=== PATIENT | male | born 1960 | race Caucasian/White ===

== ENCOUNTER → 2016-09-19 | Emergency (ER) | payer OTHER ==
[2016-09-19 20:17] VITALS: BMI 29.1
--- NOTE | 2016-09-19 20:55 | PDOC ---
History of Present Illness <Malcolm Li - Last Filed: 09/20/16 00:11> - General History Source: [facility] Records, Old Records, Other (Facility staff member ) Exam Limitations: Clinical Condition - History of Present Illness Initial Comments: 09/19/16 23:10 The patient is a 56 year old male, with a significant past medical history of cerebral palsy, Brad-Gastaut Syndrome s/p corpus callosotomy, pneumonia w/ aspirations and severe mental retardation, who presents to the emergency department via EMS from [facility] for evaluation for altered mental status. Staff at his facility noted today that the patient seemed to be altered from his baseline so they initiated EMS to bring him to the ED for further evaluation. The patient is nonverbal and therefore, no history can be provided from him. HPI is entirely provided by a jail staff member )who is at the bedside) and old records. Allergies: Divalproex Sodium, Paroxetine HCl, Valproic Acid. Past Surgical History: G Tube; Pacemaker; Corpus Callosotomy. PCP: Dr. Edgar Turner <Babs Quinones - Last Filed: 09/20/16 00:17> - General Chief Complaint: Lethargy Stated Complaint: Altered Mental Status Time Seen by Provider: 09/19/16 20:36 Past History - Past Medical History Anemia: No Asthma: No Cancer: No Cardiac Disorders: No CVA: No COPD: No CHF: No Dementia: No Diabetes: No GI Disorders: No Disorders: No HTN: No Hypercholesterolemia: No Liver Disease: No Seizures: Yes Thyroid Disease: No - Surgical History Abdominal Surgery: No Appendectomy: No Cardiac Surgery: Yes (pacemaker) Cholecystectomy: No Lung Surgery: No Orthopedic Surgery: No - Immunization History Td Vaccination: Yes TDAP Vaccination: Yes Immunization Up to Date: Yes - Psycho/Social/Smoking Cessation Hx Anxiety: No Suicidal Ideation: No Smoking Status: No Smoking History: Unknown if ever smoked Years of Tobacco Use: 0 Have you smoked in the past 12 months: No Number of Cigarettes Smoked Daily: 0 Cigars Per Day: 0 Information on smoking cessation initiated: No Hx Alcohol Use: No Drug/Substance Use Hx: No Substance Use Type: None Hx Substance Use Treatment: No <Malcolm Li - Last Filed: 09/20/16 00:11> <Babs Quinones - Last Filed: 09/20/16 00:17> - Past Medical History Allergies/Adverse Reactions: Allergies Allergy/AdvReac Type Severity Reaction Status Date / Time divalproex sodium Allergy Unknown Verified 09/19/16 20:12 [From Depakote] paroxetine HCl [From Paxil] Allergy Unknown Verified 09/19/16 20:12 valproic acid Allergy Verified 09/19/16 20:12 Home Medications: Ambulatory Orders Albuterol 2.5/Ipratropium 0.5 [Duoneb -] 1 amp NEB TID 09/15/15 Bimatoprost [Lumigan] 1 drop OU HS 09/15/15 Calcium Carbonate/Vitamin D3 [Calcium 600 + Vit D 400 Softgl] 1 each PEG TID 01/22 Clobazam [Onfi -] 10 mg PEG QID 09/15/15 Lacosamide [Vimpat] 200 mg PEG BID 09/15/15 Lactobac #2-S. Therm-Bifido #1 [Vsl#3 Packet] 1 each PEG BID 09/15/15 Levetiracetam [Keppra] 1,500 mg PEG Q12H 09/15/15 Lorazepam [Ativan] 2 mg IM PRN PRN 09/15/15 Phenobarbital 80 mg PEG AM 09/15/15 Phenobarbital 100 mg PEG HS 09/15/15 Potassium Chloride Oral Soln [KCl Oral Solution -] 20 meq PEG DAILY 09/15/15 Ranitidine HCl [Zantac] 150 mg PEG BID 09/15/15 Sertraline HCl [Zoloft] 150 mg PEG DAILY 09/15/15 Simethicone [Mytab Gas] 160 mg PEG TID 09/15/15 Zonisamide [Zonegran] 300 mg PEG BID 09/15/15 Carboxymethylcellulos/Glycerin [Refresh Optive Eye Drops] 2 drop OU QID Diazepam Rectal Gel [Diastat Rectal Gel -] 15 mg [place] PRN PRN 12/29/15 Olopatadine HCl [Pataday] 1 drop OU DAILY 12/29/15 Sennosides [Senna -] 2 tab PEG AM 12/29/15 Travoprost [Travatan Z] 2.5 ml OP DAILY 12/29/15 Review of Systems - Review of Systems Able to Perform ROS?: No Comments:: 09/19/16 21:14 Unable to perform ROS due to the patients baseline clinical condition. <Babs Quinones - Last Filed: 09/20/16 00:17> *Physical Exam - Vital Signs Last Vital Signs Temp Pulse Resp BP Pulse Ox 97.4 F L 73 18 118/77 100 09/19/16 20:12 09/19/16 20:12 09/19/16 20:12 09/19/16 20:12 09/19/16 20:12 - Physical Exam Comments: 09/20/16 00:09 EXAMINATION CONSTITUTIONAL: Lethargic, opens his eyes to verbal stimuli, nonverbal, doesn't follow commands;; in no apparent distress HEAD: Normocephalic; atraumatic EYES: PERRL; ENMT: External appears normal; mm-dry NECK: Supple; non-tender; CARD: Normal S1, S2; no murmurs, rubs, or gallops RESP: Normal chest excursion with respiration; breath sounds clear and equal bilaterally; no wheezes, rhonchi, or rales ABD: Soft, non-distended; non-tender; no palpable organomegaly, no palpable hernias; + feeding tube in the left upper quadrant; EXT: Upper and lower extremities held in Extension contractures; non-tender to palpation; distal pulses intact SKIN: Warm, dry, no petechia NEURO: Lethargic, opens his eyes to verbal stimuli, does not verbalize, does not follow commands, no spontaneous movements and noted. <Malcolm Li - Last Filed: 09/20/16 00:11> - Vital Signs Last Vital Signs Temp Pulse Resp BP Pulse Ox 97.4 F L 73 18 118/77 100 09/19/16 20:12 09/19/16 20:12 09/19/16 20:12 09/19/16 20:12 09/19/16 20:12 <Babs Quinones - Last Filed: 09/20/16 00:17> Heart Score/ECG Review #1 ECG reviewed & interpreted by me at: 20:25 (Vent Rate: 71 bpm. Normal sinus rhythm. 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 In the ER, patient appears at baseline according to the staff member accompanying the patient. Patient is afebrile and hemodynamically stable. CBC/ CMP within normal limit. There've been no tonic-clonic seizures in the ED. Will discharge. <Malcolm Li - Last Filed: 09/20/16 00:11> *DC/Admit/Observation/Transfer - Attestations Physician Attestion: 09/20/16 00:09 The documentation was prepared by the scribe under my direct supervision. I have reviewed the documentation which correctly represents the findings, medical decision-making and critical action taken by me. <Malcolm Li - Last Filed: 09/20/16 00:11> - Attestations Scribe Attestion: 09/19/16 20:56 Documentation prepared by Babs Quinones, acting as medical manager for Malcolm Li MD. <Babs Quinones - Last Filed: 09/20/16 00:17> Diagnosis at time of Disposition: Altered mental status Qualifiers: Altered mental status type: unspecified Qualified Code(s): R41.82 - Altered mental status, unspecified - Discharge Dispostion Disposition: HOME Condition at time of disposition: Stable - Referrals Referrals: Edgar Turner [Primary Care Provider] - - Patient Instructions Printed Discharge Instructions: DI for Altered Mental Status
[2016-09-19] MEDS: SODIUM CHLORIDE 500 ML IV STA (22:04)
[2016-09-19 22:10] LABS: BASOPHIL 0.1 % (0-2.0); EOSINOPHIL 1.5 % (0-4.5); MCH 34.6 pg (25.7-33.7); MCHC 34.2 g/dl (32.0-35.9); MEAN CELL VOLUME 100.9 fl (80-96); MEAN PLT VOLUME 7.7 fl (7.5-11.1); NEUTROPHILS 74.3 % (42.8-82.8); PLATELET COUNT 177 K/MM3 (134-434); RDW 13.1 % (11.9-15.9); WHITE BLOOD COUNT 7.4 K/mm3 (4.0-10.0)
[2016-09-19 22:54] LABS: ALBUMIN 3.7 g/dl (3.4-5.0); ANION GAP 7 (8-16); BILIRUBIN,TOTAL 0.2 mg/dL (0.2-1.0); CALCIUM 8.8 mg/dL (8.5-10.1); CO2 35 mmol/L (21-32); COCKROFT - GAULT 154.34; CREATININE 0.6 mg/dL (0.7-1.3); GLUCOSE,RANDOM 94 mg/dL (74-106); MAGNESIUM 2.3 mg/dL (1.8-2.4); SGPT/ALT 30 U/L (12-78); TOT PROT 8.6 g/dl (6.4-8.2)
[2016-09-19 22:58] LABS: ALK PHOS 121 U/L (45-117); SGOT/AST 25 U/L (15-37)
[2016-09-20 00:54] VITALS: BP 132/83; PULSE 68; TEMP 98
--- NOTE | 2016-09-20 09:24 | EKG ---
Test Reason : Blood Pressure : / mmHG Vent. Rate : 071 BPM Atrial Rate : 071 BPM P-R Int : 178 ms QRS Dur : 106 ms QT Int : 432 ms P-R-T Axes : 044 084 057 degrees QTc Int : 469 ms NORMAL SINUS RHYTHM INCOMPLETE RBBB Confirmed by FLORA RUSSELL MD ([id number]) on 09/20/2016 9:24:05 AM Referred By: Confirmed By:FLORA RUSSELL MD
== END | disposition home or self-care (01) ==
LOC: JER 19:59
PROC: 3E0337Z Introduction of Electrolytic and Water Balance Substance into Peripheral Vein, Percutaneous Approach (ICD-10-PCS; principal; 2016-09-19)
DX: R41.82 Altered mental status, unspecified (principal); G40.812 Lennox-Gastaut syndrome, not intractable, without status epilepticus; G80.9 Cerebral palsy, unspecified; F72 Severe intellectual disabilities; Z95.0 Presence of cardiac pacemaker
CPT/HCPCS: 36415; 80053; 83735; 85025; 93005; 93010; 99282-25

== ENCOUNTER 2018-11-28 14:40 | Inpatient (IN) | payer OTHER ==
--- NOTE | 2018-11-28 14:52 | PDOC ---
History of Present Illness - General Stated Complaint: HIP INJURY Time Seen by Provider: 11/28/18 14:46 - History of Present Illness Initial Comments: 11/28/18 14:49 58 yo M with h/o cerebral palsy, seizure disorder, Brad-Gastaut Syndrome s/p corpus callosotomy, bedbound, non verbal, non communicative at baseline, [facility]EMS from [facility] ([facility] with fever. Patient unable to communicate. Patient director community health nursing at bedside, reports verbal report from [facility] that patient had tenderness at right hip and oral temp 99.0. Patient otherwise in normal state of health. Home O2 2 L NC. Patient Aide at bedside denies cough, wheezing, orthopena, PND, leg swelling/ pain, N/V, F,C, SOB, hematuria, BPR, diarrhea, constipation. PMHx: as noted above ROS: as noted SHx: Denies Etoh, IVDA, tobacco use Allergies: Depakote, Paxil, Valproate Past History - Past Medical History Allergies/Adverse Reactions: Allergies Allergy/AdvReac Type Severity Reaction Status Date / Time divalproex sodium Allergy Unknown Verified 09/19/16 20:12 [From Depakote] paroxetine HCl [From Paxil] Allergy Unknown Verified 09/19/16 20:12 valproic acid Allergy Verified 09/19/16 20:12 Home Medications: Ambulatory Orders Albuterol 2.5/Ipratropium 0.5 [Duoneb -] 1 amp NEB TID 09/15/15 Bimatoprost [Lumigan] 1 drop OU HS 09/15/15 Calcium Carbonate/Vitamin D3 [Calcium 600 + Vit D 400 Softgl] 1 each PEG BID 01/22 Levetiracetam [Keppra] 1,500 mg PEG Q12H 09/15/15 Lorazepam [Ativan] 2 mg IM PRN PRN 09/15/15 Phenobarbital 100 mg PEG HS 09/15/15 Potassium Chloride Oral Soln [KCl Oral Solution -] 20 meq PEG DAILY 09/15/15 Ranitidine HCl [Zantac] 150 mg PEG BID 09/15/15 Sertraline HCl [Zoloft] 50 mg PEG DAILY 09/15/15 Simethicone [Mytab Gas] 160 mg PEG TID 09/15/15 Zonisamide [Zonegran] 300 mg PEG BID 09/15/15 Carboxymethylcellulos/Glycerin [Refresh Optive Eye Drops] 2 drop OU QID Diazepam Rectal Gel [Diastat Rectal Gel -] 20 mg [place] PRN PRN 12/29/15 Olopatadine HCl [Pataday] 1 drop OU DAILY 12/29/15 Sennosides [Senna -] 2 tab PEG HS 12/29/15 Travoprost [Travatan Z] 2.5 ml OU HS 12/29/15 Cannabidiol (Cbd) Extract [Epidiolex] 0 5ml GT DAILY 11/28/18 Cannabidiol (Cbd) Extract [Epidiolex] 4.5 ml GT BID 11/28/18 Citalopram Hydrobromide [Celexa -] 20 mg PO DAILY 11/28/18 Clobazam 10 mg PO QID 11/28/18 Clobazam [Onfi -] 10 mg GT TID 11/28/18 Levetiracetam [Spritam] 200 mg PO HS 11/28/18 Phenobarbital 20 mg GT AM 11/28/18 Anemia: No Asthma: No Cancer: No Cardiac Disorders: No CVA: No COPD: No CHF: No Dementia: No Diabetes: No GI Disorders: No Disorders: No HTN: No Hypercholesterolemia: No Liver Disease: No Seizures: Yes Thyroid Disease: No - Surgical History Abdominal Surgery: No Appendectomy: No Cardiac Surgery: Yes (pacemaker) Cholecystectomy: No Lung Surgery: No Orthopedic Surgery: No - Immunization History Td Vaccination: Yes TDAP Vaccination: Yes Immunization Up to Date: Yes - Suicide/Smoking/Psychosocial Hx Smoking Status: No Smoking History: Unknown if ever smoked Years of Tobacco Use: 0 Have you smoked in the past 12 months: No Number of Cigarettes Smoked Daily: 0 Cigars Per Day: 0 Hx Alcohol Use: No Drug/Substance Use Hx: No Substance Use Type: None Hx Substance Use Treatment: No Review of Systems - Review of Systems Comments:: 11/28/18 14:50 GENERAL/CONSTITUTIONAL: No fever or chills. No weakness. HEAD, EYES, EARS, NOSE AND THROAT: No change in vision. No ear pain or discharge. No sore throat. CARDIOVASCULAR: No chest pain or shortness of breath RESPIRATORY: No cough, wheezing, or hemoptysis. GASTROINTESTINAL: No nausea, vomiting, diarrhea or constipation. GENITOURINARY: No dysuria, frequency, or change in urination. MUSCULOSKELETAL: No joint or muscle swelling or pain. No neck or back pain. SKIN: No rash NEUROLOGIC: No headache, vertigo, loss of consciousness, or change in strength/ sensation. ENDOCRINE: No increased thirst. No abnormal weight change HEMATOLOGIC/LYMPHATIC: No anemia, easy bleeding, or history of blood clots. ALLERGIC/IMMUNOLOGIC: No hives or skin allergy. *Physical Exam - Physical Exam Comments: 11/28/18 14:50 GENERAL: Awake, alert, non verbal, non communicative, unable to follow commands , in no acute distress HEAD: No signs of trauma, normocephalic, atraumatic EYES: PERRLA, EOMI, sclera anicteric, conjunctiva clear ENT: Auricles normal inspection, hearing grossly normal, nares patent, oropharynx clear without exudates. Moist mucosa NECK: Normal ROM, supple, no lymphadenopathy, JVD, or masses LUNGS: Coarse lungs sounds diffusely. No distress, speaks full sentences. HEART: Regular rate and rhythm, normal S1 and S2, no murmurs, rubs or gallops, peripheral pulses normal and equal bilaterally. ABDOMEN: PEG tube Left midabdomen c/d/i. Soft, nontender, normoactive bowel sounds. No guarding, no rebound. No masses EXTREMITIES : Normal inspection, Normal range of motion, no edema. No clubbing or cyanosis. NEUROLOGICAL: Cranial nerves II through XII grossly intact. SKIN: Warm, Dry, normal turgor, no rashes or lesions noted ED Treatment Course - LABORATORY CBC & Chemistry Diagram: 11/28/18 17:04 11/28/18 16:13 Medical Decision Making - Medical Decision Making 11/28/18 15:14 58 yo M with h/o cerebral palsy, seizure disorder, [place]-Gastaut Syndrome s/p corpus callosotomy, bedbound, non verbal, non communicative at baseline, BIBEMS from [facility] ([facility]) with fever. Rectal temp 100.3, vitals otherwise wnl. Physical exam notable for coarse lung sounds BL. Possible PNA. Will assess for hypoglycemia, electrolyte abnml, metabolic and toxic derangements, acid-base disturbances, infection. 11/28/18 15:17 ED Course: 11/28/18 17:37 Laboratory Tests 11/28/18 11/28/18 11/28/18 16:13 16:13 16:45 WBC Hgb Hct Plt Count Sodium 131 L BUN 10.0 Creatinine 0.4 L Lactic Acid 0.3 L Troponin I < 0.02 11/28/18 17:04 WBC 8.7 Hgb 11.7 Hct 34.3 L D Plt Count 184 Sodium BUN Creatinine Lactic Acid Troponin I CXR with Left upper lobe infiltrate, not previously seen on prior CXR Vanc/Zosyn 11/28/18 18:45 Pt. endorsed to medicine admitted med/surg *DC/Admit/Observation/Transfer Diagnosis at time of Disposition: PNA (pneumonia) Qualifiers: Pneumonia type: aspiration pneumonia Aspiration pneumonia type: unspecified Laterality: left Lung location: upper lobe of lung Qualified Code(s): J69.0 - Pneumonitis due to inhalation of food and vomit - Discharge Dispostion Decision to Admit order: Yes - Referrals - Patient Instructions Additional Instructions: Please return to the emergency department with any new or worsening symptoms or concerns. Please follow up with your primary care physician within 72 hours. - Post Discharge Activity
[2018-11-28] MEDS ORDERED: ACETAMINOPHEN 1000 MG/100 ML VIAL (NON FORMULARY) IVPB ONE (16:35)
[2018-11-28] MEDS ORDERED: SODIUM CHLORIDE 0.9% 500 ML INFUS.BAG IV ONE (16:39)
--- NOTE | 2018-11-28 16:39 | PDOC ---
Documentation entered by Dorothea Antunez SCRIBE, acting as scribe for Shruthi Snyder MD. Shruthi Snyder MD: This documentation has been prepared by the Tulio chance Mackenzie, SCRIBE, under my direction and personally reviewed by me in its entirety. I confirm that the documentation accurately reflects all work , treatment, procedures, and medical decision making performed by me. Attending Attestation - Resident Resident Name: UcheJagdish - ED Attending Attestation I have performed the following: I have examined & evaluated the patient, The case was reviewed & discussed with the resident, I agree w/resident's findings & plan - HPI HPI: Patient is a 58 year old male with a significant past medical history of cerebral palsy, Brad-Gastaut Syndrome S/P corpus callosotomy, seizure disorder , pneumonia, and severe mental retardation BIBA from [facility] presenting to the ED with right hip pain/swelling and fever. Patient is nonverbal/noncommunicative at baseline and history was received from aid. Patients aid states patient has recently had swelling around his right hip which is sensitive to touch. 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 limitation in history due to cognitive and physical impairment, provided by [place] staff member Allergies: As per resident note. Past Medical History: As per resident note. Social history: None reported. Surgical history: As per resident note. Meds: as documented in EMR PMD: [facility] 11/28/18 15:26 11/28/18 18:44 - Physicial Exam PE: 11/28/18 16:35 Agree with the resident's HPI and PE as documented in the electronic medical record. NAD, nonverbal, sleeping, snoring, PERRL, dry membranes, poor dentition, nl conjunctiva, anicteric; neck supple. lungs with bilateral rhonchi, RRR, abdomen soft nontender. Back nontender. SOTOMAYOR x4. No peripheral edema. normal color for ethnicity, WWP. normal and equal/symmetric limb length, no deformity, ROM intact at pelvis, stable, no tenderness at hips, no discoloration. normal external genitalia. - Medical Decision Making 11/28/18 16:37 See HPI for details. Prior notes reviewed, including admissions, discharges and consultations. Vital signs reviewed, +fever noted 100.3, normotensive, no respiratory distress DDX pna, uti, pleural effusion, infection, anemia, electrolyte/metabolic derangements infectious workup pending, cultures. laboratory results and imaging reviewed, basic labs and lytes wnl, notable for normal VBG, acid/base status. LFTs wnl UA_neg for infection CXR_left sided opacity, infiltrate, scarring along fissure of right midd/upper lobe. low lung volumes, poor inspiratory effort Cardiac panel_trop neg, reassuring. EKG normal sinus rhythm, no interval abnormalities, narrow QRS, ST and T wave segments and morphology normal. Nonspecific T wave abnormalities ED course -interventions: tylenol, IVF hydration. 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 admit for asp pna, fever workup, medical management. endorsed to hospitalist service, Dr Ni 11/28/18 17:06 11/28/18 17:37 11/28/18 17:38 11/28/18 18:44 Heart Score/ECG Review #1 ECG reviewed & interpreted by me at: 16:45 General ECG Interpretation: Sinus Rhythm, Normal Rate, Normal Intervals Compared to previous ECG there are: No significant change
[2018-11-28] MEDS ORDERED: VANCOMYCIN 1 GM in D5W (PRE-DOCKED) 1,000 MG/250 ML IVPB ONE (16:45)
[2018-11-28] MEDS ORDERED: PIPERACILLIN/TAZOB 4.5 GM 4.5 GM in DEXTROSE 5%-WATER 100 ML IVPB ONE (16:45)
[2018-11-28] MEDS ORDERED: ACETAMINOPHEN INJECTION 100 ML IVPB ONE (16:46)
[2018-11-28 16:51] LABS: BASO % 0.2 % (0-2.0); EOS % 1.3 % (0-4.5); HEMATOCRIT 34.3 % (35.4-49); HEMOGLOBIN 11.7 GM/dL (11.7-16.9); LYMPH % 16.5 % (8-40); MCH 35.1 pg (25.7-33.7); MCHC 34.1 g/dl (32.0-35.9); MEAN CELL VOLUME 102.9 fl (80-96); MEAN PLT VOLUME 7.6 fl (7.5-11.1); MONO % 13.4 % (3.8-10.2); NEUT % 68.6 % (42.8-82.8); PLATELET COUNT 184 K/MM3 (134-434); RBC 3.33 M/mm3 (4.00-5.60); RDW 13.2 % (11.9-15.9); WHITE BLOOD COUNT 8.7 K/mm3 (4.0-10.0)
[2018-11-28 16:52] LABS: VENOUS PC02 42.7 mmHg (41-51); VENOUS PH 7.44 (7.31-7.41)
[2018-11-28 17:07] LABS: URINE APPEARANCE TURBID; URINE BILIRUBIN NEGATIVE (NEGATIVE); URINE COLOR YELLOW; URINE GLUCOSE (UA) NEGATIVE (NEGATIVE); URINE KETONE NEGATIVE (NEGATIVE); URINE LEUK ESTERASE NEGATIVE (NEGATIVE); URINE NITRITE NEGATIVE (NEGATIVE); URINE PROTEIN NEGATIVE (NEGATIVE); URINE UROBILINOGEN 0.2 mg/dL (0.2-1.0)
[2018-11-28 17:11] LABS: INR 1.11 (0.83-1.09); PROTHROMBIN TIME (PATIENT) 13.1 SEC (9.7-13.0)
[2018-11-28 17:13] LABS: ACTIVATED PTT 34.7 SECONDS (25.2-36.5)
[2018-11-28 17:26] LABS: ALBUMIN 2.8 g/dl (3.4-5.0); BILIRUBIN,TOTAL 0.4 mg/dL (0.2-1); CALCIUM 8.5 mg/dL (8.5-10.1); CREATININE 0.4 mg/dL (0.55-1.3); POTASSIUM 3.5 mmol/L (3.5-5.1); TOT PROT 6.9 g/dl (6.4-8.2)
[2018-11-28] MEDS ORDERED: ACETAMINOPHEN 325 MG TABLET (FP) PO PRN (18:40)
[2018-11-28] MEDS ORDERED: LORazepam 2 MG/ML SDV VIAL IVPUSH PRN (19:07)
--- NOTE | 2018-11-28 19:17 | PN ---
Teaching Attending Note Name of Resident: Kayce Macdonald ATTENDING PHYSICIAN STATEMENT I saw and evaluated the patient. I reviewed the resident's note and discussed the case with the resident. I agree with the resident's findings and plan as documented. SUBJECTIVE: This is a 58 year old man resident of [facility] with a history of cerebral palsy, developmental delay, seizures, Brad-Gastaut syndrome, corpus callosotomy, chronic hypoxic respiratory failure, glaucoma, G- tube who comes to the ED because of fever, change in mental status, and hip pain. The patient is unable to provide a history. OBJECTIVE: Vital Signs Period Temp Pulse Resp BP Sys/Guzmán Pulse Ox Last 24 Hr 98.5 F-100.3 F 75-75 20-20 101-107/59-64 98-100 HEART: S1S2, RRR LUNGS: Clear, BS diminished, poor effort ABDOMEN: Soft, non-distended, normal BS, PEG in place EXTREMITIES: No edema Laboratory Tests 11/28/18 11/28/18 11/28/18 16:13 16:13 16:13 WBC RBC Hgb Hct MCV MCH MCHC RDW Plt Count MPV Absolute Neuts (auto) Neutrophils % Lymphocytes % Monocytes % Eosinophils % Basophils % Nucleated RBC % PT with INR 13.10 H INR 1.11 H PTT (Actin FS) 34.7 VBG pH 7.44 H POC VBG pCO2 42.7 POC VBG pO2 182 H VBG HCO3 28.8 VBG O2 Sat (Rio) 99.8 H VBG Base Excess 4.6 H Sodium 131 L Potassium 3.5 Chloride 93 L Carbon Dioxide 30 Anion Gap 8 BUN 10.0 Creatinine 0.4 L Est GFR (CKD-EPI)AfAm 151.74 Est GFR (CKD-EPI)NonAf 130.93 Random Glucose 97 Lactic Acid Calcium 8.5 Total Bilirubin 0.4 AST 42 H ALT 47 Alkaline Phosphatase 133 H Troponin I Total Protein 6.9 Albumin 2.8 L Urine Color Urine Appearance Urine pH Ur Specific Mineral Urine Protein Urine Glucose (UA) Urine Ketones Urine Blood Urine Nitrite Urine Bilirubin Urine Urobilinogen Ur Leukocyte Esterase 11/28/18 11/28/18 11/28/18 16:13 16:45 17:00 WBC RBC Hgb Hct MCV MCH MCHC RDW Plt Count MPV Absolute Neuts (auto) Neutrophils % Lymphocytes % Monocytes % Eosinophils % Basophils % Nucleated RBC % PT with INR INR PTT (Actin FS) VBG pH POC VBG pCO2 POC VBG pO2 VBG HCO3 VBG O2 Sat (Rio) VBG Base Excess Sodium Potassium Chloride Carbon Dioxide Anion Gap BUN Creatinine Est GFR (CKD-EPI)AfAm Est GFR (CKD-EPI)NonAf Random Glucose Lactic Acid 0.3 L Calcium Total Bilirubin AST ALT Alkaline Phosphatase Troponin I < 0.02 Total Protein Albumin Urine Color Yellow Urine Appearance Turbid Urine pH 8.0 D Ur Specific Mineral 1.014 Urine Protein Negative Urine Glucose (UA) Negative Urine Ketones Negative Urine Blood Negative Urine Nitrite Negative Urine Bilirubin Negative Urine Urobilinogen 0.2 Ur Leukocyte Esterase Negative 11/28/18 17:04 WBC 8.7 RBC 3.33 L Hgb 11.7 Hct 34.3 L D MCV 102.9 H MCH 35.1 H MCHC 34.1 RDW 13.2 Plt Count 184 MPV 7.6 Absolute Neuts (auto) 6.0 Neutrophils % 68.6 Lymphocytes % 16.5 Monocytes % 13.4 H D Eosinophils % 1.3 Basophils % 0.2 Nucleated RBC % 0 PT with INR INR PTT (Actin FS) VBG pH POC VBG pCO2 POC VBG pO2 VBG HCO3 VBG O2 Sat (Rio) VBG Base Excess Sodium Potassium Chloride Carbon Dioxide Anion Gap BUN Creatinine Est GFR (CKD-EPI)AfAm Est GFR (CKD-EPI)NonAf Random Glucose Lactic Acid Calcium Total Bilirubin AST ALT Alkaline Phosphatase Troponin I Total Protein Albumin Urine Color Urine Appearance Urine pH Ur Specific Mineral Urine Protein Urine Glucose (UA) Urine Ketones Urine Blood Urine Nitrite Urine Bilirubin Urine Urobilinogen Ur Leukocyte Esterase Home Medications Medication Instructions Recorded Albuterol 2.5/Ipratropium 0.5 1 amp NEB TID 09/15/15 [Duoneb -] Bimatoprost [Lumigan] 1 drop OU HS 09/15/15 Calcium Carbonate/Vitamin D3 1 each PEG BID 09/15/15 [Calcium 600 + Vit D 400 Softgl] Levetiracetam [Keppra] 1,500 mg PEG Q12H 09/15/15 Lorazepam [Ativan] 2 mg IM PRN PRN 09/15/15 Phenobarbital 100 mg PEG HS 09/15/15 Potassium Chloride Oral Soln [KCl 20 meq PEG DAILY 09/15/15 Oral Solution -] Ranitidine HCl [Zantac] 150 mg PEG BID 09/15/15 Sertraline HCl [Zoloft] 150 mg PEG DAILY 09/15/15 Simethicone [Mytab Gas] 160 mg PEG TID 09/15/15 Zonisamide [Zonegran] 300 mg PEG BID 09/15/15 Carboxymethylcellulos/Glycerin 2 drop OU QID 12/29/15 [Refresh Optive Eye Drops] Diazepam Rectal Gel [Diastat 20 mg [place] PRN PRN 12/29/15 Rectal Gel -] Olopatadine HCl [Pataday] 1 drop OU DAILY 12/29/15 Sennosides [Senna -] 2 tab PEG HS 12/29/15 Travoprost [Travatan Z] 2.5 ml OU HS 12/29/15 Cannabidiol (Cbd) Extract 4.5 ml GT BID 11/28/18 [Epidiolex] Clobazam 10 mg PO QID 11/28/18 Clobazam [Onfi -] 10 mg GT QID 11/28/18 Phenobarbital 20 mg GT AM 11/28/18 ASSESSMENT AND PLAN: This is a 58 year old man with a history of cerebral palsy, developmental delay , seizures, Brad-Gastaut syndrome, corpus callosotomy, chronic hypoxic respiratory failure, glaucoma, G-tube who presented to the ED from [facility] because of fever, change in mental status, and hip pain 1. Aspiration pneumonia - Zosyn, Vancomycin given in ED - Continue Zosyn - Continue DuoNeb - Hold G-tube feedings 2. Hyponatremia - Possibly secondary to Keppra, Zoloft, SIADH from pneumonia - Monitor electrolytes 3. Chronic hypoxic respiratory failure - Oxygen to maintain saturation >90% 4. Seizures secondary to [place]-Gastaut syndrome - History of corpus callosotomy - Continue Onfi, Phenobarbital, Keppra, Zonegran 5. Cerebral palsy 6. Developmental delay 7. Glaucoma - Continue Sudarshan Romero
--- NOTE | 2018-11-28 19:43 | HP ---
CHIEF COMPLAINT: fever PCP: Dr. 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 Patient is nonverbal at baseline. History per aid at bedside. patient was found to have a "high fever" at [facility] and has a question of altered mental status. While in the ED patient had a temperature of 100.3 and no leukocytosis. Patient was given Vanc and Zosyn. Aid also reported patient had some hip pain. Patient groans when moved or touched everywhere. 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, cerebral pasly, g tube, and home O2 at 2L PAST SURGICAL HISTORY: Social History: Smoking: Alcohol: Drugs: Family History: Allergies divalproex sodium [From Depakote] Allergy (Unknown, Verified 09/19/16 20:12) paroxetine HCl [From Paxil] Allergy (Unknown, Verified 09/19/16 20:12) valproic acid Allergy (Verified 09/19/16 20:12) HOME MEDICATIONS: Home Medications Medication Instructions Recorded Albuterol 2.5/Ipratropium 0.5 1 amp NEB TID 09/15/15 [Duoneb -] Bimatoprost [Lumigan] 1 drop OU HS 09/15/15 Calcium Carbonate/Vitamin D3 1 each PEG BID 09/15/15 [Calcium 600 + Vit D 400 Softgl] Levetiracetam [Keppra] 1,500 mg PEG Q12H 09/15/15 Lorazepam [Ativan] 2 mg IM PRN PRN 09/15/15 Phenobarbital 100 mg PEG HS 09/15/15 Potassium Chloride Oral Soln [KCl 20 meq PEG DAILY 09/15/15 Oral Solution -] Ranitidine HCl [Zantac] 150 mg PEG BID 09/15/15 Sertraline HCl [Zoloft] 150 mg PEG DAILY 09/15/15 Simethicone [Mytab Gas] 160 mg PEG TID 09/15/15 Zonisamide [Zonegran] 300 mg PEG BID 09/15/15 Carboxymethylcellulos/Glycerin 2 drop OU QID 12/29/15 [Refresh Optive Eye Drops] Diazepam Rectal Gel [Diastat 20 mg [place] PRN PRN 12/29/15 Rectal Gel -] Olopatadine HCl [Pataday] 1 drop OU DAILY 12/29/15 Sennosides [Senna -] 2 tab PEG HS 12/29/15 Travoprost [Travatan Z] 2.5 ml OU HS 12/29/15 Cannabidiol (Cbd) Extract 4.5 ml GT BID 11/28/18 [Epidiolex] Clobazam 10 mg PO QID 11/28/18 Clobazam [Onfi -] 10 mg GT QID 11/28/18 Phenobarbital 20 mg GT AM 11/28/18 REVIEW OF SYSTEMS unable to evaluate PHYSICAL EXAMINATION Vital Signs Temperature 98.5 F 11/28/18 18:15 Pulse Rate 75 11/28/18 18:15 Respiratory Rate 20 11/28/18 18:15 Blood Pressure 107/64 11/28/18 18:15 O2 Sat by Pulse Oximetry (%) 100 11/28/18 18:15 GENERAL: Awake, alert, HEAD: Normal with no signs of trauma. EYES: Pupils equal, slight discharge at corners of eyes EARS, NOSE, THROAT: Moist mucous membranes. NECK: Normal range of motion, supple without lymphadenopathy, JVD, or masses. LUNGS: Breath sounds dimished, no crackles or wheezing HEART: Regular rate and rhythm, normal S1 and S2 without murmur, rub or gallop. ABDOMEN: Soft, nontender, not distended, normoactive bowel sounds, no guarding, no rebound, no masses. No hepatomegaly or splenomegaly. MUSCULOSKELETAL: Normal range of motion at all joints. No bony deformities or tenderness. No CVA tenderness. UPPER EXTREMITIES: 2+ pulses, warm, well-perfused. No cyanosis. No clubbing. No peripheral edema. LOWER EXTREMITIES: 2+ pulses, warm, well-perfused. No calf tenderness. No peripheral edema. NEUROLOGICAL: Cranial nerves II-XII intact. Normal speech. Normal gait. PSYCHIATRIC: Cooperative. Good eye contact. Appropriate mood and affect. SKIN: Warm, dry, normal turgor, no rashes or lesions noted, normal capillary refill. CBC, BMP 11/28/18 17:11/28/18 16:13 ASSESSMENT/PLAN: Patient is a 58 y/o male with a history of mental retardation, seizures, Brad- Gastaut Syndrome s/p corpus callosotomy, cerebral palsy, g tube, and home O2 at 2L who is admitted for pneumonia #Pneumonia - likely 2/2 to aspiration - will continue Zosyn 4.5 q6 - afebrile, no leukocytes - continue NC at 2L, maintain oxygen above 90% - albuterol treatment TID #seizure and [place]-Gastaut - continue keppra, clobazam, diazepam, phenobarbital - ativan as needed for seizures - CBD oil on hold, hospital does not provide #Gtube - keep area clean and dry #glaucoma - continue eye drops #DVT ppx - continue Lovenox FEN - NPO except meds through Gtube - continue potassium chloride - hyponatremia possibly from keppra, other antiepileptics, continue to follow Dispo: continue to monitor on medsurg Visit type - Emergency Visit Emergency Visit: No - New Patient This patient is new to me today: No - Critical Care Critical Care patient: No
[2018-11-28] MEDS ORDERED: LATANOPROST 0.005% OPHTH SOLN 2.5ML BOTTLE OU SCH (22:00)
[2018-11-28] MEDS ORDERED: levETIRAcetam 500 MG TABLET (FP) PO SCH (22:00)
[2018-11-28] MEDS ORDERED: ZONISAMIDE 100 MG CAPSULE PEG SCH (22:00)
[2018-11-28] MEDS: LATANOPROST 0.005% OPHTH SOLN 2.5ML BOTTLE OU SCH (22:00)
[2018-11-28] MEDS ORDERED: PATIENT'S OWN MEDICATION (NON-FORMULARY) (Bimatoprost [Lumigan] 1 DROP) OU SCH (22:00)
[2018-11-28] MEDS ORDERED: SENNOSIDES 8.6MG TABLET (FP) PO SCH (22:00)
[2018-11-28] MEDS: ARTIFICIAL TEARS (POLYVINYL ALCOHOL) OPTH DROPS OU SCH (22:20)
[2018-11-28] MEDS: ALBUTEROL SO4 2.5/IPRATROPIUM 0.5 INH SOL 3 ML VIAL.NEB. NEB SCH (22:47)
[2018-11-29] MEDS ORDERED: PIPERACILLIN/TAZOB 4.5 GM 4.5 GM in DEXTROSE 5%-WATER 100 ML IVPB SCH
[2018-11-29] MEDS: levETIRAcetam 500 MG/5 ML ORAL SOLUTION (UNIT-DOSE CUPS) PEG SCH ×3 (01:00→23:35)
[2018-11-29] MEDS: cloBAZam 10 MG TABLET GT SCH ×4 (01:00→23:39)
[2018-11-29] MEDS: ZONISAMIDE 100 MG/10 ML ORAL SUSPENSION PEG SCH ×3 (01:00→23:56)
[2018-11-29] MEDS: RANITIDINE HCL 150 MG/10 ML UNIT-DOSE PEG SCH ×3 (01:00→23:35)
[2018-11-29] MEDS: PHENobarbital 20 MG/5 ML UNIT-DOSE CUP PEG SCH ×2 (01:00→23:57)
[2018-11-29] MEDS: CALCIUM 500MG/VIT-D 200 UNITS COMBO TABLET (FP) PEG SCH ×3 (01:00→23:39)
[2018-11-29] MEDS: SENNOSIDES 8.8 MG/5 ML BULK BOTTLE GT SCH ×2 (01:00→23:43)
[2018-11-29] MEDS: SIMETHICONE 40 MG/0.6 ML BOTTLE GT SCH ×4 (01:00→23:38)
[2018-11-29] MEDS ORDERED: VANCOMYCIN 1 GRAM (PRE-DOCKED) 1,000 MG/250 ML BAG IVPB ONE (01:17)
[2018-11-29] MEDS ORDERED: PIPERACILLIN/TAZOB 4.5 GM 4.5 GM/100 ML BAG IVPB ONE ×3 (01:20→15:23)
[2018-11-29] MEDS: PIPERACILLIN/TAZOB 4.5 GM 4.5 GM in DEXTROSE 5%-WATER 100 ML IVPB SCH ×4 (05:41→23:32)
[2018-11-29] MEDS: PHENobarbital 20 MG/5 ML UNIT-DOSE CUP GT SCH (07:03)
[2018-11-29 09:03] LABS: BASO % 0.3 % (0-2.0); EOS % 1.9 % (0-4.5); HEMATOCRIT 33.8 % (35.4-49); HEMOGLOBIN 11.7 GM/dL (11.7-16.9); LYMPH % 22.2 % (8-40); MCH 35.3 pg (25.7-33.7); MCHC 34.5 g/dl (32.0-35.9); MEAN CELL VOLUME 102.3 fl (80-96); MEAN PLT VOLUME 7.5 fl (7.5-11.1); NEUT % 61.6 % (42.8-82.8); PLATELET COUNT 202 K/MM3 (134-434); RBC 3.31 M/mm3 (4.00-5.60); RDW 13.1 % (11.9-15.9); WHITE BLOOD COUNT 7.7 K/mm3 (4.0-10.0)
[2018-11-29 09:29] LABS: INR 1.13 (0.83-1.09); PROTHROMBIN TIME (PATIENT) 13.3 SEC (9.7-13.0)
[2018-11-29 09:33] LABS: ALBUMIN 2.8 g/dl (3.4-5.0); BILIRUBIN,TOTAL 0.5 mg/dL (0.2-1); BLOOD UREA NITROGEN 7.9 mg/dL (7-18); CALCIUM 8.7 mg/dL (8.5-10.1); CREATININE 0.5 mg/dL (0.55-1.3); MAGNESIUM 2.4 mg/dL (1.8-2.4); POTASSIUM 3.6 mmol/L (3.5-5.1); TOT PROT 7.3 g/dl (6.4-8.2)
[2018-11-29] MEDS ORDERED: ALBUTEROL SO4 2.5/IPRATROPIUM 0.5 INH SOL 3 ML VIAL.NEB. NEB ONE (09:33)
[2018-11-29] MEDS: ALBUTEROL SO4 2.5/IPRATROPIUM 0.5 INH SOL 3 ML VIAL.NEB. NEB SCH ×3 (09:36→20:20)
[2018-11-29] MEDS ORDERED: PATIENT'S OWN MEDICATION (NON-FORMULARY) (Olopatadine Hcl [Pataday] 1 DROP) OU SCH (10:00)
[2018-11-29] MEDS: ARTIFICIAL TEARS (POLYVINYL ALCOHOL) OPTH DROPS OU SCH ×4 (10:59→23:32)
[2018-11-29] MEDS: SERTRALINE HCL 50 MG TABLET (FP) PEG SCH (10:59)
[2018-11-29] MEDS: POTASSIUM CHLORIDE ORAL LIQUID 20 MEQ/15 ML PEG SCH (10:59)
[2018-11-29] MEDS: ENOXAPARIN NA (PORCINE) 40 MG/0.4 ML DISP.SYRIN SQ SCH (12:01)
--- NOTE | 2018-11-29 13:11 | EKG ---
Test Reason : Blood Pressure : / mmHG Vent. Rate : 077 BPM Atrial Rate : 077 BPM P-R Int : 166 ms QRS Dur : 092 ms QT Int : 412 ms P-R-T Axes : 033 057 030 degrees QTc Int : 466 ms POOR DATA QUALITY, INTERPRETATION MAY BE ADVERSELY AFFECTED NORMAL SINUS RHYTHM POSSIBLE LEFT ATRIAL ENLARGEMENT WHEN COMPARED WITH ECG OF 19-SEP-2016 20:25, NO SIGNIFICANT CHANGE WAS FOUND Confirmed by FLORA RUSSELL MD ([id number]) on 11/29/2018 1:11:14 PM Referred By: Confirmed By:FLORA RUSSELL MD
[2018-11-29] MEDS ORDERED: cloBAZam 10 MG TABLET ONE ×2 (14:55→14:59)
[2018-11-29 16:31] VITALS: BMI 26.7
--- NOTE | 2018-11-29 17:33 | PN ---
Progress Note, Physician Chief Complaint: ams History of Present Illness: no acute events overnight - Current Medication List Current Medications: Active Medications Acetaminophen (Tylenol -) 650 mg PO Q4H PRN PRN Reason: FEVER Albuterol/Ipratropium (Duoneb -) 1 amp NEB RTID [facility] Last Admin: 11/29/18 14:56 Dose: 1 amp Artificial Tears (Artificial Tears) 2 drop OU QID [facility] Last Admin: 11/29/18 14:56 Dose: 2 drop Calcium Carbonate/Cholecalciferol (Os-Dylon 500+D -) 1 tab PEG BID [facility] Last Admin: 11/29/18 12:01 Dose: 1 tab Clobazam (Onfi -) 10 mg GT QID [facility] Last Admin: 11/29/18 14:57 Dose: 10 mg Enoxaparin Sodium (Lovenox -) 40 mg SQ DAILY [facility] Last Admin: 11/29/18 12:01 Dose: 40 mg Piperacillin Sod/Tazobactam (Sod 4.5 gm/ Dextrose) 100 mls @ 200 mls/hr IVPB Q6H [facility]; Protocol Piperacillin Sod/Tazobactam (Sod 4.5 gm/ Dextrose) 100 mls @ 200 mls/hr IVPB Q6H-IV [facility]; Protocol Stop: 11/30/18 00:00 Last Admin: 11/29/18 15:00 Dose: 200 mls/hr Latanoprost (Xalatan 0.005% Eye Drops -) 1 drop OU HS [facility] Last Admin: 11/28/18 22:00 Dose: 1 drop Levetiracetam (Keppra Oral Solution -) 1,500 mg PEG BID [facility] Last Admin: 11/29/18 10:59 Dose: 1,500 mg Lorazepam (Ativan Injection -) 2 mg IVPUSH Q8H PRN PRN Reason: seizures Non-Formulary Medication (Olopatadine Hcl [Pataday]) 1 drop OU DAILY [facility] Phenobarbital (Phenobarbital Liquid -) 40 mg GT AM [facility] Last Admin: 11/29/18 07:03 Dose: 40 mg Phenobarbital (Phenobarbital Liquid -) 100 mg PEG HS [facility] Last Admin: 11/29/18 01:00 Dose: 100 mg Potassium Chloride (Potassium Chloride Oral Liquid) 20 meq PEG DAILY [facility] Last Admin: 11/29/18 10:59 Dose: 20 meq Ranitidine HCl (Zantac Oral Solution -) 150 mg PEG BID [facility] Last Admin: 11/29/18 10:59 Dose: 150 mg Senna (Senna Oral Solution -) 17.6 mg GT HS [facility] Last Admin: 11/29/18 01:00 Dose: 17.6 mg Sertraline HCl (Zoloft -) 150 mg PEG DAILY [facility] Last Admin: 11/29/18 10:59 Dose: 150 mg Simethicone (Mylicon Liquid -) 160 mg GT TID [facility] Last Admin: 11/29/18 14:56 Dose: 160 mg Zonisamide (Zonisamide) 300 mg PEG BID [facility] Last Admin: 11/29/18 10:59 Dose: 300 mg - Objective Vital Signs: Vital Signs Temperature 98.5 F 11/29/18 16:26 Pulse Rate 80 11/29/18 16:26 Respiratory Rate 18 11/29/18 16:26 Blood Pressure 115/69 11/29/18 16:26 O2 Sat by Pulse Oximetry (%) 100 11/29/18 16:37 Constitutional: Yes: Other (lethargic, sleeping mouth open) Cardiovascular: Yes: WNL, Regular Rate and Rhythm Respiratory: Yes: Diminished (at bases) Gastrointestinal: Yes: WNL, Normal Bowel Sounds, Soft (+gtube) Extremities: Yes: Other (contracted) Edema: No Labs: CBC, BMP 11/29/18 08:50 11/29/18 08:50 INR, PTT INR 1.13 (0.83-1.09) H 11/29/18 08:50 Problem List - Problems (1) Pneumonia Code(s): J18.9 - PNEUMONIA, UNSPECIFIED ORGANISM Qualifiers: Pneumonia type: aspiration pneumonia Aspiration pneumonia type: unspecified Laterality: left Lung location: upper lobe of lung Qualified Code(s): J69.0 - Pneumonitis due to inhalation of food and vomit (2) Abdominal distension Code(s): R14.0 - ABDOMINAL DISTENSION (GASEOUS) (3) Acute and chronic respiratory failure ([id number]) Code(s): J96.20 - ACUTE AND CHR RESP FAILURE, UNSP W HYPOXIA OR HYPERCAPNIA (4) Altered mental status Code(s): R41.82 - ALTERED MENTAL STATUS, UNSPECIFIED Qualifiers: Altered mental status type: unspecified Qualified Code(s): R41.82 - Altered mental status, unspecified (5) Seizure disorder Code(s): G40.909 - EPILEPSY, UNSP, NOT INTRACTABLE, WITHOUT STATUS EPILEPTICUS Assessment/Plan 58 year old man with a history of cerebral palsy, developmental delay, seizures , Brad-Gastaut syndrome, corpus callosotomy, chronic hypoxic respiratory failure, glaucoma, G-tube who presented to the ED from [facility] because of fever, AMS, and hip pain Assessment: Toxic metabolic encephalopathy secondary to aspiration pneumonia Chronic hypoxic respiratory failure Seizures secondary to [place]-Gastaut syndrome Cerebral palsy/Developmental delay Glaucoma Plan: -c/w IV [id number]-zosyn pending ID approval, consult placed -inhaled nebs -continue with current regimen -as per aide, this is his baseline, he is nonverbal, sleeps for majority of day -blood cx neg to date, follow -urine cx pending
[2018-11-29] MEDS ORDERED: DEXTROSE 5%-WATER 100 ML IVPB ONE (21:20)
[2018-11-29] MEDS ORDERED: PIPERACILLIN/TAZOBACTAM 4.5 GM VIAL IVPB ONE (21:20)
[2018-11-29] MEDS: LATANOPROST 0.005% OPHTH SOLN 2.5ML BOTTLE OU SCH (23:36)
[2018-11-30] MEDS ORDERED: PT OWN MED DRAWER 7, Y5N ONE ×4 (05:52→14:21)
[2018-11-30] MEDS: SIMETHICONE 40 MG/0.6 ML BOTTLE GT SCH ×3 (06:27→23:38)
[2018-11-30] MEDS: PHENobarbital 20 MG/5 ML UNIT-DOSE CUP GT SCH (06:27)
[2018-11-30] MEDS ORDERED: PIPERACILLIN/TAZOB 4.5 GM 4.5 GM in DEXTROSE 5%-WATER 100 ML IVPB SCH (09:00)
[2018-11-30 10:34] LABS: BASO % 0.1 % (0-2.0); EOS % 3.4 % (0-4.5); HEMATOCRIT 33.2 % (35.4-49); HEMOGLOBIN 11.3 GM/dL (11.7-16.9); LYMPH % 27.9 % (8-40); MCH 34.7 pg (25.7-33.7); MCHC 33.9 g/dl (32.0-35.9); MEAN CELL VOLUME 102.4 fl (80-96); MEAN PLT VOLUME 7.7 fl (7.5-11.1); MONO % 14.5 % (3.8-10.2); NEUT % 54.1 % (42.8-82.8); PLATELET COUNT 221 K/MM3 (134-434); RBC 3.24 M/mm3 (4.00-5.60); RDW 12.9 % (11.9-15.9); WHITE BLOOD COUNT 6.6 K/mm3 (4.0-10.0)
[2018-11-30 11:05] LABS: BLOOD UREA NITROGEN 7.2 mg/dL (7-18); CALCIUM 8.5 mg/dL (8.5-10.1); CREATININE 0.5 mg/dL (0.55-1.3); POTASSIUM 3.4 mmol/L (3.5-5.1)
[2018-11-30] MEDS: ARTIFICIAL TEARS (POLYVINYL ALCOHOL) OPTH DROPS OU SCH ×4 (11:12→23:35)
[2018-11-30] MEDS: cloBAZam 10 MG TABLET GT SCH ×4 (11:12→23:36)
[2018-11-30] MEDS: CALCIUM 500MG/VIT-D 200 UNITS COMBO TABLET (FP) PEG SCH ×2 (11:13→23:36)
[2018-11-30] MEDS: levETIRAcetam 500 MG/5 ML ORAL SOLUTION (UNIT-DOSE CUPS) PEG SCH ×2 (11:13→23:37)
[2018-11-30] MEDS: SERTRALINE HCL 50 MG TABLET (FP) PEG SCH (11:15)
[2018-11-30] MEDS: RANITIDINE HCL 150 MG/10 ML UNIT-DOSE PEG SCH ×2 (11:15→23:37)
[2018-11-30] MEDS: ZONISAMIDE 100 MG/10 ML ORAL SUSPENSION PEG SCH ×2 (11:16→23:41)
[2018-11-30] MEDS: ENOXAPARIN NA (PORCINE) 40 MG/0.4 ML DISP.SYRIN SQ SCH (11:17)
[2018-11-30] MEDS ORDERED: DEXTROSE 5%-WATER 100 ML IVPB ONE (11:34)
[2018-11-30] MEDS ORDERED: PIPERACILLIN/TAZOBACTAM 4.5 GM VIAL IVPB ONE (11:34)
[2018-11-30] MEDS: POTASSIUM CHLORIDE ORAL LIQUID 20 MEQ/15 ML PEG SCH (11:37)
--- NOTE | 2018-11-30 12:20 | PN ---
Physical Exam: SUBJECTIVE: Patient seen and examined at bedside. No acute events overnight. Per [employer]ICATING [employer] HELPER, pt slept well last night, no signs of pain. +BM x1, but no urine overnight. Pt seen comfortable in bed, nonverbal, no signs of acute pain upon exam. Per nurse, no acute events overnight. OBJECTIVE: Vital Signs Temperature 97.8 F 11/30/18 06:00 Pulse Rate 64 11/30/18 06:00 Respiratory Rate 20 11/30/18 06:00 Blood Pressure 118/68 11/30/18 06:00 O2 Sat by Pulse Oximetry (%) 100 11/29/18 21:00 GENERAL: Awake, alert, HEAD: Normal with no signs of trauma. EYES: Pupils equal, slight discharge at corners of eyes EARS, NOSE, THROAT: Moist mucous membranes. NECK: Normal range of motion, supple without lymphadenopathy, JVD, or masses. LUNGS: Breath sounds dimished, no crackles or wheezing HEART: Regular rate and rhythm, normal S1 and S2 without murmur, rub or gallop. ABDOMEN: Soft, nontender, not distended, normoactive bowel sounds, no guarding, no rebound, no masses. No hepatomegaly or splenomegaly. MUSCULOSKELETAL: Normal range of motion at all joints. No bony deformities or tenderness. No CVA tenderness. UPPER EXTREMITIES: 2+ pulses, warm, well-perfused. No cyanosis. No clubbing. No peripheral edema. LOWER EXTREMITIES: 2+ pulses, warm, well-perfused. No calf tenderness. No peripheral edema. NEUROLOGICAL: Cranial nerves II-XII intact. Normal speech. Normal gait. PSYCHIATRIC: Cooperative. Good eye contact. Appropriate mood and affect. SKIN: Warm, dry, normal turgor, no rashes or lesions noted, normal capillary refill. CBCD WBC 6.6 K/mm3 (4.0-10.0) 11/30/18 09:30 RBC 3.24 M/mm3 (4.00-5.60) L 11/30/18 09:30 Hgb 11.3 GM/dL (11.7-16.9) L 11/30/18 09:30 Hct 33.2 % (35.4-49) L 11/30/18 09:30 MCV 102.4 fl (80-96) H 11/30/18 09:30 MCHC 33.9 g/dl (32.0-35.9) 11/30/18 09:30 RDW 12.9 % (11.9-15.9) 11/30/18 09:30 Plt Count 221 K/MM3 (134-434) 11/30/18 09:30 MPV 7.7 fl (7.5-11.1) 11/30/18 09:30 CMP Sodium 138 mmol/L (136-145) 11/30/18 09:30 Potassium 3.4 mmol/L (3.5-5.1) L 11/30/18 09:30 Chloride 100 mmol/L (98-107) 11/30/18 09:30 Carbon Dioxide 33 mmol/L (21-32) H 11/30/18 09:30 Anion Gap 5 MMOL/L (8-16) L 11/30/18 09:30 BUN 7.2 mg/dL (7-18) 11/30/18 09:30 Creatinine 0.5 mg/dL (0.55-1.3) L 11/30/18 09:30 Calcium 8.5 mg/dL (8.5-10.1) 11/30/18 09:30 Total Bilirubin 0.5 mg/dL (0.2-1) 11/29/18 08:50 AST 51 U/L (15-37) H 11/29/18 08:50 ALT 56 U/L (13-61) 11/29/18 08:50 Alkaline Phosphatase 144 U/L (45-117) H 11/29/18 08:50 Total Protein 7.3 g/dl (6.4-8.2) 11/29/18 08:50 Albumin 2.8 g/dl (3.4-5.0) L 11/29/18 08:50 Active Medications Acetaminophen (Tylenol -) 650 mg PO Q4H PRN PRN Reason: FEVER Albuterol/Ipratropium (Duoneb -) 1 amp NEB RTID [facility] Last Admin: 11/29/18 20:20 Dose: Not Given Artificial Tears (Artificial Tears) 2 drop OU QID [facility] Last Admin: 11/30/18 11:12 Dose: 2 drop Calcium Carbonate/Cholecalciferol (Os-Dylon 500+D -) 1 tab PEG BID [facility] Last Admin: 11/30/18 11:13 Dose: 1 tab Clobazam (Onfi -) 10 mg GT QID [facility] Last Admin: 11/30/18 11:12 Dose: 10 mg Enoxaparin Sodium (Lovenox -) 40 mg SQ DAILY [facility] Last Admin: 11/30/18 11:17 Dose: 40 mg Piperacillin Sod/Tazobactam (Sod 4.5 gm/ Dextrose) 100 mls @ 200 mls/hr IVPB Q6H [facility]; Protocol Piperacillin Sod/Tazobactam (Sod 4.5 gm/ Dextrose) 100 mls @ 200 mls/hr IVPB Q6H-IV [facility]; Protocol Stop: 12/01/18 03:29 Last Admin: 11/30/18 11:37 Dose: 200 mls/hr Latanoprost (Xalatan 0.005% Eye Drops -) 1 drop OU HS [facility] Last Admin: 11/29/18 23:36 Dose: 1 drop Levetiracetam (Keppra Oral Solution -) 1,500 mg PEG BID [facility] Last Admin: 11/30/18 11:13 Dose: 1,500 mg Lorazepam (Ativan Injection -) 2 mg IVPUSH Q8H PRN PRN Reason: seizures Non-Formulary Medication (Olopatadine Hcl [Pataday]) 1 drop OU DAILY [facility] Phenobarbital (Phenobarbital Liquid -) 40 mg GT AM [facility] Last Admin: 11/30/18 06:27 Dose: 40 mg Phenobarbital (Phenobarbital Liquid -) 100 mg PEG HS [facility] Last Admin: 11/29/18 23:57 Dose: 100 mg Potassium Chloride (Potassium Chloride Oral Liquid) 20 meq PEG DAILY [facility] Last Admin: 11/30/18 11:37 Dose: 20 meq Ranitidine HCl (Zantac Oral Solution -) 150 mg PEG BID [facility] Last Admin: 11/30/18 11:15 Dose: 150 mg Senna (Senna Oral Solution -) 17.6 mg GT HS [facility] Last Admin: 11/29/18 23:43 Dose: 17.6 mg Sertraline HCl (Zoloft -) 150 mg PEG DAILY [facility] Last Admin: 11/30/18 11:15 Dose: 150 mg Simethicone (Mylicon Liquid -) 160 mg GT TID [facility] Last Admin: 11/30/18 06:27 Dose: 160 mg Zonisamide (Zonisamide) 300 mg PEG BID [facility] Last Admin: 11/30/18 11:16 Dose: 300 mg ASSESSMENT/PLAN: 58M with a history of mental retardation, seizures, [place]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 Tmax overnight 100.3, WBC wnl. -Start chest physiotherapy BID -Deep suctioning PRN -Continue Zosyn 4.5 q6 (Day 2), f/u ID recs -Continue NC at 2L, maintain oxygen above 90% -Aspiration precautions/keep HOB elevated >35 degrees, sit upright for 60 min after TB -Albuterol nebs treatment TID #Hyponatremia; Na 138. Resolved. #RUE edema; will obtain RUE duplex to r/o DVT #Hip pain; unclear which side. Upon exam of b/l hips, range of motion tested and pt does not appear to be in pain. -Xray of b/l hip/pelvis ordered #Acute on Chronic Respiratory Failure; likely 2/2 suspected aspiration PNA -Currently on 3L NC, will titrate down #Seizure disorder 2/2 Brad-Gastaut; Cont home meds: Keppra 1500 GT BID, Onfi 10 GT BID, Phenobarbital 40 GT AM/100 PEG HS - Ativan as needed for seizures - CBD oil on hold, hospital does not provide #Glaucoma; Cont home med: Pataday, Artificial tears #DVT ppx -Lovenox FEN -Cont Promote as directed -Cont KCl 20 mEq QD; recheck BMP -Hyponatremia possibly from keppra, other antiepileptics, continue to follow Dispo: continue to monitor on medsurg Visit type - Emergency Visit Emergency Visit: Yes ED Registration Date: 11/28/18 Care time: The patient presented to the Emergency Department on the above date and was hospitalized for further evaluation of their emergent condition. - New Patient This patient is new to me today: Yes Date on this admission: 11/30/18 - Critical Care Critical Care patient: No
--- NOTE | 2018-11-30 12:29 | PN ---
Teaching Attending Note Name of Resident: Karla Dickinson ATTENDING PHYSICIAN STATEMENT I saw and evaluated the patient. I reviewed the resident's note and discussed the case with the resident. I agree with the resident's findings and plan as documented. SUBJECTIVE:resting comfortable OBJECTIVE: Last Vital Signs Temp Pulse Resp BP Pulse Ox 97.8 F 64 20 118/68 100 11/30/18 06:00 11/30/18 06:00 11/30/18 06:00 11/30/18 06:00 11/29/18 21:00 General NAD, nonverbal, does not follow simple commands CV S1 S2 RRR no murmur/rub/gallop Lungs decreased breath sounds anteriorly Abdomen soft NT/ND +PEG Extremities RUE 1+ pitting edema, pulse intact but arm is noticeably colder than L, no pedal edema Hips no point tenderness along iliac crest, does not appear to have pain on hip flexion B/L but is limited due to contracture ASSESSMENT AND PLAN: 58 year old man with a history of cerebral palsy, developmental delay, seizures , [place]-Gastaut syndrome, corpus callosotomy, chronic hypoxic respiratory failure, glaucoma, G-tube who presented to the ED from [facility] because of fever, change in mental status, and hip pain 1. Aspiration pneumonia- Tm 100.3. no leukocytosis. no consolidation or infiltrate seen on CXR. reported fever at [place] was 99. aid at bedside does not know if higher recordings were obtained. will start chest PT B/L with deep positional suctioning. on empiric zosyn day 2. but will d/w ID about de- escalating antibiotics if continues to improve. will try to induce sputum cx. f/ U cx. ID on board. aspiration precautions. elevated HOB >35degrees. sit upright for 60 mins after TF 2. Hypoantremia- now resolved 3. RUE edema- very minimal and may be due to being bedbound but has high risk factors for DVT. will obtain doppler study 4. Hip pain- does not appear to be in pain at this time. will get xr to r/o acute pathology 5. Acute on chronic hypoxic respiratory failure- due to suspected aspiration PNA. currently 97% on 3L NC. till empirically treat and titrate down supplemental oxygen as tolerated. uses 2L at the facility 6. 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 7. functional quadriplegia- requires total care 8. Cerebral palsy 9. Developmental delay 10. Glaucoma 11. DVT ppx- lovenox
--- NOTE | 2018-11-30 13:03 | CON.ID ---
Consult Consult Specialty:: infectious diseases Referred by:: hospitalist Reason for Consultation:: pna - History of Present Illness Chief Complaint: cough, - Past Medical History SINGER BACK TENDER: Yes: Seizure, Other (CP, Silviano gestaut syndrome) Gastrointestinal: Yes: Constipation, Other (Marked abdominal distention.) Additional Medical History: 1. SILVIANO GASTAUT SYNDROME S/P VNS IMPLANT. 2. HYDROCEPHALUS S/P OBEDIENCE TRAINER SHUNT. 3. PECURRENT ASPIRATION PNEUMONIAS. 4. H/O SEVER MYOCLONIC SEIZURES. 5. S/P CORPUS CALLOSTOMY (2009) FOR MYOTONIC SEIZURES. 6. FOOT DROP. 7. CEREBRAL PALSY/MR - Alcohol/Substance Use Hx Alcohol Use: No History of Substance Use: reports: None - Smoking History Smoking history: Unknown if ever smoked Have you smoked in the past 12 months: No Aproximately how many cigarettes per day: 0 - Social History Usual Living Arrangement: Senior Living ADL: Support Services History of Recent Travel: No Home Medications - Allergies Allergies/Adverse Reactions: Allergies Allergy/AdvReac Type Severity Reaction Status Date / Time divalproex sodium Allergy Unknown Verified 09/19/16 20:12 [From Depakote] paroxetine HCl [From Paxil] Allergy Unknown Verified 09/19/16 20:12 valproic acid Allergy Verified 09/19/16 20:12 - Home Medications Home Medications: Ambulatory Orders Albuterol 2.5/Ipratropium 0.5 [Duoneb -] 1 amp NEB TID 09/15/15 Bimatoprost [Lumigan] 1 drop OU HS 09/15/15 Calcium Carbonate/Vitamin D3 [Calcium 600 + Vit D 400 Softgl] 1 each PEG BID 01/22 Levetiracetam [Keppra] 1,500 mg PEG Q12H 09/15/15 Lorazepam [Ativan] 2 mg IM PRN PRN 09/15/15 Phenobarbital 100 mg PEG HS 09/15/15 Potassium Chloride Oral Soln [KCl Oral Solution -] 20 meq PEG DAILY 09/15/15 Ranitidine HCl [Zantac] 150 mg PEG BID 09/15/15 Sertraline HCl [Zoloft] 150 mg PEG DAILY 09/15/15 Simethicone [Mytab Gas] 160 mg PEG TID 09/15/15 Zonisamide [Zonegran] 300 mg PEG BID 09/15/15 Carboxymethylcellulos/Glycerin [Refresh Optive Eye Drops] 2 drop OU QID Diazepam Rectal Gel [Diastat Rectal Gel -] 20 mg [place] PRN PRN 12/29/15 Olopatadine HCl [Pataday] 1 drop OU DAILY 12/29/15 Sennosides [Senna -] 2 tab PEG HS 12/29/15 Travoprost [Travatan Z] 2.5 ml OU HS 12/29/15 Cannabidiol (Cbd) Extract [Epidiolex] 4.5 ml GT BID 11/28/18 Clobazam 10 mg PO QID 11/28/18 Clobazam [Onfi -] 10 mg GT QID 11/28/18 Phenobarbital 20 mg GT AM 11/28/18 Physical Exam Vital Signs: Vital Signs Temperature 97.8 F 11/30/18 06:00 Pulse Rate 64 11/30/18 06:00 Respiratory Rate 20 11/30/18 06:00 Blood Pressure 118/68 11/30/18 06:00 O2 Sat by Pulse Oximetry (%) 100 11/29/18 21:00 Labs: CBC, BMP 11/30/18 09:30 11/30/18 09:30
[2018-11-30] MEDS: ALBUTEROL SO4 2.5/IPRATROPIUM 0.5 INH SOL 3 ML VIAL.NEB. NEB SCH ×2 (13:53→20:25)
[2018-11-30] MEDS ORDERED: DEXTROSE 5%-WATER - 50 ML IVPB ONE (17:45)
[2018-11-30] MEDS ORDERED: PIPERACILLIN/TAZOBACTAM 3.375 GM VIAL IVPB ONE (17:45)
[2018-11-30] MEDS: PIPERACILLIN/TAZOB 3.375 GM 3.375 GM in DEXTROSE 5%-WATER - 50 ML IVPB SCH (17:53)
[2018-11-30] MEDS: LATANOPROST 0.005% OPHTH SOLN 2.5ML BOTTLE OU SCH (23:35)
[2018-11-30] MEDS: SENNOSIDES 8.8 MG/5 ML BULK BOTTLE GT SCH (23:38)
[2018-11-30] MEDS: PHENobarbital 20 MG/5 ML UNIT-DOSE CUP PEG SCH (23:40)
[2018-12-01] MEDS ORDERED: PIPERACILLIN/TAZOBACTAM 3.375 GM VIAL IVPB ONE ×2 (00:03→10:12)
[2018-12-01] MEDS ORDERED: DEXTROSE 5%-WATER - 50 ML IVPB ONE ×2 (00:04→10:12)
[2018-12-01] MEDS: PIPERACILLIN/TAZOB 3.375 GM 3.375 GM in DEXTROSE 5%-WATER - 50 ML IVPB SCH ×2 (01:00→10:17)
[2018-12-01] MEDS ORDERED: PT OWN MED DRAWER 7, Y5N ONE ×6 (06:07→23:30)
[2018-12-01] MEDS: SIMETHICONE 40 MG/0.6 ML BOTTLE GT SCH ×3 (06:38→21:20)
[2018-12-01] MEDS: PHENobarbital 20 MG/5 ML UNIT-DOSE CUP GT SCH (06:39)
[2018-12-01] MEDS: ALBUTEROL SO4 2.5/IPRATROPIUM 0.5 INH SOL 3 ML VIAL.NEB. NEB SCH ×3 (07:25→20:30)
[2018-12-01 08:27] LABS: HEMOGLOBIN 10.4 GM/dL (11.7-16.9); MCH 34.7 pg (25.7-33.7); MCHC 33.7 g/dl (32.0-35.9); MEAN CELL VOLUME 103.1 fl (80-96); MEAN PLT VOLUME 7.5 fl (7.5-11.1); RDW 12.5 % (11.9-15.9); WHITE BLOOD COUNT 4.6 K/mm3 (4.0-10.0)
[2018-12-01 08:57] LABS: BLOOD UREA NITROGEN 8.2 mg/dL (7-18); CALCIUM 8.6 mg/dL (8.5-10.1); CREATININE 0.4 mg/dL (0.55-1.3); POTASSIUM 3.6 mmol/L (3.5-5.1)
[2018-12-01 09:02] LABS: PLATELET COUNT 224 K/MM3 (134-434)
[2018-12-01] MEDS: levETIRAcetam 500 MG/5 ML ORAL SOLUTION (UNIT-DOSE CUPS) PEG SCH ×2 (10:17→21:18)
[2018-12-01] MEDS: CALCIUM 500MG/VIT-D 200 UNITS COMBO TABLET (FP) PEG SCH ×2 (10:17→21:22)
[2018-12-01] MEDS: RANITIDINE HCL 150 MG/10 ML UNIT-DOSE PEG SCH ×2 (10:17→21:22)
[2018-12-01] MEDS: SERTRALINE HCL 50 MG TABLET (FP) PEG SCH (10:18)
[2018-12-01] MEDS: cloBAZam 10 MG TABLET GT SCH ×4 (10:18→21:23)
[2018-12-01] MEDS: ENOXAPARIN NA (PORCINE) 40 MG/0.4 ML DISP.SYRIN SQ SCH (10:20)
[2018-12-01] MEDS: ARTIFICIAL TEARS (POLYVINYL ALCOHOL) OPTH DROPS OU SCH ×4 (10:21→21:23)
[2018-12-01] MEDS: POTASSIUM CHLORIDE ORAL LIQUID 20 MEQ/15 ML PEG SCH (10:47)
--- NOTE | 2018-12-01 11:30 | PN ---
Progress Note, Physician History of Present Illness: patient looks stable no issues tolerating feeds calm afebrile - Current Medication List Current Medications: Active Medications Acetaminophen (Tylenol -) 650 mg PO Q4H PRN PRN Reason: FEVER Albuterol/Ipratropium (Duoneb -) 1 amp NEB RTID [facility] Last Admin: 12/01/18 07:25 Dose: 1 amp Artificial Tears (Artificial Tears) 2 drop OU QID [facility] Last Admin: 12/01/18 10:21 Dose: 2 drop Calcium Carbonate/Cholecalciferol (Os-Dylon 500+D -) 1 tab PEG BID [facility] Last Admin: 12/01/18 10:17 Dose: 1 tab Clobazam (Onfi -) 10 mg GT QID [facility] Last Admin: 12/01/18 10:18 Dose: 10 mg Enoxaparin Sodium (Lovenox -) 40 mg SQ DAILY [facility] Last Admin: 12/01/18 10:20 Dose: 40 mg Piperacillin Sod/Tazobactam (Sod 3.375 gm/ Dextrose) 50 mls @ 100 mls/hr IVPB Q8H-IV [facility]; Protocol Last Admin: 12/01/18 10:17 Dose: 100 mls/hr Latanoprost (Xalatan 0.005% Eye Drops -) 1 drop OU HS [facility] Last Admin: 11/30/18 23:35 Dose: 1 drop Levetiracetam (Keppra Oral Solution -) 1,500 mg PEG BID [facility] Last Admin: 12/01/18 10:17 Dose: 1,500 mg Lorazepam (Ativan Injection -) 2 mg IVPUSH Q8H PRN PRN Reason: seizures Non-Formulary Medication (Olopatadine Hcl [Pataday]) 1 drop OU DAILY [facility] Phenobarbital (Phenobarbital Liquid -) 40 mg GT AM [facility] Last Admin: 12/01/18 06:39 Dose: 40 mg Phenobarbital (Phenobarbital Liquid -) 100 mg PEG HS [facility] Last Admin: 11/30/18 23:40 Dose: 100 mg Potassium Chloride (Potassium Chloride Oral Liquid) 20 meq PEG DAILY [facility] Last Admin: 12/01/18 10:47 Dose: 20 meq Ranitidine HCl (Zantac Oral Solution -) 150 mg PEG BID [facility] Last Admin: 12/01/18 10:17 Dose: 150 mg Senna (Senna Oral Solution -) 17.6 mg GT HS [facility] Last Admin: 11/30/18 23:38 Dose: 17.6 mg Sertraline HCl (Zoloft -) 150 mg PEG DAILY [facility] Last Admin: 12/01/18 10:18 Dose: 150 mg Simethicone (Mylicon Liquid -) 160 mg GT TID [facility] Last Admin: 12/01/18 06:38 Dose: 160 mg Zonisamide (Zonisamide) 300 mg PEG BID [facility] Last Admin: 11/30/18 23:41 Dose: 300 mg - Objective Vital Signs: Vital Signs Temperature 99.8 F H 12/01/18 07:36 Pulse Rate 56 L 12/01/18 07:36 Respiratory Rate 20 12/01/18 07:36 Blood Pressure 116/58 L 12/01/18 07:36 O2 Sat by Pulse Oximetry (%) 100 11/29/18 21:00 Constitutional: Yes: No Distress, Calm Cardiovascular: Yes: S1, S2 Respiratory: Yes: Regular, Poor Air Entry (bases) Gastrointestinal: Yes: Normal Bowel Sounds, Soft, Other (peg tube in place) Musculoskeletal: Yes: WNL Extremities: Yes: WNL Neurological: Yes: Other Psychiatric: Yes: Other Labs: CBC, BMP 12/01/18 07:32 12/01/18 07:32 INR, PTT INR 1.13 (0.83-1.09) H 11/29/18 08:50 Assessment/Plan ASSESSMENT/PLAN: 58M with a history of mental retardation, seizures, Brad-Gastaut Syndrome s/p corpus callosotomy, cerebral palsy, g tube, and home O2 at 2L who is admitted for pneumonia pneumonia resp failure seizure disorder cp mental retardation plan i am goign to stop abx monitor patient off of abx please repeat a chest xray if chest xray has worsened will restart abx at the moment patient looks stable
[2018-12-01] MEDS: ZONISAMIDE 100 MG/10 ML ORAL SUSPENSION PEG SCH ×2 (12:18→21:20)
--- NOTE | 2018-12-01 13:14 | PN ---
Teaching Attending Note Name of Resident: Karla Dickinson ATTENDING PHYSICIAN STATEMENT I saw and evaluated the patient. I reviewed the resident's note and discussed the case with the resident. I agree with the resident's findings and plan as documented. SUBJECTIVE:resting comfortable OBJECTIVE: Last Vital Signs Temp Pulse Resp BP Pulse Ox 98.2 F 74 20 102/52 L 100 12/01/18 09:00 12/01/18 09:00 12/01/18 09:00 12/01/18 09:00 11/29/18 21:00 General NAD, nonverbal, does not follow simple commands, more alert today, tracks movement but unable to follow commands CV S1 S2 RRR no murmur/rub/gallop Lungs decreased breath sounds anteriorly Abdomen soft NT/ND +PEG Extremities RUE 1+ pitting edema, no pedal edema ASSESSMENT AND PLAN: 58 year old man with a history of cerebral palsy, developmental delay, seizures , [place]-Gastaut syndrome, corpus callosotomy, chronic hypoxic respiratory failure, glaucoma, G-tube who presented to the ED from [facility] because of fever, change in mental status, and hip pain 1. Aspiration pneumonia-afebrile. no leukocytosis. will repeat CXR if no signs of PNA agree with stopping abx. on empiric zosyn at this time. ID on board. aspiration precautions. elevated HOB >35degrees. sit upright for 60 mins after TF 2. Hypoantremia- now resolved 3. RUE edema- persists but arm is less cold. doppler neg for DVT 4. Hip pain- does not appear to be in pain at this time.XR negative for acute fracture. if pain recurs can consider further imaging 5. Acute on chronic hypoxic respiratory failure- due to suspected aspiration PNA. currently 97% on 2L NC. which is home dose. will continue with plan as above 6. 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 7. functional quadriplegia- requires total care 8. Cerebral palsy 9. Developmental delay 10. Glaucoma 11. DVT ppx- lovenox 12. will monitor with plans to d/c to [place] in next 24H if continues to improve.
--- NOTE | 2018-12-01 14:08 | PN ---
Physical Exam: SUBJECTIVE: Patient seen and examined at bedside. Per nurse, pt slept well, no acute events overnight. Unable to obtain history from pt as he is nonverbal, however he is awake and alert. OBJECTIVE: Vital Signs Temperature 99.8 F H 12/01/18 07:36 Pulse Rate 56 L 12/01/18 07:36 Respiratory Rate 20 12/01/18 07:36 Blood Pressure 116/58 L 12/01/18 07:36 O2 Sat by Pulse Oximetry (%) 100 11/29/18 21:00 GENERAL: Awake, alert. HEENT: AT/NC. Moist mucus membranes. Dental caries. LUNGS: Breath sounds dimished, no crackles or wheezing HEART: Regular rate and rhythm, normal S1 and S2 without murmur, rub or gallop. ABDOMEN: Soft NT/ND. +BS. No masses, rebound tenderness or guarding noted. G tube in place. MUSCULOSKELETAL: Normal range of motion at all joints. No bony deformities or tenderness. No CVA tenderness. UPPER EXTREMITIES: 2+ pulses, warm, well-perfused. No cyanosis. No clubbing. No peripheral edema. LOWER EXTREMITIES: 2+ pulses, warm, well-perfused. No calf tenderness. No peripheral edema. NEUROLOGICAL: Cranial nerves II-XII intact. Normal speech. Normal gait. SKIN: Warm, dry, normal turgor, no rashes or lesions noted, normal capillary refill. CBCD WBC 4.6 K/mm3 (4.0-10.0) 12/01/18 07:32 RBC 3.00 M/mm3 (4.00-5.60) L 12/01/18 07:32 Hgb 10.4 GM/dL (11.7-16.9) L 12/01/18 07:32 Hct 31.0 % (35.4-49) L 12/01/18 07:32 MCV 103.1 fl (80-96) H 12/01/18 07:32 MCHC 33.7 g/dl (32.0-35.9) 12/01/18 07:32 RDW 12.5 % (11.9-15.9) 12/01/18 07:32 Plt Count 224 K/MM3 (134-434) 12/01/18 07:32 MPV 7.5 fl (7.5-11.1) 12/01/18 07:32 CMP Sodium 140 mmol/L (136-145) 12/01/18 07:32 Potassium 3.6 mmol/L (3.5-5.1) 12/01/18 07:32 Chloride 102 mmol/L (98-107) 12/01/18 07:32 Carbon Dioxide 33 mmol/L (21-32) H 12/01/18 07:32 Anion Gap 5 MMOL/L (8-16) L 12/01/18 07:32 BUN 8.2 mg/dL (7-18) 12/01/18 07:32 Creatinine 0.4 mg/dL (0.55-1.3) L 12/01/18 07:32 Calcium 8.6 mg/dL (8.5-10.1) 12/01/18 07:32 Total Bilirubin 0.5 mg/dL (0.2-1) 11/29/18 08:50 AST 51 U/L (15-37) H 11/29/18 08:50 ALT 56 U/L (13-61) 11/29/18 08:50 Alkaline Phosphatase 144 U/L (45-117) H 11/29/18 08:50 Total Protein 7.3 g/dl (6.4-8.2) 11/29/18 08:50 Albumin 2.8 g/dl (3.4-5.0) L 11/29/18 08:50 Active Medications Acetaminophen (Tylenol -) 650 mg PO Q4H PRN PRN Reason: FEVER Albuterol/Ipratropium (Duoneb -) 1 amp NEB RTID [facility] Last Admin: 12/01/18 07:25 Dose: 1 amp Artificial Tears (Artificial Tears) 2 drop OU QID [facility] Last Admin: 12/01/18 10:21 Dose: 2 drop Calcium Carbonate/Cholecalciferol (Os-Dylon 500+D -) 1 tab PEG BID [facility] Last Admin: 12/01/18 10:17 Dose: 1 tab Clobazam (Onfi -) 10 mg GT QID [facility] Last Admin: 12/01/18 10:18 Dose: 10 mg Enoxaparin Sodium (Lovenox -) 40 mg SQ DAILY [facility] Last Admin: 12/01/18 10:20 Dose: 40 mg Latanoprost (Xalatan 0.005% Eye Drops -) 1 drop OU HS [facility] Last Admin: 11/30/18 23:35 Dose: 1 drop Levetiracetam (Keppra Oral Solution -) 1,500 mg PEG BID [facility] Last Admin: 12/01/18 10:17 Dose: 1,500 mg Lorazepam (Ativan Injection -) 2 mg IVPUSH Q8H PRN PRN Reason: seizures Non-Formulary Medication (Olopatadine Hcl [Pataday]) 1 drop OU DAILY [facility] Phenobarbital (Phenobarbital Liquid -) 40 mg GT AM [facility] Last Admin: 12/01/18 06:39 Dose: 40 mg Phenobarbital (Phenobarbital Liquid -) 100 mg PEG HS [facility] Last Admin: 11/30/18 23:40 Dose: 100 mg Potassium Chloride (Potassium Chloride Oral Liquid) 20 meq PEG DAILY [facility] Last Admin: 12/01/18 10:47 Dose: 20 meq Ranitidine HCl (Zantac Oral Solution -) 150 mg PEG BID [facility] Last Admin: 12/01/18 10:17 Dose: 150 mg Senna (Senna Oral Solution -) 17.6 mg GT HS [facility] Last Admin: 11/30/18 23:38 Dose: 17.6 mg Sertraline HCl (Zoloft -) 150 mg PEG DAILY [facility] Last Admin: 12/01/18 10:18 Dose: 150 mg Simethicone (Mylicon Liquid -) 160 mg GT TID [facility] Last Admin: 12/01/18 06:38 Dose: 160 mg Zonisamide (Zonisamide) 300 mg PEG BID [facility] Last Admin: 12/01/18 12:18 Dose: 300 mg IMAGING: * CXR: Acute bandlike areas of platelike subsegemental atelectasis in both lungs could represent mucous plugging, no definite consolidative pna or edema. High position of both diaphragms. * L hip xray: B/l arthritic hip and spine changes, pain and SI joints and old deformities of inferior pubic rami. Acute process not seen. * R hip xray: Symmetrical arthritic hip and spine changes, patent SI joints and chronically deformed inferior pubic rami with some soft tissue calcfications. There is a nonspecific bowel pattern. Since prior study of 01/03/16, there is no change of an adverse nature. * CXR (12/01/18): progressive L infiltrate with fluid horizontal fissure ASSESSMENT/PLAN: 58M with a history of mental retardation, seizures, Brad-Gastaut Syndrome s/p corpus callosotomy, cerebral palsy, g tube, and home O2 at 2L who is admitted for aspiration pneumonia. #Aspiration Pneumonia; CXR did not show signs of infective process. Afebrile overnight, Tmax 99.8 (last recorded fever was 11/28) WBC wnl. -CXR ordered per ID recs which shows progressive L infiltrate with fluid horizontal fissure; Spoke with Dr. Yates, agree to cont Zosyn. Pt looks clinically stable, and will cont to monitor in the hospital for another day -Cont chest physiotherapy BID and Deep suctioning PRN -Continue NC at 2L, maintain oxygen above 90%. Currrently satting at 96% on 2L; baseline. -Aspiration precautions/keep HOB elevated >35 degrees, sit upright for 60 min after TB -Albuterol nebs treatment TID #Hyponatremia; Na 140. Resolved. #RUE edema; RUE duplex showed no evid of DVT #Hip pain; B/L hip xrays unremarkable. Pt does not appear to be in acute pain at hips. #Acute on Chronic Respiratory Failure; Resolved. Currently satting at 96% on 2L (baseline at home) #Seizure disorder 2/2 [place]-Gastaut; Cont home meds: Keppra 1500 GT BID, Onfi 10 GT BID, Phenobarbital 40 GT AM/100 PEG HS -Ativan as needed for seizures -CBD oil on hold, hospital does not provide #Glaucoma; Cont home med: Pataday, Artificial tears #DVT ppx -Lovenox FEN -Cont Promote as directed -Cont KCl 20 mEq QD; recheck BMP -Hyponatremia possibly from keppra, other antiepileptics, continue to follow Dispo -continue to monitor on med-surg -possible DC tomorrow if pt remains clinically stable Visit type - Emergency Visit Emergency Visit: Yes ED Registration Date: 11/28/18 Care time: The patient presented to the Emergency Department on the above date and was hospitalized for further evaluation of their emergent condition. - New Patient This patient is new to me today: No - Critical Care Critical Care patient: No
[2018-12-01] MEDS ORDERED: PIPERACILLIN/TAZOBACTAM 4.5 GM VIAL IVPB ONE ×2 (16:01→21:09)
[2018-12-01] MEDS ORDERED: DEXTROSE 5%-WATER 100 ML IVPB ONE ×2 (16:02→21:09)
[2018-12-01] MEDS: PIPERACILLIN/TAZOB 4.5 GM 4.5 GM in DEXTROSE 5%-WATER 100 ML IVPB SCH ×2 (16:08→21:18)
[2018-12-01] MEDS: PHENobarbital 20 MG/5 ML UNIT-DOSE CUP PEG SCH (21:19)
[2018-12-01] MEDS: SENNOSIDES 8.8 MG/5 ML BULK BOTTLE GT SCH (21:20)
[2018-12-01] MEDS: LATANOPROST 0.005% OPHTH SOLN 2.5ML BOTTLE OU SCH (21:22)
[2018-12-02] MEDS ORDERED: PIPERACILLIN/TAZOBACTAM 4.5 GM VIAL IVPB ONE ×3 (02:16→14:56)
[2018-12-02] MEDS ORDERED: DEXTROSE 5%-WATER 100 ML IVPB ONE ×2 (02:16→09:12)
[2018-12-02] MEDS: PIPERACILLIN/TAZOB 4.5 GM 4.5 GM in DEXTROSE 5%-WATER 100 ML IVPB SCH ×4 (02:24→20:55)
[2018-12-02] MEDS ORDERED: PT OWN MED DRAWER 7, Y5N ONE ×3 (06:00→13:38)
[2018-12-02] MEDS: PHENobarbital 20 MG/5 ML UNIT-DOSE CUP GT SCH (06:57)
[2018-12-02] MEDS: ALBUTEROL SO4 2.5/IPRATROPIUM 0.5 INH SOL 3 ML VIAL.NEB. NEB SCH ×3 (08:36→20:18)
[2018-12-02] MEDS: cloBAZam 10 MG TABLET GT SCH ×4 (09:24→22:27)
[2018-12-02] MEDS: CALCIUM 500MG/VIT-D 200 UNITS COMBO TABLET (FP) PEG SCH ×2 (09:25→22:28)
[2018-12-02] MEDS: levETIRAcetam 500 MG/5 ML ORAL SOLUTION (UNIT-DOSE CUPS) PEG SCH ×2 (09:25→22:24)
[2018-12-02] MEDS: ARTIFICIAL TEARS (POLYVINYL ALCOHOL) OPTH DROPS OU SCH ×4 (09:25→22:31)
[2018-12-02] MEDS: RANITIDINE HCL 150 MG/10 ML UNIT-DOSE PEG SCH ×2 (09:26→22:26)
[2018-12-02] MEDS: SERTRALINE HCL 50 MG TABLET (FP) PEG SCH (09:26)
[2018-12-02] MEDS: ENOXAPARIN NA (PORCINE) 40 MG/0.4 ML DISP.SYRIN SQ SCH (09:27)
[2018-12-02] MEDS: POTASSIUM CHLORIDE ORAL LIQUID 20 MEQ/15 ML PEG SCH (10:15)
[2018-12-02] MEDS: ZONISAMIDE 100 MG/10 ML ORAL SUSPENSION PEG SCH ×2 (10:16→22:24)
--- NOTE | 2018-12-02 11:28 | PN ---
Teaching Attending Note Name of Resident: Karla Dickinson ATTENDING PHYSICIAN STATEMENT I saw and evaluated the patient. I reviewed the resident's note and discussed the case with the resident. I agree with the resident's findings and plan as documented. SUBJECTIVE:resting comfortable OBJECTIVE: Last Vital Signs Temp Pulse Resp BP Pulse Ox 99.4 F 60 20 134/80 100 12/02/18 07:46 12/02/18 07:46 12/02/18 07:46 12/02/18 07:46 11/29/18 21:00 General NAD, nonverbal, does not follow simple commands, more alert today, tracks movement but unable to follow commands Lungs decreased breath sounds anteriorly ASSESSMENT AND PLAN: 58 year old man with a history of cerebral palsy, developmental delay, seizures , Brad-Gastaut syndrome, corpus callosotomy, chronic hypoxic respiratory failure, glaucoma, G-tube who presented to the ED from [facility] because of fever, change in mental status, and hip pain 1. Aspiration pneumonia-afebrile. no leukocytosis. on repeat showing L sided infiltrate .on zosyn day 5. will d/w ID about switching to po. ID on board. aspiration precautions. elevated HOB >35degrees. sit upright for 60 mins after TF. will need repeat CXR in 6 weeks 2. Hypoantremia- now resolved 3. RUE edema- persists but arm is less cold. doppler neg for DVT 4. Hip pain- does not appear to be in pain at this time.XR negative for acute fracture. if pain recurs can consider further imaging 5. Acute on chronic hypoxic respiratory failure- due to suspected aspiration PNA. currently 97% on 2L NC. which is home dose. will continue with plan as above 6. 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 7. functional quadriplegia- requires total care 8. Cerebral palsy 9. Developmental delay 10. Glaucoma 11. DVT ppx- lovenox 12. clinically optimized for discharge. will reach out to [facility] today for transfer. will transition to po abx
--- NOTE | 2018-12-02 12:04 | PN ---
Progress Note, Physician History of Present Illness: stable no new issues repeat xray showing infiltrate - Current Medication List Current Medications: Active Medications Acetaminophen (Tylenol -) 650 mg PO Q4H PRN PRN Reason: FEVER Albuterol/Ipratropium (Duoneb -) 1 amp NEB RTID [facility] Last Admin: 12/02/18 08:36 Dose: 1 amp Artificial Tears (Artificial Tears) 2 drop OU QID [facility] Last Admin: 12/02/18 09:25 Dose: 2 drop Calcium Carbonate/Cholecalciferol (Os-Dylon 500+D -) 1 tab PEG BID [facility] Last Admin: 12/02/18 09:25 Dose: 1 tab Clobazam (Onfi -) 10 mg GT QID [facility] Last Admin: 12/02/18 09:24 Dose: 10 mg Enoxaparin Sodium (Lovenox -) 40 mg SQ DAILY [facility] Last Admin: 12/02/18 09:27 Dose: 40 mg Piperacillin Sod/Tazobactam (Sod 4.5 gm/ Dextrose) 100 mls @ 200 mls/hr IVPB Q6H-IV [facility]; Protocol Last Admin: 12/02/18 09:22 Dose: 200 mls/hr Latanoprost (Xalatan 0.005% Eye Drops -) 1 drop OU HS [facility] Last Admin: 12/01/18 21:22 Dose: 1 drop Levetiracetam (Keppra Oral Solution -) 1,500 mg PEG BID [facility] Last Admin: 12/02/18 09:25 Dose: 1,500 mg Lorazepam (Ativan Injection -) 2 mg IVPUSH Q8H PRN PRN Reason: seizures Non-Formulary Medication (Olopatadine Hcl [Pataday]) 1 drop OU DAILY [facility] Phenobarbital (Phenobarbital Liquid -) 40 mg GT AM [facility] Last Admin: 12/02/18 06:57 Dose: 40 mg Phenobarbital (Phenobarbital Liquid -) 100 mg PEG HS [facility] Last Admin: 12/01/18 21:19 Dose: 100 mg Potassium Chloride (Potassium Chloride Oral Liquid) 20 meq PEG DAILY [facility] Last Admin: 12/02/18 10:15 Dose: 20 meq Ranitidine HCl (Zantac Oral Solution -) 150 mg PEG BID [facility] Last Admin: 12/02/18 09:26 Dose: 150 mg Senna (Senna Oral Solution -) 17.6 mg GT HS [facility] Last Admin: 12/01/18 21:20 Dose: 17.6 mg Sertraline HCl (Zoloft -) 150 mg PEG DAILY [facility] Last Admin: 12/02/18 09:26 Dose: 150 mg Simethicone (Mylicon Liquid -) 160 mg GT TID [facility] Last Admin: 12/01/18 21:20 Dose: 160 mg Zonisamide (Zonisamide) 300 mg PEG BID [facility] Last Admin: 12/02/18 10:16 Dose: 300 mg - Objective Vital Signs: Vital Signs Temperature 99.4 F 12/02/18 07:46 Pulse Rate 60 12/02/18 07:46 Respiratory Rate 20 12/02/18 07:46 Blood Pressure 134/80 12/02/18 07:46 O2 Sat by Pulse Oximetry (%) 100 11/29/18 21:00 Constitutional: Yes: No Distress, Calm Cardiovascular: Yes: Regular Rate and Rhythm Respiratory: Yes: Regular, CTA Bilaterally, On Nasal O2 Gastrointestinal: Yes: Normal Bowel Sounds, Soft, Other (peg in place) Musculoskeletal: Yes: WNL Extremities: Yes: WNL Neurological: Yes: Alert, Oriented Psychiatric: Yes: Alert, Oriented Labs: CBC, BMP 12/01/18 07:32 12/01/18 07:32 INR, PTT INR 1.13 (0.83-1.09) H 11/29/18 08:50 Assessment/Plan ASSESSMENT/PLAN: 58M with a history of mental retardation, seizures, Brad-Gastaut Syndrome s/p corpus callosotomy, cerebral palsy, g tube, and home O2 at 2L who is admitted for pneumonia pneumonia resp failure seizure disorder cp mental retardation plan we will continue samina bosch for asp rest as per the team
--- NOTE | 2018-12-02 12:22 | PN ---
Physical Exam: SUBJECTIVE: Patient seen and examined OBJECTIVE: Vital Signs Temperature 97.8 F 12/02/18 08:55 Pulse Rate 56 L 12/02/18 08:55 Respiratory Rate 20 12/02/18 08:55 Blood Pressure 120/70 12/02/18 08:55 O2 Sat by Pulse Oximetry (%) 100 11/29/18 21:00 GENERAL: Awake, alert. HEENT: AT/NC. Moist mucus membranes. Dental caries. LUNGS: Breath sounds dimished, no crackles or wheezing HEART: Regular rate and rhythm, normal S1 and S2 without murmur, rub or gallop. ABDOMEN: Soft NT/ND. +BS. No masses, rebound tenderness or guarding noted. G tube in place. MUSCULOSKELETAL: Normal range of motion at all joints. No bony deformities or tenderness. No CVA tenderness. UPPER EXTREMITIES: 2+ pulses, warm, well-perfused. No cyanosis. No clubbing. No peripheral edema. LOWER EXTREMITIES: 2+ pulses, warm, well-perfused. No calf tenderness. No peripheral edema. NEUROLOGICAL: Cranial nerves II-XII intact. Normal speech. Normal gait. SKIN: Warm, dry, normal turgor, no rashes or lesions noted, normal capillary refill. Active Medications Acetaminophen (Tylenol -) 650 mg PO Q4H PRN PRN Reason: FEVER Albuterol/Ipratropium (Duoneb -) 1 amp NEB RTID [facility] Last Admin: 12/02/18 08:36 Dose: 1 amp Artificial Tears (Artificial Tears) 2 drop OU QID [facility] Last Admin: 12/02/18 09:25 Dose: 2 drop Calcium Carbonate/Cholecalciferol (Os-Dylon 500+D -) 1 tab PEG BID [facility] Last Admin: 12/02/18 09:25 Dose: 1 tab Clobazam (Onfi -) 10 mg GT QID [facility] Last Admin: 12/02/18 09:24 Dose: 10 mg Enoxaparin Sodium (Lovenox -) 40 mg SQ DAILY [facility] Last Admin: 12/02/18 09:27 Dose: 40 mg Piperacillin Sod/Tazobactam (Sod 4.5 gm/ Dextrose) 100 mls @ 200 mls/hr IVPB Q6H-IV [facility]; Protocol Last Admin: 12/02/18 09:22 Dose: 200 mls/hr Latanoprost (Xalatan 0.005% Eye Drops -) 1 drop OU HS [facility] Last Admin: 12/01/18 21:22 Dose: 1 drop Levetiracetam (Keppra Oral Solution -) 1,500 mg PEG BID [facility] Last Admin: 12/02/18 09:25 Dose: 1,500 mg Lorazepam (Ativan Injection -) 2 mg IVPUSH Q8H PRN PRN Reason: seizures Non-Formulary Medication (Olopatadine Hcl [Pataday]) 1 drop OU DAILY [facility] Phenobarbital (Phenobarbital Liquid -) 40 mg GT AM [facility] Last Admin: 12/02/18 06:57 Dose: 40 mg Phenobarbital (Phenobarbital Liquid -) 100 mg PEG HS [facility] Last Admin: 12/01/18 21:19 Dose: 100 mg Potassium Chloride (Potassium Chloride Oral Liquid) 20 meq PEG DAILY [facility] Last Admin: 12/02/18 10:15 Dose: 20 meq Ranitidine HCl (Zantac Oral Solution -) 150 mg PEG BID [facility] Last Admin: 12/02/18 09:26 Dose: 150 mg Senna (Senna Oral Solution -) 17.6 mg GT HS [facility] Last Admin: 12/01/18 21:20 Dose: 17.6 mg Sertraline HCl (Zoloft -) 150 mg PEG DAILY [facility] Last Admin: 12/02/18 09:26 Dose: 150 mg Simethicone (Mylicon Liquid -) 160 mg GT TID [facility] Last Admin: 12/01/18 21:20 Dose: 160 mg Zonisamide (Zonisamide) 300 mg PEG BID [facility] Last Admin: 12/02/18 10:16 Dose: 300 mg IMAGING: * CXR: Acute bandlike areas of platelike subsegemental atelectasis in both lungs could represent mucous plugging, no definite consolidative pna or edema. High position of both diaphragms. * L hip xray: B/l arthritic hip and spine changes, pain and SI joints and old deformities of inferior pubic rami. Acute process not seen. * R hip xray: Symmetrical arthritic hip and spine changes, patent SI joints and chronically deformed inferior pubic rami with some soft tissue calcfications. There is a nonspecific bowel pattern. Since prior study of 01/03/16, there is no change of an adverse nature. * CXR (12/01/18): progressive L infiltrate with fluid horizontal fissure ASSESSMENT/PLAN: 58M with a history of mental retardation, seizures, Brad-Gastaut Syndrome s/p corpus callosotomy, cerebral palsy, g tube, and home O2 at 2L who is admitted for aspiration pneumonia. #Aspiration Pneumonia; CXR did not show signs of infective process. Afebrile overnight, Tmax 99.8 (last recorded fever was 11/28) WBC wnl. -CXR ordered per ID recs which shows progressive L infiltrate with fluid horizontal fissure; Spoke with Dr. Yates, agree to cont Zosyn. Pt looks clinically stable today. Will cont IV Zosyn for 2 more days (Day 5 today, total tx for 7 days) -Cont chest physiotherapy BID and Deep suctioning PRN -Continue NC at 2L, maintain oxygen above 90%. Currrently satting at 100% on 2L ; baseline. -Aspiration precautions/keep HOB elevated >35 degrees, sit upright for 60 min after TB -Albuterol nebs treatment TID #Hyponatremia; Resolved. #RUE edema; RUE duplex showed no evid of DVT #Hip pain; B/L hip xrays unremarkable. Pt does not appear to be in acute pain at hips. #Acute on Chronic Respiratory Failure; Resolved. Currently satting at 96% on 2L (baseline at home) #Seizure disorder 2/2 [place]-Gastaut; Cont home meds: Keppra 1500 GT BID, Onfi 10 GT BID, Phenobarbital 40 GT AM/100 PEG HS -Ativan as needed for seizures -CBD oil on hold, hospital does not provide #Glaucoma; Cont home med: Pataday, Artificial tears #DVT ppx -Lovenox FEN -Cont Promote as directed -Cont KCl 20 mEq QD; recheck BMP -Hyponatremia possibly from keppra, other antiepileptics, continue to follow Dispo -continue to monitor on med-surg -plan for DC on Friday Visit type - Emergency Visit Emergency Visit: Yes ED Registration Date: 11/28/18 Care time: The patient presented to the Emergency Department on the above date and was hospitalized for further evaluation of their emergent condition. - New Patient This patient is new to me today: No - Critical Care Critical Care patient: No
[2018-12-02] MEDS: SIMETHICONE 40 MG/0.6 ML BOTTLE GT SCH ×2 (13:44→23:27)
[2018-12-02] MEDS ORDERED: DEXTROSE 5%-WATER 200 ML IVPB ONE (14:56)
--- NOTE | 2018-12-02 15:34 | DS ---
Physical Exam: SUBJECTIVE: Patient seen and examined at bedside. OBJECTIVE: Vital Signs Period Temp Pulse Resp BP Sys/Guzmán Pulse Ox Last 24 Hr 97.8 F-99.4 F 56-71 20-20 96-134/49-80 PHYSICAL EXAM GENERAL: Awake, alert. HEENT: AT/NC. Moist mucus membranes. Dental caries. LUNGS: Breath sounds dimished, no crackles or wheezing HEART: Regular rate and rhythm, normal S1 and S2 without murmur, rub or gallop. ABDOMEN: Soft NT/ND. +BS. No masses, rebound tenderness or guarding noted. G tube in place. MUSCULOSKELETAL: Normal range of motion at all joints. No bony deformities or tenderness. No CVA tenderness. UPPER EXTREMITIES: 2+ pulses, warm, well-perfused. No cyanosis. No clubbing. No peripheral edema. LOWER EXTREMITIES: 2+ pulses, warm, well-perfused. No calf tenderness. No peripheral edema. NEUROLOGICAL: Cranial nerves II-XII intact. Normal speech. Normal gait. SKIN: Warm, dry, normal turgor, no rashes or lesions noted, normal capillary refill. LABS HOSPITAL COURSE: Date of Admission: 11/28/18 IMAGING: * CXR: Acute bandlike areas of platelike subsegemental atelectasis in both lungs could represent mucous plugging, no definite consolidative pna or edema. High position of both diaphragms. * L hip xray: B/l arthritic hip and spine changes, pain and SI joints and old deformities of inferior pubic rami. Acute process not seen. * R hip xray: Symmetrical arthritic hip and spine changes, patent SI joints and chronically deformed inferior pubic rami with some soft tissue calcfications. There is a nonspecific bowel pattern. Since prior study of 01/03/16, there is no change of an adverse nature. * CXR (12/01/18): progressive L infiltrate with fluid horizontal fissure 58M with a history of mental retardation, seizures, [place]-Gastaut Syndrome s/p corpus callosotomy, cerebral palsy, g tube, and home O2 at 2L was admitted for aspiration pneumonia. Upon initial presentation, pt was found to be febrile with temp at 100.3. He was started on empiric IV Zosyn. BCx were neg and initial CXR was clear. Pt was monitored over hospital course with improvement in symptoms and remained afebrile throughout the duration of his stay. Repeat CXR was done that showed progressive L infiltrate within fluid horizontal fissure. Per ID recommendation, pt was continued on IV Zosyn. Pt received total of 5 days of IV abx treatment. Pt remained asymptomatic throughout hospital stay. He was discharged back home with recommendation to follow up with his PCP for routine evaluation. Date of Discharge: 12/02/18 Minutes to complete discharge: 35 Discharge Summary Reason For Visit: PNEUMONIA Current Active Problems Pneumonia (Acute) Condition: Improved - Instructions Diet, Activity, Other Instructions: You were sent to the hospital from your nursing facility due to a fever. You were treated for aspiration pneumonia and started on IV antibiotics. Throughout your hospital stay, your symptoms improved. You are being discharged back home to your nursing facility. MEDICATIONS You may continue taking the rest of your home medications as directed. FOLLOW UP Please follow up with your primary care physician, Dr. Muse, within 1 week. If you experience persistent fevers, worsening shortness of breath/difficulty breathing, or other associated symptoms, please proceed to your nearest emergency room immediately. Referrals: Francheska Yates MD [Staff Physician] - 1 Week Juan Muse Jr [Non Staff, Medical] - 1 Week Disposition: HALF-WAY FACILITY - Home Medications Comprehensive Discharge Medication List: Ambulatory Orders Albuterol 2.5/Ipratropium 0.5 [Duoneb -] 1 amp NEB TID 09/15/15 Bimatoprost [Lumigan] 1 drop OU HS 09/15/15 Calcium Carbonate/Vitamin D3 [Calcium 600 + Vit D 400 Softgl] 1 each PEG BID 01/22 Levetiracetam [Keppra] 1,500 mg PEG Q12H 09/15/15 Lorazepam [Ativan] 2 mg IM PRN PRN 09/15/15 Phenobarbital 100 mg PEG HS 09/15/15 Potassium Chloride Oral Soln [KCl Oral Solution -] 20 meq PEG DAILY 09/15/15 Ranitidine HCl [Zantac] 150 mg PEG BID 09/15/15 Sertraline HCl [Zoloft] 150 mg PEG DAILY 09/15/15 Simethicone [Mytab Gas] 160 mg PEG TID 09/15/15 Zonisamide [Zonegran] 300 mg PEG BID 09/15/15 Carboxymethylcellulos/Glycerin [Refresh Optive Eye Drops] 2 drop OU QID Diazepam Rectal Gel [Diastat Rectal Gel -] 20 mg [place] PRN PRN 12/29/15 Olopatadine HCl [Pataday] 1 drop OU DAILY 12/29/15 Sennosides [Senna -] 2 tab PEG HS 12/29/15 Travoprost [Travatan Z] 2.5 ml OU HS 12/29/15 Cannabidiol (Cbd) Extract [Epidiolex] 4.5 ml GT BID 11/28/18 Clobazam 10 mg PO QID 11/28/18 Clobazam [Onfi -] 10 mg GT QID 11/28/18 Phenobarbital 20 mg GT AM 11/28/18 This patient is new to me today: No Emergency Visit: Yes ED Registration Date: 11/28/18 Care time: The patient presented to the Emergency Department on the above date and was hospitalized for further evaluation of their emergent condition. Critical Care patient: No - Discharge Referral Referred to [facility] Med P.C.: No
[2018-12-02] MEDS: SENNOSIDES 8.8 MG/5 ML BULK BOTTLE GT SCH (22:25)
[2018-12-02] MEDS: PHENobarbital 20 MG/5 ML UNIT-DOSE CUP PEG SCH (22:30)
[2018-12-02] MEDS: LATANOPROST 0.005% OPHTH SOLN 2.5ML BOTTLE OU SCH (22:31)
[2018-12-03] MEDS ORDERED: PIPERACILLIN/TAZOBACTAM 4.5 GM VIAL IVPB ONE ×2 (02:08→08:47)
[2018-12-03] MEDS ORDERED: DEXTROSE 5%-WATER 100 ML IVPB ONE ×2 (02:09→08:47)
[2018-12-03] MEDS: PIPERACILLIN/TAZOB 4.5 GM 4.5 GM in DEXTROSE 5%-WATER 100 ML IVPB SCH ×2 (02:17→09:01)
[2018-12-03] MEDS: PHENobarbital 20 MG/5 ML UNIT-DOSE CUP GT SCH (06:20)
[2018-12-03] MEDS: SIMETHICONE 40 MG/0.6 ML BOTTLE GT SCH (06:21)
[2018-12-03] MEDS: ALBUTEROL SO4 2.5/IPRATROPIUM 0.5 INH SOL 3 ML VIAL.NEB. NEB SCH (07:32)
[2018-12-03] MEDS: cloBAZam 10 MG TABLET GT SCH (09:01)
[2018-12-03] MEDS: ARTIFICIAL TEARS (POLYVINYL ALCOHOL) OPTH DROPS OU SCH (09:02)
[2018-12-03] MEDS: levETIRAcetam 500 MG/5 ML ORAL SOLUTION (UNIT-DOSE CUPS) PEG SCH (09:02)
[2018-12-03] MEDS: SERTRALINE HCL 50 MG TABLET (FP) PEG SCH (09:03)
[2018-12-03] MEDS: CALCIUM 500MG/VIT-D 200 UNITS COMBO TABLET (FP) PEG SCH (09:03)
[2018-12-03] MEDS: RANITIDINE HCL 150 MG/10 ML UNIT-DOSE PEG SCH (09:03)
[2018-12-03] MEDS: ENOXAPARIN NA (PORCINE) 40 MG/0.4 ML DISP.SYRIN SQ SCH (09:04)
[2018-12-03] MEDS: POTASSIUM CHLORIDE ORAL LIQUID 20 MEQ/15 ML PEG SCH (09:07)
[2018-12-03] MEDS: ZONISAMIDE 100 MG/10 ML ORAL SUSPENSION PEG SCH (09:08)
--- NOTE | 2018-12-03 09:49 | PN ---
Progress Note, Physician History of Present Illness: patient stable looks much better awake and alert - Current Medication List Current Medications: Active Medications Acetaminophen (Tylenol -) 650 mg PO Q4H PRN PRN Reason: FEVER Albuterol/Ipratropium (Duoneb -) 1 amp NEB RTID [facility] Last Admin: 12/03/18 07:32 Dose: 1 amp Artificial Tears (Artificial Tears) 2 drop OU QID [facility] Last Admin: 12/03/18 09:02 Dose: 2 drop Calcium Carbonate/Cholecalciferol (Os-Dylon 500+D -) 1 tab PEG BID [facility] Last Admin: 12/03/18 09:03 Dose: 1 tab Clobazam (Onfi -) 10 mg GT QID [facility] Last Admin: 12/03/18 09:01 Dose: 10 mg Enoxaparin Sodium (Lovenox -) 40 mg SQ DAILY [facility] Last Admin: 12/03/18 09:04 Dose: 40 mg Piperacillin Sod/Tazobactam (Sod 4.5 gm/ Dextrose) 100 mls @ 200 mls/hr IVPB Q6H-IV [facility]; Protocol Last Admin: 12/03/18 09:01 Dose: 200 mls/hr Latanoprost (Xalatan 0.005% Eye Drops -) 1 drop OU HS [facility] Last Admin: 12/02/18 22:31 Dose: 1 drop Levetiracetam (Keppra Oral Solution -) 1,500 mg PEG BID [facility] Last Admin: 12/03/18 09:02 Dose: 1,500 mg Lorazepam (Ativan Injection -) 2 mg IVPUSH Q8H PRN PRN Reason: seizures Non-Formulary Medication (Olopatadine Hcl [Pataday]) 1 drop OU DAILY [facility] Phenobarbital (Phenobarbital Liquid -) 40 mg GT AM [facility] Last Admin: 12/03/18 06:20 Dose: 40 mg Phenobarbital (Phenobarbital Liquid -) 100 mg PEG HS [facility] Last Admin: 12/02/18 22:30 Dose: 100 mg Potassium Chloride (Potassium Chloride Oral Liquid) 20 meq PEG DAILY [facility] Last Admin: 12/03/18 09:07 Dose: 20 meq Ranitidine HCl (Zantac Oral Solution -) 150 mg PEG BID [facility] Last Admin: 12/03/18 09:03 Dose: 150 mg Senna (Senna Oral Solution -) 17.6 mg GT HS [facility] Last Admin: 12/02/18 22:25 Dose: 17.6 mg Sertraline HCl (Zoloft -) 150 mg PEG DAILY [facility] Last Admin: 12/03/18 09:03 Dose: 150 mg Simethicone (Mylicon Liquid -) 160 mg GT TID [facility] Last Admin: 12/03/18 06:21 Dose: 160 mg Zonisamide (Zonisamide) 300 mg PEG BID [facility] Last Admin: 12/03/18 09:08 Dose: 300 mg - Objective Vital Signs: Vital Signs Temperature 97.8 F 12/03/18 06:38 Pulse Rate 64 12/03/18 06:38 Respiratory Rate 20 12/03/18 06:38 Blood Pressure 156/68 12/03/18 06:38 O2 Sat by Pulse Oximetry (%) 100 11/29/18 21:00 Constitutional: Yes: No Distress, Calm Cardiovascular: Yes: S1, S2 Respiratory: Yes: Regular, CTA Bilaterally Gastrointestinal: Yes: Normal Bowel Sounds, Soft, Other (peg in place) Musculoskeletal: Yes: WNL Extremities: Yes: WNL Neurological: Yes: Alert Psychiatric: Yes: Alert Labs: CBC, BMP 12/01/18 07:32 12/01/18 07:32 INR, PTT INR 1.13 (0.83-1.09) H 11/29/18 08:50 Assessment/Plan ASSESSMENT/PLAN: 58M with a history of mental retardation, seizures, [place]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
[2018-12-03 12:06] VITALS: BP 140/80; PULSE 71; TEMP 97.6
--- NOTE | 2018-12-03 14:26 | PN ---
Teaching Attending Note Name of Resident: Karla Dickinson ATTENDING PHYSICIAN STATEMENT I saw and evaluated the patient. I reviewed the resident's note and discussed the case with the resident. I agree with the resident's findings and plan as documented. SUBJECTIVE:resting comfortable OBJECTIVE: Last Vital Signs Temp Pulse Resp BP Pulse Ox 97.6 F 71 20 140/80 100 12/03/18 07:50 12/03/18 07:50 12/03/18 07:50 12/03/18 07:50 11/29/18 21:00 General NAD, nonverbal, does not follow simple commands, more alert today, tracks movement but unable to follow commands Lungs breath sounds clear anteriorly Extremities no edema noted ASSESSMENT AND PLAN: 58 year old man with a history of cerebral palsy, developmental delay, seizures , [place]-Gastaut syndrome, corpus callosotomy, chronic hypoxic respiratory failure, glaucoma, G-tube who presented to the ED from [facility] because of fever, change in mental status, and hip pain 1. Aspiration pneumonia-afebrile. no leukocytosis. on repeat showing L sided infiltrate .on zosyn day 6. will switch to doxy for 5 days. ID on board. aspiration precautions. elevated HOB >35degrees. sit upright for 60 mins after TF. will need repeat CXR in 6 weeks 2. Hypoantremia- now resolved 3. RUE edema- persists but arm is less cold. doppler neg for DVT 4. Hip pain- does not appear to be in pain at this time.XR negative for acute fracture. if pain recurs can consider further imaging 5. Acute on chronic hypoxic respiratory failure- due to suspected aspiration PNA. currently 97% on 2L NC. which is home dose. will continue with plan as above 6. 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 7. functional quadriplegia- requires total care 8. Cerebral palsy 9. Developmental delay 10. Glaucoma 11. DVT ppx- lovenox 12. D/c to [facility] po abx for 5 days
[2018-12-03] MEDS ORDERED: DOXYCYCLINE HYCLATE 100 MG CAPSULE PO SCH (18:00)
== END 2018-12-03 12:37 | DRG 177 ==
LOC: JER 14:40 → JERBED 17:38 → J8W 11-29 15:50
PROVIDERS: ADMIT Internal Medicine; ATTEND Internal Medicine
DX: J69.0 Pneumonitis due to inhalation of food and vomit (principal); R53.2 Functional quadriplegia; G92 Toxic encephalopathy; J96.21 Acute and chronic respiratory failure with hypoxia; G40.812 Lennox-Gastaut syndrome, not intractable, without status epilepticus; E87.1 Hypo-osmolality and hyponatremia; F72 Severe intellectual disabilities; G40.89 Other seizures; J98.11 Atelectasis; G80.9 Cerebral palsy, unspecified; Z74.01 Bed confinement status; Z93.1 Gastrostomy status; H40.9 Unspecified glaucoma; Z95.0 Presence of cardiac pacemaker; K59.00 Constipation, unspecified; M21.379 Foot drop, unspecified foot
CPT/HCPCS: 36415; 71045-TC-FY; 73523-TC-FY; 80048; 80053; 81003; 82803; 83605; 83735; 84100; 84484; 85025; 85027; 85610; 85730; 87040; 87081; 87086; 93005; 93010; 93971; 94640; 99285-25; J0131

== ENCOUNTER 2019-01-31 12:40 | Inpatient (IN) | payer OTHER ==
--- NOTE | 2019-01-31 13:16 | PDOC ---
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 Pt unable to provide hx due to baseline mental state. On arrival noted to be saturating 70s on 2L O2 and initial rectal tempt 101 with labored breathing. Non rebreather placed on 4 L saturating above 94%. EMS not present on exam to provide further information, will call [facility] for further insight. As per Nursing staff at [facility] (Jen): today pt noted to have labored breathing today with pulse 125, temp 100.7, bp 157/82 Past History - Past Medical History Allergies/Adverse Reactions: Allergies Allergy/AdvReac Type Severity Reaction Status Date / Time divalproex sodium Allergy Unknown Verified 09/19/16 20:12 [From Depakote] paroxetine HCl [From Paxil] Allergy Unknown Verified 09/19/16 20:12 valproic acid Allergy Verified 09/19/16 20:12 Home Medications: Ambulatory Orders Albuterol 2.5/Ipratropium 0.5 [Duoneb -] 1 amp NEB TID 09/15/15 Bimatoprost [Lumigan] 1 drop OU HS 09/15/15 Calcium Carbonate/Vitamin D3 [Calcium 600 + Vit D 400 Softgl] 1 each PEG BID 01/22 Levetiracetam [Keppra] 1,500 mg PEG Q12H 09/15/15 Lorazepam [Ativan] 2 mg IM PRN PRN 09/15/15 Phenobarbital 100 mg PEG HS 09/15/15 Potassium Chloride Oral Soln [KCl Oral Solution -] 20 meq PEG DAILY 09/15/15 Ranitidine HCl [Zantac] 150 mg PEG BID 09/15/15 Sertraline HCl [Zoloft] 150 mg PEG DAILY 09/15/15 Simethicone [Mytab Gas] 160 mg PEG TID 09/15/15 Zonisamide [Zonegran] 300 mg PEG BID 09/15/15 Carboxymethylcellulos/Glycerin [Refresh Optive Eye Drops] 2 drop OU QID Diazepam Rectal Gel [Diastat Rectal Gel -] 20 mg [place] PRN PRN 12/29/15 Olopatadine HCl [Pataday] 1 drop OU DAILY 12/29/15 Sennosides [Senna -] 2 tab PEG HS 12/29/15 Travoprost [Travatan Z] 2.5 ml OU HS 12/29/15 Cannabidiol (Cbd) Extract [Epidiolex] 4.5 ml GT BID 11/28/18 Clobazam 10 mg PO QID 11/28/18 Clobazam [Onfi -] 10 mg GT QID 11/28/18 Phenobarbital 20 mg GT AM 11/28/18 Doxycycline Hyclate [Vibramycin -] 100 mg PO BID@1000,1800 #8 capsule 12/03/18 Anemia: No Asthma: No Cancer: No Cardiac Disorders: No CVA: No COPD: No CHF: No Dementia: No Diabetes: No GI Disorders: No Disorders: No HTN: No Hypercholesterolemia: No Liver Disease: No Seizures: Yes Thyroid Disease: No - Surgical History Abdominal Surgery: No Appendectomy: No Cardiac Surgery: Yes (pacemaker) Cholecystectomy: No Lung Surgery: No Neurologic Surgery: Yes Orthopedic Surgery: No - Immunization History Td Vaccination: Yes TDAP Vaccination: Yes Immunization Up to Date: Yes - Suicide/Smoking/Psychosocial Hx Smoking Status: No Smoking History: Unknown if ever smoked Years of Tobacco Use: 0 Have you smoked in the past 12 months: No Number of Cigarettes Smoked Daily: 0 Cigars Per Day: 0 Hx Alcohol Use: No Drug/Substance Use Hx: No Substance Use Type: None Hx Substance Use Treatment: No Review of Systems - Review of Systems Able to Perform ROS?: No (baseline mental status ) *Physical Exam - Physical Exam General Appearance: Yes: Nourished, Appropriately Dressed, Apparent Distress ( labored breathing ) HEENT: positive: EOMI, GILMA Neck: positive: Supple. negative: Carotid bruit Respiratory/Chest: positive: Respiratory Distress, Rales (diffuse and bilateral) . negative: Accessory Muscle Use, Stridor Cardiovascular: positive: S1, S2, Tachycardia. negative: Edema, JVD, Murmur Vascular Pulses: Dorsalis-Pedis (R): 3+, Doralis-Pedis (L): 3+ Gastrointestinal/Abdominal: positive: Flat, Soft. negative: Pulsatile Mass, Distended, Guarding, Rebound, Tenderness Musculoskeletal: negative: CVA Tenderness Extremity: positive: Normal Capillary Refill, Normal Inspection Integumentary: positive: Normal Color, Dry, Warm Neurologic: positive: Normal Mood/Affect (baseline mentation AOX0). 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 Pt unable to provide hx due to baseline mental state. On arrival noted to be saturating 70s on 2L O2 and initial rectal tempt 101 with labored breathing. Non rebreather placed on 4 L saturating above 94%. EMS not present on exam to provide further information, will call [facility] for further insight. As per Nursing staff at [facility] (Jen): today pt noted to have labored breathing today with pulse 125, temp 100.7, bp 157/82 recurrent asp pna laboured breathing DNR and DNI in packet from [facility] Vitals show elevated HR, elevated rectal temp and hypoxia Pt saturating in the 70s on NC, switched to Non rebreather 15L, saturating 95% and above Sepsis order set with labs sent, fluids 2L and Tylenol given Pt given 2 duonebs, not moving air well and vbg shows pH low and retaining CO2 Repeat ABG shows improvement in pH and CO2, does not require BIPAP at this time Labs show elevated WBC and CXR shows worsening consolidation on the right likely PNA/ aspiration pna Case presented to Hospitalist who agrees to have pt admitted to med surg *DC/Admit/Observation/Transfer Diagnosis at time of Disposition: Sepsis, Aspiration pneumonia - Discharge Dispostion Condition at time of disposition: Stable Decision to Admit order: Yes - Referrals - Patient Instructions - Post Discharge Activity
[2019-01-31] MEDS ORDERED: ACETAMINOPHEN INJECTION 100 ML IVPB ONE (13:46)
[2019-01-31] MEDS ORDERED: SODIUM CHLORIDE 1,000 ML IV STA ×2 (13:48→15:38)
[2019-01-31] MEDS ORDERED: ACETAMINOPHEN 1000 MG/100 ML VIAL (NON FORMULARY) IVPB ONE (13:48)
[2019-01-31 13:55] LABS: BASO % 0.3 % (0-2.0); EOS % 0.1 % (0-4.5); HEMATOCRIT 39.4 % (35.4-49); HEMOGLOBIN 13.5 GM/dL (11.7-16.9); LYMPH % 7.3 % (8-40); MCH 34.7 pg (25.7-33.7); MCHC 34.2 g/dl (32.0-35.9); MEAN CELL VOLUME 101.5 fl (80-96); MONO % 6.7 % (3.8-10.2); NEUT % 85.6 % (42.8-82.8); RBC 3.88 M/mm3 (4.00-5.60); RDW 13.7 % (11.9-15.9); WHITE BLOOD COUNT 15.2 K/mm3 (4.0-10.0)
[2019-01-31 13:56] LABS: VENOUS PC02 69.9 mmHg (38-52); VENOUS PH 7.29 (7.31-7.41)
[2019-01-31 13:57] LABS: VENOUS PO2 < 49 mmHg (28-48)
--- NOTE | 2019-01-31 13:59 | PDOC ---
Documentation entered by Lauren Hector SCRIBE, acting as scribe for Prosper Dempsey MD. Prosper Dempsey MD: This documentation has been prepared by the Krunal chance Nirvannie, SCRIBE, under my direction and personally reviewed by me in its entirety. I confirm that the documentation accurately reflects all work, treatment, procedures, and medical decision making performed by me. 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 Per [place] report, pt was satting 80s on his home 2L O2. Pt also had a fever of 101. Pt unable to contribute any additional history. - Physicial Exam PE: 01/31/19 14:04 GENERAL: Awake, no acute distress EYES: PERRLA, clear conjunctiva NOSE: Nose is clear without discharge EARS: EACs and TMs are normal THROAT: Moist mucosa, oropharynx is clear without erythema or exudates, NECK: Supple, no adenopathy, no meningismus CHEST: + RLL rales, no wheezes HEART: Regular rhythm, normal S1 and S2, no murmurs ABDOMEN: Soft and nontender with normal bowel sounds, no organomegaly, no mass, no rebound, no guarding EXTREMITIES: Normal NEURO: normal tone SKIN: Unremarkable, no rash, no swelling, no bruising, no signs of injury - Critical Care Time Total Critical Care Time: 60 Critical Care Statement: The care of this patient involved high complexity decision making to prevent further life threatening deterioration of the patient 's condition and/or to evaluate & treat vital organ system(s) failure or risk of failure. - Medical Decision Making 01/31/19 14:05 58 M with fever and hypoxia at [place]. Found to be febrile in ED with hypoxia to 80s. Suspect aspiration PNA. - Labs, cultures - CXR, UA - IVF, tylenol, abx
[2019-01-31] MEDS ORDERED: ALBUTEROL SO4 2.5/IPRATROPIUM 0.5 INH SOL 3 ML VIAL.NEB. NEB ONE ×3 (14:02→18:44)
[2019-01-31] MEDS ORDERED: VANCOMYCIN 1 GM in D5W (PRE-DOCKED) 1,000 MG/250 ML IVPB ONE (14:04)
[2019-01-31] MEDS ORDERED: PIPERACILLIN/TAZOB 4.5 GM 4.5 GM in DEXTROSE 5%-WATER 100 ML IVPB ONE (14:04)
[2019-01-31 14:15] LABS: INR 1.07 (0.83-1.09); PROTHROMBIN TIME (PATIENT) 12.6 SEC (9.7-13.0)
[2019-01-31 14:18] LABS: ACTIVATED PTT 36.4 SECONDS (25.2-36.5)
[2019-01-31] MEDS ORDERED: PIPERACILLIN/TAZOB 4.5 GM 4.5 GM/100 ML BAG IVPB ONE (14:21)
[2019-01-31] MEDS ORDERED: VANCOMYCIN 1 GRAM (PRE-DOCKED) 1,000 MG/250 ML BAG IVPB ONE (14:21)
[2019-01-31 14:26] LABS: ALBUMIN 3.4 g/dl (3.4-5.0); ALK PHOS 118 U/L (45-117); ANION GAP 6 MMOL/L (8-16); BILIRUBIN,TOTAL 0.5 mg/dL (0.2-1); BLOOD UREA NITROGEN 19.3 mg/dL (7-18); CALCIUM 9.1 mg/dL (8.5-10.1); CHLORIDE 95 mmol/L (98-107); CO2 34 mmol/L (21-32); CREATININE 0.6 mg/dL (0.55-1.3); GLUCOSE,RANDOM 104 mg/dL (74-106); POTASSIUM 3.8 mmol/L (3.5-5.1); SGOT/AST 63 U/L (15-37); SGPT/ALT 53 U/L (13-61); SODIUM 135 mmol/L (136-145)
[2019-01-31 14:46] LABS: PLATELET ESTIMATE ADEQUATE
[2019-01-31 14:50] LABS: MACROCYTOSIS 1+; OVALOCYTE 1+
[2019-01-31 15:13] LABS: ALLENS TEST POSITIVE
[2019-01-31 15:16] LABS: ARTERIAL BLD GAS O2 SATURATION 96.8 % (95-98); ARTERIAL BLOOD GAS BASE EXCESS 1.7 meq/l (-2-2); ARTERIAL BLOOD GAS PCO2 52.2 mmHg (35-45); ARTERIAL BLOOD GAS PO2 92.8 mmHg (80-100); ARTERIAL BLOOD GAS pH 7.34 (7.35-7.45); CARBOXYHEMOGLOBIN 1.1 % (0-2)
[2019-01-31 15:53] LABS: PH,URINE 5.5 (5.0-8.0); URINE APPEARANCE CLEAR; URINE BILIRUBIN NEGATIVE (NEGATIVE); URINE COLOR YELLOW; URINE GLUCOSE (UA) NEGATIVE (NEGATIVE); URINE KETONE NEGATIVE (NEGATIVE); URINE LEUK ESTERASE NEGATIVE (NEGATIVE); URINE NITRITE NEGATIVE (NEGATIVE); URINE PROTEIN NEGATIVE (NEGATIVE); URINE UROBILINOGEN 0.2 mg/dL (0.2-1.0)
[2019-01-31] MEDS ORDERED: LORAZEPAM 2 MG IM PRN (16:04)
--- NOTE | 2019-01-31 16:04 | HP ---
PCP: Juan Muse CHIEF COMPLAINT: HISTORY OF PRESENT ILLNESS: This is a 58 year old man with a history of cerebral palsy, developmental delay, seizures, Brad-Gastaut syndrome, corpus callosotomy, chronic hypoxic respiratory failure, glaucoma, G-tube who was sent to the ED from [facility] because of fever. The patient is unable to provide a history. As per staff at the facility, he was noted to be dyspneic and tachycardic with a temp 100.7 today. In the ED he was hypoxic with O2 saturation in the 70s and febrile to 101. PAST MEDICAL HISTORY Cerebral palsy Developmental delay Seizures Vincent-Gastaut syndrome Chronic hypoxic respiratory failure Glaucoma PAST SURGICAL HISTORY Corpus callosotomy G-tube Allergies divalproex sodium [From Depakote] Allergy (Unknown, Verified 09/19/16 20:12) paroxetine HCl [From Paxil] Allergy (Unknown, Verified 09/19/16 20:12) valproic acid Allergy (Verified 09/19/16 20:12) Home Medications Medication Instructions Recorded Albuterol 2.5/Ipratropium 0.5 1 amp NEB TID 09/15/15 [Duoneb -] Bimatoprost [Lumigan] 1 drop OU HS 09/15/15 Calcium Carbonate/Vitamin D3 1 each PEG BID 09/15/15 [Calcium 600 + Vit D 400 Softgl] Levetiracetam [Keppra] 1,500 mg PEG Q12H 09/15/15 Lorazepam [Ativan] 2 mg IM PRN PRN 09/15/15 Phenobarbital 100 mg PEG HS 09/15/15 Potassium Chloride Oral Soln [KCl 20 meq PEG DAILY 09/15/15 Oral Solution -] Ranitidine HCl [Zantac] 150 mg PEG BID 09/15/15 Sertraline HCl [Zoloft] 150 mg PEG DAILY 09/15/15 Simethicone [Mytab Gas] 160 mg PEG TID 09/15/15 Zonisamide [Zonegran] 300 mg PEG BID 09/15/15 Carboxymethylcellulos/Glycerin 2 drop OU QID 12/29/15 [Refresh Optive Eye Drops] Diazepam Rectal Gel [Diastat 20 mg AR PRN PRN 12/29/15 Rectal Gel -] Olopatadine HCl [Pataday] 1 drop OU DAILY 12/29/15 Sennosides [Senna -] 2 tab PEG HS 12/29/15 Travoprost [Travatan Z] 2.5 ml OU HS 12/29/15 Cannabidiol (Cbd) Extract 4.5 ml GT BID 11/28/18 [Epidiolex] Clobazam 10 mg PO QID 11/28/18 Clobazam [Onfi -] 10 mg GT QID 11/28/18 Phenobarbital 20 mg GT AM 11/28/18 Doxycycline Hyclate [Vibramycin -] 100 mg PO BID@1000,1800 #8 capsule 12/03/18 Social History: Smoking: None Alcohol: None Drugs: None Recent Travel: No Family History: Unobtainable REVIEW OF SYSTEMS Unobtainable PHYSICAL EXAMINATION Vital Signs - 24 hr 01/31/19 15:14 Temperature 101.1 F H Pulse Rate 110 H Respiratory 20 Rate Blood Pressure 150/83 O2 Sat by Pulse 78 L Oximetry (%) GENERAL: Awake, moderate respiratory distress. HEAD: Normal with no signs of trauma. EYES: Pupils equal, round and reactive to light, sclerae anicteric, conjunctivae clear. EARS, NOSE, THROAT: Ears normal, nares patent, oropharynx not visualized. Moist mucous membranes. NECK: Supple without lymphadenopathy, JVD, or masses. LUNGS: Diffuse bilateral rhonchi. HEART: Regular rhythm, S1 and S2, tachycardic without murmur, rub or gallop. ABDOMEN: Soft, not distended, normoactive bowel sounds, no masses. No hepatomegaly or splenomegaly. UPPER EXTREMITIES: 2+ pulses, hands cool, well-perfused. No cyanosis. No clubbing. No peripheral edema. LOWER EXTREMITIES: 2+ pulses, feet cool, well-perfused. No cyanosis. No peripheral edema. NEUROLOGICAL: Unable to assess. PSYCHIATRIC: Unable to assess. SKIN: Warm, dry, normal turgor, no rashes or lesions noted, normal capillary refill. Laboratory Results - last 24 hr 01/31/19 01/31/19 01/31/19 13:30 13:30 13:30 WBC 15.2 H RBC 3.88 L Hgb 13.5 Hct 39.4 D MCV 101.5 H MCH 34.7 H MCHC 34.2 RDW 13.7 Plt Count MPV No Result Required. Absolute Neuts (auto) 13.0 H Total Counted 100 Neutrophils % 85.6 H D Neutrophils % (Manual) 78.0 Band Neutrophils % 5.0 Lymphocytes % 7.3 L D Lymphocytes % (Manual) 8.0 Monocytes % 6.7 Monocytes % (Manual) 8 Eosinophils % 0.1 D Basophils % 0.3 Basophils % (Manual) 1.0 Nucleated RBC % 0 Platelet Estimate Adequate Platelet Comment Slt plt clumping Macrocytosis 1+ Ovalocytes 1+ PT with INR INR PTT (Actin FS) Anticoagulation Therapy Puncture Site ABG pH ABG pCO2 at Pt Temp ABG pO2 at Pt Temp ABG HCO3 ABG O2 Sat (Measured) ABG O2 Content ABG Base Excess Perez Test VBG pH POC VBG pCO2 POC VBG pO2 VBG HCO3 VBG O2 Sat (Rio) VBG Base Excess Carboxyhemoglobin Methemoglobin O2 Delivery Device Oxygen Flow Rate Vent Mode Vent Rate Mechanical Rate Pressure Support Vent Sodium 135 L Potassium 3.8 Chloride 95 L Carbon Dioxide 34 H Anion Gap 6 L BUN 19.3 H Creatinine 0.6 Est GFR (CKD-EPI)AfAm 128.45 Est GFR (CKD-EPI)NonAf 110.83 Random Glucose 104 Lactic Acid 1.1 Calcium 9.1 Total Bilirubin 0.5 AST 63 H ALT 53 Alkaline Phosphatase 118 H Troponin I < 0.02 Total Protein 8.0 Albumin 3.4 Urine Color Urine Appearance Urine pH Ur Specific [place] Urine Protein Urine Glucose (UA) Urine Ketones Urine Blood Urine Nitrite Urine Bilirubin Urine Urobilinogen Ur Leukocyte Esterase 01/31/19 01/31/19 01/31/19 13:30 13:30 15:05 WBC RBC Hgb Hct MCV MCH MCHC RDW Plt Count MPV Absolute Neuts (auto) Total Counted Neutrophils % Neutrophils % (Manual) Band Neutrophils % Lymphocytes % Lymphocytes % (Manual) Monocytes % Monocytes % (Manual) Eosinophils % Basophils % Basophils % (Manual) Nucleated RBC % Platelet Estimate Platelet Comment Macrocytosis Ovalocytes PT with INR 12.60 INR 1.07 PTT (Actin FS) 36.4 Anticoagulation Therapy No Result Required. Puncture Site Left radial ABG pH 7.34 L ABG pCO2 at Pt Temp 52.2 H ABG pO2 at Pt Temp 92.8 ABG HCO3 27.7 H ABG O2 Sat (Measured) 96.8 ABG O2 Content 16.5 ABG Base Excess 1.7 Perez Test Positive VBG pH 7.29 L POC VBG pCO2 69.9 H POC VBG pO2 < 49 H VBG HCO3 32.6 H VBG O2 Sat (Rio) 50.5 L VBG Base Excess 4.2 H Carboxyhemoglobin 1.1 Methemoglobin < 1.0 O2 Delivery Device Nrm Oxygen Flow Rate 15 l Vent Mode No Result Required. Vent Rate No Result Required. Mechanical Rate No Result Required. Pressure Support Vent No Result Required. Sodium Potassium Chloride Carbon Dioxide Anion Gap BUN Creatinine Est GFR (CKD-EPI)AfAm Est GFR (CKD-EPI)NonAf Random Glucose Lactic Acid Calcium Total Bilirubin AST ALT Alkaline Phosphatase Troponin I Total Protein Albumin Urine Color Urine Appearance Urine pH Ur Specific [place] Urine Protein Urine Glucose (UA) Urine Ketones Urine Blood Urine Nitrite Urine Bilirubin Urine Urobilinogen Ur Leukocyte Esterase 01/31/19 15:40 WBC RBC Hgb Hct MCV MCH MCHC RDW Plt Count MPV Absolute Neuts (auto) Total Counted Neutrophils % Neutrophils % (Manual) Band Neutrophils % Lymphocytes % Lymphocytes % (Manual) Monocytes % Monocytes % (Manual) Eosinophils % Basophils % Basophils % (Manual) Nucleated RBC % Platelet Estimate Platelet Comment Macrocytosis Ovalocytes PT with INR INR PTT (Actin FS) Anticoagulation Therapy Puncture Site ABG pH ABG pCO2 at Pt Temp ABG pO2 at Pt Temp ABG HCO3 ABG O2 Sat (Measured) ABG O2 Content ABG Base Excess Perez Test VBG pH POC VBG pCO2 POC VBG pO2 VBG HCO3 VBG O2 Sat (Rio) VBG Base Excess Carboxyhemoglobin Methemoglobin O2 Delivery Device Oxygen Flow Rate Vent Mode Vent Rate Mechanical Rate Pressure Support Vent Sodium Potassium Chloride Carbon Dioxide Anion Gap BUN Creatinine Est GFR (CKD-EPI)AfAm Est GFR (CKD-EPI)NonAf Random Glucose Lactic Acid Calcium Total Bilirubin AST ALT Alkaline Phosphatase Troponin I Total Protein Albumin Urine Color Yellow Urine Appearance Clear Urine pH 5.5 D Ur Specific [place] 1.025 Urine Protein Negative Urine Glucose (UA) Negative Urine Ketones Negative Urine Blood Negative Urine Nitrite Negative Urine Bilirubin Negative Urine Urobilinogen 0.2 Ur Leukocyte Esterase Negative ASSESSMENT/PLAN: This is a 58 year old man with a history of cerebral palsy, developmental delay , seizures, Vincent-Gastaut syndrome, corpus callosotomy, chronic hypoxic respiratory failure, glaucoma, G-tube who presented to the ED from [facility] with dyspnea, tachycardia, and fever. 1. Acute hypoxic and hypercapnic respiratory failure and sepsis secondary to aspiration pneumonia - Zosyn, vancomycin given in ED - Continue Zosyn - IV fluid - Oxygen to maintain saturation >90% - DuoNeb and albuterol as needed - Hypercapnia improved - Check ABG in AM - ID, pulmonary consults - Hold G-tube feedings 2. Chronic hypoxic respiratory failure 3. 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 Cerebral palsy 5. Developmental delay 6. Glaucoma - Continue Temitope Boo, Sudarshan 7. Nutrition - Hold G-tube feedings for now Visit type - Emergency Visit Emergency Visit: Yes ED Registration Date: 01/31/19 Care time: The patient presented to the Emergency Department on the above date and was hospitalized for further evaluation of their emergent condition. - New Patient This patient is new to me today: Yes Date on this admission: 01/31/19 - Critical Care Critical Care patient: No
[2019-01-31] MEDS ORDERED: LORazepam 2 MG/ML SDV VIAL IM PRN (16:30)
[2019-01-31] MEDS: DEXTROSE 5%-NORMAL SALINE 1,000 ML IV SCH (17:22)
[2019-01-31] MEDS ORDERED: PIPERACILLIN/TAZOB 3.375 GM 3.375 GM/50 ML BAG IVPB ONE (18:44)
[2019-01-31] MEDS ORDERED: cloBAZam 10 MG TABLET ONE ×2 (18:44→21:15)
[2019-01-31] MEDS: ARTIFICIAL TEARS (POLYVINYL ALCOHOL) OPTH DROPS OU SCH ×2 (18:52→22:00)
[2019-01-31] MEDS: ALBUTEROL SO4 2.5/IPRATROPIUM 0.5 INH SOL 3 ML VIAL.NEB. NEB SCH (18:52)
[2019-01-31] MEDS: PIPERACILLIN/TAZOB 3.375 GM 3.375 GM in DEXTROSE 5%-WATER - 50 ML IVPB SCH (18:52)
[2019-01-31] MEDS: cloBAZam 10 MG TABLET GT SCH ×2 (19:15→22:00)
[2019-01-31] MEDS ORDERED: ALBUTEROL SO4 2.5/IPRATROPIUM 0.5 INH SOL 3 ML VIAL.NEB. NEB SCH (20:00)
[2019-01-31] MEDS ORDERED: RANITIDINE HCL 150 MG TABLET (FP) ONE (21:03)
[2019-01-31] MEDS ORDERED: HEPARIN NA (PORCINE) 5,000 UNITS/ML 1ML VIAL ONE (21:03)
[2019-01-31] MEDS: levETIRAcetam 500 MG/5 ML ORAL SOLUTION (UNIT-DOSE CUPS) PEG SCH (22:00)
[2019-01-31] MEDS: SIMETHICONE 40 MG/0.6 ML BOTTLE PEG SCH (22:00)
[2019-01-31] MEDS: HEPARIN NA (PORCINE) 5,000 UNITS/ML 1ML VIAL SQ SCH (22:00)
[2019-01-31] MEDS: ZONISAMIDE 100 MG/10 ML ORAL SUSPENSION PEG SCH (22:00)
[2019-01-31] MEDS: CALCIUM 500MG/VIT-D 200 UNITS COMBO TABLET (FP) PEG SCH (22:00)
[2019-01-31] MEDS: LATANOPROST 0.005% OPHTH SOLN 2.5ML BOTTLE OU SCH (22:00)
[2019-01-31] MEDS: SENNOSIDES 8.8 MG/5 ML BULK BOTTLE PEG SCH (22:00)
[2019-01-31] MEDS: PHENobarbital 20 MG/5 ML UNIT-DOSE CUP PEG SCH (22:00)
[2019-01-31] MEDS: RANITIDINE HCL 150 MG/10 ML UNIT-DOSE PEG SCH (22:00)
[2019-01-31] MEDS ORDERED: PATIENT'S OWN MEDICATION (NON-FORMULARY) (Travoprost [Travatan Z] 2.5 ML) OU SCH (22:00)
[2019-02-01] MEDS: ALBUTEROL SO4 2.5/IPRATROPIUM 0.5 INH SOL 3 ML VIAL.NEB. NEB SCH ×5 (00:08→23:53)
[2019-02-01] MEDS ORDERED: ALBUTEROL SO4 2.5/IPRATROPIUM 0.5 INH SOL 3 ML VIAL.NEB. NEB ONE ×3 (00:09→17:13)
[2019-02-01] MEDS ORDERED: PIPERACILLIN/TAZOB 3.375 GM 3.375 GM/50 ML BAG IVPB ONE ×3 (02:28→17:53)
[2019-02-01] MEDS: PIPERACILLIN/TAZOB 3.375 GM 3.375 GM in DEXTROSE 5%-WATER - 50 ML IVPB SCH ×4 (02:40→18:02)
[2019-02-01] MEDS ORDERED: HEPARIN NA (PORCINE) 5,000 UNITS/ML 1ML VIAL ONE (06:11)
[2019-02-01] MEDS: PHENobarbital 20 MG/5 ML UNIT-DOSE CUP PEG SCH ×2 (06:15→23:04)
[2019-02-01] MEDS: HEPARIN NA (PORCINE) 5,000 UNITS/ML 1ML VIAL SQ SCH ×3 (06:15→23:06)
[2019-02-01] MEDS: SIMETHICONE 40 MG/0.6 ML BOTTLE PEG SCH ×3 (06:15→23:05)
[2019-02-01 08:59] LABS: BASO % 0.1 % (0-2.0); EOS % 0.1 % (0-4.5); HEMATOCRIT 35.6 % (35.4-49); HEMOGLOBIN 11.9 GM/dL (11.7-16.9); LYMPH % 8.9 % (8-40); MCH 34.3 pg (25.7-33.7); MCHC 33.5 g/dl (32.0-35.9); MEAN CELL VOLUME 102.5 fl (80-96); MEAN PLT VOLUME 7.8 fl (7.5-11.1); MONO % 7.3 % (3.8-10.2); NEUT % 83.6 % (42.8-82.8); PLATELET COUNT 155 K/MM3 (134-434); RBC 3.47 M/mm3 (4.00-5.60); RDW 13.8 % (11.9-15.9); WHITE BLOOD COUNT 13.4 K/mm3 (4.0-10.0)
[2019-02-01] MEDS ORDERED: PT OWN MED DRAWER 7, Y5N ONE ×2 (09:16→22:20)
[2019-02-01] MEDS: ARTIFICIAL TEARS (POLYVINYL ALCOHOL) OPTH DROPS OU SCH ×4 (09:17→23:04)
[2019-02-01] MEDS: levETIRAcetam 500 MG/5 ML ORAL SOLUTION (UNIT-DOSE CUPS) PEG SCH ×2 (09:17→23:50)
[2019-02-01] MEDS: CALCIUM 500MG/VIT-D 200 UNITS COMBO TABLET (FP) PEG SCH ×2 (09:18→23:06)
[2019-02-01] MEDS: POTASSIUM CHLORIDE ORAL LIQUID 20 MEQ/15 ML PEG SCH (09:19)
[2019-02-01] MEDS: SERTRALINE HCL 50 MG TABLET (FP) PEG SCH (09:20)
[2019-02-01 09:33] LABS: ALBUMIN 2.9 g/dl (3.4-5.0); BILIRUBIN,TOTAL 0.6 mg/dL (0.2-1); BLOOD UREA NITROGEN 12.3 mg/dL (7-18); CALCIUM 8.5 mg/dL (8.5-10.1); CREATININE 0.6 mg/dL (0.55-1.3); MAGNESIUM 2.2 mg/dL (1.8-2.4); PHOSPHOROUS 2.4 mg/dL (2.5-4.9); POTASSIUM 3.4 mmol/L (3.5-5.1); TOT PROT 7.1 g/dl (6.4-8.2)
[2019-02-01] MEDS ORDERED: cloBAZam 10 MG TABLET ONE ×2 (09:51→17:14)
--- NOTE | 2019-02-01 09:51 | PN ---
Physical Exam: SUBJECTIVE: Patient seen and examined at bedside. Pt is nonverbal and unable to give history. OBJECTIVE: Vital Signs Period Temp Pulse Resp BP Sys/Guzmán Pulse Ox Last 24 Hr 99.6 F-101.1 F 92-112 14-28 115-150/70-84 78-100 Gen: Pt continues to have mild resp distress. HEENT: NCAT, unable to assess extraoccular muscles. PERRL. Moist membranes Neck: supple, central trachea Cardio: tachycardic, normal s1s2, no mrg Pulm: ronchi present diffusely. Abd: soft, nondistended Ext: mild erythema of toes Laboratory Results - last 24 hr 01/31/19 01/31/19 01/31/19 13:30 13:30 13:30 WBC 15.2 H RBC 3.88 L Hgb 13.5 Hct 39.4 D MCV 101.5 H MCH 34.7 H MCHC 34.2 RDW 13.7 Plt Count MPV No Result Required. Absolute Neuts (auto) 13.0 H Total Counted 100 Neutrophils % 85.6 H D Neutrophils % (Manual) 78.0 Band Neutrophils % 5.0 Lymphocytes % 7.3 L D Lymphocytes % (Manual) 8.0 Monocytes % 6.7 Monocytes % (Manual) 8 Eosinophils % 0.1 D Basophils % 0.3 Basophils % (Manual) 1.0 Nucleated RBC % 0 Platelet Estimate Adequate Platelet Comment Slt plt clumping Macrocytosis 1+ Ovalocytes 1+ PT with INR INR PTT (Actin FS) Anticoagulation Therapy Puncture Site ABG pH ABG pCO2 at Pt Temp ABG pO2 at Pt Temp ABG HCO3 ABG O2 Sat (Measured) ABG O2 Content ABG Base Excess Perez Test VBG pH POC VBG pCO2 POC VBG pO2 VBG HCO3 VBG O2 Sat (Rio) VBG Base Excess Carboxyhemoglobin Methemoglobin O2 Delivery Device Oxygen Flow Rate Vent Mode Vent Rate Mechanical Rate Pressure Support Vent Sodium 135 L Potassium 3.8 Chloride 95 L Carbon Dioxide 34 H Anion Gap 6 L BUN 19.3 H Creatinine 0.6 Est GFR (CKD-EPI)AfAm 128.45 Est GFR (CKD-EPI)NonAf 110.83 Random Glucose 104 Lactic Acid 1.1 Calcium 9.1 Phosphorus Magnesium Total Bilirubin 0.5 AST 63 H ALT 53 Alkaline Phosphatase 118 H Troponin I < 0.02 Total Protein 8.0 Albumin 3.4 Urine Color Urine Appearance Urine pH Ur Specific Rentz Urine Protein Urine Glucose (UA) Urine Ketones Urine Blood Urine Nitrite Urine Bilirubin Urine Urobilinogen Ur Leukocyte Esterase 01/31/19 01/31/19 01/31/19 13:30 13:30 15:05 WBC RBC Hgb Hct MCV MCH MCHC RDW Plt Count MPV Absolute Neuts (auto) Total Counted Neutrophils % Neutrophils % (Manual) Band Neutrophils % Lymphocytes % Lymphocytes % (Manual) Monocytes % Monocytes % (Manual) Eosinophils % Basophils % Basophils % (Manual) Nucleated RBC % Platelet Estimate Platelet Comment Macrocytosis Ovalocytes PT with INR 12.60 INR 1.07 PTT (Actin FS) 36.4 Anticoagulation Therapy No Result Required. Puncture Site Left radial ABG pH 7.34 L ABG pCO2 at Pt Temp 52.2 H ABG pO2 at Pt Temp 92.8 ABG HCO3 27.7 H ABG O2 Sat (Measured) 96.8 ABG O2 Content 16.5 ABG Base Excess 1.7 Perez Test Positive VBG pH 7.29 L POC VBG pCO2 69.9 H POC VBG pO2 < 49 H VBG HCO3 32.6 H VBG O2 Sat (Rio) 50.5 L VBG Base Excess 4.2 H Carboxyhemoglobin 1.1 Methemoglobin < 1.0 O2 Delivery Device Nrm Oxygen Flow Rate 15 l Vent Mode No Result Required. Vent Rate No Result Required. Mechanical Rate No Result Required. Pressure Support Vent No Result Required. Sodium Potassium Chloride Carbon Dioxide Anion Gap BUN Creatinine Est GFR (CKD-EPI)AfAm Est GFR (CKD-EPI)NonAf Random Glucose Lactic Acid Calcium Phosphorus Magnesium Total Bilirubin AST ALT Alkaline Phosphatase Troponin I Total Protein Albumin Urine Color Urine Appearance Urine pH Ur Specific Rentz Urine Protein Urine Glucose (UA) Urine Ketones Urine Blood Urine Nitrite Urine Bilirubin Urine Urobilinogen Ur Leukocyte Esterase 01/31/19 02/01/19 02/01/19 15:40 08:48 08:48 WBC 13.4 H RBC 3.47 L Hgb 11.9 Hct 35.6 MCV 102.5 H MCH 34.3 H MCHC 33.5 RDW 13.8 Plt Count 155 D MPV 7.8 Absolute Neuts (auto) 11.2 H Total Counted Neutrophils % 83.6 H Neutrophils % (Manual) Band Neutrophils % Lymphocytes % 8.9 D Lymphocytes % (Manual) Monocytes % 7.3 Monocytes % (Manual) Eosinophils % 0.1 Basophils % 0.1 Basophils % (Manual) Nucleated RBC % 0 Platelet Estimate Platelet Comment Macrocytosis Ovalocytes PT with INR INR PTT (Actin FS) Anticoagulation Therapy Puncture Site ABG pH ABG pCO2 at Pt Temp ABG pO2 at Pt Temp ABG HCO3 ABG O2 Sat (Measured) ABG O2 Content ABG Base Excess Perez Test VBG pH POC VBG pCO2 POC VBG pO2 VBG HCO3 VBG O2 Sat (Rio) VBG Base Excess Carboxyhemoglobin Methemoglobin O2 Delivery Device Oxygen Flow Rate Vent Mode Vent Rate Mechanical Rate Pressure Support Vent Sodium 138 Potassium 3.4 L Chloride 102 Carbon Dioxide 28 Anion Gap 8 BUN 12.3 Creatinine 0.6 Est GFR (CKD-EPI)AfAm 128.45 Est GFR (CKD-EPI)NonAf 110.83 Random Glucose 114 H Lactic Acid Calcium 8.5 Phosphorus 2.4 L Magnesium 2.2 Total Bilirubin 0.6 AST 34 ALT 38 Alkaline Phosphatase 86 Troponin I Total Protein 7.1 Albumin 2.9 L Urine Color Yellow Urine Appearance Clear Urine pH 5.5 D Ur Specific [place]z 1.025 Urine Protein Negative Urine Glucose (UA) Negative Urine Ketones Negative Urine Blood Negative Urine Nitrite Negative Urine Bilirubin Negative Urine Urobilinogen 0.2 Ur Leukocyte Esterase Negative Active Medications Generic Name Dose Route Start Last Admin Trade Name Jj PRN Reason Stop Dose Admin Albuterol Sulfate 1 amp 01/31/19 16:14 Ventolin 0.083% Nebulizer Soln - NEB Q4H PRN SHORT OF BREATH/WHEEZING Albuterol/Ipratropium 1 amp 01/31/19 18:00 02/01/19 06:15 Duoneb - NEB 1 amp QIDR BOBBY Administration Artificial Tears 2 drop 01/31/19 18:00 02/01/19 09:17 Artificial Tears OU 2 drop QID BOBBY Administration Calcium Carbonate/Cholecalciferol 1 tab 01/31/19 22:00 02/01/19 09:18 Os-Dylon 500+D - PEG 1 tab BID BOBBY Administration Clobazam 10 mg 01/31/19 18:00 01/31/19 22:00 Onfi - GT 10 mg QID BOBBY Administration Heparin Sodium (Porcine) 5,000 unit 01/31/19 22:00 02/01/19 06:15 Heparin - SQ 5,000 unit TID BOBBY Administration Dextrose/Sodium Chloride 1,000 mls @ 100 mls/hr 01/31/19 16:15 01/31/19 17:22 D5-Ns - IV 100 mls/hr ASDIR BOBBY Administration Piperacillin Sod/Tazobactam 50 mls @ 100 mls/hr 01/31/19 18:00 Sod 3.375 gm/ Dextrose IVPB Q8H-IV BOBBY Protocol Piperacillin Sod/Tazobactam 50 mls @ 100 mls/hr 01/31/19 18:00 02/01/19 02:40 Sod 3.375 gm/ Dextrose IVPB 02/01/19 10:29 100 mls/hr Q8H-IV BOBBY Administration Latanoprost 1 drop 01/31/19 22:00 01/31/19 22:00 Xalatan 0.005% Eye Drops - OU 1 drop HS BOBBY Administration Levetiracetam 1,500 mg 01/31/19 22:00 02/01/19 09:17 Keppra Oral Solution - PEG 1,500 mg BID BOBBY Administration Lorazepam 2 mg 01/31/19 16:30 Ativan Injection - IM Q1H PRN seizures Non-Formulary Medication 1 drop 02/01/19 10:00 Olopatadine Hcl [Pataday] OU DAILY BOBBY Phenobarbital 20 mg 02/01/19 07:00 02/01/19 06:15 Phenobarbital Liquid - PEG 20 mg AM BOBBY Administration Phenobarbital 100 mg 01/31/19 22:00 01/31/19 22:00 Phenobarbital Liquid - PEG 100 mg HS BOBBY Administration Potassium Chloride 20 meq 02/01/19 10:00 02/01/19 09:19 Potassium Chloride Oral Liquid PEG 20 meq DAILY BOBBY Administration Ranitidine HCl 150 mg 01/31/19 22:00 01/31/19 22:00 Zantac Oral Solution - PEG 150 mg BID BOBBY Administration Senna 17.6 mg 01/31/19 22:00 01/31/19 22:00 Senna Oral Solution - PEG 17.6 mg HS BOBBY Administration Sertraline HCl 150 mg 02/01/19 10:00 02/01/19 09:20 Zoloft - PEG 150 mg DAILY BOBBY Administration Simethicone 160 mg 01/31/19 22:00 02/01/19 06:15 Mylicon Liquid - PEG 160 mg TID BOBBY Administration Zonisamide 300 mg 01/31/19 22:00 01/31/19 22:00 Zonisamide PEG 300 mg BID BOBBY Administration Active Medications Albuterol Sulfate (Ventolin 0.083% Nebulizer Soln -) 1 amp NEB Q4H PRN PRN Reason: SHORT OF BREATH/WHEEZING Albuterol/Ipratropium (Duoneb -) 1 amp NEB QIDR BOBBY Last Admin: 02/01/19 06:15 Dose: 1 amp Artificial Tears (Artificial Tears) 2 drop OU QID BOBBY Last Admin: 02/01/19 09:17 Dose: 2 drop Calcium Carbonate/Cholecalciferol (Os-Dylon 500+D -) 1 tab PEG BID BOBBY Last Admin: 02/01/19 09:18 Dose: 1 tab Clobazam (Onfi -) 10 mg GT QID BOBBY Last Admin: 01/31/19 22:00 Dose: 10 mg Heparin Sodium (Porcine) (Heparin -) 5,000 unit SQ TID BOBBY Last Admin: 02/01/19 06:15 Dose: 5,000 unit Dextrose/Sodium Chloride (D5-Ns -) 1,000 mls @ 100 mls/hr IV ASDIR BOBBY Last Admin: 01/31/19 17:22 Dose: 100 mls/hr Piperacillin Sod/Tazobactam (Sod 3.375 gm/ Dextrose) 50 mls @ 100 mls/hr IVPB Q8H-IV BOBBY; Protocol Piperacillin Sod/Tazobactam (Sod 3.375 gm/ Dextrose) 50 mls @ 100 mls/hr IVPB Q8H-IV BOBBY Stop: 02/01/19 10:29 Last Admin: 02/01/19 02:40 Dose: 100 mls/hr Latanoprost (Xalatan 0.005% Eye Drops -) 1 drop OU HS BOBBY Last Admin: 01/31/19 22:00 Dose: 1 drop Levetiracetam (Keppra Oral Solution -) 1,500 mg PEG BID BOBBY Last Admin: 02/01/19 09:17 Dose: 1,500 mg Lorazepam (Ativan Injection -) 2 mg IM Q1H PRN PRN Reason: seizures Non-Formulary Medication (Olopatadine Hcl [Pataday]) 1 drop OU DAILY BOBBY Phenobarbital (Phenobarbital Liquid -) 20 mg PEG AM ON LICENSE OF [facility] Last Admin: 02/01/19 06:15 Dose: 20 mg Phenobarbital (Phenobarbital Liquid -) 100 mg PEG HS ON LICENSE OF [facility] Last Admin: 01/31/19 22:00 Dose: 100 mg Potassium Chloride (Potassium Chloride Oral Liquid) 20 meq PEG DAILY ON LICENSE OF [facility] Last Admin: 02/01/19 09:19 Dose: 20 meq Ranitidine HCl (Zantac Oral Solution -) 150 mg PEG BID ON LICENSE OF [facility] Last Admin: 01/31/19 22:00 Dose: 150 mg Senna (Senna Oral Solution -) 17.6 mg PEG HS ON LICENSE OF [facility] Last Admin: 01/31/19 22:00 Dose: 17.6 mg Sertraline HCl (Zoloft -) 150 mg PEG DAILY ON LICENSE OF [facility] Last Admin: 02/01/19 09:20 Dose: 150 mg Simethicone (Mylicon Liquid -) 160 mg PEG TID ON LICENSE OF [facility] Last Admin: 02/01/19 06:15 Dose: 160 mg Zonisamide (Zonisamide) 300 mg PEG BID ON LICENSE OF [facility] Last Admin: 01/31/19 22:00 Dose: 300 mg ASSESSMENT/PLAN: This is a 58 year old man with a history of cerebral palsy, developmental delay , seizures, Coalgood-Gastaut syndrome, corpus callosotomy, chronic hypoxic respiratory failure, glaucoma, G-tube who presented to the ED from [facility] with dyspnea, tachycardia, and fever. 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 - New Patient This patient is new to me today: Yes Date on this admission: 02/01/19 - Critical Care Critical Care patient: No ATTENDING PHYSICIAN STATEMENT I saw and evaluated the patient. I reviewed the resident's note and discussed the case with the resident. I agree with the resident's findings and plan as documented. SUBJECTIVE: OBJECTIVE: ASSESSMENT AND PLAN:
[2019-02-01] MEDS: cloBAZam 10 MG TABLET GT SCH ×4 (09:53→23:06)
[2019-02-01] MEDS ORDERED: PATIENT'S OWN MEDICATION (NON-FORMULARY) (Olopatadine Hcl [Pataday] 1 DROP) OU SCH (10:00)
[2019-02-01] MEDS: ALBUTEROL SO4 0.083% IH SOL 2.5 MG/3 ML VIAL.NEB. NEB PRN (10:44)
[2019-02-01] MEDS ORDERED: ALBUTEROL SO4 0.083% IH SOL 2.5 MG/3 ML VIAL.NEB. NEB ONE (10:57)
[2019-02-01] MEDS: ZONISAMIDE 100 MG/10 ML ORAL SUSPENSION PEG SCH ×2 (11:09→23:05)
[2019-02-01] MEDS: RANITIDINE HCL 150 MG/10 ML UNIT-DOSE PEG SCH ×2 (11:09→23:50)
--- NOTE | 2019-02-01 11:15 | CON.ID ---
Consult Consult Specialty:: infectious diseases Referred by:: Reason for Consultation:: pneumonia,sepsis - History of Present Illness Chief Complaint: resp difficuilty History of Present Illness: 58 year old man with a history of cerebral palsy, developmental delay, seizures , [place]-Gastaut syndrome, corpus callosotomy, chronic hypoxic respiratory failure, glaucoma, G-tube who was sent to the ED from [facility] because of fever. The patient is unable to provide a history. As per staff at the facility, he was noted to be dyspneic and tachycardic with a temp 100.7 today. In the ED he was hypoxic with O2 saturation in the 70s and febrile to 101. 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 SILVIANO GASTAUT SYNDROME S/P VNS IMPLANT. 2. 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 3. PECURRENT ASPIRATION PNEUMONIAS. 4. H/O SEVER MYOCLONIC SEIZURES. 5. S/P CORPUS CALLOSTOMY (2009) FOR MYOTONIC SEIZURES. 6. FOOT DROP. 7. CEREBRAL PALSY/MR - Alcohol/Substance Use Hx Alcohol Use: No History of Substance Use: reports: None - Smoking History Smoking history: Unknown if ever smoked Have you smoked in the past 12 months: No Aproximately how many cigarettes per day: 0 - Social History Usual Living Arrangement: Detention ADL: Support Services History of Recent Travel: No Home Medications - Allergies Allergies/Adverse Reactions: Allergies Allergy/AdvReac Type Severity Reaction Status Date / Time divalproex sodium Allergy Unknown Verified 09/19/16 20:12 [From Depakote] paroxetine HCl [From Paxil] Allergy Unknown Verified 09/19/16 20:12 valproic acid Allergy Verified 09/19/16 20:12 - Home Medications Home Medications: Ambulatory Orders Albuterol 2.5/Ipratropium 0.5 [Duoneb -] 1 amp NEB TID 09/15/15 Bimatoprost [Lumigan] 1 drop OU HS 09/15/15 Calcium Carbonate/Vitamin D3 [Calcium 600 + Vit D 400 Softgl] 1 each PEG TID 01/22 Levetiracetam [Keppra] 1,500 mg PEG Q12H 09/15/15 Lorazepam [Ativan] 2 mg IM PRN PRN 09/15/15 Phenobarbital 100 mg PEG HS 09/15/15 Potassium Chloride Oral Soln [KCl Oral Solution -] 20 meq PEG DAILY 09/15/15 Ranitidine HCl [Zantac] 150 mg PEG BID 09/15/15 Sertraline HCl [Zoloft] 150 mg PEG DAILY 09/15/15 Simethicone [Mytab Gas] 160 mg PEG TID 09/15/15 Zonisamide [Zonegran] 300 mg PEG BID 09/15/15 Diazepam Rectal Gel [Diastat Rectal Gel -] 20 mg PA PRN PRN 12/29/15 Olopatadine HCl [Pataday] 1 drop OU DAILY 12/29/15 Sennosides [Senna -] 2 tab PEG HS 12/29/15 Travoprost [Travatan Z] 2.5 ml OU HS 12/29/15 Cannabidiol (Cbd) Extract [Epidiolex] 4.5 ml GT BID 11/28/18 Clobazam [Onfi -] 10 mg GT QID 11/28/18 Collagenase Clostridium Hist. [Santyl] 1 applic TP DAILY 02/02/19 Lactobacil 2-S.thermo-Bifido 1 [Visbiome 112.5 Billion Capsule] 1 each PO BID Magnesium Hydroxide [Milk of Magnesia] 400 mg PO Q2D 02/02/19 Mupirocin Ointment [Bactroban 2% Ointment -] 1 applic TP 5XD PRN 02/02/19 [place]-3/Dha/Epa/Fish Oil [Fish Oil 1,600 mg/5 ml Liquid] 1,600 mg PO DAILY 02/02 One Daily For Men 50+ Adv Tab 1 tablet DAILY 02/02/19 Polyethylene Glycol 3350 [Miralax 119 gm Btl -] 17 grams Q2D 02/02/19 Review of Systems Unable to obtain ROS, reason: unable to obtain Physical Exam Vital Signs: Vital Signs Temperature 99.6 F 02/01/19 08:20 Pulse Rate 96 H 02/01/19 10:59 Respiratory Rate 14 02/01/19 10:59 Blood Pressure 128/62 08/26/19 10:59 O2 Sat by Pulse Oximetry (%) 100 02/01/19 10:59 Constitutional: Yes: No Distress, Calm Eyes: Yes: Conjunctiva Clear Neck: Yes: Supple Cardiovascular: Yes: Regular Rate and Rhythm Respiratory: Yes: Poor Air Entry, Rhonchi, Other (on face mask) Gastrointestinal: Yes: Normal Bowel Sounds, Soft Musculoskeletal: Yes: WNL Extremities: Yes: WNL Neurological: Yes: Alert, Other Psychiatric: Yes: Other Labs: CBC, BMP 02/01/19 08:48 02/01/19 08:48 Imaging - Results Chest X-ray: Report Reviewed, Image Reviewed Assessment/Plan Problem List - Problems (1) Pneumonia Code(s): J18.9 - PNEUMONIA, UNSPECIFIED ORGANISM Qualifiers: Pneumonia type: aspiration pneumonia Aspiration pneumonia type: unspecified Laterality: left Lung location: upper lobe of lung Qualified Code(s): J69.0 - Pneumonitis due to inhalation of food and vomit Assessment/Plan Acute Hypoxic Respiratory Failure Pneumonia suspect Aspiration Sepsis Cerebral Palsy Mental Retardation Seizure Disorder plan iv abx asp precautions resp support rest as per the team
--- NOTE | 2019-02-01 13:01 | EKG ---
Test Reason : Blood Pressure : / mmHG Vent. Rate : 088 BPM Atrial Rate : 088 BPM P-R Int : 160 ms QRS Dur : 094 ms QT Int : 382 ms P-R-T Axes : 031 051 041 degrees QTc Int : 462 ms NORMAL SINUS RHYTHM BASELINE ARTIFACT NONSPECIFIC T WAVE ABNORMALITY ABNORMAL ECG WHEN COMPARED WITH ECG OF 28-NOV-2018 16:45, T WAVE VARIATION Confirmed by ABRAHAN JESUS MD ([id number]) on 02/01/2019 1:00:52 PM Referred By: Confirmed By:ABRAHAN JESUS MD
--- NOTE | 2019-02-01 13:32 | CON.PULM ---
Consult Consult Specialty:: PULMONARY Referred by:: Dr Watt Reason for Consultation:: shortness of breath - History of Present Illness Chief Complaint: shortness of breath History of Present Illness: 58yo male with h/o cerebral palsy, mental retardation, seizure disorder, [place]- Gastaut syndrome, chronic hypoxic respiratory failure who was transferred from [place] for shortness of breath and fevers. Pt unable to provide further history at this time. Febrile to 101 in the ER and hypoxic to 70s. CXR showing LLL infiltrate. 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 SILVIANO GASTAUT SYNDROME S/P VNS IMPLANT. 2. 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 3. PECURRENT ASPIRATION PNEUMONIAS. 4. H/O SEVER MYOCLONIC SEIZURES. 5. S/P CORPUS CALLOSTOMY (2009) FOR MYOTONIC SEIZURES. 6. FOOT DROP. 7. CEREBRAL PALSY/MR - Alcohol/Substance Use Hx Alcohol Use: No History of Substance Use: reports: None - Smoking History Smoking history: Unknown if ever smoked Have you smoked in the past 12 months: No Aproximately how many cigarettes per day: 0 - Social History Usual Living Arrangement: Retirement ADL: Support Services History of Recent Travel: No Home Medications - Allergies Allergies/Adverse Reactions: Allergies Allergy/AdvReac Type Severity Reaction Status Date / Time divalproex sodium Allergy Unknown Verified 09/19/16 20:12 [From Depakote] paroxetine HCl [From Paxil] Allergy Unknown Verified 09/19/16 20:12 valproic acid Allergy Verified 09/19/16 20:12 - Home Medications Home Medications: Ambulatory Orders Albuterol 2.5/Ipratropium 0.5 [Duoneb -] 1 amp NEB TID 09/15/15 Bimatoprost [Lumigan] 1 drop OU HS 09/15/15 Calcium Carbonate/Vitamin D3 [Calcium 600 + Vit D 400 Softgl] 1 each PEG TID 01/22 Levetiracetam [Keppra] 1,500 mg PEG Q12H 09/15/15 Lorazepam [Ativan] 2 mg IM PRN PRN 04/08/16 Phenobarbital 100 mg PEG HS 09/15/15 Potassium Chloride Oral Soln [KCl Oral Solution -] 20 meq PEG DAILY 09/15/15 Ranitidine HCl [Zantac] 150 mg PEG BID 09/15/15 Sertraline HCl [Zoloft] 150 mg PEG DAILY 09/15/15 Simethicone [Mytab Gas] 160 mg PEG TID 09/15/15 Zonisamide [Zonegran] 300 mg PEG BID 09/15/15 Diazepam Rectal Gel [Diastat Rectal Gel -] 20 mg [place] PRN PRN 12/29/15 Olopatadine HCl [Pataday] 1 drop OU DAILY 12/29/15 Sennosides [Senna -] 2 tab PEG HS 12/29/15 Travoprost [Travatan Z] 2.5 ml OU HS 12/29/15 Cannabidiol (Cbd) Extract [Epidiolex] 4.5 ml GT BID 11/28/18 Clobazam [Onfi -] 10 mg GT QID 11/28/18 Review of Systems Unable to obtain ROS, reason: pt nonverbal Physical Exam Vital Sings: Vital Signs Temperature 99.6 F 02/01/19 08:20 Pulse Rate 96 H 02/01/19 10:59 Respiratory Rate 14 02/01/19 10:59 Blood Pressure 128/62 02/01/19 10:59 O2 Sat by Pulse Oximetry (%) 100 02/01/19 10:59 Constitutional: Yes: Moderate Distress Eyes: Yes: Conjunctiva Clear, EOM Intact HENT: Yes: Atraumatic, Normocephalic Neck: Yes: Supple, Trachea Midline Respiratory: Yes: Rhonchi ...Clubbing: No Gastrointestinal: Yes: Normal Bowel Sounds, Soft. No: Tenderness Edema: No Neurological: Yes: Alert Labs: CBC, BMP 02/01/19 08:48 02/01/19 08:48 ABG Results ABG pH 7.34 (7.35-7.45) L 01/31/19 15:05 ABG pCO2 at Pt Temp 52.2 mmHg (35-45) H 01/31/19 15:05 ABG pO2 at Pt Temp 92.8 mmHg (80-100) 01/31/19 15:05 ABG HCO3 27.7 mmol/L (22-27) H 01/31/19 15:05 ABG O2 Sat (Measured) 96.8 % (95-98) 01/31/19 15:05 ABG O2 Content 16.5 % vol 01/31/19 15:05 ABG Base Excess 1.7 meq/l (-2-2) 01/31/19 15:05 Imaging - Results Chest X-ray: Report Reviewed, Image Reviewed (LLL consolidation) Problem List - Problems (1) Pneumonia Code(s): J18.9 - PNEUMONIA, UNSPECIFIED ORGANISM Qualifiers: Pneumonia type: aspiration pneumonia Aspiration pneumonia type: unspecified Laterality: left Lung location: upper lobe of lung Qualified Code(s): J69.0 - Pneumonitis due to inhalation of food and vomit Assessment/Plan Acute Hypoxic Respiratory Failure Pneumonia suspect Aspiration Sepsis Cerebral Palsy Mental Retardation Seizure Disorder - IV antibiotics - f/u cultures - O2 to keep SpO2 >90% - inhaled bronchodilators - short course of medrol - aspiration precautions - DVT prophylaxis Thank you for this consult Shin Carrillo MD
[2019-02-01] MEDS: methylPREDNISolone NA SUCC 40 MG/1 ML VIAL IVPUSH SCH ×2 (14:50→19:32)
[2019-02-01] MEDS ORDERED: methylPREDNISolone NA SUCC 40 MG/1 ML VIAL ONE (14:52)
--- NOTE | 2019-02-01 16:01 | PN ---
Teaching Attending Note Name of Resident: Elier Wilkins ATTENDING PHYSICIAN STATEMENT I saw and evaluated the patient. I reviewed the resident's note and discussed the case with the resident. I agree with the resident's findings and plan as documented. SUBJECTIVE: Patient appears comfortable. OBJECTIVE: Vital Signs Period Temp Pulse Resp BP Sys/Guzmán Pulse Ox Last 24 Hr 99.6 F-100.1 F 68-112 14-28 111-144/62-84 94-100 HEART: S1S2, RRR LUNGS: Bilateral rhonchi ABDOMEN: Soft, non-distended, normal BS, PEG site clean EXTREMITIES: No edema Laboratory Results - last 24 hr 01/31/19 02/01/19 02/01/19 15:40 08:48 08:48 WBC 13.4 H RBC 3.47 L Hgb 11.9 Hct 35.6 MCV 102.5 H MCH 34.3 H MCHC 33.5 RDW 13.8 Plt Count 155 D MPV 7.8 Absolute Neuts (auto) 11.2 H Neutrophils % 83.6 H Lymphocytes % 8.9 D Monocytes % 7.3 Eosinophils % 0.1 Basophils % 0.1 Nucleated RBC % 0 Sodium 138 Potassium 3.4 L Chloride 102 Carbon Dioxide 28 Anion Gap 8 BUN 12.3 Creatinine 0.6 Est GFR (CKD-EPI)AfAm 128.45 Est GFR (CKD-EPI)NonAf 110.83 Random Glucose 114 H Calcium 8.5 Phosphorus 2.4 L Magnesium 2.2 Total Bilirubin 0.6 AST 34 ALT 38 Alkaline Phosphatase 86 Total Protein 7.1 Albumin 2.9 L Urine Color Yellow Urine Appearance Clear Urine pH 5.5 D Ur Specific Alba 1.025 Urine Protein Negative Urine Glucose (UA) Negative Urine Ketones Negative Urine Blood Negative Urine Nitrite Negative Urine Bilirubin Negative Urine Urobilinogen 0.2 Ur Leukocyte Esterase Negative Current Medications Generic Name Dose Route Start Last Admin Trade Name Freq PRN Reason Stop Dose Admin Albuterol Sulfate 1 amp 01/31/19 16:14 02/01/19 10:44 Ventolin 0.083% Nebulizer Soln - NEB 1 amp Q4H PRN Administration SHORT OF BREATH/WHEEZING Albuterol/Ipratropium 1 amp 01/31/19 18:00 02/01/19 12:00 Duoneb - NEB 1 amp QIDR BOBBY Administration Artificial Tears 2 drop 01/31/19 18:00 02/01/19 13:28 Artificial Tears OU 2 drop QID BOBBY Administration Calcium Carbonate/Cholecalciferol 1 tab 01/31/19 22:00 02/01/19 09:18 Os-Dylon 500+D - PEG 1 tab BID BOBBY Administration Clobazam 10 mg 01/31/19 18:00 02/01/19 13:29 Onfi - GT Not Given QID BOBBY Heparin Sodium (Porcine) 5,000 unit 01/31/19 22:00 02/01/19 13:28 Heparin - SQ 5,000 unit TID BOBBY Administration Dextrose/Sodium Chloride 1,000 mls @ 100 mls/hr 01/31/19 16:15 01/31/19 17:22 D5-Ns - IV 100 mls/hr ASDIR BOBBY Administration Piperacillin Sod/Tazobactam 50 mls @ 100 mls/hr 02/01/19 11:15 02/01/19 12:01 Sod 3.375 gm/ Dextrose IVPB Not Given Q8H-IV BOBBY Protocol Latanoprost 1 drop 01/31/19 22:00 01/31/19 22:00 Xalatan 0.005% Eye Drops - OU 1 drop HS BOBBY Administration Levetiracetam 1,500 mg 01/31/19 22:00 02/01/19 09:17 Keppra Oral Solution - PEG 1,500 mg BID BOBBY Administration Lorazepam 2 mg 01/31/19 16:30 Ativan Injection - IM Q1H PRN seizures Methylprednisolone Sodium Succinate 40 mg 02/01/19 13:45 02/01/19 14:50 Solu-Medrol - IVPUSH 40 mg Q8H-IV BOBBY Administration Non-Formulary Medication 1 drop 02/01/19 10:00 Olopatadine Hcl [Pataday] OU DAILY BOBBY Phenobarbital 20 mg 02/01/19 07:00 02/01/19 06:15 Phenobarbital Liquid - PEG 20 mg AM BOBBY Administration Phenobarbital 100 mg 01/31/19 22:00 01/31/19 22:00 Phenobarbital Liquid - PEG 100 mg HS BOBBY Administration Potassium Chloride 20 meq 02/01/19 10:00 02/01/19 09:19 Potassium Chloride Oral Liquid PEG 20 meq DAILY BOBBY Administration Ranitidine HCl 150 mg 01/31/19 22:00 02/01/19 11:09 Zantac Oral Solution - PEG 150 mg BID BOBBY Administration Senna 17.6 mg 01/31/19 22:00 01/31/19 22:00 Senna Oral Solution - PEG 17.6 mg HS BOBBY Administration Sertraline HCl 150 mg 02/01/19 10:00 02/01/19 09:20 Zoloft - PEG 150 mg DAILY BOBBY Administration Simethicone 160 mg 01/31/19 22:00 02/01/19 13:28 Mylicon Liquid - PEG 160 mg TID BOBBY Administration Zonisamide 300 mg 01/31/19 22:00 02/01/19 11:09 Zonisamide PEG 300 mg BID BOBBY Administration ASSESSMENT AND PLAN: This is a 58 year old man with a history of cerebral palsy, developmental delay , seizures, [place]-Gastaut syndrome, corpus callosotomy, chronic hypoxic respiratory failure, glaucoma, G-tube who presented to the ED from [facility] with dyspnea, tachycardia, and fever. 1. Acute hypoxic and hypercapnic respiratory failure and sepsis (fever, leukocytosis, tachycardia) secondary to aspiration pneumonia - Sepsis improving - temp, WBC, HR improving - Continue Zosyn, DuoNeb, albuterol as needed - SoluMedrol added - Continue IV fluid - Oxygen to maintain saturation >90% - ABG not done this morning 2. Chronic hypoxic respiratory failure 3. Hypokalemia - Replete potassium 4. 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 Cerebral palsy 6. Developmental delay 7. Glaucoma - Continue Sudarshan Romero 8. Nutrition - Continue to hold G-tube feedings for now - Continue IV fluid
[2019-02-01] MEDS: DEXTROSE 5%-NORMAL SALINE 1,000 ML IV SCH ×2 (17:07→19:38)
[2019-02-01 17:58] LABS: ARTERIAL BLD GAS O2 SATURATION 90.2 % (95-98); ARTERIAL BLOOD GAS BASE EXCESS 0.4 meq/l (-2-2); ARTERIAL BLOOD GAS PCO2 53.4 mmHg (35-45); ARTERIAL BLOOD GAS pH 7.32 (7.35-7.45)
[2019-02-01 17:59] LABS: ALLENS TEST POSITIVE
[2019-02-01] MEDS: LATANOPROST 0.005% OPHTH SOLN 2.5ML BOTTLE OU SCH (23:06)
[2019-02-01] MEDS: SENNOSIDES 8.8 MG/5 ML BULK BOTTLE PEG SCH (23:50)
[2019-02-02] MEDS ORDERED: DEXTROSE 5%-WATER - 50 ML IVPB ONE ×3 (01:55→17:05)
[2019-02-02] MEDS ORDERED: PIPERACILLIN/TAZOBACTAM 3.375 GM VIAL IVPB ONE ×3 (01:55→17:05)
[2019-02-02] MEDS: PIPERACILLIN/TAZOB 3.375 GM 3.375 GM in DEXTROSE 5%-WATER - 50 ML IVPB SCH ×5 (02:27→20:28)
[2019-02-02] MEDS: methylPREDNISolone NA SUCC 40 MG/1 ML VIAL IVPUSH SCH ×3 (02:27→17:10)
[2019-02-02] MEDS: ALBUTEROL SO4 2.5/IPRATROPIUM 0.5 INH SOL 3 ML VIAL.NEB. NEB SCH ×4 (05:47→22:05)
[2019-02-02] MEDS: HEPARIN NA (PORCINE) 5,000 UNITS/ML 1ML VIAL SQ SCH ×3 (06:04→21:38)
[2019-02-02] MEDS: PHENobarbital 20 MG/5 ML UNIT-DOSE CUP PEG SCH ×2 (06:04→21:41)
[2019-02-02] MEDS: SIMETHICONE 40 MG/0.6 ML BOTTLE PEG SCH ×3 (06:04→21:40)
[2019-02-02] MEDS: ACETAMINOPHEN 325 MG TABLET (FP) PO PRN (06:05)
[2019-02-02 06:14] LABS: BASO % 0.1 % (0-2.0); HEMATOCRIT 32.3 % (35.4-49); HEMOGLOBIN 11.1 GM/dL (11.7-16.9); LYMPH % 6.8 % (8-40); MCH 35.2 pg (25.7-33.7); MCHC 34.4 g/dl (32.0-35.9); MEAN CELL VOLUME 102.3 fl (80-96); MEAN PLT VOLUME 8.2 fl (7.5-11.1); MONO % 3.7 % (3.8-10.2); NEUT % 89.4 % (42.8-82.8); PLATELET COUNT 135 K/MM3 (134-434); RBC 3.16 M/mm3 (4.00-5.60); RDW 13.8 % (11.9-15.9); WHITE BLOOD COUNT 9.9 K/mm3 (4.0-10.0)
[2019-02-02] MEDS: DEXTROSE 5%-NORMAL SALINE 1,000 ML IV SCH ×2 (06:14→13:22)
[2019-02-02 06:52] LABS: ALBUMIN 2.4 g/dl (3.4-5.0); BILIRUBIN,TOTAL 0.4 mg/dL (0.2-1); BLOOD UREA NITROGEN 9.2 mg/dL (7-18); CALCIUM 8.5 mg/dL (8.5-10.1); CREATININE 0.4 mg/dL (0.55-1.3); POTASSIUM 3.5 mmol/L (3.5-5.1); TOT PROT 6.3 g/dl (6.4-8.2)
--- NOTE | 2019-02-02 07:28 | PN ---
Physical Exam: SUBJECTIVE: Patient seen and examined at bedside. Pt is nonverbal and unable to give history. OBJECTIVE: Vital Signs Period Temp Pulse Resp BP Sys/Guzmán Pulse Ox Last 24 Hr 98.0 F-100.3 F 68-105 14-22 105-145/53-80 96-100 Gen: resp distress improved HEENT: NCAT, unable to assess extraoccular muscles but patient looks around. PERRL. Moist membranes Neck: supple, central trachea Cardio: tachycardic, normal s1s2, no mrg Pulm: ronchi present diffusely Abd: soft, nondistended Ext: no edema Laboratory Results - last 24 hr 02/01/19 02/01/19 02/01/19 08:48 08:48 17:31 WBC 13.4 H RBC 3.47 L Hgb 11.9 Hct 35.6 MCV 102.5 H MCH 34.3 H MCHC 33.5 RDW 13.8 Plt Count 155 D MPV 7.8 Absolute Neuts (auto) 11.2 H Neutrophils % 83.6 H Lymphocytes % 8.9 D Monocytes % 7.3 Eosinophils % 0.1 Basophils % 0.1 Nucleated RBC % 0 Anticoagulation Therapy No Result Required. Puncture Site Right radial ABG pH 7.32 L ABG pCO2 at Pt Temp 53.4 H ABG pO2 at Pt Temp 63.0 L ABG HCO3 27.0 ABG O2 Sat (Measured) 90.2 L ABG O2 Content 18.1 ABG Base Excess 0.4 Perez Test Positive O2 Delivery Device No Result Required. Oxygen Flow Rate Yes Vent Mode No Result Required. Vent Rate No Result Required. Mechanical Rate No Result Required. Pressure Support Vent No Result Required. Sodium 138 Potassium 3.4 L Chloride 102 Carbon Dioxide 28 Anion Gap 8 BUN 12.3 Creatinine 0.6 Est GFR (CKD-EPI)AfAm 128.45 Est GFR (CKD-EPI)NonAf 110.83 Random Glucose 114 H Calcium 8.5 Phosphorus 2.4 L Magnesium 2.2 Total Bilirubin 0.6 AST 34 ALT 38 Alkaline Phosphatase 86 Total Protein 7.1 Albumin 2.9 L 02/02/19 02/02/19 05:35 05:35 WBC 9.9 RBC 3.16 L Hgb 11.1 L Hct 32.3 L MCV 102.3 H MCH 35.2 H MCHC 34.4 RDW 13.8 Plt Count 135 MPV 8.2 Absolute Neuts (auto) 8.9 H Neutrophils % 89.4 H Lymphocytes % 6.8 L D Monocytes % 3.7 L Eosinophils % 0.0 D Basophils % 0.1 Nucleated RBC % 0 Anticoagulation Therapy Puncture Site ABG pH ABG pCO2 at Pt Temp ABG pO2 at Pt Temp ABG HCO3 ABG O2 Sat (Measured) ABG O2 Content ABG Base Excess Perez Test O2 Delivery Device Oxygen Flow Rate Vent Mode Vent Rate Mechanical Rate Pressure Support Vent Sodium 140 Potassium 3.5 Chloride 106 Carbon Dioxide 28 Anion Gap 6 L BUN 9.2 Creatinine 0.4 L Est GFR (CKD-EPI)AfAm 151.74 Est GFR (CKD-EPI)NonAf 130.93 Random Glucose 146 H Calcium 8.5 Phosphorus Magnesium Total Bilirubin 0.4 AST 36 ALT 31 Alkaline Phosphatase 64 Total Protein 6.3 L Albumin 2.4 L Active Medications Generic Name Dose Route Start Last Admin Trade Name Freq PRN Reason Stop Dose Admin Acetaminophen 650 mg 02/02/19 03:10 02/02/19 06:05 Tylenol - PO 650 mg Q6H PRN Administration Fever Or Pain Albuterol Sulfate 1 amp 01/31/19 16:14 02/01/19 10:44 Ventolin 0.083% Nebulizer Soln - NEB 1 amp Q4H PRN Administration SHORT OF BREATH/WHEEZING Albuterol/Ipratropium 1 amp 01/31/19 18:00 02/02/19 05:47 Duoneb - NEB 1 amp QIDR BOBBY Administration Artificial Tears 2 drop 01/31/19 18:00 02/01/19 23:04 Artificial Tears OU 2 drop QID BOBBY Administration Calcium Carbonate/Cholecalciferol 1 tab 01/31/19 22:00 02/01/19 23:06 Os-Dylon 500+D - PEG 1 tab BID BOBBY Administration Clobazam 10 mg 01/31/19 18:00 02/01/19 23:06 Onfi - GT 10 mg QID BOBBY Administration Heparin Sodium (Porcine) 5,000 unit 01/31/19 22:00 02/02/19 06:04 Heparin - SQ 5,000 unit TID BOBBY Administration Dextrose/Sodium Chloride 1,000 mls @ 100 mls/hr 01/31/19 16:15 02/02/19 06:14 D5-Ns - IV 100 mls/hr ASDIR BOBBY Administration Piperacillin Sod/Tazobactam 50 mls @ 100 mls/hr 02/01/19 11:15 02/02/19 02:27 Sod 3.375 gm/ Dextrose IVPB 100 mls/hr Q8H-IV BOBBY Administration Protocol Latanoprost 1 drop 01/31/19 22:00 02/01/19 23:06 Xalatan 0.005% Eye Drops - OU 1 drop HS BOBBY Administration Levetiracetam 1,500 mg 01/31/19 22:00 02/01/19 23:50 Keppra Oral Solution - PEG 1,500 mg BID BOBBY Administration Lorazepam 2 mg 01/31/19 16:30 Ativan Injection - IM Q1H PRN seizures Methylprednisolone Sodium Succinate 40 mg 02/01/19 13:45 02/02/19 02:27 Solu-Medrol - IVPUSH 40 mg Q8H-IV BOBBY Administration Non-Formulary Medication 1 drop 02/01/19 10:00 Olopatadine Hcl [Pataday] OU DAILY BOBBY Phenobarbital 20 mg 02/01/19 07:00 02/02/19 06:04 Phenobarbital Liquid - PEG 20 mg AM BOBBY Administration Phenobarbital 100 mg 01/31/19 22:00 02/01/19 23:04 Phenobarbital Liquid - PEG 100 mg HS BOBBY Administration Potassium Chloride 20 meq 02/01/19 10:00 02/01/19 09:19 Potassium Chloride Oral Liquid PEG 20 meq DAILY BOBBY Administration Ranitidine HCl 150 mg 01/31/19 22:00 02/01/19 23:50 Zantac Oral Solution - PEG 150 mg BID BOBBY Administration Senna 17.6 mg 01/31/19 22:00 02/01/19 23:50 Senna Oral Solution - PEG 17.6 mg HS BOBBY Administration Sertraline HCl 150 mg 02/01/19 10:00 02/01/19 09:20 Zoloft - PEG 150 mg DAILY BOBBY Administration Simethicone 160 mg 01/31/19 22:00 02/02/19 06:04 Mylicon Liquid - PEG 160 mg TID BOBBY Administration Zonisamide 300 mg 01/31/19 22:00 02/01/19 23:05 Zonisamide PEG 300 mg BID BOBBY Administration Active Medications Acetaminophen (Tylenol -) 650 mg PO Q6H PRN PRN Reason: Fever Or Pain Last Admin: 02/02/19 06:05 Dose: 650 mg Albuterol Sulfate (Ventolin 0.083% Nebulizer Soln -) 1 amp NEB Q4H PRN PRN Reason: SHORT OF BREATH/WHEEZING Last Admin: 02/01/19 10:44 Dose: 1 amp Albuterol/Ipratropium (Duoneb -) 1 amp NEB QIDR BOBBY Last Admin: 02/02/19 05:47 Dose: 1 amp Artificial Tears (Artificial Tears) 2 drop OU QID BOBBY Last Admin: 02/01/19 23:04 Dose: 2 drop Calcium Carbonate/Cholecalciferol (Os-Dylon 500+D -) 1 tab PEG BID BOBBY Last Admin: 02/01/19 23:06 Dose: 1 tab Clobazam (Onfi -) 10 mg GT QID BOBBY Last Admin: 02/01/19 23:06 Dose: 10 mg Heparin Sodium (Porcine) (Heparin -) 5,000 unit SQ TID BOBBY Last Admin: 02/02/19 06:04 Dose: 5,000 unit Dextrose/Sodium Chloride (D5-Ns -) 1,000 mls @ 100 mls/hr IV ASDIR BOBBY Last Admin: 02/02/19 06:14 Dose: 100 mls/hr Piperacillin Sod/Tazobactam (Sod 3.375 gm/ Dextrose) 50 mls @ 100 mls/hr IVPB Q8H-IV BOBBY; Protocol Last Admin: 02/02/19 02:27 Dose: 100 mls/hr Latanoprost (Xalatan 0.005% Eye Drops -) 1 drop OU HS BOBBY Last Admin: 02/01/19 23:06 Dose: 1 drop Levetiracetam (Keppra Oral Solution -) 1,500 mg PEG BID [facility] Last Admin: 02/01/19 23:50 Dose: 1,500 mg Lorazepam (Ativan Injection -) 2 mg IM Q1H PRN PRN Reason: seizures Methylprednisolone Sodium Succinate (Solu-Medrol -) 40 mg IVPUSH Q8H-IV BOBBY Last Admin: 02/02/19 02:27 Dose: 40 mg Non-Formulary Medication (Olopatadine Hcl [Pataday]) 1 drop OU DAILY BOBBY Phenobarbital (Phenobarbital Liquid -) 20 mg PEG AM [facility] Last Admin: 02/02/19 06:04 Dose: 20 mg Phenobarbital (Phenobarbital Liquid -) 100 mg PEG HS [facility] Last Admin: 02/01/19 23:04 Dose: 100 mg Potassium Chloride (Potassium Chloride Oral Liquid) 20 meq PEG DAILY [facility] Last Admin: 02/01/19 09:19 Dose: 20 meq Ranitidine HCl (Zantac Oral Solution -) 150 mg PEG BID [facility] Last Admin: 02/01/19 23:50 Dose: 150 mg Senna (Senna Oral Solution -) 17.6 mg PEG HS [facility] Last Admin: 02/01/19 23:50 Dose: 17.6 mg Sertraline HCl (Zoloft -) 150 mg PEG DAILY [facility] Last Admin: 02/01/19 09:20 Dose: 150 mg Simethicone (Mylicon Liquid -) 160 mg PEG TID [facility] Last Admin: 02/02/19 06:04 Dose: 160 mg Zonisamide (Zonisamide) 300 mg PEG BID [facility] Last Admin: 02/01/19 23:05 Dose: 300 mg ASSESSMENT/PLAN: This is a 58 year old man with a history of cerebral palsy, developmental delay , seizures, [place]-Gastaut syndrome, corpus callosotomy, chronic hypoxic respiratory failure, glaucoma, G-tube who presented to the ED from [facility] with dyspnea, tachycardia, and fever. 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 Will try to advance tube feeds as tolerated Visit type - Emergency Visit Emergency Visit: No - New Patient This patient is new to me today: No - Critical Care Critical Care patient: No ATTENDING PHYSICIAN STATEMENT I saw and evaluated the patient. I reviewed the resident's note and discussed the case with the resident. I agree with the resident's findings and plan as documented. SUBJECTIVE: OBJECTIVE: ASSESSMENT AND PLAN:
[2019-02-02] MEDS ORDERED: PT OWN MED DRAWER 7, Y5N ONE ×8 (08:43→21:31)
[2019-02-02] MEDS ORDERED: SODIUM CHLORIDE 1,000 ML IV SCH ×2 (09:15→11:50)
[2019-02-02] MEDS: ZONISAMIDE 100 MG/10 ML ORAL SUSPENSION PEG SCH ×2 (11:30→21:44)
[2019-02-02] MEDS: levETIRAcetam 500 MG/5 ML ORAL SOLUTION (UNIT-DOSE CUPS) PEG SCH ×2 (11:35→21:38)
[2019-02-02] MEDS: POTASSIUM CHLORIDE ORAL LIQUID 20 MEQ/15 ML PEG SCH (11:36)
[2019-02-02] MEDS: cloBAZam 10 MG TABLET GT SCH ×4 (11:37→21:41)
[2019-02-02] MEDS: RANITIDINE HCL 150 MG/10 ML UNIT-DOSE PEG SCH ×2 (11:37→21:44)
[2019-02-02] MEDS: SERTRALINE HCL 50 MG TABLET (FP) PEG SCH (11:37)
[2019-02-02] MEDS: CALCIUM 500MG/VIT-D 200 UNITS COMBO TABLET (FP) PEG SCH ×2 (11:38→21:41)
[2019-02-02] MEDS: ARTIFICIAL TEARS (POLYVINYL ALCOHOL) OPTH DROPS OU SCH ×4 (11:46→21:38)
--- NOTE | 2019-02-02 12:08 | PN ---
Progress Note, Physician History of Present Illness: PULMONARY AWAKE,NON-VERBAL ON NRBM,LESS CONGESTED - Current Medication List Current Medications: Active Medications Acetaminophen (Tylenol -) 650 mg PO Q6H PRN PRN Reason: Fever Or Pain Last Admin: 02/02/19 06:05 Dose: 650 mg Albuterol Sulfate (Ventolin 0.083% Nebulizer Soln -) 1 amp NEB Q4H PRN PRN Reason: SHORT OF BREATH/WHEEZING Last Admin: 02/01/19 10:44 Dose: 1 amp Albuterol/Ipratropium (Duoneb -) 1 amp NEB QIDR [facility] Last Admin: 02/02/19 11:58 Dose: 1 amp Artificial Tears (Artificial Tears) 2 drop OU QID [facility] Last Admin: 02/02/19 11:46 Dose: 2 drop Calcium Carbonate/Cholecalciferol (Os-Dylon 500+D -) 1 tab PEG BID [facility] Last Admin: 02/02/19 11:38 Dose: 1 tab Clobazam (Onfi -) 10 mg GT QID [facility] Last Admin: 02/02/19 11:37 Dose: 10 mg Heparin Sodium (Porcine) (Heparin -) 5,000 unit SQ TID [facility] Last Admin: 02/02/19 06:04 Dose: 5,000 unit Piperacillin Sod/Tazobactam (Sod 3.375 gm/ Dextrose) 50 mls @ 100 mls/hr IVPB Q8H-IV [facility]; Protocol Last Admin: 02/02/19 11:25 Dose: 100 mls/hr Sodium Chloride (Normal Saline -) 1,000 mls @ 100 mls/hr IV ASDIR [facility] Stop: 02/03/19 09:16 Latanoprost (Xalatan 0.005% Eye Drops -) 1 drop OU HS [facility] Last Admin: 02/01/19 23:06 Dose: 1 drop Levetiracetam (Keppra Oral Solution -) 1,500 mg PEG BID [facility] Last Admin: 02/02/19 11:35 Dose: 1,500 mg Lorazepam (Ativan Injection -) 2 mg IM Q1H PRN PRN Reason: seizures Methylprednisolone Sodium Succinate (Solu-Medrol -) 40 mg IVPUSH Q8H-IV [facility] Last Admin: 02/02/19 11:28 Dose: 40 mg Non-Formulary Medication (Olopatadine Hcl [Pataday]) 1 drop OU DAILY [facility] Phenobarbital (Phenobarbital Liquid -) 20 mg PEG AM [facility] Last Admin: 02/02/19 06:04 Dose: 20 mg Phenobarbital (Phenobarbital Liquid -) 100 mg PEG HS [facility] Last Admin: 02/01/19 23:04 Dose: 100 mg Potassium Chloride (Potassium Chloride Oral Liquid) 20 meq PEG DAILY [facility] Last Admin: 02/02/19 11:36 Dose: 20 meq Ranitidine HCl (Zantac Oral Solution -) 150 mg PEG BID [facility] Last Admin: 02/02/19 11:37 Dose: 150 mg Senna (Senna Oral Solution -) 17.6 mg PEG HS [facility] Last Admin: 02/01/19 23:50 Dose: 17.6 mg Sertraline HCl (Zoloft -) 150 mg PEG DAILY [facility] Last Admin: 02/02/19 11:37 Dose: 150 mg Simethicone (Mylicon Liquid -) 160 mg PEG TID [facility] Last Admin: 02/02/19 06:04 Dose: 160 mg Zonisamide (Zonisamide) 300 mg PEG BID [facility] Last Admin: 02/02/19 11:30 Dose: 300 mg - Objective Vital Signs: Vital Signs Temperature 98.0 F 02/02/19 06:00 Pulse Rate 87 02/02/19 06:00 Respiratory Rate 20 02/02/19 06:00 Blood Pressure 119/69 02/02/19 06:00 O2 Sat by Pulse Oximetry (%) 97 02/01/19 21:00 Constitutional: Yes: Well Nourished, Calm Eyes: Yes: WNL HENT: Yes: WNL Neck: Yes: WNL Cardiovascular: Yes: Regular Rate and Rhythm, S1, S2 Respiratory: Yes: Rhonchi (SCATTERED RHONCHI) Gastrointestinal: Yes: Normal Bowel Sounds, Soft Extremities: Yes: WNL Edema: No Labs: CBC, BMP 02/02/19 05:35 02/02/19 05:35 INR, PTT INR 1.07 (0.83-1.09) 01/31/19 13:30 Problem List - Problems (1) Acute hypoxemic respiratory failure Code(s): J96.01 - ACUTE RESPIRATORY FAILURE WITH HYPOXIA (2) Aspiration pneumonia Code(s): J69.0 - PNEUMONITIS DUE TO INHALATION OF FOOD AND VOMIT (3) Sepsis Code(s): A41.9 - SEPSIS, UNSPECIFIED ORGANISM (4) Pneumonia Code(s): J18.9 - PNEUMONIA, UNSPECIFIED ORGANISM Qualifiers: Pneumonia type: aspiration pneumonia Aspiration pneumonia type: unspecified Laterality: left Lung location: upper lobe of lung Qualified Code(s): J69.0 - Pneumonitis due to inhalation of food and vomit (5) Seizure disorder Code(s): G40.909 - EPILEPSY, UNSP, NOT INTRACTABLE, WITHOUT STATUS EPILEPTICUS (6) Fever Code(s): R50.9 - FEVER, UNSPECIFIED Assessment/Plan Problem List - Problems (1) Pneumonia Code(s): J18.9 - PNEUMONIA, UNSPECIFIED ORGANISM Qualifiers: Pneumonia type: aspiration pneumonia Aspiration pneumonia type: unspecified Laterality: left Lung location: upper lobe of lung Qualified Code(s): J69.0 - Pneumonitis due to inhalation of food and vomit Assessment/Plan Acute Hypoxic Respiratory Failure Pneumonia suspect Aspiration Sepsis Cerebral Palsy Mental Retardation Seizure Disorder - IV antibiotics - O2 to keep SpO2 >90% - inhaled bronchodilators - medrol - aspiration precautions - DVT prophylaxis - f/u chest x-rays DR BERG
--- NOTE | 2019-02-02 13:02 | PN ---
Teaching Attending Note Name of Resident: Elier Wilkins ATTENDING PHYSICIAN STATEMENT I saw and evaluated the patient. I reviewed the resident's note and discussed the case with the resident. I agree with the resident's findings and plan as documented with exceptions below. SUBJECTIVE: Patient seen and examined. opens eyes, few incomprehensible words when called. Unable to do ROS. OBJECTIVE: Vital Signs Period Temp Pulse Resp BP Sys/Guzmán Pulse Ox Last 24 Hr 98.0 F-100.3 F 68-105 14-22 105-145/53-80 96-98 Intake & Output 01/30/19 01/31/19 02/01/19 02/02/19 23:59 23:59 23:59 23:59 Intake Total 500 700 Balance 500 700 Weight 374 lb 12.573 oz 192 lb 3.2 oz General: sitting in bed, on NRB, no use of accessory muscles of respiration Neck: soft, supple Chest; coarse scattered rales, occasional wheezing, pos air entry Abdomen:Soft, NT, PEG in place, pos bowel sounds, ND Extremities: 1+ LE pedal edema Home Medications Medication Instructions Recorded Albuterol 2.5/Ipratropium 0.5 1 amp NEB TID 09/15/15 [Duoneb -] Bimatoprost [Lumigan] 1 drop OU HS 09/15/15 Calcium Carbonate/Vitamin D3 1 each PEG TID 09/15/15 [Calcium 600 + Vit D 400 Softgl] Levetiracetam [Keppra] 1,500 mg PEG Q12H 09/15/15 Lorazepam [Ativan] 2 mg IM PRN PRN 09/15/15 Phenobarbital 100 mg PEG HS 09/15/15 Potassium Chloride Oral Soln [KCl 20 meq PEG DAILY 09/15/15 Oral Solution -] Ranitidine HCl [Zantac] 150 mg PEG BID 09/15/15 Sertraline HCl [Zoloft] 150 mg PEG DAILY 09/15/15 Simethicone [Mytab Gas] 160 mg PEG TID 09/15/15 Zonisamide [Zonegran] 300 mg PEG BID 09/15/15 Diazepam Rectal Gel [Diastat 20 mg IA PRN PRN 12/29/15 Rectal Gel -] Olopatadine HCl [Pataday] 1 drop OU DAILY 12/29/15 Sennosides [Senna -] 2 tab PEG HS 12/29/15 Travoprost [Travatan Z] 2.5 ml OU HS 12/29/15 Cannabidiol (Cbd) Extract 4.5 ml GT BID 11/28/18 [Epidiolex] Clobazam [Onfi -] 10 mg GT QID 11/28/18 Collagenase Clostridium Hist. 1 applic TP DAILY 02/02/19 [Santyl] Lactobacil 2-S.thermo-Bifido 1 1 each PO BID 02/02/19 [Visbiome 112.5 Billion Capsule] Magnesium Hydroxide [Milk of 400 mg PO Q2D 02/02/19 Magnesia] Mupirocin Ointment [Bactroban 2% 1 applic TP 5XD PRN 02/02/19 Ointment -] [place]-3/Dha/Epa/Fish Oil [Fish Oil 1,600 mg PO DAILY 02/02/19 1,600 mg/5 ml Liquid] One Daily For Men 50+ Adv Tab 1 tablet DAILY 02/02/19 Polyethylene Glycol 3350 [Miralax 17 grams Q2D 02/02/19 119 gm Btl -] Home Medication List Medication Instructions Recorded Confirmed Type Albuterol 2.5/Ipratropium 0.5 1 amp NEB TID 09/15/15 01/31/19 History [Duoneb -] Bimatoprost [Lumigan] 1 drop OU HS 09/15/15 01/31/19 History Calcium Carbonate/Vitamin D3 1 each PEG TID 09/15/15 01/31/19 History [Calcium 600 + Vit D 400 Softgl] Levetiracetam [Keppra] 1,500 mg PEG Q12H 09/15/15 01/31/19 History Lorazepam [Ativan] 2 mg IM PRN PRN 09/15/15 01/31/19 History Phenobarbital 100 mg PEG HS 09/15/15 01/31/19 History Potassium Chloride Oral Soln [KCl 20 meq PEG DAILY 09/15/15 01/31/19 History Oral Solution -] Ranitidine HCl [Zantac] 150 mg PEG BID 09/15/15 01/31/19 History Sertraline HCl [Zoloft] 150 mg PEG DAILY 09/15/15 01/31/19 History Simethicone [Mytab Gas] 160 mg PEG TID 09/15/15 01/31/19 History Zonisamide [Zonegran] 300 mg PEG BID 09/15/15 01/31/19 History Diazepam Rectal Gel [Diastat 20 mg IA PRN PRN 12/29/15 01/31/19 History Rectal Gel -] Olopatadine HCl [Pataday] 1 drop OU DAILY 12/29/15 01/31/19 History Sennosides [Senna -] 2 tab PEG HS 12/29/15 01/31/19 History Travoprost [Travatan Z] 2.5 ml OU HS 12/29/15 01/31/19 History Cannabidiol (Cbd) Extract 4.5 ml GT BID 11/28/18 01/31/19 History [Epidiolex] Clobazam [Onfi -] 10 mg GT QID 11/28/18 01/31/19 History Collagenase Clostridium Hist. 1 applic TP DAILY 02/02/19 02/02/19 History [Santyl] Lactobacil 2-S.thermo-Bifido 1 1 each PO BID 02/02/19 02/02/19 History [Visbiome 112.5 Billion Capsule] Magnesium Hydroxide [Milk of 400 mg PO Q2D 02/02/19 02/02/19 History Magnesia] Mupirocin Ointment [Bactroban 2% 1 applic TP 5XD PRN 02/02/19 02/02/19 History Ointment -] [place]-3/Dha/Epa/Fish Oil [Fish Oil 1,600 mg PO DAILY 02/02/19 02/02/19 History 1,600 mg/5 ml Liquid] One Daily For Men 50+ Adv Tab 1 tablet DAILY 02/02/19 02/02/19 History Polyethylene Glycol 3350 [Miralax 17 grams Q2D 02/02/19 02/02/19 History 119 gm Btl -] Active Medications Acetaminophen (Tylenol -) 650 mg PO Q6H PRN PRN Reason: Fever Or Pain Last Admin: 02/02/19 06:05 Dose: 650 mg Albuterol Sulfate (Ventolin 0.083% Nebulizer Soln -) 1 amp NEB Q4H PRN PRN Reason: SHORT OF BREATH/WHEEZING Last Admin: 02/01/19 10:44 Dose: 1 amp Albuterol/Ipratropium (Duoneb -) 1 amp NEB QIDR [facility] Last Admin: 02/02/19 11:58 Dose: 1 amp Artificial Tears (Artificial Tears) 2 drop OU QID [facility] Last Admin: 02/02/19 11:46 Dose: 2 drop Calcium Carbonate/Cholecalciferol (Os-Dylon 500+D -) 1 tab PEG BID [facility] Last Admin: 02/02/19 11:38 Dose: 1 tab Clobazam (Onfi -) 10 mg GT QID [facility] Last Admin: 02/02/19 11:37 Dose: 10 mg Heparin Sodium (Porcine) (Heparin -) 5,000 unit SQ TID [facility] Last Admin: 02/02/19 06:04 Dose: 5,000 unit Piperacillin Sod/Tazobactam (Sod 3.375 gm/ Dextrose) 50 mls @ 100 mls/hr IVPB Q8H-IV [facility]; Protocol Last Admin: 02/02/19 11:25 Dose: 100 mls/hr Sodium Chloride (Normal Saline -) 1,000 mls @ 100 mls/hr IV ASDIR [facility] Stop: 02/03/19 09:16 Latanoprost (Xalatan 0.005% Eye Drops -) 1 drop OU HS [facility] Last Admin: 02/01/19 23:06 Dose: 1 drop Levetiracetam (Keppra Oral Solution -) 1,500 mg PEG BID [facility] Last Admin: 02/02/19 11:35 Dose: 1,500 mg Lorazepam (Ativan Injection -) 2 mg IM Q1H PRN PRN Reason: seizures Methylprednisolone Sodium Succinate (Solu-Medrol -) 40 mg IVPUSH Q8H-IV [facility] Last Admin: 02/02/19 11:28 Dose: 40 mg Non-Formulary Medication (Olopatadine Hcl [Pataday]) 1 drop OU DAILY [facility] Phenobarbital (Phenobarbital Liquid -) 20 mg PEG AM [facility] Last Admin: 02/02/19 06:04 Dose: 20 mg Phenobarbital (Phenobarbital Liquid -) 100 mg PEG HS [facility] Last Admin: 02/01/19 23:04 Dose: 100 mg Potassium Chloride (Potassium Chloride Oral Liquid) 20 meq PEG DAILY [facility] Last Admin: 02/02/19 11:36 Dose: 20 meq Ranitidine HCl (Zantac Oral Solution -) 150 mg PEG BID [facility] Last Admin: 02/02/19 11:37 Dose: 150 mg Senna (Senna Oral Solution -) 17.6 mg PEG HS [facility] Last Admin: 02/01/19 23:50 Dose: 17.6 mg Sertraline HCl (Zoloft -) 150 mg PEG DAILY [facility] Last Admin: 02/02/19 11:37 Dose: 150 mg Simethicone (Mylicon Liquid -) 160 mg PEG TID [facility] Last Admin: 02/02/19 06:04 Dose: 160 mg Zonisamide (Zonisamide) 300 mg PEG BID [facility] Last Admin: 02/02/19 11:30 Dose: 300 mg Laboratory Results - last 24 hr 02/01/19 02/02/19 02/02/19 17:31 05:35 05:35 WBC 9.9 RBC 3.16 L Hgb 11.1 L Hct 32.3 L MCV 102.3 H MCH 35.2 H MCHC 34.4 RDW 13.8 Plt Count 135 MPV 8.2 Absolute Neuts (auto) 8.9 H Neutrophils % 89.4 H Lymphocytes % 6.8 L D Monocytes % 3.7 L Eosinophils % 0.0 D Basophils % 0.1 Nucleated RBC % 0 Anticoagulation Therapy No Result Required. Puncture Site Right radial ABG pH 7.32 L ABG pCO2 at Pt Temp 53.4 H ABG pO2 at Pt Temp 63.0 L ABG HCO3 27.0 ABG O2 Sat (Measured) 90.2 L ABG O2 Content 18.1 ABG Base Excess 0.4 Perez Test Positive O2 Delivery Device No Result Required. Oxygen Flow Rate Yes Vent Mode No Result Required. Vent Rate No Result Required. Mechanical Rate No Result Required. Pressure Support Vent No Result Required. Sodium 140 Potassium 3.5 Chloride 106 Carbon Dioxide 28 Anion Gap 6 L BUN 9.2 Creatinine 0.4 L Est GFR (CKD-EPI)AfAm 151.74 Est GFR (CKD-EPI)NonAf 130.93 Random Glucose 146 H Calcium 8.5 Total Bilirubin 0.4 AST 36 ALT 31 Alkaline Phosphatase 64 Total Protein 6.3 L Albumin 2.4 L Microbiology 01/31/19 15:40 Urine - Urine Clean Catch Urine Culture - Final NO GROWTH OBTAINED 01/31/19 13:45 Blood - Peripheral Venous Blood Culture - Preliminary NO GROWTH OBTAINED AFTER 24 HOURS, INCUBATION TO CONTINUE FOR 4 DAYS. 01/31/19 15:40 Urine - Urine - Catheterized Legionella Antigen - Final 01/31/19 15:40 Urine - Urine - Catheterized Streptococcus pneumoniae Antigen (M - Final 01/31/19 13:30 Blood - Peripheral Venous Blood Culture - Preliminary NO GROWTH OBTAINED AFTER 24 HOURS, INCUBATION TO CONTINUE FOR 4 DAYS. ASSESSMENT AND PLAN: 58 year old man with a history of cerebral palsy, developmental delay, seizures , Columbia-Gastaut syndrome, corpus callosotomy, chronic hypoxic respiratory failure, glaucoma, G-tube who presented to the ED from [facility] with dyspnea, tachycardia, and fever. 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 Taper oxygen as nicky (discussed with nursing) Chest PT. Pulmonary input appreciated. resume tube feeds once oxygen needs lower and clinically improved. Gentle hydration for now Replete K Continue onfi, phenobarbital, keppra, zonegran. Ativan prn. DVTPPX heparin Dispo back to [place] when clinical improved. Discussed with nursing and aide at bedside.
--- NOTE | 2019-02-02 13:26 | PN ---
Progress Note, Physician History of Present Illness: awake on mask - Current Medication List Current Medications: Active Medications Acetaminophen (Tylenol -) 650 mg PO Q6H PRN PRN Reason: Fever Or Pain Last Admin: 02/02/19 06:05 Dose: 650 mg Albuterol Sulfate (Ventolin 0.083% Nebulizer Soln -) 1 amp NEB Q4H PRN PRN Reason: SHORT OF BREATH/WHEEZING Last Admin: 02/01/19 10:44 Dose: 1 amp Albuterol/Ipratropium (Duoneb -) 1 amp NEB QIDR [facility] Last Admin: 02/02/19 11:58 Dose: 1 amp Artificial Tears (Artificial Tears) 2 drop OU QID [facility] Last Admin: 02/02/19 11:46 Dose: 2 drop Calcium Carbonate/Cholecalciferol (Os-Dylon 500+D -) 1 tab PEG BID [facility] Last Admin: 02/02/19 11:38 Dose: 1 tab Clobazam (Onfi -) 10 mg GT QID [facility] Last Admin: 02/02/19 11:37 Dose: 10 mg Heparin Sodium (Porcine) (Heparin -) 5,000 unit SQ TID [facility] Last Admin: 02/02/19 06:04 Dose: 5,000 unit Piperacillin Sod/Tazobactam (Sod 3.375 gm/ Dextrose) 50 mls @ 100 mls/hr IVPB Q8H-IV [facility]; Protocol Last Admin: 02/02/19 11:25 Dose: 100 mls/hr Dextrose/Sodium Chloride (D5-Ns -) 1,000 mls @ 83 mls/hr IV ASDIR [facility] Latanoprost (Xalatan 0.005% Eye Drops -) 1 drop OU HS [facility] Last Admin: 02/01/19 23:06 Dose: 1 drop Levetiracetam (Keppra Oral Solution -) 1,500 mg PEG BID [facility] Last Admin: 02/02/19 11:35 Dose: 1,500 mg Lorazepam (Ativan Injection -) 2 mg IM Q1H PRN PRN Reason: seizures Methylprednisolone Sodium Succinate (Solu-Medrol -) 40 mg IVPUSH Q8H-IV [facility] Last Admin: 02/02/19 11:28 Dose: 40 mg Non-Formulary Medication (Olopatadine Hcl [Pataday]) 1 drop OU DAILY [facility] Phenobarbital (Phenobarbital Liquid -) 20 mg PEG AM [facility] Last Admin: 02/02/19 06:04 Dose: 20 mg Phenobarbital (Phenobarbital Liquid -) 100 mg PEG HS [facility] Last Admin: 02/01/19 23:04 Dose: 100 mg Potassium Chloride (Potassium Chloride Oral Liquid) 20 meq PEG DAILY [facility] Last Admin: 02/02/19 11:36 Dose: 20 meq Ranitidine HCl (Zantac Oral Solution -) 150 mg PEG BID [facility] Last Admin: 02/02/19 11:37 Dose: 150 mg Senna (Senna Oral Solution -) 17.6 mg PEG HS [facility] Last Admin: 02/01/19 23:50 Dose: 17.6 mg Sertraline HCl (Zoloft -) 150 mg PEG DAILY [facility] Last Admin: 02/02/19 11:37 Dose: 150 mg Simethicone (Mylicon Liquid -) 160 mg PEG TID [facility] Last Admin: 02/02/19 06:04 Dose: 160 mg Zonisamide (Zonisamide) 300 mg PEG BID [facility] Last Admin: 02/02/19 11:30 Dose: 300 mg - Objective Vital Signs: Vital Signs Temperature 98.0 F 02/02/19 06:00 Pulse Rate 87 02/02/19 06:00 Respiratory Rate 20 02/02/19 06:00 Blood Pressure 119/69 02/02/19 06:00 O2 Sat by Pulse Oximetry (%) 97 02/01/19 21:00 Constitutional: Yes: Calm Cardiovascular: Yes: S1, S2 Respiratory: Yes: Poor Air Entry, Other (om nask) Gastrointestinal: Yes: Normal Bowel Sounds, Soft Musculoskeletal: Yes: WNL Extremities: Yes: WNL Neurological: Yes: Alert, Other Psychiatric: Yes: Other Labs: CBC, BMP 02/02/19 05:35 02/02/19 05:35 INR, PTT INR 1.07 (0.83-1.09) 01/31/19 13:30 Assessment/Plan roblem List - Problems (1) Acute hypoxemic respiratory failure Code(s): J96.01 - ACUTE RESPIRATORY FAILURE WITH HYPOXIA (2) Aspiration pneumonia Code(s): J69.0 - PNEUMONITIS DUE TO INHALATION OF FOOD AND VOMIT (3) Sepsis Code(s): A41.9 - SEPSIS, UNSPECIFIED ORGANISM (4) Pneumonia Code(s): J18.9 - PNEUMONIA, UNSPECIFIED ORGANISM Qualifiers: Pneumonia type: aspiration pneumonia Aspiration pneumonia type: unspecified Laterality: left Lung location: upper lobe of lung Qualified Code(s): J69.0 - Pneumonitis due to inhalation of food and vomit (5) Seizure disorder Code(s): G40.909 - EPILEPSY, UNSP, NOT INTRACTABLE, WITHOUT STATUS EPILEPTICUS (6) Fever Code(s): R50.9 - FEVER, UNSPECIFIED plan continue current mgmt resp support
[2019-02-02] MEDS: SENNOSIDES 8.8 MG/5 ML BULK BOTTLE PEG SCH (21:43)
[2019-02-02] MEDS: LATANOPROST 0.005% OPHTH SOLN 2.5ML BOTTLE OU SCH (21:44)
[2019-02-03] MEDS ORDERED: DEXTROSE 5%-WATER - 50 ML IVPB ONE ×3 (01:02→17:28)
[2019-02-03] MEDS ORDERED: PIPERACILLIN/TAZOBACTAM 3.375 GM VIAL IVPB ONE ×3 (01:02→17:27)
[2019-02-03] MEDS: methylPREDNISolone NA SUCC 40 MG/1 ML VIAL IVPUSH SCH ×3 (01:20→17:45)
[2019-02-03] MEDS: PIPERACILLIN/TAZOB 3.375 GM 3.375 GM in DEXTROSE 5%-WATER - 50 ML IVPB SCH ×3 (01:22→17:45)
[2019-02-03] MEDS: SIMETHICONE 40 MG/0.6 ML BOTTLE PEG SCH ×3 (05:06→22:04)
[2019-02-03] MEDS: HEPARIN NA (PORCINE) 5,000 UNITS/ML 1ML VIAL SQ SCH ×3 (05:06→22:04)
[2019-02-03] MEDS ORDERED: PT OWN MED DRAWER 7, Y5N ONE ×7 (05:07→21:49)
[2019-02-03] MEDS: ALBUTEROL SO4 2.5/IPRATROPIUM 0.5 INH SOL 3 ML VIAL.NEB. NEB SCH ×3 (06:10→17:50)
[2019-02-03] MEDS: PHENobarbital 20 MG/5 ML UNIT-DOSE CUP PEG SCH ×2 (06:13→22:04)
[2019-02-03 06:51] LABS: BASO % 0.1 % (0-2.0); HEMATOCRIT 31.2 % (35.4-49); HEMOGLOBIN 10.5 GM/dL (11.7-16.9); LYMPH % 9.7 % (8-40); MCH 34.6 pg (25.7-33.7); MCHC 33.8 g/dl (32.0-35.9); MEAN CELL VOLUME 102.4 fl (80-96); MEAN PLT VOLUME 8.2 fl (7.5-11.1); NEUT % 86.2 % (42.8-82.8); PLATELET COUNT 160 K/MM3 (134-434); RBC 3.04 M/mm3 (4.00-5.60); RDW 13.7 % (11.9-15.9)
[2019-02-03] MEDS: POTASSIUM CHLORIDE ORAL LIQUID 20 MEQ/15 ML PEG SCH (10:54)
[2019-02-03] MEDS: levETIRAcetam 500 MG/5 ML ORAL SOLUTION (UNIT-DOSE CUPS) PEG SCH ×2 (10:55→22:04)
[2019-02-03] MEDS: SERTRALINE HCL 50 MG TABLET (FP) PEG SCH (10:55)
[2019-02-03] MEDS: CALCIUM 500MG/VIT-D 200 UNITS COMBO TABLET (FP) PEG SCH ×2 (10:55→22:05)
[2019-02-03] MEDS: cloBAZam 10 MG TABLET GT SCH ×4 (10:55→22:04)
[2019-02-03] MEDS: ZONISAMIDE 100 MG/10 ML ORAL SUSPENSION PEG SCH ×2 (10:55→22:05)
[2019-02-03] MEDS: ARTIFICIAL TEARS (POLYVINYL ALCOHOL) OPTH DROPS OU SCH ×4 (10:56→22:05)
[2019-02-03] MEDS: RANITIDINE HCL 150 MG/10 ML UNIT-DOSE PEG SCH ×2 (10:56→22:04)
--- NOTE | 2019-02-03 12:35 | PN ---
Progress Note, Physician History of Present Illness: PULMONARY AWAKE,ALERT,NON-VERBAL,-RESP DISTRESS ON NASAL CANNULA - Current Medication List Current Medications: Active Medications Acetaminophen (Tylenol -) 650 mg PO Q6H PRN PRN Reason: Fever Or Pain Last Admin: 02/02/19 06:05 Dose: 650 mg Albuterol Sulfate (Ventolin 0.083% Nebulizer Soln -) 1 amp NEB Q4H PRN PRN Reason: SHORT OF BREATH/WHEEZING Last Admin: 02/01/19 10:44 Dose: 1 amp Albuterol/Ipratropium (Duoneb -) 1 amp NEB QIDR [facility] Last Admin: 02/03/19 11:35 Dose: 1 amp Artificial Tears (Artificial Tears) 2 drop OU QID [facility] Last Admin: 02/03/19 10:56 Dose: 2 drop Calcium Carbonate/Cholecalciferol (Os-Dylon 500+D -) 1 tab PEG BID [facility] Last Admin: 02/03/19 10:55 Dose: 1 tab Clobazam (Onfi -) 10 mg GT QID [facility] Last Admin: 02/03/19 10:55 Dose: 10 mg Heparin Sodium (Porcine) (Heparin -) 5,000 unit SQ TID [facility] Last Admin: 02/03/19 05:06 Dose: 5,000 unit Piperacillin Sod/Tazobactam (Sod 3.375 gm/ Dextrose) 50 mls @ 100 mls/hr IVPB Q8H-IV [facility]; Protocol Last Admin: 02/03/19 10:57 Dose: 100 mls/hr Dextrose/Sodium Chloride (D5-Ns -) 1,000 mls @ 83 mls/hr IV ASDIR [facility] Last Admin: 02/02/19 13:22 Dose: 83 mls/hr Latanoprost (Xalatan 0.005% Eye Drops -) 1 drop OU HS [facility] Last Admin: 02/02/19 21:44 Dose: 1 drop Levetiracetam (Keppra Oral Solution -) 1,500 mg PEG BID [facility] Last Admin: 02/03/19 10:55 Dose: 1,500 mg Lorazepam (Ativan Injection -) 2 mg IM Q1H PRN PRN Reason: seizures Methylprednisolone Sodium Succinate (Solu-Medrol -) 40 mg IVPUSH Q8H-IV [facility] Last Admin: 02/03/19 10:55 Dose: 40 mg Non-Formulary Medication (Olopatadine Hcl [Pataday]) 1 drop OU DAILY [facility] Phenobarbital (Phenobarbital Liquid -) 20 mg PEG AM [facility] Last Admin: 02/03/19 06:13 Dose: 20 mg Phenobarbital (Phenobarbital Liquid -) 100 mg PEG HS [facility] Last Admin: 02/02/19 21:41 Dose: 100 mg Potassium Chloride (Potassium Chloride Oral Liquid) 20 meq PEG DAILY [facility] Last Admin: 02/03/19 10:54 Dose: 20 meq Ranitidine HCl (Zantac Oral Solution -) 150 mg PEG BID [facility] Last Admin: 02/03/19 10:56 Dose: 150 mg Senna (Senna Oral Solution -) 17.6 mg PEG HS [facility] Last Admin: 02/02/19 21:43 Dose: 17.6 mg Sertraline HCl (Zoloft -) 150 mg PEG DAILY [facility] Last Admin: 02/03/19 10:55 Dose: 150 mg Simethicone (Mylicon Liquid -) 160 mg PEG TID [facility] Last Admin: 02/03/19 05:06 Dose: 160 mg Zonisamide (Zonisamide) 300 mg PEG BID [facility] Last Admin: 02/03/19 10:55 Dose: 300 mg - Objective Vital Signs: Vital Signs Temperature 100.4 F H 02/03/19 10:52 Pulse Rate 90 02/03/19 10:52 Respiratory Rate 20 02/03/19 10:52 Blood Pressure 97/73 02/03/19 10:52 O2 Sat by Pulse Oximetry (%) 95 02/02/19 21:00 Constitutional: Yes: Well Nourished, No Distress, Calm Eyes: Yes: WNL HENT: Yes: WNL Neck: Yes: WNL Cardiovascular: Yes: Regular Rate and Rhythm, S1, S2 Respiratory: Yes: Rhonchi (SCATTERED RHONCHI) Gastrointestinal: Yes: Normal Bowel Sounds, Soft Extremities: Yes: WNL Edema: No Labs: CBC, BMP 02/03/19 05:35 02/02/19 05:35 INR, PTT INR 1.07 (0.83-1.09) 01/31/19 13:30 Problem List - Problems (1) Acute hypoxemic respiratory failure Code(s): J96.01 - ACUTE RESPIRATORY FAILURE WITH HYPOXIA (2) Aspiration pneumonia Code(s): J69.0 - PNEUMONITIS DUE TO INHALATION OF FOOD AND VOMIT (3) Sepsis Code(s): A41.9 - SEPSIS, UNSPECIFIED ORGANISM (4) Pneumonia Code(s): J18.9 - PNEUMONIA, UNSPECIFIED ORGANISM Qualifiers: Pneumonia type: aspiration pneumonia Aspiration pneumonia type: unspecified Laterality: left Lung location: upper lobe of lung Qualified Code(s): J69.0 - Pneumonitis due to inhalation of food and vomit (5) Seizure disorder Code(s): G40.909 - EPILEPSY, UNSP, NOT INTRACTABLE, WITHOUT STATUS EPILEPTICUS (6) Fever Code(s): R50.9 - FEVER, UNSPECIFIED Assessment/Plan Problem List - Problems (1) Pneumonia Code(s): J18.9 - PNEUMONIA, UNSPECIFIED ORGANISM Qualifiers: Pneumonia type: aspiration pneumonia Aspiration pneumonia type: unspecified Laterality: left Lung location: upper lobe of lung Qualified Code(s): J69.0 - Pneumonitis due to inhalation of food and vomit Assessment/Plan Acute Hypoxic Respiratory Failure Pneumonia suspect Aspiration Sepsis Cerebral Palsy Mental Retardation Seizure Disorder - IV antibiotics as per ID - O2 to keep SpO2 >90% - inhaled bronchodilators - medrol - aspiration precautions - DVT prophylaxis - f/u chest x-rays DR BERG
--- NOTE | 2019-02-03 13:17 | PN ---
Teaching Attending Note Name of Resident: Elier Wilkins ATTENDING PHYSICIAN STATEMENT I saw and evaluated the patient. I reviewed the resident's note and discussed the case with the resident. I agree with the resident's findings and plan as documented with exceptions below. SUBJECTIVE: Patient seen and examined. Awake, non verbal currently, unable to assess for ROS. OBJECTIVE: Vital Signs Period Temp Pulse Resp BP Sys/Guzmán Pulse Ox Last 24 Hr 98.2 F-100.4 F 69-90 20-20 97-137/60-74 95 Intake & Output 01/31/19 02/01/19 02/02/19 02/03/19 23:59 23:59 23:59 23:59 Intake Total 500 2540 871 Balance 500 2540 871 Weight 374 lb 12.573 oz 192 lb 3.2 oz General: lying in bed in no acute distress, mild use of accessory muscles of respiration Neck: soft, supple Chest; coarse rales, occasional wheezing Abdomen:Soft, NT, ND Extremities: no edema Home Medications Medication Instructions Recorded Albuterol 2.5/Ipratropium 0.5 1 amp NEB TID 09/15/15 [Duoneb -] Bimatoprost [Lumigan] 1 drop OU HS 09/15/15 Calcium Carbonate/Vitamin D3 1 each PEG TID 09/15/15 [Calcium 600 + Vit D 400 Softgl] Levetiracetam [Keppra] 1,500 mg PEG Q12H 09/15/15 Lorazepam [Ativan] 2 mg IM PRN PRN 09/15/15 Phenobarbital 100 mg PEG HS 09/15/15 Potassium Chloride Oral Soln [KCl 20 meq PEG DAILY 09/15/15 Oral Solution -] Ranitidine HCl [Zantac] 150 mg PEG BID 09/15/15 Sertraline HCl [Zoloft] 150 mg PEG DAILY 09/15/15 Simethicone [Mytab Gas] 160 mg PEG TID 09/15/15 Zonisamide [Zonegran] 300 mg PEG BID 09/15/15 Diazepam Rectal Gel [Diastat 20 mg IN PRN PRN 12/29/15 Rectal Gel -] Olopatadine HCl [Pataday] 1 drop OU DAILY 12/29/15 Sennosides [Senna -] 2 tab PEG HS 12/29/15 Travoprost [Travatan Z] 2.5 ml OU HS 12/29/15 Cannabidiol (Cbd) Extract 4.5 ml GT BID 11/28/18 [Epidiolex] Clobazam [Onfi -] 10 mg GT QID 11/28/18 Collagenase Clostridium Hist. 1 applic TP DAILY 02/02/19 [Santyl] Lactobacil 2-S.thermo-Bifido 1 1 each PO BID 02/02/19 [Visbiome 112.5 Billion Capsule] Magnesium Hydroxide [Milk of 400 mg PO Q2D 02/02/19 Magnesia] Mupirocin Ointment [Bactroban 2% 1 applic TP 5XD PRN 02/02/19 Ointment -] Ola-3/Dha/Epa/Fish Oil [Fish Oil 1,600 mg PO DAILY 02/02/19 1,600 mg/5 ml Liquid] One Daily For Men 50+ Adv Tab 1 tablet DAILY 02/02/19 Polyethylene Glycol 3350 [Miralax 17 grams Q2D 02/02/19 119 gm Btl -] Active Medications Acetaminophen (Tylenol -) 650 mg PO Q6H PRN PRN Reason: Fever Or Pain Last Admin: 02/02/19 06:05 Dose: 650 mg Albuterol Sulfate (Ventolin 0.083% Nebulizer Soln -) 1 amp NEB Q4H PRN PRN Reason: SHORT OF BREATH/WHEEZING Last Admin: 02/01/19 10:44 Dose: 1 amp Albuterol/Ipratropium (Duoneb -) 1 amp NEB QIDR [facility] Last Admin: 02/03/19 11:35 Dose: 1 amp Artificial Tears (Artificial Tears) 2 drop OU QID [facility] Last Admin: 02/03/19 10:56 Dose: 2 drop Calcium Carbonate/Cholecalciferol (Os-Dylon 500+D -) 1 tab PEG BID [facility] Last Admin: 02/03/19 10:55 Dose: 1 tab Clobazam (Onfi -) 10 mg GT QID [facility] Last Admin: 02/03/19 10:55 Dose: 10 mg Heparin Sodium (Porcine) (Heparin -) 5,000 unit SQ TID [facility] Last Admin: 02/03/19 05:06 Dose: 5,000 unit Piperacillin Sod/Tazobactam (Sod 3.375 gm/ Dextrose) 50 mls @ 100 mls/hr IVPB Q8H-IV [facility]; Protocol Last Admin: 02/03/19 10:57 Dose: 100 mls/hr Dextrose/Sodium Chloride (D5-Ns -) 1,000 mls @ 83 mls/hr IV ASDIR [facility] Last Admin: 02/02/19 13:22 Dose: 83 mls/hr Latanoprost (Xalatan 0.005% Eye Drops -) 1 drop OU HS [facility] Last Admin: 02/02/19 21:44 Dose: 1 drop Levetiracetam (Keppra Oral Solution -) 1,500 mg PEG BID [facility] Last Admin: 02/03/19 10:55 Dose: 1,500 mg Lorazepam (Ativan Injection -) 2 mg IM Q1H PRN PRN Reason: seizures Methylprednisolone Sodium Succinate (Solu-Medrol -) 40 mg IVPUSH Q8H-IV [facility] Last Admin: 02/03/19 10:55 Dose: 40 mg Non-Formulary Medication (Olopatadine Hcl [Pataday]) 1 drop OU DAILY [facility] Phenobarbital (Phenobarbital Liquid -) 20 mg PEG AM [facility] Last Admin: 02/03/19 06:13 Dose: 20 mg Phenobarbital (Phenobarbital Liquid -) 100 mg PEG HS [facility] Last Admin: 02/02/19 21:41 Dose: 100 mg Potassium Chloride (Potassium Chloride Oral Liquid) 20 meq PEG DAILY [facility] Last Admin: 02/03/19 10:54 Dose: 20 meq Ranitidine HCl (Zantac Oral Solution -) 150 mg PEG BID [facility] Last Admin: 02/03/19 10:56 Dose: 150 mg Senna (Senna Oral Solution -) 17.6 mg PEG HS [facility] Last Admin: 02/02/19 21:43 Dose: 17.6 mg Sertraline HCl (Zoloft -) 150 mg PEG DAILY [facility] Last Admin: 02/03/19 10:55 Dose: 150 mg Simethicone (Mylicon Liquid -) 160 mg PEG TID [facility] Last Admin: 02/03/19 05:06 Dose: 160 mg Zonisamide (Zonisamide) 300 mg PEG BID [facility] Last Admin: 02/03/19 10:55 Dose: 300 mg Laboratory Results - last 24 hr 02/03/19 05:35 WBC 7.0 RBC 3.04 L Hgb 10.5 L Hct 31.2 L MCV 102.4 H MCH 34.6 H MCHC 33.8 RDW 13.7 Plt Count 160 MPV 8.2 Absolute Neuts (auto) 6.1 Neutrophils % 86.2 H Lymphocytes % 9.7 D Monocytes % 4.0 Eosinophils % 0.0 Basophils % 0.1 Nucleated RBC % 0 Microbiology 01/31/19 13:45 Blood - Peripheral Venous Blood Culture - Preliminary NO GROWTH OBTAINED AFTER 48 HOURS, INCUBATION TO CONTINUE FOR 3 DAYS. 01/31/19 13:30 Blood - Peripheral Venous Blood Culture - Preliminary NO GROWTH OBTAINED AFTER 48 HOURS, INCUBATION TO CONTINUE FOR 3 DAYS. 01/31/19 15:40 Urine - Urine Clean Catch Urine Culture - Final NO GROWTH OBTAINED 01/31/19 15:40 Urine - Urine - Catheterized Legionella Antigen - Final 01/31/19 15:40 Urine - Urine - Catheterized Streptococcus pneumoniae Antigen (M - Final ASSESSMENT AND PLAN: 58 year old man with a history of cerebral palsy, developmental delay, seizures , Brad-Gastaut syndrome, corpus callosotomy, chronic hypoxic respiratory failure, glaucoma, G-tube who presented to the ED from [facility] with dyspnea, tachycardia, and fever. -Acute on chronic hypoxic/hypercapneic respiratory failure, suspected LLL aspiration pneumonia -Sepsis -Hypokalemia -Seizures due to [place]-Gastaut syndrome, s/p corpus callosotomy -Cerebral Palsy -Developmental delay -Glaucoma Plan: Zosyn, Solumedrol, standing prn nebs. Continue current dose. repeat CXR Oxygen needs improving. Resume tube feeds. Dc IVF. Chest PT. Pulmonary input appreciated. Replete K prn Continue onfi, phenobarbital, keppra, zonegran. Ativan prn. DVTPPX heparin Dispo back to [place] when clinical improved. Discussed with nursing and aide at bedside.
[2019-02-03] MEDS: ACETAMINOPHEN 325 MG TABLET (FP) PO PRN ×2 (13:57→22:05)
--- NOTE | 2019-02-03 14:08 | PN ---
Physical Exam: SUBJECTIVE: Patient seen and examined at bedside. Pt is nonverbal and unable to give history. OBJECTIVE: Vital Signs Period Temp Pulse Resp BP Sys/Guzmán Pulse Ox Last 24 Hr 98.7 F-100.4 F 69-102 20-20 97-129/57-74 95 Gen: breathing comfortably. Tracks movement with eyes and head. HEENT: NCAT, Moist membranes Neck: supple, central trachea Cardio: tachycardic, normal s1s2, no mrg Pulm: ronchi present diffusely Abd: soft, nondistended Ext: no edema Laboratory Results - last 24 hr 02/03/19 05:35 WBC 7.0 RBC 3.04 L Hgb 10.5 L Hct 31.2 L MCV 102.4 H MCH 34.6 H MCHC 33.8 RDW 13.7 Plt Count 160 MPV 8.2 Absolute Neuts (auto) 6.1 Neutrophils % 86.2 H Lymphocytes % 9.7 D Monocytes % 4.0 Eosinophils % 0.0 Basophils % 0.1 Nucleated RBC % 0 Active Medications Generic Name Dose Route Start Last Admin Trade Name Freq PRN Reason Stop Dose Admin Acetaminophen 650 mg 02/02/19 03:10 02/03/19 13:57 Tylenol - PO 650 mg Q6H PRN Administration Fever Or Pain Albuterol Sulfate 1 amp 01/31/19 16:14 02/01/19 10:44 Ventolin 0.083% Nebulizer Soln - NEB 1 amp Q4H PRN Administration SHORT OF BREATH/WHEEZING Albuterol/Ipratropium 1 amp 01/31/19 18:00 02/03/19 11:35 Duoneb - NEB 1 amp QIDR [facility] Administration Artificial Tears 2 drop 01/31/19 18:00 02/03/19 13:57 Artificial Tears OU 2 drop QID [facility] Administration Calcium Carbonate/Cholecalciferol 1 tab 01/31/19 22:00 02/03/19 10:55 Os-Dylon 500+D - PEG 1 tab BID [facility] Administration Clobazam 10 mg 01/31/19 18:00 02/03/19 13:56 Onfi - GT 10 mg QID [facility] Administration Heparin Sodium (Porcine) 5,000 unit 01/31/19 22:00 02/03/19 13:56 Heparin - SQ 5,000 unit TID [facility] Administration Piperacillin Sod/Tazobactam 50 mls @ 100 mls/hr 02/01/19 11:15 02/03/19 10:57 Sod 3.375 gm/ Dextrose IVPB 100 mls/hr Q8H-IV [facility] Administration Protocol Latanoprost 1 drop 01/31/19 22:00 02/02/19 21:44 Xalatan 0.005% Eye Drops - OU 1 drop HS [facility] Administration Levetiracetam 1,500 mg 01/31/19 22:00 02/03/19 10:55 Keppra Oral Solution - PEG 1,500 mg BID [facility] Administration Lorazepam 2 mg 01/31/19 16:30 Ativan Injection - IM Q1H PRN seizures Methylprednisolone Sodium Succinate 40 mg 02/01/19 13:45 02/03/19 10:55 Solu-Medrol - IVPUSH 40 mg Q8H-IV [facility] Administration Non-Formulary Medication 1 drop 02/01/19 10:00 Olopatadine Hcl [Pataday] OU DAILY [facility] Phenobarbital 20 mg 02/01/19 07:00 02/03/19 06:13 Phenobarbital Liquid - PEG 20 mg AM [facility] Administration Phenobarbital 100 mg 01/31/19 22:00 02/02/19 21:41 Phenobarbital Liquid - PEG 100 mg HS [facility] Administration Potassium Chloride 20 meq 02/01/19 10:00 02/03/19 10:54 Potassium Chloride Oral Liquid PEG 20 meq DAILY [facility] Administration Ranitidine HCl 150 mg 01/31/19 22:00 02/03/19 10:56 Zantac Oral Solution - PEG 150 mg BID [facility] Administration Senna 17.6 mg 01/31/19 22:00 02/02/19 21:43 Senna Oral Solution - PEG 17.6 mg HS [facility] Administration Sertraline HCl 150 mg 02/01/19 10:00 02/03/19 10:55 Zoloft - PEG 150 mg DAILY [facility] Administration Simethicone 160 mg 01/31/19 22:00 02/03/19 13:55 Mylicon Liquid - PEG 160 mg TID [facility] Administration Zonisamide 300 mg 01/31/19 22:00 02/03/19 10:55 Zonisamide PEG 300 mg BID [facility] Administration ASSESSMENT/PLAN: This is a 58 year old man with a history of cerebral palsy, developmental delay , seizures, Brad-Gastaut syndrome, corpus callosotomy, chronic hypoxic respiratory failure, glaucoma, G-tube who presented to the ED from [facility] with dyspnea, tachycardia, and fever. # Acute on chronic hypoxic and hypercapnic respiratory failure and sepsis secondary to aspiration pneumonia - Zosyn, vancomycin given in ED - Continue Zosyn - d/c IV fluid as pt is on tube feeds - Oxygen to maintain saturation >90% - DuoNeb and albuterol as needed - Solumedrol - Hypercapnia improved - ID, pulmonary consults # Seizures secondary to [place]-Gastaut syndrome -History of corpus callosotomy -Continue Onfi, Phenobarbital, Keppra, Zonegran, Ativan as needed # Cerebral palsy # Developmental delay # Glaucoma - Continue Sudarshan Romero # Nutrition - G-tube feedings for now Visit type - Emergency Visit Emergency Visit: No - New Patient This patient is new to me today: No - Critical Care Critical Care patient: No ATTENDING PHYSICIAN STATEMENT I saw and evaluated the patient. I reviewed the resident's note and discussed the case with the resident. I agree with the resident's findings and plan as documented. SUBJECTIVE: OBJECTIVE: ASSESSMENT AND PLAN:
--- NOTE | 2019-02-03 14:51 | PN ---
Progress Note, Physician History of Present Illness: pulmonary awake,alert on nasal cannula,-resp distress,saturating well - Current Medication List Current Medications: Active Medications Acetaminophen (Tylenol -) 650 mg PO Q6H PRN PRN Reason: Fever Or Pain Last Admin: 02/03/19 13:57 Dose: 650 mg Albuterol Sulfate (Ventolin 0.083% Nebulizer Soln -) 1 amp NEB Q4H PRN PRN Reason: SHORT OF BREATH/WHEEZING Last Admin: 02/01/19 10:44 Dose: 1 amp Albuterol/Ipratropium (Duoneb -) 1 amp NEB QIDR [facility] Last Admin: 02/03/19 11:35 Dose: 1 amp Artificial Tears (Artificial Tears) 2 drop OU QID [facility] Last Admin: 02/03/19 13:57 Dose: 2 drop Calcium Carbonate/Cholecalciferol (Os-Dylon 500+D -) 1 tab PEG BID [facility] Last Admin: 02/03/19 10:55 Dose: 1 tab Clobazam (Onfi -) 10 mg GT QID [facility] Last Admin: 02/03/19 13:56 Dose: 10 mg Heparin Sodium (Porcine) (Heparin -) 5,000 unit SQ TID [facility] Last Admin: 02/03/19 13:56 Dose: 5,000 unit Piperacillin Sod/Tazobactam (Sod 3.375 gm/ Dextrose) 50 mls @ 100 mls/hr IVPB Q8H-IV [facility]; Protocol Last Admin: 02/03/19 10:57 Dose: 100 mls/hr Latanoprost (Xalatan 0.005% Eye Drops -) 1 drop OU HS [facility] Last Admin: 02/02/19 21:44 Dose: 1 drop Levetiracetam (Keppra Oral Solution -) 1,500 mg PEG BID [facility] Last Admin: 02/03/19 10:55 Dose: 1,500 mg Lorazepam (Ativan Injection -) 2 mg IM Q1H PRN PRN Reason: seizures Methylprednisolone Sodium Succinate (Solu-Medrol -) 40 mg IVPUSH Q8H-IV [facility] Last Admin: 02/03/19 10:55 Dose: 40 mg Non-Formulary Medication (Olopatadine Hcl [Pataday]) 1 drop OU DAILY [facility] Phenobarbital (Phenobarbital Liquid -) 20 mg PEG AM [facility] Last Admin: 02/03/19 06:13 Dose: 20 mg Phenobarbital (Phenobarbital Liquid -) 100 mg PEG HS [facility] Last Admin: 02/02/19 21:41 Dose: 100 mg Potassium Chloride (Potassium Chloride Oral Liquid) 20 meq PEG DAILY [facility] Last Admin: 02/03/19 10:54 Dose: 20 meq Ranitidine HCl (Zantac Oral Solution -) 150 mg PEG BID [facility] Last Admin: 02/03/19 10:56 Dose: 150 mg Senna (Senna Oral Solution -) 17.6 mg PEG HS [facility] Last Admin: 02/02/19 21:43 Dose: 17.6 mg Sertraline HCl (Zoloft -) 150 mg PEG DAILY [facility] Last Admin: 02/03/19 10:55 Dose: 150 mg Simethicone (Mylicon Liquid -) 160 mg PEG TID [facility] Last Admin: 02/03/19 13:55 Dose: 160 mg Zonisamide (Zonisamide) 300 mg PEG BID [facility] Last Admin: 02/03/19 10:55 Dose: 300 mg - Objective Vital Signs: Vital Signs Temperature 99 F 02/03/19 13:32 Pulse Rate 102 H 02/03/19 13:32 Respiratory Rate 20 02/03/19 13:32 Blood Pressure 114/57 L 02/03/19 13:32 O2 Sat by Pulse Oximetry (%) 95 02/02/19 21:00 Constitutional: Yes: Well Nourished, Calm Eyes: Yes: WNL HENT: Yes: WNL Neck: Yes: WNL Cardiovascular: Yes: Regular Rate and Rhythm, S1, S2 Respiratory: Yes: Rhonchi (few rhonchi) Gastrointestinal: Yes: Normal Bowel Sounds, Soft Extremities: Yes: WNL Edema: No Labs: CBC, BMP 02/03/19 05:35 - ....Imaging Chest X-ray: Report Reviewed, Image Reviewed (increased markings bilaterally) Problem List - Problems (1) Acute hypoxemic respiratory failure Code(s): J96.01 - ACUTE RESPIRATORY FAILURE WITH HYPOXIA (2) Aspiration pneumonia Code(s): J69.0 - PNEUMONITIS DUE TO INHALATION OF FOOD AND VOMIT (3) Sepsis Code(s): A41.9 - SEPSIS, UNSPECIFIED ORGANISM (4) Pneumonia Code(s): J18.9 - PNEUMONIA, UNSPECIFIED ORGANISM Qualifiers: Pneumonia type: aspiration pneumonia Aspiration pneumonia type: unspecified Laterality: left Lung location: upper lobe of lung Qualified Code(s): J69.0 - Pneumonitis due to inhalation of food and vomit (5) Seizure disorder Code(s): G40.909 - EPILEPSY, UNSP, NOT INTRACTABLE, WITHOUT STATUS EPILEPTICUS (6) Fever Code(s): R50.9 - FEVER, UNSPECIFIED Assessment/Plan Problem List - Problems (1) Pneumonia Code(s): J18.9 - PNEUMONIA, UNSPECIFIED ORGANISM Qualifiers: Pneumonia type: aspiration pneumonia Aspiration pneumonia type: unspecified Laterality: left Lung location: upper lobe of lung Qualified Code(s): J69.0 - Pneumonitis due to inhalation of food and vomit Assessment/Plan Acute Hypoxic Respiratory Failure Pneumonia suspect Aspiration Sepsis Cerebral Palsy Mental Retardation Seizure Disorder - IV antibiotics as per ID - O2 to keep SpO2 >90% - inhaled bronchodilators - medrol taper - aspiration precautions - DVT prophylaxis - f/u chest x-rays DR BERG
[2019-02-03] MEDS: DEXTROSE 5%-NORMAL SALINE 1,000 ML IV SCH (15:23)
--- NOTE | 2019-02-03 18:56 | PN ---
Progress Note, Physician History of Present Illness: stable sating well no discomfort - Current Medication List Current Medications: Active Medications Acetaminophen (Tylenol -) 650 mg PO Q6H PRN PRN Reason: Fever Or Pain Last Admin: 02/03/19 13:57 Dose: 650 mg Albuterol Sulfate (Ventolin 0.083% Nebulizer Soln -) 1 amp NEB Q4H PRN PRN Reason: SHORT OF BREATH/WHEEZING Last Admin: 02/01/19 10:44 Dose: 1 amp Albuterol/Ipratropium (Duoneb -) 1 amp NEB QIDR [facility] Last Admin: 02/03/19 11:35 Dose: 1 amp Artificial Tears (Artificial Tears) 2 drop OU QID [facility] Last Admin: 02/03/19 17:46 Dose: 2 drop Calcium Carbonate/Cholecalciferol (Os-Dylon 500+D -) 1 tab PEG BID [facility] Last Admin: 02/03/19 10:55 Dose: 1 tab Clobazam (Onfi -) 10 mg GT QID [facility] Last Admin: 02/03/19 17:45 Dose: 10 mg Heparin Sodium (Porcine) (Heparin -) 5,000 unit SQ TID [facility] Last Admin: 02/03/19 13:56 Dose: 5,000 unit Piperacillin Sod/Tazobactam (Sod 3.375 gm/ Dextrose) 50 mls @ 100 mls/hr IVPB Q8H-IV [facility]; Protocol Last Admin: 02/03/19 17:45 Dose: 100 mls/hr Latanoprost (Xalatan 0.005% Eye Drops -) 1 drop OU HS [facility] Last Admin: 02/02/19 21:44 Dose: 1 drop Levetiracetam (Keppra Oral Solution -) 1,500 mg PEG BID [facility] Last Admin: 02/03/19 10:55 Dose: 1,500 mg Methylprednisolone Sodium Succinate (Solu-Medrol -) 40 mg IVPUSH Q8H-IV [facility] Last Admin: 02/03/19 17:45 Dose: 40 mg Non-Formulary Medication (Olopatadine Hcl [Pataday]) 1 drop OU DAILY [facility] Phenobarbital (Phenobarbital Liquid -) 20 mg PEG AM [facility] Last Admin: 02/03/19 06:13 Dose: 20 mg Phenobarbital (Phenobarbital Liquid -) 100 mg PEG HS [facility] Last Admin: 02/02/19 21:41 Dose: 100 mg Potassium Chloride (Potassium Chloride Oral Liquid) 20 meq PEG DAILY [facility] Last Admin: 02/03/19 10:54 Dose: 20 meq Ranitidine HCl (Zantac Oral Solution -) 150 mg PEG BID [facility] Last Admin: 02/03/19 10:56 Dose: 150 mg Senna (Senna Oral Solution -) 17.6 mg PEG HS [facility] Last Admin: 02/02/19 21:43 Dose: 17.6 mg Sertraline HCl (Zoloft -) 150 mg PEG DAILY [facility] Last Admin: 02/03/19 10:55 Dose: 150 mg Simethicone (Mylicon Liquid -) 160 mg PEG TID [facility] Last Admin: 02/03/19 13:55 Dose: 160 mg Zonisamide (Zonisamide) 300 mg PEG BID [facility] Last Admin: 02/03/19 10:55 Dose: 300 mg - Objective Vital Signs: Vital Signs Temperature 100.7 F H 02/03/19 18:00 Pulse Rate 86 02/03/19 18:00 Respiratory Rate 20 02/03/19 18:00 Blood Pressure 139/75 02/03/19 18:00 O2 Sat by Pulse Oximetry (%) 93 L 02/03/19 09:00 Constitutional: Yes: No Distress, Calm Cardiovascular: Yes: S1, S2 Respiratory: Yes: On Nasal O2, Poor Air Entry Gastrointestinal: Yes: Normal Bowel Sounds, Soft Musculoskeletal: Yes: WNL Extremities: Yes: WNL Neurological: Yes: Other Psychiatric: Yes: Other Labs: CBC, BMP 02/03/19 05:35 02/02/19 05:35 INR, PTT INR 1.07 (0.83-1.09) 01/31/19 13:30 Assessment/Plan Problem List - Problems (1) Pneumonia Code(s): J18.9 - PNEUMONIA, UNSPECIFIED ORGANISM Qualifiers: Pneumonia type: aspiration pneumonia Aspiration pneumonia type: unspecified Laterality: left Lung location: upper lobe of lung Qualified Code(s): J69.0 - Pneumonitis due to inhalation of food and vomit Assessment/Plan Acute Hypoxic Respiratory Failure Pneumonia suspect Aspiration Sepsis Cerebral Palsy Mental Retardation Seizure Disorder plan continue current mgmt 'resp support asp precautions rest as per the team
[2019-02-03] MEDS: SENNOSIDES 8.8 MG/5 ML BULK BOTTLE PEG SCH (22:04)
[2019-02-03] MEDS: LATANOPROST 0.005% OPHTH SOLN 2.5ML BOTTLE OU SCH (22:05)
[2019-02-04] MEDS: ALBUTEROL SO4 2.5/IPRATROPIUM 0.5 INH SOL 3 ML VIAL.NEB. NEB SCH ×4 (00:20→16:25)
[2019-02-04] MEDS ORDERED: DEXTROSE 5%-WATER - 50 ML IVPB ONE ×3 (01:49→17:57)
[2019-02-04] MEDS ORDERED: PIPERACILLIN/TAZOBACTAM 3.375 GM VIAL IVPB ONE ×3 (01:49→17:57)
[2019-02-04] MEDS: methylPREDNISolone NA SUCC 40 MG/1 ML VIAL IVPUSH SCH ×2 (01:53→09:50)
[2019-02-04] MEDS: PIPERACILLIN/TAZOB 3.375 GM 3.375 GM in DEXTROSE 5%-WATER - 50 ML IVPB SCH ×3 (01:53→19:04)
[2019-02-04] MEDS ORDERED: PT OWN MED DRAWER 7, Y5N ONE ×6 (05:23→22:37)
[2019-02-04] MEDS: PHENobarbital 20 MG/5 ML UNIT-DOSE CUP PEG SCH ×2 (06:00→21:58)
[2019-02-04] MEDS: HEPARIN NA (PORCINE) 5,000 UNITS/ML 1ML VIAL SQ SCH ×3 (06:00→21:54)
[2019-02-04] MEDS: SIMETHICONE 40 MG/0.6 ML BOTTLE PEG SCH ×3 (06:01→21:55)
--- NOTE | 2019-02-04 06:41 | PN ---
Physical Exam: SUBJECTIVE: Patient seen and examined at bedside. Nonverbal. Comfortable appearing OBJECTIVE: Vital Signs Period Temp Pulse Resp BP Sys/Guzmán Pulse Ox Last 24 Hr 98.5 F-100.7 F 78-102 20-20 97-139/57-75 93-94 Gen: breathing comfortably. Tracks movement with eyes and head. HEENT: NCAT, Moist membranes. R facial rash Neck: supple, central trachea Cardio: tachycardic, normal s1s2, no mrg Pulm: ronchi present diffusely Abd: soft, nondistended Ext: no edema Laboratory Results - last 24 hr 02/03/19 05:35 WBC 7.0 RBC 3.04 L Hgb 10.5 L Hct 31.2 L MCV 102.4 H MCH 34.6 H MCHC 33.8 RDW 13.7 Plt Count 160 MPV 8.2 Absolute Neuts (auto) 6.1 Neutrophils % 86.2 H Lymphocytes % 9.7 D Monocytes % 4.0 Eosinophils % 0.0 Basophils % 0.1 Nucleated RBC % 0 Active Medications Generic Name Dose Route Start Last Admin Trade Name Freq PRN Reason Stop Dose Admin Acetaminophen 650 mg 02/02/19 03:10 02/03/19 22:05 Tylenol - PO 650 mg Q6H PRN Administration Fever Or Pain Albuterol Sulfate 1 amp 01/31/19 16:14 02/01/19 10:44 Ventolin 0.083% Nebulizer Soln - NEB 1 amp Q4H PRN Administration SHORT OF BREATH/WHEEZING Albuterol/Ipratropium 1 amp 01/31/19 18:00 02/04/19 00:20 Duoneb - NEB 1 amp QIDR [facility] Administration Artificial Tears 2 drop 01/31/19 18:00 02/03/19 22:05 Artificial Tears OU 2 drop QID [facility] Administration Calcium Carbonate/Cholecalciferol 1 tab 01/31/19 22:00 02/03/19 22:05 Os-Dylon 500+D - PEG 1 tab BID [facility] Administration Clobazam 10 mg 01/31/19 18:00 02/03/19 22:04 Onfi - GT 10 mg QID [facility] Administration Heparin Sodium (Porcine) 5,000 unit 01/31/19 22:00 02/04/19 06:00 Heparin - SQ 5,000 unit TID [facility] Administration Piperacillin Sod/Tazobactam 50 mls @ 100 mls/hr 02/01/19 11:15 02/04/19 01:53 Sod 3.375 gm/ Dextrose IVPB 100 mls/hr Q8H-IV [facility] Administration Protocol Latanoprost 1 drop 01/31/19 22:00 02/03/19 22:05 Xalatan 0.005% Eye Drops - OU 1 drop HS [facility] Administration Levetiracetam 1,500 mg 01/31/19 22:00 02/03/19 22:04 Keppra Oral Solution - PEG 1,500 mg BID [facility] Administration Methylprednisolone Sodium Succinate 40 mg 02/01/19 13:45 02/04/19 01:53 Solu-Medrol - IVPUSH 40 mg Q8H-IV [facility] Administration Non-Formulary Medication 1 drop 02/01/19 10:00 Olopatadine Hcl [Pataday] OU DAILY [facility] Phenobarbital 20 mg 02/01/19 07:00 02/04/19 06:00 Phenobarbital Liquid - PEG 20 mg AM [facility] Administration Phenobarbital 100 mg 01/31/19 22:00 02/03/19 22:04 Phenobarbital Liquid - PEG 100 mg HS [facility] Administration Potassium Chloride 20 meq 02/01/19 10:00 02/03/19 10:54 Potassium Chloride Oral Liquid PEG 20 meq DAILY [facility] Administration Ranitidine HCl 150 mg 01/31/19 22:00 02/03/19 22:04 Zantac Oral Solution - PEG 150 mg BID [facility] Administration Senna 17.6 mg 01/31/19 22:00 02/03/19 22:04 Senna Oral Solution - PEG 17.6 mg HS [facility] Administration Sertraline HCl 150 mg 02/01/19 10:00 02/03/19 10:55 Zoloft - PEG 150 mg DAILY [facility] Administration Simethicone 160 mg 01/31/19 22:00 02/04/19 06:01 Mylicon Liquid - PEG 160 mg TID [facility] Administration Zonisamide 300 mg 01/31/19 22:00 02/03/19 22:05 Zonisamide PEG 300 mg BID [facility] Administration Active Medications Acetaminophen (Tylenol -) 650 mg PO Q6H PRN PRN Reason: Fever Or Pain Last Admin: 02/03/19 22:05 Dose: 650 mg Albuterol Sulfate (Ventolin 0.083% Nebulizer Soln -) 1 amp NEB Q4H PRN PRN Reason: SHORT OF BREATH/WHEEZING Last Admin: 02/01/19 10:44 Dose: 1 amp Albuterol/Ipratropium (Duoneb -) 1 amp NEB QIDR [facility] Last Admin: 02/04/19 00:20 Dose: 1 amp Artificial Tears (Artificial Tears) 2 drop OU QID [facility] Last Admin: 02/03/19 22:05 Dose: 2 drop Calcium Carbonate/Cholecalciferol (Os-Dylon 500+D -) 1 tab PEG BID [facility] Last Admin: 02/03/19 22:05 Dose: 1 tab Clobazam (Onfi -) 10 mg GT QID [facility] Last Admin: 02/03/19 22:04 Dose: 10 mg Heparin Sodium (Porcine) (Heparin -) 5,000 unit SQ TID [facility] Last Admin: 02/04/19 06:00 Dose: 5,000 unit Piperacillin Sod/Tazobactam (Sod 3.375 gm/ Dextrose) 50 mls @ 100 mls/hr IVPB Q8H-IV [facility]; Protocol Last Admin: 02/04/19 01:53 Dose: 100 mls/hr Latanoprost (Xalatan 0.005% Eye Drops -) 1 drop OU HS [facility] Last Admin: 02/03/19 22:05 Dose: 1 drop Levetiracetam (Keppra Oral Solution -) 1,500 mg PEG BID [facility] Last Admin: 02/03/19 22:04 Dose: 1,500 mg Methylprednisolone Sodium Succinate (Solu-Medrol -) 40 mg IVPUSH Q8H-IV [facility] Last Admin: 02/04/19 01:53 Dose: 40 mg Non-Formulary Medication (Olopatadine Hcl [Pataday]) 1 drop OU DAILY [facility] Phenobarbital (Phenobarbital Liquid -) 20 mg PEG AM [facility] Last Admin: 02/04/19 06:00 Dose: 20 mg Phenobarbital (Phenobarbital Liquid -) 100 mg PEG HS [facility] Last Admin: 02/03/19 22:04 Dose: 100 mg Potassium Chloride (Potassium Chloride Oral Liquid) 20 meq PEG DAILY [facility] Last Admin: 02/03/19 10:54 Dose: 20 meq Ranitidine HCl (Zantac Oral Solution -) 150 mg PEG BID [facility] Last Admin: 02/03/19 22:04 Dose: 150 mg Senna (Senna Oral Solution -) 17.6 mg PEG HS [facility] Last Admin: 02/03/19 22:04 Dose: 17.6 mg Sertraline HCl (Zoloft -) 150 mg PEG DAILY [facility] Last Admin: 02/03/19 10:55 Dose: 150 mg Simethicone (Mylicon Liquid -) 160 mg PEG TID [facility] Last Admin: 02/04/19 06:01 Dose: 160 mg Zonisamide (Zonisamide) 300 mg PEG BID [facility] Last Admin: 02/03/19 22:05 Dose: 300 mg ASSESSMENT/PLAN: This is a 58 year old man with a history of cerebral palsy, developmental delay , seizures, Brad-Gastaut syndrome, corpus callosotomy, chronic hypoxic respiratory failure, glaucoma, G-tube who presented to the ED from [facility] with dyspnea, tachycardia, and fever. 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 I reviewed the resident's note and discussed the case with the resident. I agree with the resident's findings and plan as documented. SUBJECTIVE: OBJECTIVE: ASSESSMENT AND PLAN:
[2019-02-04 08:08] LABS: HEMATOCRIT 31.6 % (35.4-49); HEMOGLOBIN 10.7 GM/dL (11.7-16.9); LYMPH % 15.7 % (8-40); MCH 34.6 pg (25.7-33.7); MCHC 33.9 g/dl (32.0-35.9); MEAN CELL VOLUME 102.2 fl (80-96); MEAN PLT VOLUME 7.6 fl (7.5-11.1); MONO % 5.6 % (3.8-10.2); NEUT % 78.7 % (42.8-82.8); PLATELET COUNT 173 K/MM3 (134-434); RBC 3.09 M/mm3 (4.00-5.60); RDW 13.7 % (11.9-15.9); WHITE BLOOD COUNT 8.2 K/mm3 (4.0-10.0)
[2019-02-04 08:36] LABS: BLOOD UREA NITROGEN 15.8 mg/dL (7-18); CALCIUM 8.3 mg/dL (8.5-10.1); CREATININE 0.4 mg/dL (0.55-1.3); POTASSIUM 3.7 mmol/L (3.5-5.1)
[2019-02-04] MEDS: POTASSIUM CHLORIDE ORAL LIQUID 20 MEQ/15 ML PEG SCH (09:51)
[2019-02-04] MEDS: ZONISAMIDE 100 MG/10 ML ORAL SUSPENSION PEG SCH ×2 (09:52→22:00)
[2019-02-04] MEDS: RANITIDINE HCL 150 MG/10 ML UNIT-DOSE PEG SCH ×2 (09:52→22:00)
[2019-02-04] MEDS: levETIRAcetam 500 MG/5 ML ORAL SOLUTION (UNIT-DOSE CUPS) PEG SCH ×2 (09:52→21:55)
[2019-02-04] MEDS: SERTRALINE HCL 50 MG TABLET (FP) PEG SCH (09:53)
[2019-02-04] MEDS: cloBAZam 10 MG TABLET GT SCH ×4 (09:53→21:54)
[2019-02-04] MEDS: CALCIUM 500MG/VIT-D 200 UNITS COMBO TABLET (FP) PEG SCH ×2 (09:53→21:57)
[2019-02-04] MEDS: ARTIFICIAL TEARS (POLYVINYL ALCOHOL) OPTH DROPS OU SCH ×4 (09:54→22:01)
--- NOTE | 2019-02-04 11:07 | PN ---
Progress Note, Physician History of Present Illness: stable still a bit of gurgling awake non verbal aid in the room - Current Medication List Current Medications: Active Medications Acetaminophen (Tylenol -) 650 mg PO Q6H PRN PRN Reason: Fever Or Pain Last Admin: 02/03/19 22:05 Dose: 650 mg Albuterol Sulfate (Ventolin 0.083% Nebulizer Soln -) 1 amp NEB Q4H PRN PRN Reason: SHORT OF BREATH/WHEEZING Last Admin: 02/01/19 10:44 Dose: 1 amp Albuterol/Ipratropium (Duoneb -) 1 amp NEB QIDR [facility] Last Admin: 02/04/19 07:48 Dose: 1 amp Artificial Tears (Artificial Tears) 2 drop OU QID [facility] Last Admin: 02/04/19 09:54 Dose: 2 drop Calcium Carbonate/Cholecalciferol (Os-Dylon 500+D -) 1 tab PEG BID [facility] Last Admin: 02/04/19 09:53 Dose: 1 tab Clobazam (Onfi -) 10 mg GT QID [facility] Last Admin: 02/04/19 09:53 Dose: 10 mg Heparin Sodium (Porcine) (Heparin -) 5,000 unit SQ TID [facility] Last Admin: 02/04/19 06:00 Dose: 5,000 unit Piperacillin Sod/Tazobactam (Sod 3.375 gm/ Dextrose) 50 mls @ 100 mls/hr IVPB Q8H-IV [facility]; Protocol Last Admin: 02/04/19 09:50 Dose: 100 mls/hr Latanoprost (Xalatan 0.005% Eye Drops -) 1 drop OU HS [facility] Last Admin: 02/03/19 22:05 Dose: 1 drop Levetiracetam (Keppra Oral Solution -) 1,500 mg PEG BID [facility] Last Admin: 02/04/19 09:52 Dose: 1,500 mg Methylprednisolone Sodium Succinate (Solu-Medrol -) 40 mg IVPUSH BID [facility] Non-Formulary Medication (Olopatadine Hcl [Pataday]) 1 drop OU DAILY [facility] Phenobarbital (Phenobarbital Liquid -) 20 mg PEG AM [facility] Last Admin: 02/04/19 06:00 Dose: 20 mg Phenobarbital (Phenobarbital Liquid -) 100 mg PEG HS [facility] Last Admin: 02/03/19 22:04 Dose: 100 mg Potassium Chloride (Potassium Chloride Oral Liquid) 20 meq PEG DAILY [facility] Last Admin: 02/04/19 09:51 Dose: 20 meq Ranitidine HCl (Zantac Oral Solution -) 150 mg PEG BID [facility] Last Admin: 02/04/19 09:52 Dose: 150 mg Senna (Senna Oral Solution -) 17.6 mg PEG HS [facility] Last Admin: 02/03/19 22:04 Dose: 17.6 mg Sertraline HCl (Zoloft -) 150 mg PEG DAILY [facility] Last Admin: 02/04/19 09:53 Dose: 150 mg Simethicone (Mylicon Liquid -) 160 mg PEG TID [facility] Last Admin: 02/04/19 06:01 Dose: 160 mg Zonisamide (Zonisamide) 300 mg PEG BID [facility] Last Admin: 02/04/19 09:52 Dose: 300 mg - Objective Vital Signs: Vital Signs Temperature 98.9 F 02/04/19 10:00 Pulse Rate 65 02/04/19 10:00 Respiratory Rate 20 02/04/19 10:00 Blood Pressure 128/64 02/04/19 10:00 O2 Sat by Pulse Oximetry (%) 94 L 02/03/19 20:16 Constitutional: Yes: No Distress, Calm Cardiovascular: Yes: S1, S2 Respiratory: Yes: Rhonchi, Other (still with gurgling) Gastrointestinal: Yes: Normal Bowel Sounds, Soft, Other (peg tube) Musculoskeletal: Yes: WNL Extremities: Yes: Other Neurological: Yes: Alert, Other Labs: CBC, BMP 02/04/19 07:50 02/04/19 07:50 INR, PTT INR 1.07 (0.83-1.09) 01/31/19 13:30 Assessment/Plan Problem List - Problems (1) Pneumonia Code(s): J18.9 - PNEUMONIA, UNSPECIFIED ORGANISM Qualifiers: Pneumonia type: aspiration pneumonia Aspiration pneumonia type: unspecified Laterality: left Lung location: upper lobe of lung Qualified Code(s): J69.0 - Pneumonitis due to inhalation of food and vomit Assessment/Plan Acute Hypoxic Respiratory Failure Pneumonia suspect Aspiration Sepsis Cerebral Palsy Mental Retardation Seizure Disorder plan continue current mgmt 'resp support asp precautions rest as per the team
--- NOTE | 2019-02-04 11:22 | PN ---
Progress Note, Physician History of Present Illness: pulmonary awake,alert,non-verbal -resp distress on nasal o2. afebrile - Current Medication List Current Medications: Active Medications Acetaminophen (Tylenol -) 650 mg PO Q6H PRN PRN Reason: Fever Or Pain Last Admin: 02/03/19 22:05 Dose: 650 mg Albuterol Sulfate (Ventolin 0.083% Nebulizer Soln -) 1 amp NEB Q4H PRN PRN Reason: SHORT OF BREATH/WHEEZING Last Admin: 02/01/19 10:44 Dose: 1 amp Albuterol/Ipratropium (Duoneb -) 1 amp NEB QIDR [facility] Last Admin: 02/04/19 07:48 Dose: 1 amp Artificial Tears (Artificial Tears) 2 drop OU QID [facility] Last Admin: 02/04/19 09:54 Dose: 2 drop Calcium Carbonate/Cholecalciferol (Os-Dylon 500+D -) 1 tab PEG BID [facility] Last Admin: 02/04/19 09:53 Dose: 1 tab Clobazam (Onfi -) 10 mg GT QID [facility] Last Admin: 02/04/19 09:53 Dose: 10 mg Heparin Sodium (Porcine) (Heparin -) 5,000 unit SQ TID [facility] Last Admin: 02/04/19 06:00 Dose: 5,000 unit Piperacillin Sod/Tazobactam (Sod 3.375 gm/ Dextrose) 50 mls @ 100 mls/hr IVPB Q8H-IV [facility]; Protocol Last Admin: 02/04/19 09:50 Dose: 100 mls/hr Latanoprost (Xalatan 0.005% Eye Drops -) 1 drop OU HS [facility] Last Admin: 02/03/19 22:05 Dose: 1 drop Levetiracetam (Keppra Oral Solution -) 1,500 mg PEG BID [facility] Last Admin: 02/04/19 09:52 Dose: 1,500 mg Methylprednisolone Sodium Succinate (Solu-Medrol -) 40 mg IVPUSH BID [facility] Non-Formulary Medication (Olopatadine Hcl [Pataday]) 1 drop OU DAILY [facility] Phenobarbital (Phenobarbital Liquid -) 20 mg PEG AM [facility] Last Admin: 02/04/19 06:00 Dose: 20 mg Phenobarbital (Phenobarbital Liquid -) 100 mg PEG HS [facility] Last Admin: 02/03/19 22:04 Dose: 100 mg Potassium Chloride (Potassium Chloride Oral Liquid) 20 meq PEG DAILY [facility] Last Admin: 02/04/19 09:51 Dose: 20 meq Ranitidine HCl (Zantac Oral Solution -) 150 mg PEG BID [facility] Last Admin: 02/04/19 09:52 Dose: 150 mg Senna (Senna Oral Solution -) 17.6 mg PEG HS [facility] Last Admin: 02/03/19 22:04 Dose: 17.6 mg Sertraline HCl (Zoloft -) 150 mg PEG DAILY [facility] Last Admin: 02/04/19 09:53 Dose: 150 mg Simethicone (Mylicon Liquid -) 160 mg PEG TID [facility] Last Admin: 02/04/19 06:01 Dose: 160 mg Zonisamide (Zonisamide) 300 mg PEG BID [facility] Last Admin: 02/04/19 09:52 Dose: 300 mg - Objective Vital Signs: Vital Signs Temperature 98.9 F 02/04/19 10:00 Pulse Rate 65 02/04/19 10:00 Respiratory Rate 20 02/04/19 10:00 Blood Pressure 128/64 02/04/19 10:00 O2 Sat by Pulse Oximetry (%) 94 L 02/03/19 20:16 Constitutional: Yes: Well Nourished, Calm Eyes: Yes: WNL HENT: Yes: WNL Neck: Yes: WNL Cardiovascular: Yes: Regular Rate and Rhythm, S1, S2 Respiratory: Yes: Rhonchi (scattered ewa rhonchi,poor inspiratory effort) Gastrointestinal: Yes: Normal Bowel Sounds, Soft Extremities: Yes: WNL Edema: No Labs: CBC, BMP 02/04/19 07:50 02/04/19 07:50 INR, PTT INR 1.07 (0.83-1.09) 01/31/19 13:30 - ....Imaging Chest X-ray: Report Reviewed, Image Reviewed (increased marking bilaterallly) Problem List - Problems (1) Acute hypoxemic respiratory failure Code(s): J96.01 - ACUTE RESPIRATORY FAILURE WITH HYPOXIA (2) Aspiration pneumonia Code(s): J69.0 - PNEUMONITIS DUE TO INHALATION OF FOOD AND VOMIT (3) Sepsis Code(s): A41.9 - SEPSIS, UNSPECIFIED ORGANISM (4) Pneumonia Code(s): J18.9 - PNEUMONIA, UNSPECIFIED ORGANISM Qualifiers: Pneumonia type: aspiration pneumonia Aspiration pneumonia type: unspecified Laterality: left Lung location: upper lobe of lung Qualified Code(s): J69.0 - Pneumonitis due to inhalation of food and vomit (5) Seizure disorder Code(s): G40.909 - EPILEPSY, UNSP, NOT INTRACTABLE, WITHOUT STATUS EPILEPTICUS (6) Fever Code(s): R50.9 - FEVER, UNSPECIFIED Assessment/Plan Problem List - Problems (1) Pneumonia Code(s): J18.9 - PNEUMONIA, UNSPECIFIED ORGANISM Qualifiers: Pneumonia type: aspiration pneumonia Aspiration pneumonia type: unspecified Laterality: left Lung location: upper lobe of lung Qualified Code(s): J69.0 - Pneumonitis due to inhalation of food and vomit Assessment/Plan Acute Hypoxic Respiratory Failure Pneumonia suspect Aspiration Sepsis Cerebral Palsy Mental Retardation Seizure Disorder - IV antibiotics as per ID - O2 to keep SpO2 >90% - inhaled bronchodilators - medrol same dose - aspiration precautions - DVT prophylaxis - f/u chest x-rays DR BERG
--- NOTE | 2019-02-04 11:53 | PN ---
Teaching Attending Note Name of Resident: Elier Wilkins ATTENDING PHYSICIAN STATEMENT I saw and evaluated the patient. I reviewed the resident's note and discussed the case with the resident. I agree with the resident's findings and plan as documented with exceptions below. SUBJECTIVE: Patient seen and examined. non verbal, unable to assess for ROS. OBJECTIVE: Vital Signs Period Temp Pulse Resp BP Sys/Guzmán Pulse Ox Last 24 Hr 98.5 F-100.7 F 65-102 20-20 114-143/57-84 94 Intake & Output 02/01/19 02/02/19 02/03/19 02/04/19 23:59 23:59 23:59 23:59 Intake Total 500 2540 2212 690 Balance 500 2540 2212 690 Weight 192 lb 3.2 oz General sitting in bed, tracks with eyes, tachypnea improved neck: soft, supple Chest; coarse scattered bilateral rales Abdomen:Soft, NT, PEG in place Extremities; trace edema Home Medications Medication Instructions Recorded Albuterol 2.5/Ipratropium 0.5 1 amp NEB TID 09/15/15 [Duoneb -] Bimatoprost [Lumigan] 1 drop OU HS 09/15/15 Calcium Carbonate/Vitamin D3 1 each PEG TID 09/15/15 [Calcium 600 + Vit D 400 Softgl] Levetiracetam [Keppra] 1,500 mg PEG Q12H 09/15/15 Lorazepam [Ativan] 2 mg IM PRN PRN 09/15/15 Phenobarbital 100 mg PEG HS 09/15/15 Potassium Chloride Oral Soln [KCl 20 meq PEG DAILY 09/15/15 Oral Solution -] Ranitidine HCl [Zantac] 150 mg PEG BID 09/15/15 Sertraline HCl [Zoloft] 150 mg PEG DAILY 09/15/15 Simethicone [Mytab Gas] 160 mg PEG TID 09/15/15 Zonisamide [Zonegran] 300 mg PEG BID 09/15/15 Diazepam Rectal Gel [Diastat 20 mg [place] PRN PRN 12/29/15 Rectal Gel -] Olopatadine HCl [Pataday] 1 drop OU DAILY 12/29/15 Sennosides [Senna -] 2 tab PEG HS 12/29/15 Travoprost [Travatan Z] 2.5 ml OU HS 12/29/15 Cannabidiol (Cbd) Extract 4.5 ml GT BID 11/28/18 [Epidiolex] Clobazam [Onfi -] 10 mg GT QID 11/28/18 Collagenase Clostridium Hist. 1 applic TP DAILY 02/02/19 [Santyl] Lactobacil 2-S.thermo-Bifido 1 1 each PO BID 02/02/19 [Visbiome 112.5 Billion Capsule] Magnesium Hydroxide [Milk of 400 mg PO Q2D 02/02/19 Magnesia] Mupirocin Ointment [Bactroban 2% 1 applic TP 5XD PRN 02/02/19 Ointment -] Bushnell-3/Dha/Epa/Fish Oil [Fish Oil 1,600 mg PO DAILY 02/02/19 1,600 mg/5 ml Liquid] One Daily For Men 50+ Adv Tab 1 tablet DAILY 02/02/19 Polyethylene Glycol 3350 [Miralax 17 grams Q2D 02/02/19 119 gm Btl -] Active Medications Acetaminophen (Tylenol -) 650 mg PO Q6H PRN PRN Reason: Fever Or Pain Last Admin: 02/03/19 22:05 Dose: 650 mg Albuterol Sulfate (Ventolin 0.083% Nebulizer Soln -) 1 amp NEB Q4H PRN PRN Reason: SHORT OF BREATH/WHEEZING Last Admin: 02/01/19 10:44 Dose: 1 amp Albuterol/Ipratropium (Duoneb -) 1 amp NEB QIDR [facility] Last Admin: 02/04/19 07:48 Dose: 1 amp Artificial Tears (Artificial Tears) 2 drop OU QID [facility] Last Admin: 02/04/19 09:54 Dose: 2 drop Calcium Carbonate/Cholecalciferol (Os-Dylon 500+D -) 1 tab PEG BID [facility] Last Admin: 02/04/19 09:53 Dose: 1 tab Clobazam (Onfi -) 10 mg GT QID [facility] Last Admin: 02/04/19 09:53 Dose: 10 mg Heparin Sodium (Porcine) (Heparin -) 5,000 unit SQ TID [facility] Last Admin: 02/04/19 06:00 Dose: 5,000 unit Piperacillin Sod/Tazobactam (Sod 3.375 gm/ Dextrose) 50 mls @ 100 mls/hr IVPB Q8H-IV [facility]; Protocol Last Admin: 02/04/19 09:50 Dose: 100 mls/hr Latanoprost (Xalatan 0.005% Eye Drops -) 1 drop OU HS [facility] Last Admin: 02/03/19 22:05 Dose: 1 drop Levetiracetam (Keppra Oral Solution -) 1,500 mg PEG BID [facility] Last Admin: 02/04/19 09:52 Dose: 1,500 mg Methylprednisolone Sodium Succinate (Solu-Medrol -) 40 mg IVPUSH Q12H [facility] Non-Formulary Medication (Olopatadine Hcl [Pataday]) 1 drop OU DAILY [facility] Phenobarbital (Phenobarbital Liquid -) 20 mg PEG AM [facility] Last Admin: 02/04/19 06:00 Dose: 20 mg Phenobarbital (Phenobarbital Liquid -) 100 mg PEG HS [facility] Last Admin: 02/03/19 22:04 Dose: 100 mg Potassium Chloride (Potassium Chloride Oral Liquid) 20 meq PEG DAILY [facility] Last Admin: 02/04/19 09:51 Dose: 20 meq Ranitidine HCl (Zantac Oral Solution -) 150 mg PEG BID [facility] Last Admin: 02/04/19 09:52 Dose: 150 mg Senna (Senna Oral Solution -) 17.6 mg PEG HS [facility] Last Admin: 02/03/19 22:04 Dose: 17.6 mg Sertraline HCl (Zoloft -) 150 mg PEG DAILY [facility] Last Admin: 02/04/19 09:53 Dose: 150 mg Simethicone (Mylicon Liquid -) 160 mg PEG TID [facility] Last Admin: 02/04/19 06:01 Dose: 160 mg Zonisamide (Zonisamide) 300 mg PEG BID [facility] Last Admin: 02/04/19 09:52 Dose: 300 mg Laboratory Results - last 24 hr 02/04/19 02/04/19 07:50 07:50 WBC 8.2 RBC 3.09 L Hgb 10.7 L Hct 31.6 L MCV 102.2 H MCH 34.6 H MCHC 33.9 RDW 13.7 Plt Count 173 MPV 7.6 Absolute Neuts (auto) 6.5 Neutrophils % 78.7 Lymphocytes % 15.7 D Monocytes % 5.6 Eosinophils % 0.0 Basophils % 0.0 Nucleated RBC % 0 Sodium 144 Potassium 3.7 Chloride 109 H Carbon Dioxide 32 Anion Gap 3 L BUN 15.8 Creatinine 0.4 L Est GFR (CKD-EPI)AfAm 151.74 Est GFR (CKD-EPI)NonAf 130.93 Random Glucose 148 H Calcium 8.3 L Microbiology 01/31/19 13:45 Blood - Peripheral Venous Blood Culture - Preliminary NO GROWTH OBTAINED AFTER 72 HOURS, INCUBATION TO CONTINUE FOR 2 DAYS. 01/31/19 13:30 Blood - Peripheral Venous Blood Culture - Preliminary NO GROWTH OBTAINED AFTER 72 HOURS, INCUBATION TO CONTINUE FOR 2 DAYS. 01/31/19 15:40 Urine - Urine Clean Catch Urine Culture - Final NO GROWTH OBTAINED 01/31/19 15:40 Urine - Urine - Catheterized Legionella Antigen - Final 01/31/19 15:40 Urine - Urine - Catheterized Streptococcus pneumoniae Antigen (M - Final ASSESSMENT AND PLAN: 58 year old man with a history of cerebral palsy, developmental delay, seizures , Salamanca-Gastaut syndrome, corpus callosotomy, chronic hypoxic respiratory failure, glaucoma, G-tube who presented to the ED from [facility] with dyspnea, tachycardia, and fever. 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 repeat CXR noted Oxygen needs improving. Ttube feeds as tolerated. Chest PT. Pulmonary input appreciated. Replete K prn Continue onfi, phenobarbital, keppra, zonegran. Ativan prn. DVTPPX heparin Dispo back to [place] in 24-48 hours if continues to improve. Discussed with nursing and aide at bedside.
[2019-02-04] MEDS ORDERED: methylPREDNISolone NA SUCC 40 MG/1 ML VIAL IVPUSH SCH ×2 (20:00→22:00)
[2019-02-04] MEDS: SENNOSIDES 8.8 MG/5 ML BULK BOTTLE PEG SCH (21:58)
[2019-02-04] MEDS: LATANOPROST 0.005% OPHTH SOLN 2.5ML BOTTLE OU SCH (22:14)
[2019-02-05] MEDS: ALBUTEROL SO4 2.5/IPRATROPIUM 0.5 INH SOL 3 ML VIAL.NEB. NEB SCH ×5 (00:05→23:36)
[2019-02-05] MEDS ORDERED: PIPERACILLIN/TAZOBACTAM 3.375 GM VIAL IVPB ONE ×3 (01:00→18:08)
[2019-02-05] MEDS ORDERED: DEXTROSE 5%-WATER - 50 ML IVPB ONE ×3 (01:00→18:08)
[2019-02-05] MEDS: PIPERACILLIN/TAZOB 3.375 GM 3.375 GM in DEXTROSE 5%-WATER - 50 ML IVPB SCH ×3 (01:31→18:18)
[2019-02-05] MEDS ORDERED: PT OWN MED DRAWER 7, Y5N ONE ×4 (05:47→21:59)
[2019-02-05] MEDS: PHENobarbital 20 MG/5 ML UNIT-DOSE CUP PEG SCH ×2 (06:03→22:55)
[2019-02-05] MEDS: HEPARIN NA (PORCINE) 5,000 UNITS/ML 1ML VIAL SQ SCH ×3 (06:03→23:00)
[2019-02-05] MEDS: SIMETHICONE 40 MG/0.6 ML BOTTLE PEG SCH ×3 (06:04→23:00)
[2019-02-05 07:38] LABS: HEMATOCRIT 34.1 % (35.4-49); HEMOGLOBIN 11.3 GM/dL (11.7-16.9); MCH 34.5 pg (25.7-33.7); MEAN CELL VOLUME 104.5 fl (80-96); MEAN PLT VOLUME 7.9 fl (7.5-11.1); PLATELET COUNT 175 K/MM3 (134-434); RBC 3.26 M/mm3 (4.00-5.60); RDW 13.5 % (11.9-15.9); WHITE BLOOD COUNT 8.3 K/mm3 (4.0-10.0)
[2019-02-05 07:53] LABS: BLOOD UREA NITROGEN 15.2 mg/dL (7-18); CALCIUM 8.1 mg/dL (8.5-10.1); CREATININE 0.4 mg/dL (0.55-1.3); MAGNESIUM 2.1 mg/dL (1.8-2.4); PHOSPHOROUS 2.1 mg/dL (2.5-4.9); POTASSIUM 3.8 mmol/L (3.5-5.1)
[2019-02-05] MEDS ORDERED: FUROSEMIDE 40 MG/4 ML INJECTABLE VIAL IVPUSH ONE (09:04)
--- NOTE | 2019-02-05 09:47 | PN ---
Teaching Attending Note Name of Resident: Elier Wilkins ATTENDING PHYSICIAN STATEMENT I saw and evaluated the patient. I reviewed the resident's note and discussed the case with the resident. I agree with the resident's findings and plan as documented with exceptions below. SUBJECTIVE: Patient seen and examined. opens eyes, non verbal, unable to assess for ROS. OBJECTIVE: Vital Signs Period Temp Pulse Resp BP Sys/Guzmán Pulse Ox Last 24 Hr 98 F-99.3 F 65-97 18-20 117-142/64-75 96-98 Intake & Output 02/02/19 02/03/19 02/04/19 02/05/19 23:59 23:59 23:59 23:59 Intake Total 2540 2212 1120 510 Balance 2540 2212 1120 510 Weight 192 lb General: sitting in bed, opens eyes to voice, coarse audible rales, mild tachypnea Neck: soft Chest: bilateral scattered coarse rales, occasional wheezing Abdomen:Soft, PEG in place, pos bowel sounds, NT Extremities: trace pedal edema Home Medications Medication Instructions Recorded Albuterol 2.5/Ipratropium 0.5 1 amp NEB TID 09/15/15 [Duoneb -] Bimatoprost [Lumigan] 1 drop OU HS 09/15/15 Calcium Carbonate/Vitamin D3 1 each PEG TID 09/15/15 [Calcium 600 + Vit D 400 Softgl] Levetiracetam [Keppra] 1,500 mg PEG Q12H 09/15/15 Lorazepam [Ativan] 2 mg IM PRN PRN 09/15/15 Phenobarbital 100 mg PEG HS 09/15/15 Potassium Chloride Oral Soln [KCl 20 meq PEG DAILY 09/15/15 Oral Solution -] Ranitidine HCl [Zantac] 150 mg PEG BID 09/15/15 Sertraline HCl [Zoloft] 150 mg PEG DAILY 09/15/15 Simethicone [Mytab Gas] 160 mg PEG TID 09/15/15 Zonisamide [Zonegran] 300 mg PEG BID 09/15/15 Diazepam Rectal Gel [Diastat 20 mg GA PRN PRN 12/29/15 Rectal Gel -] Olopatadine HCl [Pataday] 1 drop OU DAILY 12/29/15 Sennosides [Senna -] 2 tab PEG HS 12/29/15 Travoprost [Travatan Z] 2.5 ml OU HS 12/29/15 Cannabidiol (Cbd) Extract 4.5 ml GT BID 11/28/18 [Epidiolex] Clobazam [Onfi -] 10 mg GT QID 11/28/18 Collagenase Clostridium Hist. 1 applic TP DAILY 02/02/19 [Santyl] Lactobacil 2-S.thermo-Bifido 1 1 each PO BID 02/02/19 [Visbiome 112.5 Billion Capsule] Magnesium Hydroxide [Milk of 400 mg PO Q2D 02/02/19 Magnesia] Mupirocin Ointment [Bactroban 2% 1 applic TP 5XD PRN 02/02/19 Ointment -] [place]ville-3/Dha/Epa/Fish Oil [Fish Oil 1,600 mg PO DAILY 02/02/19 1,600 mg/5 ml Liquid] One Daily For Men 50+ Adv Tab 1 tablet DAILY 02/02/19 Polyethylene Glycol 3350 [Miralax 17 grams Q2D 02/02/19 119 gm Btl -] Active Medications Acetaminophen (Tylenol -) 650 mg PO Q6H PRN PRN Reason: Fever Or Pain Last Admin: 02/03/19 22:05 Dose: 650 mg Albuterol Sulfate (Ventolin 0.083% Nebulizer Soln -) 1 amp NEB Q4H PRN PRN Reason: SHORT OF BREATH/WHEEZING Last Admin: 02/01/19 10:44 Dose: 1 amp Albuterol/Ipratropium (Duoneb -) 1 amp NEB QIDR [facility] Last Admin: 02/05/19 06:54 Dose: 1 amp Artificial Tears (Artificial Tears) 2 drop OU QID [facility] Last Admin: 02/04/19 22:01 Dose: 2 drop Calcium Carbonate/Cholecalciferol (Os-Dylon 500+D -) 1 tab PEG BID [facility] Last Admin: 02/04/19 21:57 Dose: 1 tab Clobazam (Onfi -) 10 mg GT QID [facility] Last Admin: 02/04/19 21:54 Dose: 10 mg Heparin Sodium (Porcine) (Heparin -) 5,000 unit SQ TID [facility] Last Admin: 02/05/19 06:03 Dose: 5,000 unit Piperacillin Sod/Tazobactam (Sod 3.375 gm/ Dextrose) 50 mls @ 100 mls/hr IVPB Q8H-IV [facility]; Protocol Last Admin: 02/05/19 01:31 Dose: 100 mls/hr Latanoprost (Xalatan 0.005% Eye Drops -) 1 drop OU HS [facility] Last Admin: 02/04/19 22:14 Dose: 1 drop Levetiracetam (Keppra Oral Solution -) 1,500 mg PEG BID [facility] Last Admin: 02/04/19 21:55 Dose: 1,500 mg Methylprednisolone Sodium Succinate (Solu-Medrol -) 40 mg IVPUSH Q8H-IV [facility] Phenobarbital (Phenobarbital Liquid -) 20 mg PEG AM [facility] Last Admin: 02/05/19 06:03 Dose: 20 mg Phenobarbital (Phenobarbital Liquid -) 100 mg PEG HS [facility] Last Admin: 02/04/19 21:58 Dose: 100 mg Potassium Chloride (Potassium Chloride Oral Liquid) 20 meq PEG DAILY [facility] Last Admin: 02/04/19 09:51 Dose: 20 meq Ranitidine HCl (Zantac Oral Solution -) 150 mg PEG BID [facility] Last Admin: 02/04/19 22:00 Dose: 150 mg Senna (Senna Oral Solution -) 17.6 mg PEG HS [facility] Last Admin: 02/04/19 21:58 Dose: 17.6 mg Sertraline HCl (Zoloft -) 150 mg PEG DAILY [facility] Last Admin: 02/04/19 09:53 Dose: 150 mg Simethicone (Mylicon Liquid -) 160 mg PEG TID [facility] Last Admin: 02/05/19 06:04 Dose: 160 mg Zonisamide (Zonisamide) 300 mg PEG BID [facility] Last Admin: 02/04/19 22:00 Dose: 300 mg Laboratory Results - last 24 hr 02/05/19 02/05/19 07:10 07:10 WBC 8.3 RBC 3.26 L Hgb 11.3 L Hct 34.1 L MCV 104.5 H MCH 34.5 H MCHC 33.0 RDW 13.5 Plt Count 175 MPV 7.9 Sodium 142 Potassium 3.8 Chloride 106 Carbon Dioxide 31 Anion Gap 4 L BUN 15.2 Creatinine 0.4 L Est GFR (CKD-EPI)AfAm 151.74 Est GFR (CKD-EPI)NonAf 130.93 Random Glucose 114 H Calcium 8.1 L Phosphorus 2.1 L Magnesium 2.1 CXR results reviewed Microbiology 01/31/19 13:45 Blood - Peripheral Venous Blood Culture - Preliminary NO GROWTH OBTAINED AFTER 96 HOURS, INCUBATION TO CONTINUE FOR 1 DAYS. 01/31/19 13:30 Blood - Peripheral Venous Blood Culture - Preliminary NO GROWTH OBTAINED AFTER 96 HOURS, INCUBATION TO CONTINUE FOR 1 DAYS. 01/31/19 15:40 Urine - Urine Clean Catch Urine Culture - Final NO GROWTH OBTAINED 01/31/19 15:40 Urine - Urine - Catheterized Legionella Antigen - Final 01/31/19 15:40 Urine - Urine - Catheterized Streptococcus pneumoniae Antigen (M - Final ASSESSMENT AND PLAN: 58 year old man with a history of cerebral palsy, developmental delay, seizures , [place]-Gastaut syndrome, corpus callosotomy, chronic hypoxic respiratory failure, glaucoma, G-tube who presented to the ED from [facility] with dyspnea, tachycardia, and fever. -Acute on chronic hypoxic/hypercapneic respiratory failure, suspected LLL aspiration pneumonia -Sepsis -Suspected acute diastolic heart failure exacerbation, ?in the setting of volume resuscitation -Hypokalemia -Seizures due to [place]-Gastaut syndrome, s/p corpus callosotomy -Cerebral Palsy -Developmental delay -Glaucoma Plan: More audible and scattered rales, CXR reviewed, ?congestion Will hold tube feeds, lasix 20 mg IV x1, further dosing prn. Check 2D echo. Change to IV solumedrol for now, standing and prn nebs. Zosyn for now. Chest PT. Pulmonary input appreciated. Replete K prn Continue onfi, phenobarbital, keppra, zonegran. Ativan prn. DVTPPX heparin Code: Patient with MOLST DNR from the facility. Confirm. Dispo hold off on discharge given worsening lung exam, and concerns for CHF. Discussed with nursing and aide at bedside.
[2019-02-05] MEDS ORDERED: predniSONE 20 MG TABLET (UD) PO SCH (10:00)
--- NOTE | 2019-02-05 10:04 | PN ---
Progress Note, Physician History of Present Illness: non verbal awake still with gurgling sounds - Current Medication List Current Medications: Active Medications Acetaminophen (Tylenol -) 650 mg PO Q6H PRN PRN Reason: Fever Or Pain Last Admin: 02/03/19 22:05 Dose: 650 mg Albuterol Sulfate (Ventolin 0.083% Nebulizer Soln -) 1 amp NEB Q4H PRN PRN Reason: SHORT OF BREATH/WHEEZING Last Admin: 02/01/19 10:44 Dose: 1 amp Albuterol/Ipratropium (Duoneb -) 1 amp NEB QIDR [facility] Last Admin: 02/05/19 06:54 Dose: 1 amp Artificial Tears (Artificial Tears) 2 drop OU QID [facility] Last Admin: 02/04/19 22:01 Dose: 2 drop Calcium Carbonate/Cholecalciferol (Os-Dylon 500+D -) 1 tab PEG BID [facility] Last Admin: 02/04/19 21:57 Dose: 1 tab Clobazam (Onfi -) 10 mg GT QID [facility] Last Admin: 02/04/19 21:54 Dose: 10 mg Heparin Sodium (Porcine) (Heparin -) 5,000 unit SQ TID [facility] Last Admin: 02/05/19 06:03 Dose: 5,000 unit Piperacillin Sod/Tazobactam (Sod 3.375 gm/ Dextrose) 50 mls @ 100 mls/hr IVPB Q8H-IV [facility]; Protocol Last Admin: 02/05/19 01:31 Dose: 100 mls/hr Latanoprost (Xalatan 0.005% Eye Drops -) 1 drop OU HS [facility] Last Admin: 02/04/19 22:14 Dose: 1 drop Levetiracetam (Keppra Oral Solution -) 1,500 mg PEG BID [facility] Last Admin: 02/04/19 21:55 Dose: 1,500 mg Methylprednisolone Sodium Succinate (Solu-Medrol -) 40 mg IVPUSH Q8H-IV [facility] Phenobarbital (Phenobarbital Liquid -) 20 mg PEG AM [facility] Last Admin: 02/05/19 06:03 Dose: 20 mg Phenobarbital (Phenobarbital Liquid -) 100 mg PEG HS [facility] Last Admin: 02/04/19 21:58 Dose: 100 mg Potassium Chloride (Potassium Chloride Oral Liquid) 20 meq PEG DAILY [facility] Last Admin: 02/04/19 09:51 Dose: 20 meq Ranitidine HCl (Zantac Oral Solution -) 150 mg PEG BID [facility] Last Admin: 02/04/19 22:00 Dose: 150 mg Senna (Senna Oral Solution -) 17.6 mg PEG HS [facility] Last Admin: 02/04/19 21:58 Dose: 17.6 mg Sertraline HCl (Zoloft -) 150 mg PEG DAILY [facility] Last Admin: 02/04/19 09:53 Dose: 150 mg Simethicone (Mylicon Liquid -) 160 mg PEG TID [facility] Last Admin: 02/05/19 06:04 Dose: 160 mg Zonisamide (Zonisamide) 300 mg PEG BID [facility] Last Admin: 02/04/19 22:00 Dose: 300 mg - Objective Vital Signs: Vital Signs Temperature 98.7 F 02/05/19 06:00 Pulse Rate 97 H 02/05/19 06:00 Respiratory Rate 18 02/05/19 06:00 Blood Pressure 118/75 02/05/19 06:00 O2 Sat by Pulse Oximetry (%) 98 02/04/19 20:22 Constitutional: Yes: No Distress, Calm Cardiovascular: Yes: S1, S2 Respiratory: Yes: Rhonchi Gastrointestinal: Yes: Normal Bowel Sounds, Soft, Other (peg in place) Musculoskeletal: Yes: WNL Extremities: Yes: WNL Neurological: Yes: Alert Psychiatric: Yes: Other Labs: CBC, BMP 02/05/19 07:10 02/05/19 07:10 INR, PTT INR 1.07 (0.83-1.09) 01/31/19 13:30 Assessment/Plan Problem List - Problems (1) Pneumonia Code(s): J18.9 - PNEUMONIA, UNSPECIFIED ORGANISM Qualifiers: Pneumonia type: aspiration pneumonia Aspiration pneumonia type: unspecified Laterality: left Lung location: upper lobe of lung Qualified Code(s): J69.0 - Pneumonitis due to inhalation of food and vomit Assessment/Plan Acute Hypoxic Respiratory Failure Pneumonia suspect Aspiration Sepsis Cerebral Palsy Mental Retardation Seizure Disorder plan continue current mgmt 'resp support asp precautions rest as per the team
[2019-02-05] MEDS: CALCIUM 500MG/VIT-D 200 UNITS COMBO TABLET (FP) PEG SCH ×2 (10:21→22:56)
[2019-02-05] MEDS: methylPREDNISolone NA SUCC 40 MG/1 ML VIAL IVPUSH SCH ×2 (10:22→18:26)
[2019-02-05] MEDS: POTASSIUM CHLORIDE ORAL LIQUID 20 MEQ/15 ML PEG SCH (10:22)
[2019-02-05] MEDS: cloBAZam 10 MG TABLET GT SCH ×4 (10:23→22:57)
[2019-02-05] MEDS: ZONISAMIDE 100 MG/10 ML ORAL SUSPENSION PEG SCH ×2 (10:23→22:51)
[2019-02-05] MEDS: levETIRAcetam 500 MG/5 ML ORAL SOLUTION (UNIT-DOSE CUPS) PEG SCH ×2 (10:27→22:53)
[2019-02-05] MEDS: RANITIDINE HCL 150 MG/10 ML UNIT-DOSE PEG SCH ×2 (10:27→22:53)
[2019-02-05] MEDS: ARTIFICIAL TEARS (POLYVINYL ALCOHOL) OPTH DROPS OU SCH ×4 (10:31→23:00)
[2019-02-05] MEDS: SERTRALINE HCL 50 MG TABLET (FP) PEG SCH (10:41)
--- NOTE | 2019-02-05 11:11 | PN ---
Physical Exam: SUBJECTIVE: Patient seen and examined at bedside. Nonverbal. Comfortable appearing. NAD OBJECTIVE: Vital Signs Period Temp Pulse Resp BP Sys/Guzmán Pulse Ox Last 24 Hr 98 F-99.3 F 71-97 18-20 117-142/68-75 96-98 Gen: breathing comfortably. Tracks movement with eyes and head. HEENT: NCAT, Moist membranes. R facial rash Neck: supple, central trachea Cardio: tachycardic, normal s1s2, no mrg Pulm: ronchi present diffusely Abd: soft, nondistended Ext: no edema Laboratory Results - last 24 hr 02/05/19 02/05/19 07:10 07:10 WBC 8.3 RBC 3.26 L Hgb 11.3 L Hct 34.1 L MCV 104.5 H MCH 34.5 H MCHC 33.0 RDW 13.5 Plt Count 175 MPV 7.9 Sodium 142 Potassium 3.8 Chloride 106 Carbon Dioxide 31 Anion Gap 4 L BUN 15.2 Creatinine 0.4 L Est GFR (CKD-EPI)AfAm 151.74 Est GFR (CKD-EPI)NonAf 130.93 Random Glucose 114 H Calcium 8.1 L Phosphorus 2.1 L Magnesium 2.1 Active Medications Generic Name Dose Route Start Last Admin Trade Name Freq PRN Reason Stop Dose Admin Acetaminophen 650 mg 02/02/19 03:10 02/03/19 22:05 Tylenol - PO 650 mg Q6H PRN Administration Fever Or Pain Albuterol Sulfate 1 amp 01/31/19 16:14 02/01/19 10:44 Ventolin 0.083% Nebulizer Soln - NEB 1 amp Q4H PRN Administration SHORT OF BREATH/WHEEZING Albuterol/Ipratropium 1 amp 01/31/19 18:00 02/05/19 06:54 Duoneb - NEB 1 amp QIDR [facility] Administration Artificial Tears 2 drop 01/31/19 18:00 02/05/19 10:31 Artificial Tears OU 2 drop QID [facility] Administration Calcium Carbonate/Cholecalciferol 1 tab 01/31/19 22:00 02/05/19 10:21 Os-Dylon 500+D - PEG 1 tab BID [facility] Administration Clobazam 10 mg 01/31/19 18:00 02/05/19 10:23 Onfi - GT 10 mg QID [facility] Administration Heparin Sodium (Porcine) 5,000 unit 01/31/19 22:00 02/05/19 06:03 Heparin - SQ 5,000 unit TID [facility] Administration Piperacillin Sod/Tazobactam 50 mls @ 100 mls/hr 02/01/19 11:15 02/05/19 10:23 Sod 3.375 gm/ Dextrose IVPB 100 mls/hr Q8H-IV [facility] Administration Protocol Latanoprost 1 drop 01/31/19 22:00 02/04/19 22:14 Xalatan 0.005% Eye Drops - OU 1 drop HS [facility] Administration Levetiracetam 1,500 mg 01/31/19 22:00 02/05/19 10:27 Keppra Oral Solution - PEG 1,500 mg BID [facility] Administration Methylprednisolone Sodium Succinate 40 mg 02/05/19 10:00 02/05/19 10:22 Solu-Medrol - IVPUSH 40 mg Q8H-IV [facility] Administration Phenobarbital 20 mg 02/01/19 07:00 02/05/19 06:03 Phenobarbital Liquid - PEG 20 mg AM [facility] Administration Phenobarbital 100 mg 01/31/19 22:00 02/04/19 21:58 Phenobarbital Liquid - PEG 100 mg HS [facility] Administration Potassium Chloride 20 meq 02/01/19 10:00 02/05/19 10:22 Potassium Chloride Oral Liquid PEG 20 meq DAILY [facility] Administration Ranitidine HCl 150 mg 01/31/19 22:00 02/05/19 10:27 Zantac Oral Solution - PEG 150 mg BID [facility] Administration Senna 17.6 mg 01/31/19 22:00 02/04/19 21:58 Senna Oral Solution - PEG 17.6 mg HS [facility] Administration Sertraline HCl 150 mg 02/01/19 10:00 02/05/19 10:41 Zoloft - PEG 150 mg DAILY [facility] Administration Simethicone 160 mg 01/31/19 22:00 02/05/19 06:04 Mylicon Liquid - PEG 160 mg TID [facility] Administration Zonisamide 300 mg 01/31/19 22:00 02/05/19 10:23 Zonisamide PEG 300 mg BID [facility] Administration ASSESSMENT/PLAN: This is a 58 year old man with a history of cerebral palsy, developmental delay , seizures, [place]-Gastaut syndrome, corpus callosotomy, chronic hypoxic respiratory failure, glaucoma, G-tube who presented to the ED from [facility] with dyspnea, tachycardia, and fever. # Acute on chronic hypoxic and hypercapnic respiratory failure and sepsis secondary to aspiration pneumonia - Zosyn, vancomycin given in ED - Continue Zosyn - Oxygen to maintain saturation >90% - DuoNeb and albuterol as needed - Solumedrol - Hypercapnia improved - ID, pulmonary consults -CXR worse today. Hold tube feeds. #Facial Rash -will observe -resolved # Seizures secondary to [place]-Gastaut syndrome -History of corpus callosotomy -Continue Onfi, Phenobarbital, Keppra, Zonegran, Ativan as needed # Cerebral palsy # Developmental delay # Glaucoma - Continue Sudarshan Romero # Nutrition - hold G-tube feedings for now Visit type - Emergency Visit Emergency Visit: No - New Patient This patient is new to me today: No - Critical Care Critical Care patient: No ATTENDING PHYSICIAN STATEMENT I saw and evaluated the patient. I reviewed the resident's note and discussed the case with the resident. I agree with the resident's findings and plan as documented. SUBJECTIVE: OBJECTIVE: ASSESSMENT AND PLAN:
[2019-02-05] MEDS ORDERED: NAPH,MB-DB/K PH,MBDB POWDER PACKET PO ONE (11:43)
--- NOTE | 2019-02-05 13:25 | PN ---
Progress Note, Physician History of Present Illness: pulmonary awake,no distress,on nasal o2 - Current Medication List Current Medications: Active Medications Acetaminophen (Tylenol -) 650 mg PO Q6H PRN PRN Reason: Fever Or Pain Last Admin: 02/03/19 22:05 Dose: 650 mg Albuterol Sulfate (Ventolin 0.083% Nebulizer Soln -) 1 amp NEB Q4H PRN PRN Reason: SHORT OF BREATH/WHEEZING Last Admin: 02/01/19 10:44 Dose: 1 amp Albuterol/Ipratropium (Duoneb -) 1 amp NEB QIDR [facility] Last Admin: 02/05/19 11:37 Dose: 1 amp Artificial Tears (Artificial Tears) 2 drop OU QID [facility] Last Admin: 02/05/19 10:31 Dose: 2 drop Calcium Carbonate/Cholecalciferol (Os-Dylon 500+D -) 1 tab PEG BID [facility] Last Admin: 02/05/19 10:21 Dose: 1 tab Clobazam (Onfi -) 10 mg GT QID [facility] Last Admin: 02/05/19 10:23 Dose: 10 mg Heparin Sodium (Porcine) (Heparin -) 5,000 unit SQ TID [facility] Last Admin: 02/05/19 06:03 Dose: 5,000 unit Piperacillin Sod/Tazobactam (Sod 3.375 gm/ Dextrose) 50 mls @ 100 mls/hr IVPB Q8H-IV [facility]; Protocol Last Admin: 02/05/19 10:23 Dose: 100 mls/hr Latanoprost (Xalatan 0.005% Eye Drops -) 1 drop OU HS [facility] Last Admin: 02/04/19 22:14 Dose: 1 drop Levetiracetam (Keppra Oral Solution -) 1,500 mg PEG BID [facility] Last Admin: 02/05/19 10:27 Dose: 1,500 mg Methylprednisolone Sodium Succinate (Solu-Medrol -) 40 mg IVPUSH Q8H-IV [facility] Last Admin: 02/05/19 10:22 Dose: 40 mg Phenobarbital (Phenobarbital Liquid -) 20 mg PEG AM [facility] Last Admin: 02/05/19 06:03 Dose: 20 mg Phenobarbital (Phenobarbital Liquid -) 100 mg PEG HS [facility] Last Admin: 02/04/19 21:58 Dose: 100 mg Potassium Chloride (Potassium Chloride Oral Liquid) 20 meq PEG DAILY [facility] Last Admin: 02/05/19 10:22 Dose: 20 meq Ranitidine HCl (Zantac Oral Solution -) 150 mg PEG BID [facility] Last Admin: 02/05/19 10:27 Dose: 150 mg Senna (Senna Oral Solution -) 17.6 mg PEG HS [facility] Last Admin: 02/04/19 21:58 Dose: 17.6 mg Sertraline HCl (Zoloft -) 150 mg PEG DAILY [facility] Last Admin: 02/05/19 10:41 Dose: 150 mg Simethicone (Mylicon Liquid -) 160 mg PEG TID [facility] Last Admin: 02/05/19 06:04 Dose: 160 mg Zonisamide (Zonisamide) 300 mg PEG BID [facility] Last Admin: 02/05/19 10:23 Dose: 300 mg - Objective Vital Signs: Vital Signs Temperature 98.7 F 02/05/19 06:00 Pulse Rate 97 H 02/05/19 06:00 Respiratory Rate 18 02/05/19 06:00 Blood Pressure 118/75 02/05/19 06:00 O2 Sat by Pulse Oximetry (%) 98 02/04/19 20:22 Constitutional: Yes: Well Nourished, Calm Eyes: Yes: WNL HENT: Yes: WNL Neck: Yes: WNL Cardiovascular: Yes: Regular Rate and Rhythm, S1, S2 Respiratory: Yes: Rhonchi (scattered rhonchi) Gastrointestinal: Yes: Normal Bowel Sounds, Soft Extremities: Yes: WNL Edema: No Labs: CBC, BMP 02/05/19 07:10 02/05/19 07:10 INR, PTT INR 1.07 (0.83-1.09) 01/31/19 13:30 Problem List - Problems (1) Acute hypoxemic respiratory failure Code(s): J96.01 - ACUTE RESPIRATORY FAILURE WITH HYPOXIA (2) Aspiration pneumonia Code(s): J69.0 - PNEUMONITIS DUE TO INHALATION OF FOOD AND VOMIT (3) Sepsis Code(s): A41.9 - SEPSIS, UNSPECIFIED ORGANISM (4) Pneumonia Code(s): J18.9 - PNEUMONIA, UNSPECIFIED ORGANISM Qualifiers: Pneumonia type: aspiration pneumonia Aspiration pneumonia type: unspecified Laterality: left Lung location: upper lobe of lung Qualified Code(s): J69.0 - Pneumonitis due to inhalation of food and vomit (5) Seizure disorder Code(s): G40.909 - EPILEPSY, UNSP, NOT INTRACTABLE, WITHOUT STATUS EPILEPTICUS (6) Fever Code(s): R50.9 - FEVER, UNSPECIFIED Assessment/Plan Problem List - Problems (1) Pneumonia Code(s): J18.9 - PNEUMONIA, UNSPECIFIED ORGANISM Qualifiers: Pneumonia type: aspiration pneumonia Aspiration pneumonia type: unspecified Laterality: left Lung location: upper lobe of lung Qualified Code(s): J69.0 - Pneumonitis due to inhalation of food and vomit Assessment/Plan Acute Hypoxic Respiratory Failure improving Pneumonia suspect Aspiration Sepsis Cerebral Palsy Mental Retardation Seizure Disorder - IV antibiotics as per ID - O2 to keep SpO2 >90% - inhaled bronchodilators - medrol taper - aspiration precautions - DVT prophylaxis - f/u chest x-rays DR BERG
--- NOTE | 2019-02-05 16:09 | ECHO ---
Name: COLTON ZAMORANO Exam:Adult Echocardiogram Study Date: 02/05/2019 03:20 PM Age: 58 yrs Reason For Study: CONGESTION ASSESS LVF Height: 71 in Weight: 192 lb BSA: 2.1 m2 MMode/2D Measurements & Calculations IVSd: 1.1 cm Ao root diam: 2.9 cm LVIDd: 4.1 cm LVPWd: 1.1 cm EDV(Teich): 74.5 ml LVOT diam: 1.9 cm RV S Shane: 10.1 cm/sec Doppler Measurements & Calculations MV E max shane: 49.0 cm/sec Ao V2 max: 90.0 cm/sec MV A max shane: 60.1 cm/sec Ao max P.3 mmHg MV E/A: 0.81 Ao V2 mean: 55.4 cm/sec MV dec time: 0.13 sec Ao mean P.5 mmHg Ao V2 VTI: 15.2 cm DIANELYS(I,D): 2.9 cm2 DIANELYS(V,D): 2.7 cm2 LV V1 max P.7 mmHg SV(LVOT): 44.7 ml LV V1 mean P.5 mmHg LV V1 max: 82.5 cm/sec LV V1 mean: 55.4 cm/sec LV V1 VTI: 15.0 cm PA V2 max: 100.4 cm/sec Med Peak E' Shane: 6.5 cm/sec PA max P.0 mmHg Med E/e': 7.5 Lat Peak E' Shane: 9.3 cm/sec Lat E/e': 5.3 Procedure The study was technically difficult with many images being suboptimal in quality. Left Ventricle LV systolic function appears grossly preserved on this limited study; endocardial border not well see n. Consider repeat study with contrast as outpatient. The transmitral spectral Doppler flow pattern is s uggestive of impaired LV relaxation. Regional wall motion abnormalities cannot be excluded due to limited visua lization. Right Ventricle The right ventricle is not well visualized. Atria Normal left and right atrial size and function. Mitral Valve The mitral valve is grossly normal. There is no mitral valve stenosis. There is mild mitral regurgita tion. Tricuspid Valve The tricuspid valve is normal in structure and function. There is mild tricuspid regurgitation. There was insufficient TR detected to calculate RV systolic pressure. Aortic Valve There is mild aortic sclerosis.;. No hemodynamically significant valvular aortic stenosis. Pulmonic Valve The pulmonic valve is not well seen, but is grossly normal. There is no pulmonic valvular stenosis. Great Vessels The aortic root is normal size. Pericardium/Pleura There is no pericardial effusion. Interpretation Summary The study was technically difficult with many images being suboptimal in quality. Regional wall motion abnormalities cannot be excluded due to limited visualization. LV systolic function appears grossly preserved on this limited study; endocardial border not well see n. Consider repeat study with contrast as outpatient. The transmitral spectral Doppler flow pattern is suggestive of impaired LV relaxation. The right ventricle is not well visualized. There is mild mitral regurgitation. There is mild tricuspid regurgitation. There is mild aortic sclerosis.; No hemodynamically significant valvular aortic stenosis. There is no pericardial effusion. MD Caraballo *Winifred 02/05/2019 04:09 PM
--- NOTE | 2019-02-05 16:14 | RAPID ---
Physical Examination Vital Signs: Vital Signs Temperature 98.2 F 02/05/19 15:02 Pulse Rate 79 02/05/19 15:02 Respiratory Rate 20 02/05/19 15:02 Blood Pressure 110/69 02/05/19 15:02 O2 Sat by Pulse Oximetry (%) 98 02/04/19 20:22 Labs: CBC, BMP 02/05/19 07:10 02/05/19 07:10 Rapid Response - Rapid Response Assessment: Rapid response called around 3:45 by nurse because patient was unresponsive to sternal rub despite multiple attempts to suction. On arrival of the rapid team the patient was arousable to sternal rub. On physical exam the patient's BP was 117/67 (MAP 87), P80, R20, Sat 97% on RA, and a temperature of 97.8. The patient was awake but lethargic and responsive. A stat EKG and ABG were ordered. Primary team was present at the bedside. Plan: follow up EKG and ABG results.
[2019-02-05 16:25] LABS: ARTERIAL BLD GAS O2 SATURATION 97.9 % (95-98); ARTERIAL BLOOD GAS BASE EXCESS 5.8 meq/l (-2-2); ARTERIAL BLOOD GAS PO2 99.7 mmHg (80-100); ARTERIAL BLOOD GAS pH 7.39 (7.35-7.45)
[2019-02-05 16:26] LABS: ALLENS TEST POSITIVE
[2019-02-05] MEDS: SENNOSIDES 8.8 MG/5 ML BULK BOTTLE PEG SCH (22:55)
[2019-02-05] MEDS: LATANOPROST 0.005% OPHTH SOLN 2.5ML BOTTLE OU SCH (23:01)
[2019-02-06] MEDS ORDERED: PIPERACILLIN/TAZOBACTAM 3.375 GM VIAL IVPB ONE ×3 (02:39→18:11)
[2019-02-06] MEDS ORDERED: DEXTROSE 5%-WATER - 50 ML IVPB ONE ×3 (02:40→18:11)
[2019-02-06] MEDS: methylPREDNISolone NA SUCC 40 MG/1 ML VIAL IVPUSH SCH ×2 (02:47→10:32)
[2019-02-06] MEDS: PIPERACILLIN/TAZOB 3.375 GM 3.375 GM in DEXTROSE 5%-WATER - 50 ML IVPB SCH ×3 (02:47→18:16)
[2019-02-06] MEDS: HEPARIN NA (PORCINE) 5,000 UNITS/ML 1ML VIAL SQ SCH ×3 (06:20→22:13)
[2019-02-06] MEDS: PHENobarbital 20 MG/5 ML UNIT-DOSE CUP PEG SCH ×2 (06:21→22:13)
[2019-02-06] MEDS: SIMETHICONE 40 MG/0.6 ML BOTTLE PEG SCH ×3 (06:21→22:13)
[2019-02-06] MEDS: ALBUTEROL SO4 2.5/IPRATROPIUM 0.5 INH SOL 3 ML VIAL.NEB. NEB SCH ×3 (06:34→18:20)
[2019-02-06] MEDS ORDERED: PT OWN MED DRAWER 7, Y5N ONE ×6 (07:08→22:03)
[2019-02-06 09:47] LABS: HEMATOCRIT 34.5 % (35.4-49); HEMOGLOBIN 11.7 GM/dL (11.7-16.9); MCH 34.5 pg (25.7-33.7); MCHC 33.8 g/dl (32.0-35.9); MEAN CELL VOLUME 102.1 fl (80-96); MEAN PLT VOLUME 7.7 fl (7.5-11.1); PLATELET COUNT 206 K/MM3 (134-434); RBC 3.38 M/mm3 (4.00-5.60); RDW 13.7 % (11.9-15.9); WHITE BLOOD COUNT 6.9 K/mm3 (4.0-10.0)
[2019-02-06 10:18] LABS: BLOOD UREA NITROGEN 14.2 mg/dL (7-18); CALCIUM 8.8 mg/dL (8.5-10.1); CREATININE 0.3 mg/dL (0.55-1.3); POTASSIUM 4.1 mmol/L (3.5-5.1)
[2019-02-06] MEDS: levETIRAcetam 500 MG/5 ML ORAL SOLUTION (UNIT-DOSE CUPS) PEG SCH ×2 (10:27→22:12)
[2019-02-06] MEDS: RANITIDINE HCL 150 MG/10 ML UNIT-DOSE PEG SCH ×2 (10:28→22:11)
[2019-02-06] MEDS: POTASSIUM CHLORIDE ORAL LIQUID 20 MEQ/15 ML PEG SCH (10:28)
[2019-02-06] MEDS: CALCIUM 500MG/VIT-D 200 UNITS COMBO TABLET (FP) PEG SCH ×2 (10:29→22:14)
[2019-02-06] MEDS: cloBAZam 10 MG TABLET GT SCH ×4 (10:30→22:14)
[2019-02-06] MEDS: SERTRALINE HCL 50 MG TABLET (FP) PEG SCH (10:31)
[2019-02-06] MEDS: ARTIFICIAL TEARS (POLYVINYL ALCOHOL) OPTH DROPS OU SCH ×4 (11:43→22:14)
--- NOTE | 2019-02-06 12:01 | PN ---
Physical Exam: SUBJECTIVE: Patient seen and examined, more awake, less gurgly, comfortable per aide at bedside. OBJECTIVE: Vital Signs Period Temp Pulse Resp BP Sys/Guzmán Pulse Ox Last 24 Hr 98.0 F-98.8 F 60-79 18-20 102-116/58-69 98 Intake & Output 02/03/19 02/04/19 02/05/19 02/06/19 23:59 23:59 23:59 23:59 Intake Total 2212 1120 510 150 Balance 2212 1120 510 150 General: sitting in bed, more awake, no audible rales Neck: soft, supple Chest; improved air entry, no coarse rales apprecited Abdomen:soft, NT, ND, PEG in place Extremities: improvement in anasarca CVS:S1S2 regular Laboratory Results - last 24 hr 02/05/19 02/05/19 02/05/19 13:55 15:58 16:10 WBC RBC Hgb Hct MCV MCH MCHC RDW Plt Count MPV Anticoagulation Therapy No Result Required. Puncture Site Right radial ABG pH 7.39 ABG pCO2 at Pt Temp 53.0 H ABG pO2 at Pt Temp 99.7 ABG HCO3 31.5 H ABG O2 Sat (Measured) 97.9 ABG O2 Content 16.3 ABG Base Excess 5.8 H Perez Test Positive O2 Delivery Device No Result Required. Oxygen Flow Rate 2l Vent Mode No Result Required. Vent Rate No Result Required. Mechanical Rate No Result Required. Pressure Support Vent No Result Required. Sodium Potassium Chloride Carbon Dioxide Anion Gap BUN Creatinine Est GFR (CKD-EPI)AfAm Est GFR (CKD-EPI)NonAf POC Glucometer 120 126 Random Glucose Calcium 02/06/19 02/06/19 09:35 09:35 WBC 6.9 RBC 3.38 L Hgb 11.7 Hct 34.5 L MCV 102.1 H MCH 34.5 H MCHC 33.8 RDW 13.7 Plt Count 206 MPV 7.7 Anticoagulation Therapy Puncture Site ABG pH ABG pCO2 at Pt Temp ABG pO2 at Pt Temp ABG HCO3 ABG O2 Sat (Measured) ABG O2 Content ABG Base Excess Perez Test O2 Delivery Device Oxygen Flow Rate Vent Mode Vent Rate Mechanical Rate Pressure Support Vent Sodium 140 Potassium 4.1 Chloride 103 Carbon Dioxide 31 Anion Gap 6 L BUN 14.2 Creatinine 0.3 L Est GFR (CKD-EPI)AfAm 170.79 Est GFR (CKD-EPI)NonAf 147.36 POC Glucometer Random Glucose 107 H Calcium 8.8 Active Medications Generic Name Dose Route Start Last Admin Trade Name Freq PRN Reason Stop Dose Admin Acetaminophen 650 mg 02/02/19 03:10 02/03/19 22:05 Tylenol - PO 650 mg Q6H PRN Administration Fever Or Pain Albuterol Sulfate 1 amp 01/31/19 16:14 02/01/19 10:44 Ventolin 0.083% Nebulizer Soln - NEB 1 amp Q4H PRN Administration SHORT OF BREATH/WHEEZING Albuterol/Ipratropium 1 amp 01/31/19 18:00 02/06/19 06:34 Duoneb - NEB 1 amp QIDR BOBBY Administration Artificial Tears 2 drop 01/31/19 18:00 02/06/19 11:43 Artificial Tears OU 2 drop QID BOBBY Administration Calcium Carbonate/Cholecalciferol 1 tab 01/31/19 22:00 02/06/19 10:29 Os-Dylon 500+D - PEG 1 tab BID BOBBY Administration Clobazam 10 mg 01/31/19 18:00 02/06/19 10:30 Onfi - GT 10 mg QID BOBBY Administration Furosemide 20 mg 02/06/19 11:55 Lasix Injection - IVPUSH 02/06/19 11:56 ONCE ONE Heparin Sodium (Porcine) 5,000 unit 01/31/19 22:00 02/06/19 06:20 Heparin - SQ 5,000 unit TID BOBBY Administration Piperacillin Sod/Tazobactam 50 mls @ 100 mls/hr 02/01/19 11:15 02/06/19 11:39 Sod 3.375 gm/ Dextrose IVPB 100 mls/hr Q8H-IV BOBBY Administration Protocol Latanoprost 1 drop 01/31/19 22:00 02/05/19 23:01 Xalatan 0.005% Eye Drops - OU 1 drop HS BOBBY Administration Levetiracetam 1,500 mg 01/31/19 22:00 02/06/19 10:27 Keppra Oral Solution - PEG 1,500 mg BID BOBBY Administration Methylprednisolone Sodium Succinate 40 mg 02/05/19 10:00 02/06/19 10:32 Solu-Medrol - IVPUSH 40 mg Q8H-IV BOBBY Administration Phenobarbital 20 mg 02/01/19 07:00 02/06/19 06:21 Phenobarbital Liquid - PEG 20 mg AM BOBBY Administration Phenobarbital 100 mg 01/31/19 22:00 02/05/19 22:55 Phenobarbital Liquid - PEG 100 mg HS BOBBY Administration Potassium Chloride 20 meq 02/01/19 10:00 02/06/19 10:28 Potassium Chloride Oral Liquid PEG 20 meq DAILY BOBBY Administration Ranitidine HCl 150 mg 01/31/19 22:00 02/06/19 10:28 Zantac Oral Solution - PEG 150 mg BID BOBBY Administration Senna 17.6 mg 01/31/19 22:00 02/05/19 22:55 Senna Oral Solution - PEG 17.6 mg HS BOBBY Administration Sertraline HCl 150 mg 02/01/19 10:00 02/06/19 10:31 Zoloft - PEG 150 mg DAILY BOBBY Administration Simethicone 160 mg 01/31/19 22:00 02/06/19 06:21 Mylicon Liquid - PEG 160 mg TID BOBBY Administration Zonisamide 300 mg 01/31/19 22:00 02/05/19 22:51 Zonisamide PEG 300 mg BID BOBBY Administration Microbiology 01/31/19 13:45 Blood - Peripheral Venous Blood Culture - Final NO GROWTH AFTER 5 DAYS INCUBATION 01/31/19 13:30 Blood - Peripheral Venous Blood Culture - Final NO GROWTH AFTER 5 DAYS INCUBATION 01/31/19 15:40 Urine - Urine Clean Catch Urine Culture - Final NO GROWTH OBTAINED 01/31/19 15:40 Urine - Urine - Catheterized Legionella Antigen - Final 01/31/19 15:40 Urine - Urine - Catheterized Streptococcus pneumoniae Antigen (M - Final CXR from 02/05 results and images reviewed ASSESSMENT/PLAN: 58 year old man with a history of cerebral palsy, developmental delay, seizures , [place]-Gastaut syndrome, corpus callosotomy, chronic hypoxic respiratory failure, glaucoma, G-tube who presented to the ED from [facility] with dyspnea, tachycardia, and fever. -Acute on chronic hypoxic/hypercapneic respiratory failure, suspected LLL aspiration pneumonia -Sepsis -Suspected acute diastolic heart failure exacerbation, ?in the setting of volume resuscitation -Hypokalemia -Seizures due to [place]-Gastaut syndrome, s/p corpus callosotomy -Cerebral Palsy -Developmental delay -Glaucoma Plan: More awake, marked improvement in lung exam and extremity edema. Additional lasix 20 mg IV x1. resume tube feeds at 20 ml/hr for now. Avoid titration today. Taper solumedrol in 24 hours, standing and prn nebs. Zosyn for now. Chest PT. Pulmonary input appreciated. Replete K prn Continue onfi, phenobarbital, keppra, zonegran. Ativan prn. DVTPPX heparin Code: Patient with MOLST DNR/DNI Dispo plan for d/c back to [place] on Friday if continues to improve. Discussed with nursing and aide at bedside. Visit type - Emergency Visit Emergency Visit: Yes ED Registration Date: 01/31/19 Care time: The patient presented to the Emergency Department on the above date and was hospitalized for further evaluation of their emergent condition. - New Patient This patient is new to me today: No - Critical Care Critical Care patient: No - Discharge Referral Referred to [facility] No
[2019-02-06] MEDS ORDERED: FUROSEMIDE 40 MG/4 ML INJECTABLE VIAL IVPUSH ONE (12:30)
[2019-02-06] MEDS: ZONISAMIDE 100 MG/10 ML ORAL SUSPENSION PEG SCH ×2 (12:44→22:12)
[2019-02-06 12:55] VITALS: BMI 26.8
--- NOTE | 2019-02-06 13:12 | PN ---
Progress Note (short form) - Note Progress Note: PULMONARY Pt nonverbal. No fevers recorded. Vital Signs Period Temp Pulse Resp BP Sys/Guzmán Pulse Ox Last 24 Hr 98.0 F-98.8 F 60-79 18-20 102-116/58-69 98 Intake & Output 02/03/19 02/04/19 02/05/19 02/06/19 23:59 23:59 23:59 23:59 Intake Total 2212 1120 510 150 Balance 2212 1120 510 150 Gen: less tachypneic Heart: RRR Lung: scattered rhonchi Abd: soft, nontender Ext: no edema CBC, BMP 02/06/19 09:35 02/06/19 09:35 Active Medications Acetaminophen (Tylenol -) 650 mg PO Q6H PRN PRN Reason: Fever Or Pain Last Admin: 02/03/19 22:05 Dose: 650 mg Albuterol Sulfate (Ventolin 0.083% Nebulizer Soln -) 1 amp NEB Q4H PRN PRN Reason: SHORT OF BREATH/WHEEZING Last Admin: 02/01/19 10:44 Dose: 1 amp Albuterol/Ipratropium (Duoneb -) 1 amp NEB QIDR BOBBY Last Admin: 02/06/19 06:34 Dose: 1 amp Artificial Tears (Artificial Tears) 2 drop OU QID BOBBY Last Admin: 02/06/19 11:43 Dose: 2 drop Calcium Carbonate/Cholecalciferol (Os-Dylon 500+D -) 1 tab PEG BID BOBBY Last Admin: 02/06/19 10:29 Dose: 1 tab Clobazam (Onfi -) 10 mg GT QID BOBBY Last Admin: 02/06/19 10:30 Dose: 10 mg Heparin Sodium (Porcine) (Heparin -) 5,000 unit SQ TID BOBBY Last Admin: 02/06/19 06:20 Dose: 5,000 unit Piperacillin Sod/Tazobactam (Sod 3.375 gm/ Dextrose) 50 mls @ 100 mls/hr IVPB Q8H-IV BOBBY; Protocol Last Admin: 02/06/19 11:39 Dose: 100 mls/hr Latanoprost (Xalatan 0.005% Eye Drops -) 1 drop OU HS BOBBY Last Admin: 02/05/19 23:01 Dose: 1 drop Levetiracetam (Keppra Oral Solution -) 1,500 mg PEG BID [facility] Last Admin: 02/06/19 10:27 Dose: 1,500 mg Methylprednisolone Sodium Succinate (Solu-Medrol -) 40 mg IVPUSH Q12H [facility] Phenobarbital (Phenobarbital Liquid -) 20 mg PEG AM [facility] Last Admin: 02/06/19 06:21 Dose: 20 mg Phenobarbital (Phenobarbital Liquid -) 100 mg PEG HS [facility] Last Admin: 02/05/19 22:55 Dose: 100 mg Potassium Chloride (Potassium Chloride Oral Liquid) 20 meq PEG DAILY [facility] Last Admin: 02/06/19 10:28 Dose: 20 meq Ranitidine HCl (Zantac Oral Solution -) 150 mg PEG BID [facility] Last Admin: 02/06/19 10:28 Dose: 150 mg Senna (Senna Oral Solution -) 17.6 mg PEG HS [facility] Last Admin: 02/05/19 22:55 Dose: 17.6 mg Sertraline HCl (Zoloft -) 150 mg PEG DAILY [facility] Last Admin: 02/06/19 10:31 Dose: 150 mg Simethicone (Mylicon Liquid -) 160 mg PEG TID [facility] Last Admin: 02/06/19 06:21 Dose: 160 mg Zonisamide (Zonisamide) 300 mg PEG BID [facility] Last Admin: 02/06/19 12:44 Dose: 300 mg A/P Acute Hypoxic Respiratory Failure improving Pneumonia suspect Aspiration Sepsis Cerebral Palsy Mental Retardation Seizure Disorder - continue antibiotics as per ID - O2 to keep SpO2 >90% - inhaled bronchodilators - medrol taper, can change to PO prednisone 40mg daily - aspiration precautions - DVT prophylaxis Problem List - Problems (1) Pneumonia Code(s): J18.9 - PNEUMONIA, UNSPECIFIED ORGANISM Qualifiers: Pneumonia type: aspiration pneumonia Aspiration pneumonia type: unspecified Laterality: left Lung location: upper lobe of lung Qualified Code(s): J69.0 - Pneumonitis due to inhalation of food and vomit
--- NOTE | 2019-02-06 13:39 | PN ---
Progress Note, Physician History of Present Illness: Pt seen and examined, events noted. Yesterday found less responsive but vitals stable at the time. Today alert, nonverbal, without distress. Remains afebrile. - Current Medication List Current Medications: Active Medications Acetaminophen (Tylenol -) 650 mg PO Q6H PRN PRN Reason: Fever Or Pain Last Admin: 02/03/19 22:05 Dose: 650 mg Albuterol Sulfate (Ventolin 0.083% Nebulizer Soln -) 1 amp NEB Q4H PRN PRN Reason: SHORT OF BREATH/WHEEZING Last Admin: 02/01/19 10:44 Dose: 1 amp Albuterol/Ipratropium (Duoneb -) 1 amp NEB QIDR BOBBY Last Admin: 02/06/19 06:34 Dose: 1 amp Artificial Tears (Artificial Tears) 2 drop OU QID [facility]OBBY Last Admin: 02/06/19 13:16 Dose: 2 drop Calcium Carbonate/Cholecalciferol (Os-Dylon 500+D -) 1 tab PEG BID [facility]BY Last Admin: 02/06/19 10:29 Dose: 1 tab Clobazam (Onfi -) 10 mg GT QID [facility]OBBY Last Admin: 02/06/19 13:15 Dose: 10 mg Heparin Sodium (Porcine) (Heparin -) 5,000 unit SQ TID BOBBY Last Admin: 02/06/19 13:15 Dose: 5,000 unit Piperacillin Sod/Tazobactam (Sod 3.375 gm/ Dextrose) 50 mls @ 100 mls/hr IVPB Q8H-IV BOBBY; Protocol Last Admin: 02/06/19 11:39 Dose: 100 mls/hr Latanoprost (Xalatan 0.005% Eye Drops -) 1 drop OU HS BOBBY Last Admin: 02/05/19 23:01 Dose: 1 drop Levetiracetam (Keppra Oral Solution -) 1,500 mg PEG BID [facility] Last Admin: 02/06/19 10:27 Dose: 1,500 mg Phenobarbital (Phenobarbital Liquid -) 20 mg PEG AM [facility] Last Admin: 02/06/19 06:21 Dose: 20 mg Phenobarbital (Phenobarbital Liquid -) 100 mg PEG HS [facility] Last Admin: 02/05/19 22:55 Dose: 100 mg Potassium Chloride (Potassium Chloride Oral Liquid) 20 meq PEG DAILY [facility] Last Admin: 02/06/19 10:28 Dose: 20 meq Prednisone (Deltasone -) 40 mg PO DAILY [facility] Ranitidine HCl (Zantac Oral Solution -) 150 mg PEG BID [facility] Last Admin: 02/06/19 10:28 Dose: 150 mg Senna (Senna Oral Solution -) 17.6 mg PEG HS [facility] Last Admin: 02/05/19 22:55 Dose: 17.6 mg Sertraline HCl (Zoloft -) 150 mg PEG DAILY [facility] Last Admin: 02/06/19 10:31 Dose: 150 mg Simethicone (Mylicon Liquid -) 160 mg PEG TID [facility] Last Admin: 02/06/19 13:15 Dose: 160 mg Zonisamide (Zonisamide) 300 mg PEG BID [facility] Last Admin: 02/06/19 12:44 Dose: 300 mg - Objective Vital Signs: Vital Signs Temperature 98.1 F 02/06/19 06:44 Pulse Rate 60 02/06/19 06:44 Respiratory Rate 18 02/06/19 06:44 Blood Pressure 116/66 02/06/19 06:44 O2 Sat by Pulse Oximetry (%) 98 02/05/19 21:00 Constitutional: Yes: No Distress, Calm Cardiovascular: Yes: Regular Rate and Rhythm Respiratory: Yes: Rhonchi (scattered) Gastrointestinal: Yes: Normal Bowel Sounds, Soft Genitourinary: Yes: WNL Integumentary: Yes: WNL Neurological: Yes: Alert Labs: CBC, BMP 02/06/19 09:35 02/06/19 09:35 INR, PTT INR 1.07 (0.83-1.09) 01/31/19 13:30 Microbiology 01/31/19 13:45 Blood - Peripheral Venous Blood Culture - Final NO GROWTH AFTER 5 DAYS INCUBATION 01/31/19 13:30 Blood - Peripheral Venous Blood Culture - Final NO GROWTH AFTER 5 DAYS INCUBATION 01/31/19 15:40 Urine - Urine Clean Catch Urine Culture - Final NO GROWTH OBTAINED 01/31/19 15:40 Urine - Urine - Catheterized Legionella Antigen - Final 01/31/19 15:40 Urine - Urine - Catheterized Streptococcus pneumoniae Antigen (M - Final - ....Imaging Chest X-ray: Report Reviewed Problem List - Problems (1) Acute hypoxemic respiratory failure Code(s): J96.01 - ACUTE RESPIRATORY FAILURE WITH HYPOXIA (2) Aspiration pneumonia Code(s): J69.0 - PNEUMONITIS DUE TO INHALATION OF FOOD AND VOMIT (3) Sepsis Code(s): A41.9 - SEPSIS, UNSPECIFIED ORGANISM (4) Seizure disorder Code(s): G40.909 - EPILEPSY, UNSP, NOT INTRACTABLE, WITHOUT STATUS EPILEPTICUS (5) Fever Code(s): R50.9 - FEVER, UNSPECIFIED Assessment/Plan Aspiration PNA s/p Sepsis Acute hypoxemic respiratory failure Cerebral Palsy Mental retardation Seizure d.o. -- Pt without distress, on O2 NC, steroids, afebrile -- will consider d/c antibiotics tomorrow -- aspiration precautions -- continue monitor
[2019-02-06] MEDS ORDERED: methylPREDNISolone NA SUCC 40 MG/1 ML VIAL IVPUSH SCH (20:00)
[2019-02-06] MEDS: SENNOSIDES 8.8 MG/5 ML BULK BOTTLE PEG SCH (22:12)
[2019-02-06] MEDS: LATANOPROST 0.005% OPHTH SOLN 2.5ML BOTTLE OU SCH (22:14)
[2019-02-07] MEDS ORDERED: PIPERACILLIN/TAZOBACTAM 3.375 GM VIAL IVPB ONE ×2 (01:54→09:46)
[2019-02-07] MEDS ORDERED: DEXTROSE 5%-WATER - 50 ML IVPB ONE ×2 (01:54→09:47)
[2019-02-07] MEDS: PIPERACILLIN/TAZOB 3.375 GM 3.375 GM in DEXTROSE 5%-WATER - 50 ML IVPB SCH ×2 (02:05→10:15)
[2019-02-07] MEDS ORDERED: PT OWN MED DRAWER 7, Y5N ONE ×6 (05:08→22:29)
[2019-02-07] MEDS: SIMETHICONE 40 MG/0.6 ML BOTTLE PEG SCH ×3 (05:16→22:26)
[2019-02-07] MEDS: HEPARIN NA (PORCINE) 5,000 UNITS/ML 1ML VIAL SQ SCH ×3 (05:16→22:25)
[2019-02-07] MEDS: ALBUTEROL SO4 2.5/IPRATROPIUM 0.5 INH SOL 3 ML VIAL.NEB. NEB SCH ×5 (06:03→23:19)
[2019-02-07] MEDS: PHENobarbital 20 MG/5 ML UNIT-DOSE CUP PEG SCH ×2 (06:04→22:31)
[2019-02-07 07:00] LABS: BASO % 0.1 % (0-2.0); EOS % 5.2 % (0-4.5); HEMATOCRIT 33.4 % (35.4-49); HEMOGLOBIN 11.2 GM/dL (11.7-16.9); LYMPH % 38.1 % (8-40); MCH 34.3 pg (25.7-33.7); MCHC 33.6 g/dl (32.0-35.9); MEAN CELL VOLUME 102.2 fl (80-96); MEAN PLT VOLUME 7.8 fl (7.5-11.1); MONO % 7.4 % (3.8-10.2); NEUT % 49.2 % (42.8-82.8); PLATELET COUNT 226 K/MM3 (134-434); RBC 3.27 M/mm3 (4.00-5.60); RDW 13.6 % (11.9-15.9); WHITE BLOOD COUNT 7.7 K/mm3 (4.0-10.0)
[2019-02-07 07:19] LABS: BLOOD UREA NITROGEN 14.6 mg/dL (7-18); CALCIUM 8.7 mg/dL (8.5-10.1); CREATININE 0.4 mg/dL (0.55-1.3); MAGNESIUM 2.3 mg/dL (1.8-2.4); PHOSPHOROUS 5.1 mg/dL (2.5-4.9); POTASSIUM 3.9 mmol/L (3.5-5.1)
[2019-02-07] MEDS ORDERED: predniSONE 20 MG TABLET (UD) PO SCH (10:00)
[2019-02-07] MEDS: RANITIDINE HCL 150 MG/10 ML UNIT-DOSE PEG SCH ×2 (10:13→22:24)
[2019-02-07] MEDS: POTASSIUM CHLORIDE ORAL LIQUID 20 MEQ/15 ML PEG SCH (10:13)
[2019-02-07] MEDS: levETIRAcetam 500 MG/5 ML ORAL SOLUTION (UNIT-DOSE CUPS) PEG SCH ×2 (10:14→22:24)
[2019-02-07] MEDS: cloBAZam 10 MG TABLET GT SCH ×4 (10:21→22:31)
[2019-02-07] MEDS: CALCIUM 500MG/VIT-D 200 UNITS COMBO TABLET (FP) PEG SCH ×2 (10:22→22:31)
[2019-02-07] MEDS: SERTRALINE HCL 50 MG TABLET (FP) PEG SCH (10:23)
[2019-02-07] MEDS: ZONISAMIDE 100 MG/10 ML ORAL SUSPENSION PEG SCH ×2 (10:23→22:31)
[2019-02-07] MEDS: ARTIFICIAL TEARS (POLYVINYL ALCOHOL) OPTH DROPS OU SCH ×4 (10:24→23:02)
--- NOTE | 2019-02-07 10:47 | PN ---
Progress Note, Physician History of Present Illness: Pt is doing well. Alert and responsive, nonverbal. Remains afebrile. No distress. - Current Medication List Current Medications: Active Medications Acetaminophen (Tylenol -) 650 mg PO Q6H PRN PRN Reason: Fever Or Pain Last Admin: 02/03/19 22:05 Dose: 650 mg Albuterol Sulfate (Ventolin 0.083% Nebulizer Soln -) 1 amp NEB Q4H PRN PRN Reason: SHORT OF BREATH/WHEEZING Last Admin: 02/01/19 10:44 Dose: 1 amp Albuterol/Ipratropium (Duoneb -) 1 amp NEB QIDR [facility] Last Admin: 02/07/19 06:03 Dose: 1 amp Artificial Tears (Artificial Tears) 2 drop OU QID [facility] Last Admin: 02/07/19 10:24 Dose: 2 drop Calcium Carbonate/Cholecalciferol (Os-Dylon 500+D -) 1 tab PEG BID [facility] Last Admin: 02/07/19 10:22 Dose: 1 tab Clobazam (Onfi -) 10 mg GT QID [facility] Last Admin: 02/07/19 10:21 Dose: 10 mg Heparin Sodium (Porcine) (Heparin -) 5,000 unit SQ TID [facility] Last Admin: 02/07/19 05:16 Dose: 5,000 unit Latanoprost (Xalatan 0.005% Eye Drops -) 1 drop OU HS [facility] Last Admin: 02/06/19 22:14 Dose: 1 drop Levetiracetam (Keppra Oral Solution -) 1,500 mg PEG BID [facility] Last Admin: 02/07/19 10:14 Dose: 1,500 mg Phenobarbital (Phenobarbital Liquid -) 20 mg PEG AM [facility] Last Admin: 02/07/19 06:04 Dose: 20 mg Phenobarbital (Phenobarbital Liquid -) 100 mg PEG HS [facility] Last Admin: 02/06/19 22:13 Dose: 100 mg Potassium Chloride (Potassium Chloride Oral Liquid) 20 meq PEG DAILY [facility] Last Admin: 02/07/19 10:13 Dose: 20 meq Prednisone (Deltasone -) 40 mg PO DAILY [facility] Last Admin: 02/07/19 10:13 Dose: 40 mg Ranitidine HCl (Zantac Oral Solution -) 150 mg PEG BID [facility] Last Admin: 02/07/19 10:13 Dose: 150 mg Senna (Senna Oral Solution -) 17.6 mg PEG HS [facility] Last Admin: 02/06/19 22:12 Dose: 17.6 mg Sertraline HCl (Zoloft -) 150 mg PEG DAILY [facility] Last Admin: 02/07/19 10:23 Dose: 150 mg Simethicone (Mylicon Liquid -) 160 mg PEG TID [facility] Last Admin: 02/07/19 05:16 Dose: 160 mg Zonisamide (Zonisamide) 300 mg PEG BID [facility] Last Admin: 02/07/19 10:23 Dose: 300 mg - Objective Vital Signs: Vital Signs Temperature 98.3 F 02/07/19 05:48 Pulse Rate 69 02/07/19 05:48 Respiratory Rate 17 02/07/19 05:48 Blood Pressure 103/58 L 02/07/19 05:48 O2 Sat by Pulse Oximetry (%) 99 02/06/19 20:47 Constitutional: Yes: No Distress, Calm Cardiovascular: Yes: Regular Rate and Rhythm Respiratory: Yes: Regular Gastrointestinal: Yes: Normal Bowel Sounds, Soft Genitourinary: Yes: WNL Integumentary: Yes: WNL Neurological: Yes: Alert Labs: CBC, BMP 02/07/19 06:02 02/07/19 06:02 INR, PTT INR 1.07 (0.83-1.09) 01/31/19 13:30 Microbiology 01/31/19 13:45 Blood - Peripheral Venous Blood Culture - Final NO GROWTH AFTER 5 DAYS INCUBATION 01/31/19 13:30 Blood - Peripheral Venous Blood Culture - Final NO GROWTH AFTER 5 DAYS INCUBATION 01/31/19 15:40 Urine - Urine Clean Catch Urine Culture - Final NO GROWTH OBTAINED 01/31/19 15:40 Urine - Urine - Catheterized Legionella Antigen - Final 01/31/19 15:40 Urine - Urine - Catheterized Streptococcus pneumoniae Antigen (M - Final Problem List - Problems (1) Acute hypoxemic respiratory failure Code(s): J96.01 - ACUTE RESPIRATORY FAILURE WITH HYPOXIA (2) Aspiration pneumonia Code(s): J69.0 - PNEUMONITIS DUE TO INHALATION OF FOOD AND VOMIT (3) Sepsis Code(s): A41.9 - SEPSIS, UNSPECIFIED ORGANISM (4) Seizure disorder Code(s): G40.909 - EPILEPSY, UNSP, NOT INTRACTABLE, WITHOUT STATUS EPILEPTICUS Assessment/Plan Aspiration PNA s/p Sepsis Acute hypoxemic respiratory failure Cerebral Palsy Mental retardation Seizure d.o. -- Pt alert, without respiratory distress, afebrile -- d/c antibiotics -- aspiration precautions -- continue monitor
--- NOTE | 2019-02-07 11:40 | PN ---
Physical Exam: SUBJECTIVE: Patient seen and examined, awake, non verbal, unable to assess for ROS. OBJECTIVE: Vital Signs Period Temp Pulse Resp BP Sys/Guzmán Pulse Ox Last 24 Hr 97.8 F-98.3 F 62-73 17-20 103-116/58-68 99 Intake & Output 02/04/19 02/05/19 02/06/19 02/07/19 23:59 23:59 23:59 23:59 Intake Total 1120 510 690 280 Balance 1120 510 690 280 General: sitting in bed, more awake, no audible rales Neck: soft, supple HEENT: PERRL, EOMI Chest; improved air entry, no coarse rales apprecited Abdomen:soft, NT, ND, PEG in place Extremities: improvement in anasarca CVS:S1S2 regular Laboratory Results - last 24 hr 02/07/19 02/07/19 06:02 06:02 WBC 7.7 RBC 3.27 L Hgb 11.2 L Hct 33.4 L MCV 102.2 H MCH 34.3 H MCHC 33.6 RDW 13.6 Plt Count 226 MPV 7.8 Absolute Neuts (auto) 3.8 Neutrophils % 49.2 D Lymphocytes % 38.1 D Monocytes % 7.4 Eosinophils % 5.2 H D Basophils % 0.1 D Nucleated RBC % 0 Sodium 140 Potassium 3.9 Chloride 101 Carbon Dioxide 35 H Anion Gap 4 L BUN 14.6 Creatinine 0.4 L Est GFR (CKD-EPI)AfAm 151.74 Est GFR (CKD-EPI)NonAf 130.93 Random Glucose 81 Calcium 8.7 Phosphorus 5.1 H Magnesium 2.3 Active Medications Generic Name Dose Route Start Last Admin Trade Name Freq PRN Reason Stop Dose Admin Acetaminophen 650 mg 02/02/19 03:10 02/03/19 22:05 Tylenol - PO 650 mg Q6H PRN Administration Fever Or Pain Albuterol Sulfate 1 amp 01/31/19 16:14 02/01/19 10:44 Ventolin 0.083% Nebulizer Soln - NEB 1 amp Q4H PRN Administration SHORT OF BREATH/WHEEZING Albuterol/Ipratropium 1 amp 01/31/19 18:00 02/07/19 06:03 Duoneb - NEB 1 amp QIDR BOBBY Administration Artificial Tears 2 drop 01/31/19 18:00 02/07/19 10:24 Artificial Tears OU 2 drop QID [facility]OBBY Administration Calcium Carbonate/Cholecalciferol 1 tab 01/31/19 22:00 02/07/19 10:22 Os-Dylon 500+D - PEG 1 tab BID [facility]OBBY Administration Clobazam 10 mg 01/31/19 18:00 02/07/19 10:21 Onfi - GT 10 mg QID BOBBY Administration Heparin Sodium (Porcine) 5,000 unit 01/31/19 22:00 02/07/19 05:16 Heparin - SQ 5,000 unit TID [facility]OBBY Administration Latanoprost 1 drop 01/31/19 22:00 02/06/19 22:14 Xalatan 0.005% Eye Drops - OU 1 drop HS [facility]BY Administration Levetiracetam 1,500 mg 01/31/19 22:00 02/07/19 10:14 Keppra Oral Solution - PEG 1,500 mg BID [facility]BY Administration Phenobarbital 20 mg 02/01/19 07:00 02/07/19 06:04 Phenobarbital Liquid - PEG 20 mg AM [facility] Administration Phenobarbital 100 mg 01/31/19 22:00 02/06/19 22:13 Phenobarbital Liquid - PEG 100 mg HS [facility]OBBY Administration Potassium Chloride 20 meq 02/01/19 10:00 02/07/19 10:13 Potassium Chloride Oral Liquid PEG 20 meq DAILY [facility] Administration Prednisone 40 mg 02/07/19 10:00 02/07/19 10:13 Deltasone - PO 40 mg DAILY [facility]OBBY Administration Ranitidine HCl 150 mg 01/31/19 22:00 02/07/19 10:13 Zantac Oral Solution - PEG 150 mg BID [facility]OBBY Administration Senna 17.6 mg 01/31/19 22:00 02/06/19 22:12 Senna Oral Solution - PEG 17.6 mg HS BOBBY Administration Sertraline HCl 150 mg 02/01/19 10:00 02/07/19 10:23 Zoloft - PEG 150 mg DAILY [facility] Administration Simethicone 160 mg 01/31/19 22:00 02/07/19 05:16 Mylicon Liquid - PEG 160 mg TID [facility]OBBY Administration Zonisamide 300 mg 01/31/19 22:00 02/07/19 10:23 Zonisamide PEG 300 mg BID BOBBY Administration Microbiology 01/31/19 13:45 Blood - Peripheral Venous Blood Culture - Final NO GROWTH AFTER 5 DAYS INCUBATION 01/31/19 13:30 Blood - Peripheral Venous Blood Culture - Final NO GROWTH AFTER 5 DAYS INCUBATION 01/31/19 15:40 Urine - Urine Clean Catch Urine Culture - Final NO GROWTH OBTAINED 01/31/19 15:40 Urine - Urine - Catheterized Legionella Antigen - Final 01/31/19 15:40 Urine - Urine - Catheterized Streptococcus pneumoniae Antigen (M - Final ASSESSMENT/PLAN: 58 year old man with a history of cerebral palsy, developmental delay, seizures , [place]-Gastaut syndrome, corpus callosotomy, chronic hypoxic respiratory failure, glaucoma, G-tube who presented to the ED from [facility] with dyspnea, tachycardia, and fever. -Acute on chronic hypoxic/hypercapneic respiratory failure, suspected LLL aspiration pneumonia -Sepsis -Suspected acute diastolic heart failure exacerbation, ?in the setting of volume resuscitation -Hypokalemia -Seizures due to [place]-Gastaut syndrome, s/p corpus callosotomy -Cerebral Palsy -Developmental delay -Glaucoma Plan: Continues to improve Hold off additional lasix for now. Change tube feeds to [place] and titrate up to goal of 65 ml/hr. PO prednisone, standing and prn nebs. ID input noted, abx dced. Chest PT. Pulmonary input appreciated. Replete K prn Continue onfi, phenobarbital, keppra, zonegran. Ativan prn. DVTPPX heparin Code: Patient with MOLST DNR/DNI Dispo plan for d/c back to [place] tomorrow if continues to improve. Discussed with nursing and aide at bedside. Visit type - Emergency Visit Emergency Visit: Yes ED Registration Date: 01/31/19 Care time: The patient presented to the Emergency Department on the above date and was hospitalized for further evaluation of their emergent condition. - New Patient This patient is new to me today: No - Critical Care Critical Care patient: No - Discharge Referral Referred to [facility] No
--- NOTE | 2019-02-07 11:58 | PN ---
Progress Note (short form) - Note Progress Note: PULMONARY Pt nonverbal. No fevers recorded. Vital Signs Period Temp Pulse Resp BP Sys/Guzmán Pulse Ox Last 24 Hr 97.8 F-98.3 F 62-73 17-20 103-116/58-68 99 Gen: less tachypneic Heart: RRR Lung: scattered rhonchi Abd: soft, nontender Ext: no edema CBC, BMP 02/07/19 06:02 02/07/19 06:02 Active Medications Acetaminophen (Tylenol -) 650 mg PO Q6H PRN PRN Reason: Fever Or Pain Last Admin: 02/03/19 22:05 Dose: 650 mg Albuterol Sulfate (Ventolin 0.083% Nebulizer Soln -) 1 amp NEB Q4H PRN PRN Reason: SHORT OF BREATH/WHEEZING Last Admin: 02/01/19 10:44 Dose: 1 amp Albuterol/Ipratropium (Duoneb -) 1 amp NEB QIDR [facility] Last Admin: 02/07/19 11:36 Dose: 1 amp Artificial Tears (Artificial Tears) 2 drop OU QID [facility] Last Admin: 02/07/19 10:24 Dose: 2 drop Calcium Carbonate/Cholecalciferol (Os-Dylon 500+D -) 1 tab PEG BID [facility] Last Admin: 02/07/19 10:22 Dose: 1 tab Clobazam (Onfi -) 10 mg GT QID [facility] Last Admin: 02/07/19 10:21 Dose: 10 mg Heparin Sodium (Porcine) (Heparin -) 5,000 unit SQ TID [facility] Last Admin: 02/07/19 05:16 Dose: 5,000 unit Latanoprost (Xalatan 0.005% Eye Drops -) 1 drop OU HS [facility] Last Admin: 02/06/19 22:14 Dose: 1 drop Levetiracetam (Keppra Oral Solution -) 1,500 mg PEG BID [facility] Last Admin: 02/07/19 10:14 Dose: 1,500 mg Phenobarbital (Phenobarbital Liquid -) 20 mg PEG AM [facility] Last Admin: 02/07/19 06:04 Dose: 20 mg Phenobarbital (Phenobarbital Liquid -) 100 mg PEG HS [facility] Last Admin: 02/06/19 22:13 Dose: 100 mg Potassium Chloride (Potassium Chloride Oral Liquid) 20 meq PEG DAILY [facility] Last Admin: 02/07/19 10:13 Dose: 20 meq Prednisone (Deltasone -) 40 mg PO DAILY [facility] Last Admin: 02/07/19 10:13 Dose: 40 mg Ranitidine HCl (Zantac Oral Solution -) 150 mg PEG BID [facility] Last Admin: 02/07/19 10:13 Dose: 150 mg Senna (Senna Oral Solution -) 17.6 mg PEG HS [facility] Last Admin: 02/06/19 22:12 Dose: 17.6 mg Sertraline HCl (Zoloft -) 150 mg PEG DAILY [facility] Last Admin: 02/07/19 10:23 Dose: 150 mg Simethicone (Mylicon Liquid -) 160 mg PEG TID [facility] Last Admin: 02/07/19 05:16 Dose: 160 mg Zonisamide (Zonisamide) 300 mg PEG BID [facility] Last Admin: 02/07/19 10:23 Dose: 300 mg A/P Acute Hypoxic Respiratory Failure improving Pneumonia suspect Aspiration Sepsis Cerebral Palsy Mental Retardation Seizure Disorder - continue antibiotics as per ID - O2 to keep SpO2 >90% - inhaled bronchodilators - can d/c prednisone, has received 7 days of steroids - aspiration precautions - DVT prophylaxis Problem List - Problems (1) Pneumonia Code(s): J18.9 - PNEUMONIA, UNSPECIFIED ORGANISM Qualifiers: Pneumonia type: aspiration pneumonia Aspiration pneumonia type: unspecified Laterality: left Lung location: upper lobe of lung Qualified Code(s): J69.0 - Pneumonitis due to inhalation of food and vomit
[2019-02-07] MEDS: SENNOSIDES 8.8 MG/5 ML BULK BOTTLE PEG SCH (22:27)
[2019-02-07] MEDS: LATANOPROST 0.005% OPHTH SOLN 2.5ML BOTTLE OU SCH (23:02)
[2019-02-08] MEDS ORDERED: PT OWN MED DRAWER 7, Y5N ONE ×4 (06:18→22:10)
[2019-02-08] MEDS: SIMETHICONE 40 MG/0.6 ML BOTTLE PEG SCH ×3 (06:23→22:20)
[2019-02-08] MEDS: HEPARIN NA (PORCINE) 5,000 UNITS/ML 1ML VIAL SQ SCH ×3 (06:23→22:18)
[2019-02-08] MEDS: PHENobarbital 20 MG/5 ML UNIT-DOSE CUP PEG SCH ×2 (06:23→22:20)
[2019-02-08] MEDS: ALBUTEROL SO4 2.5/IPRATROPIUM 0.5 INH SOL 3 ML VIAL.NEB. NEB SCH ×3 (06:58→18:52)
--- NOTE | 2019-02-08 09:36 | PN ---
Progress Note, Physician History of Present Illness: PULMONARY awake,non-verbal,-resp distress - Current Medication List Current Medications: Active Medications Acetaminophen (Tylenol -) 650 mg PO Q6H PRN PRN Reason: Fever Or Pain Last Admin: 02/03/19 22:05 Dose: 650 mg Albuterol Sulfate (Ventolin 0.083% Nebulizer Soln -) 1 amp NEB Q4H PRN PRN Reason: SHORT OF BREATH/WHEEZING Last Admin: 02/01/19 10:44 Dose: 1 amp Albuterol/Ipratropium (Duoneb -) 1 amp NEB QIDR [facility] Last Admin: 02/08/19 06:58 Dose: 1 amp Artificial Tears (Artificial Tears) 2 drop OU QID [facility] Last Admin: 02/07/19 23:02 Dose: 2 drop Calcium Carbonate/Cholecalciferol (Os-Dylon 500+D -) 1 tab PEG BID [facility] Last Admin: 02/07/19 22:31 Dose: 1 tab Clobazam (Onfi -) 10 mg GT QID [facility] Last Admin: 02/07/19 22:31 Dose: 10 mg Heparin Sodium (Porcine) (Heparin -) 5,000 unit SQ TID [facility] Last Admin: 02/08/19 06:23 Dose: 5,000 unit Latanoprost (Xalatan 0.005% Eye Drops -) 1 drop OU HS [facility] Last Admin: 02/07/19 23:02 Dose: 1 drop Levetiracetam (Keppra Oral Solution -) 1,500 mg PEG BID [facility] Last Admin: 02/07/19 22:24 Dose: 1,500 mg Phenobarbital (Phenobarbital Liquid -) 20 mg PEG AM [facility] Last Admin: 02/08/19 06:23 Dose: 20 mg Phenobarbital (Phenobarbital Liquid -) 100 mg PEG HS [facility] Last Admin: 02/07/19 22:31 Dose: 100 mg Potassium Chloride (Potassium Chloride Oral Liquid) 20 meq PEG DAILY [facility] Last Admin: 02/07/19 10:13 Dose: 20 meq Ranitidine HCl (Zantac Oral Solution -) 150 mg PEG BID [facility] Last Admin: 02/07/19 22:24 Dose: 150 mg Senna (Senna Oral Solution -) 17.6 mg PEG HS [facility] Last Admin: 02/07/19 22:27 Dose: 17.6 mg Sertraline HCl (Zoloft -) 150 mg PEG DAILY [facility] Last Admin: 02/07/19 10:23 Dose: 150 mg Simethicone (Mylicon Liquid -) 160 mg PEG TID [facility] Last Admin: 02/08/19 06:23 Dose: 160 mg Zonisamide (Zonisamide) 300 mg PEG BID [facility] Last Admin: 02/07/19 22:31 Dose: 300 mg - Objective Vital Signs: Vital Signs Temperature 99.4 F 02/08/19 08:44 Pulse Rate 81 02/08/19 08:44 Respiratory Rate 18 02/08/19 08:44 Blood Pressure 98/55 L 02/08/19 08:44 O2 Sat by Pulse Oximetry (%) 98 02/07/19 21:00 Constitutional: Yes: Well Nourished, Calm Eyes: Yes: WNL HENT: Yes: WNL Neck: Yes: WNL Cardiovascular: Yes: Regular Rate and Rhythm, S1, S2 Respiratory: Yes: Rhonchi (scattered rhonchi) Gastrointestinal: Yes: Normal Bowel Sounds, Soft Extremities: Yes: WNL Edema: No Labs: CBC, BMP Problem List - Problems (1) Acute hypoxemic respiratory failure Code(s): J96.01 - ACUTE RESPIRATORY FAILURE WITH HYPOXIA (2) Aspiration pneumonia Code(s): J69.0 - PNEUMONITIS DUE TO INHALATION OF FOOD AND VOMIT (3) Sepsis Code(s): A41.9 - SEPSIS, UNSPECIFIED ORGANISM (4) Pneumonia Code(s): J18.9 - PNEUMONIA, UNSPECIFIED ORGANISM Qualifiers: Pneumonia type: aspiration pneumonia Aspiration pneumonia type: unspecified Laterality: left Lung location: upper lobe of lung Qualified Code(s): J69.0 - Pneumonitis due to inhalation of food and vomit (5) Seizure disorder Code(s): G40.909 - EPILEPSY, UNSP, NOT INTRACTABLE, WITHOUT STATUS EPILEPTICUS (6) Fever Code(s): R50.9 - FEVER, UNSPECIFIED Assessment/Plan Problem List - Problems (1) Pneumonia Code(s): J18.9 - PNEUMONIA, UNSPECIFIED ORGANISM Qualifiers: Pneumonia type: aspiration pneumonia Aspiration pneumonia type: unspecified Laterality: left Lung location: upper lobe of lung Qualified Code(s): J69.0 - Pneumonitis due to inhalation of food and vomit Assessment/Plan Acute Hypoxic Respiratory Failure improving Pneumonia suspect Aspiration Sepsis Cerebral Palsy Mental Retardation Seizure Disorder - antibiotics completed - O2 to keep SpO2 >90% - inhaled bronchodilators - aspiration precautions - DVT prophylaxis - f/u chest x-rays DR BERG
[2019-02-08] MEDS: POTASSIUM CHLORIDE ORAL LIQUID 20 MEQ/15 ML PEG SCH (10:25)
[2019-02-08] MEDS: SERTRALINE HCL 50 MG TABLET (FP) PEG SCH (10:26)
[2019-02-08] MEDS: cloBAZam 10 MG TABLET GT SCH ×4 (10:26→22:20)
[2019-02-08] MEDS: levETIRAcetam 500 MG/5 ML ORAL SOLUTION (UNIT-DOSE CUPS) PEG SCH ×2 (10:27→22:20)
[2019-02-08] MEDS: RANITIDINE HCL 150 MG/10 ML UNIT-DOSE PEG SCH ×2 (10:27→22:19)
[2019-02-08] MEDS: CALCIUM 500MG/VIT-D 200 UNITS COMBO TABLET (FP) PEG SCH ×2 (10:27→22:20)
[2019-02-08] MEDS: ARTIFICIAL TEARS (POLYVINYL ALCOHOL) OPTH DROPS OU SCH ×4 (10:29→22:18)
[2019-02-08] MEDS: ZONISAMIDE 100 MG/10 ML ORAL SUSPENSION PEG SCH ×2 (10:32→22:19)
[2019-02-08] MEDS ORDERED: FUROSEMIDE 20 MG TABLET (FP) PO ONE (11:18)
--- NOTE | 2019-02-08 11:18 | PN ---
Teaching Attending Note Name of Resident: Elier Wilkins ATTENDING PHYSICIAN STATEMENT I saw and evaluated the patient. I reviewed the resident's note and discussed the case with the resident. I agree with the resident's findings and plan as documented with exceptions below. SUBJECTIVE: patient seen and examined,. Awake smiling, markedly improved. OBJECTIVE: Vital Signs Period Temp Pulse Resp BP Sys/Guzmán Pulse Ox Last 24 Hr 97.8 F-99.4 F 65-85 17-20 98-120/52-71 84-99 Intake & Output 02/05/19 02/06/19 02/07/19 02/08/19 23:59 23:59 23:59 23:59 Intake Total 510 690 980 420 Balance 510 690 980 420 General: sitting in bed, more awake, smiling no audible rales Neck: soft, supple HEENT: PERRL, EOMI Chest; improved air entry, no coarse rales apprecited Abdomen:soft, NT, ND, PEG in place Extremities: improvement in anasarca CVS:S1S2 regular Home Medications Medication Instructions Recorded Albuterol 2.5/Ipratropium 0.5 1 amp NEB TID 09/15/15 [Duoneb -] Bimatoprost [Lumigan] 1 drop OU HS 09/15/15 Calcium Carbonate/Vitamin D3 1 each PEG TID 09/15/15 [Calcium 600 + Vit D 400 Softgl] Levetiracetam [Keppra] 1,500 mg PEG Q12H 09/15/15 Lorazepam [Ativan] 2 mg IM PRN PRN 09/15/15 Phenobarbital 100 mg PEG HS 09/15/15 Potassium Chloride Oral Soln [KCl 20 meq PEG DAILY 09/15/15 Oral Solution -] Ranitidine HCl [Zantac] 150 mg PEG BID 09/15/15 Sertraline HCl [Zoloft] 150 mg PEG DAILY 09/15/15 Simethicone [Mytab Gas] 160 mg PEG TID 09/15/15 Zonisamide [Zonegran] 300 mg PEG BID 09/15/15 Diazepam Rectal Gel [Diastat 20 mg [place] PRN PRN 12/29/15 Rectal Gel -] Olopatadine HCl [Pataday] 1 drop OU DAILY 12/29/15 Sennosides [Senna -] 2 tab PEG HS 12/29/15 Travoprost [Travatan Z] 2.5 ml OU HS 12/29/15 Cannabidiol (Cbd) Extract 4.5 ml GT BID 11/28/18 [Epidiolex] Clobazam [Onfi -] 10 mg GT QID 11/28/18 Collagenase Clostridium Hist. 1 applic TP DAILY 02/02/19 [Santyl] Lactobacil 2-S.thermo-Bifido 1 1 each PO BID 02/02/19 [Visbiome 112.5 Billion Capsule] Magnesium Hydroxide [Milk of 400 mg PO Q2D 02/02/19 Magnesia] Mupirocin Ointment [Bactroban 2% 1 applic TP 5XD PRN 02/02/19 Ointment -] Paradis-3/Dha/Epa/Fish Oil [Fish Oil 1,600 mg PO DAILY 02/02/19 1,600 mg/5 ml Liquid] One Daily For Men 50+ Adv Tab 1 tablet DAILY 02/02/19 Polyethylene Glycol 3350 [Miralax 17 grams Q2D 02/02/19 119 gm Btl -] Active Medications Acetaminophen (Tylenol -) 650 mg PO Q6H PRN PRN Reason: Fever Or Pain Last Admin: 02/03/19 22:05 Dose: 650 mg Albuterol Sulfate (Ventolin 0.083% Nebulizer Soln -) 1 amp NEB Q4H PRN PRN Reason: SHORT OF BREATH/WHEEZING Last Admin: 02/01/19 10:44 Dose: 1 amp Albuterol/Ipratropium (Duoneb -) 1 amp NEB QIDR [facility] Last Admin: 02/08/19 06:58 Dose: 1 amp Artificial Tears (Artificial Tears) 2 drop OU QID [facility] Last Admin: 02/08/19 10:29 Dose: 2 drop Calcium Carbonate/Cholecalciferol (Os-Dylon 500+D -) 1 tab PEG BID [facility] Last Admin: 02/08/19 10:27 Dose: 1 tab Clobazam (Onfi -) 10 mg GT QID [facility] Last Admin: 02/08/19 10:26 Dose: 10 mg Heparin Sodium (Porcine) (Heparin -) 5,000 unit SQ TID [facility] Last Admin: 02/08/19 06:23 Dose: 5,000 unit Latanoprost (Xalatan 0.005% Eye Drops -) 1 drop OU [facility] Last Admin: 02/07/19 23:02 Dose: 1 drop Levetiracetam (Keppra Oral Solution -) 1,500 mg PEG BID [facility] Last Admin: 02/08/19 10:27 Dose: 1,500 mg Phenobarbital (Phenobarbital Liquid -) 20 mg PEG AM [facility] Last Admin: 02/08/19 06:23 Dose: 20 mg Phenobarbital (Phenobarbital Liquid -) 100 mg PEG HS [facility] Last Admin: 02/07/19 22:31 Dose: 100 mg Potassium Chloride (Potassium Chloride Oral Liquid) 20 meq PEG DAILY [facility] Last Admin: 02/08/19 10:25 Dose: 20 meq Ranitidine HCl (Zantac Oral Solution -) 150 mg PEG BID [facility] Last Admin: 02/08/19 10:27 Dose: 150 mg Senna (Senna Oral Solution -) 17.6 mg PEG HS [facility] Last Admin: 02/07/19 22:27 Dose: 17.6 mg Sertraline HCl (Zoloft -) 150 mg PEG DAILY [facility] Last Admin: 02/08/19 10:26 Dose: 150 mg Simethicone (Mylicon Liquid -) 160 mg PEG TID [facility] Last Admin: 02/08/19 06:23 Dose: 160 mg Zonisamide (Zonisamide) 300 mg PEG BID [facility] Last Admin: 02/08/19 10:32 Dose: 300 mg Laboratory Results - last 24 hr 02/07/19 18:04 POC Glucometer 144 CXR results and images reviewed, improved ASSESSMENT AND PLAN: 58 year old man with a history of cerebral palsy, developmental delay, seizures , [place]-Gastaut syndrome, corpus callosotomy, chronic hypoxic respiratory failure, glaucoma, G-tube who presented to the ED from [facility] with dyspnea, tachycardia, and fever. 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 Additional lasix 20 mg PO x 1. Titrate tube feeds upto goal 65 ml/ hr. Episode of unresponsiveness on 02/07 when woke up after aggressive suctioning of thick secretions. Chest PT, aspiration precautions, frequent suctioning. Needs oxygen on discharge. ID/pulmonary input noted. s/p 7 days of zosyn and steroids. D/rajeev. Replete K prn Continue onfi, phenobarbital, keppra, zonegran. Ativan prn. DVTPPX heparin Code: Patient with MOLST DNR/DNI Dispo plan for d/c back to [place] tomorrow if continues to improve. Discussed with nursing and aide at bedside.
--- NOTE | 2019-02-08 11:21 | PN ---
Physical Exam: SUBJECTIVE: Patient seen and examined at bedside. Nonverbal. Comfortable appearing OBJECTIVE: Vital Signs Period Temp Pulse Resp BP Sys/Guzmán Pulse Ox Last 24 Hr 97.8 F-99.4 F 65-85 17-20 98-120/52-71 84-99 Gen: breathing comfortably. Tracks movement with eyes and head. Looks better HEENT: NCAT, Moist membranes. R facial rash Neck: supple, central trachea Cardio: tachycardic, normal s1s2, no mrg Pulm: ronchi present diffusely Abd: soft, nondistended Ext: no edema Laboratory Results - last 24 hr 02/07/19 18:04 POC Glucometer 144 Active Medications Generic Name Dose Route Start Last Admin Trade Name Freq PRN Reason Stop Dose Admin Acetaminophen 650 mg 02/02/19 03:10 02/03/19 22:05 Tylenol - PO 650 mg Q6H PRN Administration Fever Or Pain Albuterol Sulfate 1 amp 01/31/19 16:14 02/01/19 10:44 Ventolin 0.083% Nebulizer Soln - NEB 1 amp Q4H PRN Administration SHORT OF BREATH/WHEEZING Albuterol/Ipratropium 1 amp 01/31/19 18:00 02/08/19 06:58 Duoneb - NEB 1 amp QIDR [facility] Administration Artificial Tears 2 drop 01/31/19 18:00 02/08/19 10:29 Artificial Tears OU 2 drop QID [facility] Administration Calcium Carbonate/Cholecalciferol 1 tab 01/31/19 22:00 02/08/19 10:27 Os-Dylon 500+D - PEG 1 tab BID [facility] Administration Clobazam 10 mg 01/31/19 18:00 02/08/19 10:26 Onfi - GT 10 mg QID [facility] Administration Heparin Sodium (Porcine) 5,000 unit 01/31/19 22:00 02/08/19 06:23 Heparin - SQ 5,000 unit TID [facility] Administration Latanoprost 1 drop 01/31/19 22:00 02/07/19 23:02 Xalatan 0.005% Eye Drops - OU 1 drop HS [facility] Administration Levetiracetam 1,500 mg 01/31/19 22:00 02/08/19 10:27 Keppra Oral Solution - PEG 1,500 mg BID [facility] Administration Phenobarbital 20 mg 02/01/19 07:00 02/08/19 06:23 Phenobarbital Liquid - PEG 20 mg AM [facility] Administration Phenobarbital 100 mg 01/31/19 22:00 02/07/19 22:31 Phenobarbital Liquid - PEG 100 mg HS [facility] Administration Potassium Chloride 20 meq 02/01/19 10:00 02/08/19 10:25 Potassium Chloride Oral Liquid PEG 20 meq DAILY [facility] Administration Ranitidine HCl 150 mg 01/31/19 22:00 02/08/19 10:27 Zantac Oral Solution - PEG 150 mg BID [facility] Administration Senna 17.6 mg 01/31/19 22:00 02/07/19 22:27 Senna Oral Solution - PEG 17.6 mg HS [facility] Administration Sertraline HCl 150 mg 02/01/19 10:00 02/08/19 10:26 Zoloft - PEG 150 mg DAILY [facility] Administration Simethicone 160 mg 01/31/19 22:00 02/08/19 06:23 Mylicon Liquid - PEG 160 mg TID [facility] Administration Zonisamide 300 mg 01/31/19 22:00 02/08/19 10:32 Zonisamide PEG 300 mg BID [facility] Administration ASSESSMENT/PLAN: This is a 58 year old man with a history of cerebral palsy, developmental delay , seizures, Brad-Gastaut syndrome, corpus callosotomy, chronic hypoxic respiratory failure, glaucoma, G-tube who presented to the ED from [facility] with dyspnea, tachycardia, and fever. # Acute on chronic hypoxic and hypercapnic respiratory failure and sepsis secondary to aspiration pneumonia - Zosyn, vancomycin given in ED - Zosyn completed - Oxygen to maintain saturation >90% - DuoNeb and albuterol as needed - Hypercapnia improved - ID, pulmonary consults # Seizures secondary to [place]-Gastaut syndrome -History of corpus callosotomy -Continue Onfi, Phenobarbital, Keppra, Zonegran, Ativan as needed # Cerebral palsy # Developmental delay # Glaucoma - Continue Sudarshan Romero # Nutrition - hold G-tube feedings for now Visit type - Emergency Visit Emergency Visit: No - New Patient This patient is new to me today: No - Critical Care Critical Care patient: No ATTENDING PHYSICIAN STATEMENT I saw and evaluated the patient. I reviewed the resident's note and discussed the case with the resident. I agree with the resident's findings and plan as documented. SUBJECTIVE: OBJECTIVE: ASSESSMENT AND PLAN:
--- NOTE | 2019-02-08 18:27 | PN ---
Progress Note, Physician History of Present Illness: Pt responsive, without respiratory distress. Tmax 99.4F this am, currently afebrile. - Current Medication List Current Medications: Active Medications Acetaminophen (Tylenol -) 650 mg PO Q6H PRN PRN Reason: Fever Or Pain Last Admin: 02/03/19 22:05 Dose: 650 mg Albuterol Sulfate (Ventolin 0.083% Nebulizer Soln -) 1 amp NEB Q4H PRN PRN Reason: SHORT OF BREATH/WHEEZING Last Admin: 02/01/19 10:44 Dose: 1 amp Albuterol/Ipratropium (Duoneb -) 1 amp NEB QIDR [facility] Last Admin: 02/08/19 11:17 Dose: 1 amp Artificial Tears (Artificial Tears) 2 drop OU QID [facility] Last Admin: 02/08/19 17:51 Dose: 2 drop Calcium Carbonate/Cholecalciferol (Os-Dylon 500+D -) 1 tab PEG BID [facility] Last Admin: 02/08/19 10:27 Dose: 1 tab Clobazam (Onfi -) 10 mg GT QID [facility] Last Admin: 02/08/19 17:51 Dose: 10 mg Heparin Sodium (Porcine) (Heparin -) 5,000 unit SQ TID [facility] Last Admin: 02/08/19 14:52 Dose: 5,000 unit Latanoprost (Xalatan 0.005% Eye Drops -) 1 drop OU HS [facility] Last Admin: 02/07/19 23:02 Dose: 1 drop Levetiracetam (Keppra Oral Solution -) 1,500 mg PEG BID [facility] Last Admin: 02/08/19 10:27 Dose: 1,500 mg Phenobarbital (Phenobarbital Liquid -) 20 mg PEG AM [facility] Last Admin: 02/08/19 06:23 Dose: 20 mg Phenobarbital (Phenobarbital Liquid -) 100 mg PEG HS [facility] Last Admin: 02/07/19 22:31 Dose: 100 mg Potassium Chloride (Potassium Chloride Oral Liquid) 20 meq PEG DAILY [facility] Last Admin: 02/08/19 10:25 Dose: 20 meq Ranitidine HCl (Zantac Oral Solution -) 150 mg PEG BID [facility] Last Admin: 02/08/19 10:27 Dose: 150 mg Senna (Senna Oral Solution -) 17.6 mg PEG HS [facility] Last Admin: 02/07/19 22:27 Dose: 17.6 mg Sertraline HCl (Zoloft -) 150 mg PEG DAILY [facility] Last Admin: 02/08/19 10:26 Dose: 150 mg Simethicone (Mylicon Liquid -) 160 mg PEG TID [facility] Last Admin: 02/08/19 14:53 Dose: 160 mg Zonisamide (Zonisamide) 300 mg PEG BID [facility] Last Admin: 02/08/19 10:32 Dose: 300 mg - Objective Vital Signs: Vital Signs Temperature 98.1 F 02/08/19 14:22 Pulse Rate 83 02/08/19 14:22 Respiratory Rate 18 02/08/19 14:22 Blood Pressure 114/71 02/08/19 14:22 O2 Sat by Pulse Oximetry (%) 99 02/08/19 09:00 Constitutional: Yes: No Distress Cardiovascular: Yes: Regular Rate and Rhythm Respiratory: Yes: Rhonchi (scattered) Gastrointestinal: Yes: Normal Bowel Sounds, Soft Genitourinary: Yes: WNL Integumentary: Yes: WNL Neurological: Yes: Other (arousable, nonverbal) Labs: CBC, BMP 02/07/19 06:02 02/07/19 06:02 INR, PTT INR 1.07 (0.83-1.09) 01/31/19 13:30 Microbiology 01/31/19 13:45 Blood - Peripheral Venous Blood Culture - Final NO GROWTH AFTER 5 DAYS INCUBATION 01/31/19 13:30 Blood - Peripheral Venous Blood Culture - Final NO GROWTH AFTER 5 DAYS INCUBATION 01/31/19 15:40 Urine - Urine Clean Catch Urine Culture - Final NO GROWTH OBTAINED 01/31/19 15:40 Urine - Urine - Catheterized Legionella Antigen - Final 01/31/19 15:40 Urine - Urine - Catheterized Streptococcus pneumoniae Antigen (M - Final - ....Imaging Chest X-ray: Report Reviewed Problem List - Problems (1) Acute hypoxemic respiratory failure Code(s): J96.01 - ACUTE RESPIRATORY FAILURE WITH HYPOXIA (2) Aspiration pneumonia Code(s): J69.0 - PNEUMONITIS DUE TO INHALATION OF FOOD AND VOMIT (3) Sepsis Code(s): A41.9 - SEPSIS, UNSPECIFIED ORGANISM (4) Seizure disorder Code(s): G40.909 - EPILEPSY, UNSP, NOT INTRACTABLE, WITHOUT STATUS EPILEPTICUS Assessment/Plan Aspiration PNA s/p Sepsis Acute hypoxemic respiratory failure Cerebral Palsy Mental retardation Seizure d.o. -- CXR shows improvement -- Pt with mild temperature elevation this am, continue monitor closely -- Completed course of antibiotics -- aspiration precautions
[2019-02-08] MEDS: LATANOPROST 0.005% OPHTH SOLN 2.5ML BOTTLE OU SCH (22:18)
[2019-02-08] MEDS: SENNOSIDES 8.8 MG/5 ML BULK BOTTLE PEG SCH (22:19)
[2019-02-09] MEDS: ALBUTEROL SO4 2.5/IPRATROPIUM 0.5 INH SOL 3 ML VIAL.NEB. NEB SCH ×3 (00:32→11:23)
[2019-02-09] MEDS: SIMETHICONE 40 MG/0.6 ML BOTTLE PEG SCH ×3 (05:37→22:21)
[2019-02-09] MEDS: HEPARIN NA (PORCINE) 5,000 UNITS/ML 1ML VIAL SQ SCH ×3 (05:37→22:20)
[2019-02-09] MEDS ORDERED: PT OWN MED DRAWER 7, Y5N ONE ×5 (05:43→21:28)
[2019-02-09] MEDS: PHENobarbital 20 MG/5 ML UNIT-DOSE CUP PEG SCH ×2 (06:02→22:21)
[2019-02-09 07:40] LABS: HEMATOCRIT 33.7 % (35.4-49); HEMOGLOBIN 11.5 GM/dL (11.7-16.9); MEAN CELL VOLUME 102.8 fl (80-96); MEAN PLT VOLUME 7.3 fl (7.5-11.1); PLATELET COUNT 253 K/MM3 (134-434); RBC 3.28 M/mm3 (4.00-5.60); RDW 13.7 % (11.9-15.9)
[2019-02-09 07:49] LABS: BLOOD UREA NITROGEN 17.5 mg/dL (7-18); CALCIUM 8.7 mg/dL (8.5-10.1); CREATININE 0.3 mg/dL (0.55-1.3); POTASSIUM 4.1 mmol/L (3.5-5.1)
--- NOTE | 2019-02-09 08:14 | PN ---
Teaching Attending Note Name of Resident: Elier Wilkins ATTENDING PHYSICIAN STATEMENT I saw and evaluated the patient. I reviewed the resident's note and discussed the case with the resident. I agree with the resident's findings and plan as documented with exceptions below. SUBJECTIVE: Patient seen and examined, awake, breathing better, non verbal, unable to assess for ROS. OBJECTIVE: Vital Signs Period Temp Pulse Resp BP Sys/Guzmán Pulse Ox Last 24 Hr 98.1 F-99.4 F 72-83 18-18 98-114/53-71 99-99 Intake & Output 02/06/19 02/07/19 02/08/19 02/09/19 23:59 23:59 23:59 23:59 Intake Total 623 517 2022 595 Output Total 900 Balance 690 980 460 595 General: sitting in bed, more awake, smiling no audible rales Neck: soft, supple HEENT: PERRL, EOMI Chest; improved air entry, no coarse rales appreciated, improved Abdomen:soft, NT, ND, PEG in place Extremities: marked improvement in anasarca CVS:S1S2 regular Home Medications Medication Instructions Recorded Albuterol 2.5/Ipratropium 0.5 1 amp NEB TID 09/15/15 [Duoneb -] Bimatoprost [Lumigan] 1 drop OU HS 09/15/15 Calcium Carbonate/Vitamin D3 1 each PEG TID 09/15/15 [Calcium 600 + Vit D 400 Softgl] Levetiracetam [Keppra] 1,500 mg PEG Q12H 09/15/15 Lorazepam [Ativan] 2 mg IM PRN PRN 09/15/15 Phenobarbital 100 mg PEG HS 09/15/15 Potassium Chloride Oral Soln [KCl 20 meq PEG DAILY 09/15/15 Oral Solution -] Ranitidine HCl [Zantac] 150 mg PEG BID 09/15/15 Sertraline HCl [Zoloft] 150 mg PEG DAILY 09/15/15 Simethicone [Mytab Gas] 160 mg PEG TID 09/15/15 Zonisamide [Zonegran] 300 mg PEG BID 09/15/15 Diazepam Rectal Gel [Diastat 20 mg IN PRN PRN 12/29/15 Rectal Gel -] Olopatadine HCl [Pataday] 1 drop OU DAILY 12/29/15 Sennosides [Senna -] 2 tab PEG HS 12/29/15 Travoprost [Travatan Z] 2.5 ml OU HS 12/29/15 Cannabidiol (Cbd) Extract 4.5 ml GT BID 11/28/18 [Epidiolex] Clobazam [Onfi -] 10 mg GT QID 11/28/18 Collagenase Clostridium Hist. 1 applic TP DAILY 02/02/19 [Santyl] Lactobacil 2-S.thermo-Bifido 1 1 each PO BID 02/02/19 [Visbiome 112.5 Billion Capsule] Magnesium Hydroxide [Milk of 400 mg PO Q2D 02/02/19 Magnesia] Mupirocin Ointment [Bactroban 2% 1 applic TP 5XD PRN 02/02/19 Ointment -] [place]-3/Dha/Epa/Fish Oil [Fish Oil 1,600 mg PO DAILY 02/02/19 1,600 mg/5 ml Liquid] One Daily For Men 50+ Adv Tab 1 tablet DAILY 02/02/19 Polyethylene Glycol 3350 [Miralax 17 grams Q2D 02/02/19 119 gm Btl -] Active Medications Acetaminophen (Tylenol -) 650 mg PO Q6H PRN PRN Reason: Fever Or Pain Last Admin: 02/03/19 22:05 Dose: 650 mg Albuterol Sulfate (Ventolin 0.083% Nebulizer Soln -) 1 amp NEB Q4H PRN PRN Reason: SHORT OF BREATH/WHEEZING Last Admin: 02/01/19 10:44 Dose: 1 amp Albuterol/Ipratropium (Duoneb -) 1 amp NEB RQID [facility] Stop: 02/09/19 12:12 Last Admin: 02/09/19 08:06 Dose: 1 amp Artificial Tears (Artificial Tears) 2 drop OU QID [facility] Last Admin: 02/08/19 22:18 Dose: 2 drop Calcium Carbonate/Cholecalciferol (Os-Dylon 500+D -) 1 tab PEG BID [facility] Last Admin: 02/08/19 22:20 Dose: 1 tab Clobazam (Onfi -) 10 mg GT QID [facility] Last Admin: 02/08/19 22:20 Dose: 10 mg Heparin Sodium (Porcine) (Heparin -) 5,000 unit SQ TID [facility] Last Admin: 02/09/19 05:37 Dose: 5,000 unit Latanoprost (Xalatan 0.005% Eye Drops -) 1 drop OU HS [facility] Last Admin: 02/08/19 22:18 Dose: 1 drop Levetiracetam (Keppra Oral Solution -) 1,500 mg PEG BID [facility] Last Admin: 02/08/19 22:20 Dose: 1,500 mg Phenobarbital (Phenobarbital Liquid -) 20 mg PEG AM [facility] Last Admin: 02/09/19 06:02 Dose: 20 mg Phenobarbital (Phenobarbital Liquid -) 100 mg PEG HS [facility] Last Admin: 02/08/19 22:20 Dose: 100 mg Potassium Chloride (Potassium Chloride Oral Liquid) 20 meq PEG DAILY [facility] Last Admin: 02/08/19 10:25 Dose: 20 meq Ranitidine HCl (Zantac Oral Solution -) 150 mg PEG BID [facility] Last Admin: 02/08/19 22:19 Dose: 150 mg Senna (Senna Oral Solution -) 17.6 mg PEG HS [facility] Last Admin: 02/08/19 22:19 Dose: 17.6 mg Sertraline HCl (Zoloft -) 150 mg PEG DAILY [facility] Last Admin: 02/08/19 10:26 Dose: 150 mg Simethicone (Mylicon Liquid -) 160 mg PEG TID [facility] Last Admin: 02/09/19 05:37 Dose: 160 mg Zonisamide (Zonisamide) 300 mg PEG BID [facility] Last Admin: 02/08/19 22:19 Dose: 300 mg Laboratory Results - last 24 hr 02/09/19 02/09/19 06:40 06:40 WBC 8.0 RBC 3.28 L Hgb 11.5 L Hct 33.7 L MCV 102.8 H MCH 35.0 H MCHC 34.0 RDW 13.7 Plt Count 253 MPV 7.3 L Sodium 139 Potassium 4.1 Chloride 101 Carbon Dioxide 35 H Anion Gap 3 L BUN 17.5 Creatinine 0.3 L Est GFR (CKD-EPI)AfAm 170.79 Est GFR (CKD-EPI)NonAf 147.36 Random Glucose 107 H Calcium 8.7 Microbiology 01/31/19 13:45 Blood - Peripheral Venous Blood Culture - Final NO GROWTH AFTER 5 DAYS INCUBATION 01/31/19 13:30 Blood - Peripheral Venous Blood Culture - Final NO GROWTH AFTER 5 DAYS INCUBATION 01/31/19 15:40 Urine - Urine Clean Catch Urine Culture - Final NO GROWTH OBTAINED 01/31/19 15:40 Urine - Urine - Catheterized Legionella Antigen - Final 01/31/19 15:40 Urine - Urine - Catheterized Streptococcus pneumoniae Antigen (M - Final ASSESSMENT AND PLAN: 58 year old man with a history of cerebral palsy, developmental delay, seizures , Brad-Gastaut syndrome, corpus callosotomy, chronic hypoxic respiratory failure, glaucoma, G-tube who presented to the ED from [facility] with dyspnea, tachycardia, and fever. -Acute on chronic hypoxic/hypercapneic respiratory failure, suspected LLL aspiration pneumonia -Sepsis -Suspected acute diastolic heart failure exacerbation, ?in the setting of volume resuscitation -Urinary retention -Hypokalemia -Seizures due to [place]-Gastaut syndrome, s/p corpus callosotomy -Cerebral Palsy -Developmental delay -Glaucoma Plan: Continues to improve CXR better. Continue tube feeds upto goal 65 ml/hr. Episode of unresponsiveness on 02/07 when woke up after aggressive suctioning of thick secretions. Chest PT, aspiration precautions, frequent suctioning. Needs oxygen on discharge. ID/pulmonary input noted. s/p 7 days of zosyn and steroids. D/rajeev. Replete K prn Continue onfi, phenobarbital, keppra, zonegran. Ativan prn. d/c linares, voiding trial. DVTPPX heparin Code: Patient with MOLST DNR/DNI Dispo plan for d/c back to [place] today if no concerns of urinary retention and doing well. Discussed with aide at bedside.
[2019-02-09] MEDS: RANITIDINE HCL 150 MG/10 ML UNIT-DOSE PEG SCH ×2 (10:01→22:21)
[2019-02-09] MEDS: POTASSIUM CHLORIDE ORAL LIQUID 20 MEQ/15 ML PEG SCH (10:01)
[2019-02-09] MEDS: ZONISAMIDE 100 MG/10 ML ORAL SUSPENSION PEG SCH ×2 (10:02→22:22)
[2019-02-09] MEDS: levETIRAcetam 500 MG/5 ML ORAL SOLUTION (UNIT-DOSE CUPS) PEG SCH ×2 (10:02→22:21)
[2019-02-09] MEDS: cloBAZam 10 MG TABLET GT SCH ×4 (10:05→22:20)
[2019-02-09] MEDS: CALCIUM 500MG/VIT-D 200 UNITS COMBO TABLET (FP) PEG SCH ×2 (10:05→22:20)
[2019-02-09] MEDS: SERTRALINE HCL 50 MG TABLET (FP) PEG SCH (10:05)
[2019-02-09] MEDS: ACETAMINOPHEN 325 MG TABLET (FP) PO PRN (10:06)
[2019-02-09] MEDS: ARTIFICIAL TEARS (POLYVINYL ALCOHOL) OPTH DROPS OU SCH ×4 (10:18→22:20)
--- NOTE | 2019-02-09 11:03 | CONSULT ---
- Consultation REQUESTING PROVIDER: CONSULT REQUEST: We have been asked to surgically evaluate this patient for sacral ulcer. PCP:Lola Nava MD HISTORY OF PRESENT ILLNESS: HISTORY OF PRESENT ILLNESS: This is a 58 year old man with a history of cerebral palsy,chronic hypoxic respiratory failure, glaucoma. He was sent to ER for evaluation of a fever. As per staff at the facility, he was noted to be dyspneic and tachycardic with a temp 100.7 today. Upon admission he was found to have a fever to 101 and be hypoxic PMHx: CP, respiratory failure, glaucoma PSHx: G TUBE Home Medications Medication Instructions Recorded Albuterol 2.5/Ipratropium 0.5 1 amp NEB TID 09/15/15 [Duoneb -] Bimatoprost [Lumigan] 1 drop OU HS 09/15/15 Calcium Carbonate/Vitamin D3 1 each PEG TID 09/15/15 [Calcium 600 + Vit D 400 Softgl] Levetiracetam [Keppra] 1,500 mg PEG Q12H 09/15/15 Lorazepam [Ativan] 2 mg IM PRN PRN 09/15/15 Phenobarbital 100 mg PEG HS 09/15/15 Potassium Chloride Oral Soln [KCl 20 meq PEG DAILY 09/15/15 Oral Solution -] Ranitidine HCl [Zantac] 150 mg PEG BID 09/15/15 Sertraline HCl [Zoloft] 150 mg PEG DAILY 09/15/15 Simethicone [Mytab Gas] 160 mg PEG TID 09/15/15 Zonisamide [Zonegran] 300 mg PEG BID 09/15/15 Diazepam Rectal Gel [Diastat 20 mg UT PRN PRN 12/29/15 Rectal Gel -] Olopatadine HCl [Pataday] 1 drop OU DAILY 12/29/15 Sennosides [Senna -] 2 tab PEG HS 12/29/15 Travoprost [Travatan Z] 2.5 ml OU HS 12/29/15 Cannabidiol (Cbd) Extract 4.5 ml GT BID 11/28/18 [Epidiolex] Clobazam [Onfi -] 10 mg GT QID 11/28/18 Collagenase Clostridium Hist. 1 applic TP DAILY 02/02/19 [Santyl] Lactobacil 2-S.thermo-Bifido 1 1 each PO BID 02/02/19 [Visbiome 112.5 Billion Capsule] Magnesium Hydroxide [Milk of 400 mg PO Q2D 02/02/19 Magnesia] Mupirocin Ointment [Bactroban 2% 1 applic TP 5XD PRN 02/02/19 Ointment -] [place]-3/Dha/Epa/Fish Oil [Fish Oil 1,600 mg PO DAILY 02/02/19 1,600 mg/5 ml Liquid] One Daily For Men 50+ Adv Tab 1 tablet DAILY 02/02/19 Polyethylene Glycol 3350 [Miralax 17 grams Q2D 02/02/19 119 gm Btl -] Allergies Allergy/AdvReac Type Severity Reaction Status Date / Time divalproex sodium Allergy Unknown Verified 09/19/16 20:12 [From Depakote] paroxetine HCl [From Paxil] Allergy Unknown Verified 09/19/16 20:12 valproic acid Allergy Verified 09/19/16 20:12 REVIEW OF SYSTEMS: Unable to obtain PHYSICAL EXAM: GENERAL: Awake, alert, and fully oriented, in no acute distress. BACK: upper-no skin breakdown Sacrum: 13cm by 13 cm eschar(soft) in the center overlying the sacrum. The peripheral edges are more of a stage 1 with local redness. No drainage noted. LOWER EXTREMITIES: b/l heel pads in place. Vital Signs Temperature 100.2 F H 02/09/19 10:25 Pulse Rate 86 02/09/19 10:25 Respiratory Rate 18 02/09/19 10:25 Blood Pressure 101/63 02/09/19 10:25 O2 Sat by Pulse Oximetry (%) 99 02/08/19 21:00 Lab Results WBC 8.0 K/mm3 (4.0-10.0) 02/09/19 06:40 RBC 3.28 M/mm3 (4.00-5.60) L 02/09/19 06:40 Hgb 11.5 GM/dL (11.7-16.9) L 02/09/19 06:40 Hct 33.7 % (35.4-49) L 02/09/19 06:40 MCV 102.8 fl (80-96) H 02/09/19 06:40 MCHC 34.0 g/dl (32.0-35.9) 02/09/19 06:40 RDW 13.7 % (11.9-15.9) 02/09/19 06:40 Plt Count 253 K/MM3 (134-434) 02/09/19 06:40 Sodium 139 mmol/L (136-145) 02/09/19 06:40 Potassium 4.1 mmol/L (3.5-5.1) 02/09/19 06:40 Chloride 101 mmol/L (98-107) 02/09/19 06:40 Carbon Dioxide 35 mmol/L (21-32) H 02/09/19 06:40 Anion Gap 3 MMOL/L (8-16) L 02/09/19 06:40 BUN 17.5 mg/dL (7-18) 02/09/19 06:40 Creatinine 0.3 mg/dL (0.55-1.3) L 02/09/19 06:40 Random Glucose 107 mg/dL (74-106) H 02/09/19 06:40 Calcium 8.7 mg/dL (8.5-10.1) 02/09/19 06:40 Microbiology 01/31/19 15:40 Urine - Urine Clean Catch Urine Culture - Final NO GROWTH OBTAINED 01/31/19 15:40 Urine - Urine - Catheterized Legionella Antigen - Final 01/31/19 15:40 Urine - Urine - Catheterized Streptococcus pneumoniae Antigen (M - Final 01/31/19 13:45 Blood - Peripheral Venous Blood Culture - Final NO GROWTH AFTER 5 DAYS INCUBATION 01/31/19 13:30 Blood - Peripheral Venous Blood Culture - Final NO GROWTH AFTER 5 DAYS INCUBATION INR 1.07 (0.83-1.09) 01/31/19 13:30 A/P: 58 yo male, bedbound and nonmobile. Unstageable ulcer. Area of soft eschar over sacral prominence with surrounding stage 1 tissue damage. D/w Dr. King and recommend santyl with optifoam dressing. Continue to off load any bony prominence areas. Heel pads and frequent turns.
--- NOTE | 2019-02-09 12:12 | PN ---
Progress Note, Physician - Current Medication List Current Medications: Active Medications Acetaminophen (Tylenol -) 650 mg PO Q6H PRN PRN Reason: Fever Or Pain Last Admin: 02/09/19 10:06 Dose: 650 mg Albuterol Sulfate (Ventolin 0.083% Nebulizer Soln -) 1 amp NEB Q4H PRN PRN Reason: SHORT OF BREATH/WHEEZING Last Admin: 02/01/19 10:44 Dose: 1 amp Artificial Tears (Artificial Tears) 2 drop OU QID [facility] Last Admin: 02/09/19 10:18 Dose: 2 drop Calcium Carbonate/Cholecalciferol (Os-Dylon 500+D -) 1 tab PEG BID [facility] Last Admin: 02/09/19 10:05 Dose: 1 tab Clobazam (Onfi -) 10 mg GT QID [facility] Last Admin: 02/09/19 10:05 Dose: 10 mg Collagenase (Santyl -) 1 applic TP DAILY [facility]; Protocol Heparin Sodium (Porcine) (Heparin -) 5,000 unit SQ TID [facility] Last Admin: 02/09/19 05:37 Dose: 5,000 unit Latanoprost (Xalatan 0.005% Eye Drops -) 1 drop OU HS [facility] Last Admin: 02/08/19 22:18 Dose: 1 drop Levetiracetam (Keppra Oral Solution -) 1,500 mg PEG BID [facility] Last Admin: 02/09/19 10:02 Dose: 1,500 mg Phenobarbital (Phenobarbital Liquid -) 20 mg PEG AM [facility] Last Admin: 02/09/19 06:02 Dose: 20 mg Phenobarbital (Phenobarbital Liquid -) 100 mg PEG HS [facility] Last Admin: 02/08/19 22:20 Dose: 100 mg Potassium Chloride (Potassium Chloride Oral Liquid) 20 meq PEG DAILY [facility] Last Admin: 02/09/19 10:01 Dose: 20 meq Ranitidine HCl (Zantac Oral Solution -) 150 mg PEG BID [facility] Last Admin: 02/09/19 10:01 Dose: 150 mg Senna (Senna Oral Solution -) 17.6 mg PEG HS [facility] Last Admin: 02/08/19 22:19 Dose: 17.6 mg Sertraline HCl (Zoloft -) 150 mg PEG DAILY [facility] Last Admin: 02/09/19 10:05 Dose: 150 mg Simethicone (Mylicon Liquid -) 160 mg PEG TID [facility] Last Admin: 02/09/19 05:37 Dose: 160 mg Zonisamide (Zonisamide) 300 mg PEG BID [facility] Last Admin: 02/09/19 10:02 Dose: 300 mg - Objective Vital Signs: Vital Signs Temperature 100.9 F H 02/09/19 11:44 Pulse Rate 86 02/09/19 10:25 Respiratory Rate 18 02/09/19 10:25 Blood Pressure 101/63 02/09/19 10:25 O2 Sat by Pulse Oximetry (%) 99 02/08/19 21:00 Labs: CBC, BMP 02/09/19 06:40 02/09/19 06:40 INR, PTT INR 1.07 (0.83-1.09) 01/31/19 13:30
--- NOTE | 2019-02-09 13:05 | PN ---
Progress Note (short form) - Note Progress Note: PULMONARY Pt nonverbal, lethargic. Vital Signs Period Temp Pulse Resp BP Sys/Guzmán Pulse Ox Last 24 Hr 98.1 F-100.9 F 72-86 18-18 99-114/53-71 94-99 Gen: lethargic Heart: RRR Lung: scattered rhonchi Abd: soft, nontender Ext: no edema CBC, BMP 02/09/19 06:40 02/09/19 06:40 Active Medications Acetaminophen (Tylenol -) 650 mg PO Q6H PRN PRN Reason: Fever Or Pain Last Admin: 02/09/19 10:06 Dose: 650 mg Albuterol Sulfate (Ventolin 0.083% Nebulizer Soln -) 1 amp NEB Q4H PRN PRN Reason: SHORT OF BREATH/WHEEZING Last Admin: 02/01/19 10:44 Dose: 1 amp Artificial Tears (Artificial Tears) 2 drop OU QID [facility] Last Admin: 02/09/19 10:18 Dose: 2 drop Calcium Carbonate/Cholecalciferol (Os-Dylon 500+D -) 1 tab PEG BID [facility] Last Admin: 02/09/19 10:05 Dose: 1 tab Clobazam (Onfi -) 10 mg GT QID [facility] Last Admin: 02/09/19 10:05 Dose: 10 mg Collagenase (Santyl -) 1 applic TP DAILY [facility]; Protocol Heparin Sodium (Porcine) (Heparin -) 5,000 unit SQ TID [facility] Last Admin: 02/09/19 05:37 Dose: 5,000 unit Latanoprost (Xalatan 0.005% Eye Drops -) 1 drop OU HS [facility] Last Admin: 02/08/19 22:18 Dose: 1 drop Levetiracetam (Keppra Oral Solution -) 1,500 mg PEG BID [facility] Last Admin: 02/09/19 10:02 Dose: 1,500 mg Phenobarbital (Phenobarbital Liquid -) 20 mg PEG AM [facility] Last Admin: 02/09/19 06:02 Dose: 20 mg Phenobarbital (Phenobarbital Liquid -) 100 mg PEG HS [facility] Last Admin: 02/08/19 22:20 Dose: 100 mg Potassium Chloride (Potassium Chloride Oral Liquid) 20 meq PEG DAILY [facility] Last Admin: 02/09/19 10:01 Dose: 20 meq Ranitidine HCl (Zantac Oral Solution -) 150 mg PEG BID [facility] Last Admin: 02/09/19 10:01 Dose: 150 mg Senna (Senna Oral Solution -) 17.6 mg PEG HS [facility] Last Admin: 02/08/19 22:19 Dose: 17.6 mg Sertraline HCl (Zoloft -) 150 mg PEG DAILY [facility] Last Admin: 02/09/19 10:05 Dose: 150 mg Simethicone (Mylicon Liquid -) 160 mg PEG TID [facility] Last Admin: 02/09/19 05:37 Dose: 160 mg Zonisamide (Zonisamide) 300 mg PEG BID [facility] Last Admin: 02/09/19 10:02 Dose: 300 mg A/P Acute Hypoxic Respiratory Failure improving Pneumonia suspect Aspiration Sepsis Cerebral Palsy Mental Retardation Seizure Disorder - completed antibiotics - O2 to keep SpO2 >90% - inhaled bronchodilators - completed steroid course - aspiration precautions - DVT prophylaxis Problem List - Problems (1) Pneumonia Code(s): J18.9 - PNEUMONIA, UNSPECIFIED ORGANISM Qualifiers: Pneumonia type: aspiration pneumonia Aspiration pneumonia type: unspecified Laterality: left Lung location: upper lobe of lung Qualified Code(s): J69.0 - Pneumonitis due to inhalation of food and vomit
--- NOTE | 2019-02-09 13:58 | PN ---
Physical Exam: SUBJECTIVE: Patient seen and examined at bedside. Mild fever. Nonverbal. Comfortable appearing OBJECTIVE: Vital Signs Period Temp Pulse Resp BP Sys/Gumzán Pulse Ox Last 24 Hr 98.1 F-100.9 F 72-86 18-18 99-114/53-71 94-99 Gen: breathing comfortably. Tracks movement with eyes and head. Looks better HEENT: NCAT, Moist membranes. R facial rash Neck: supple, central trachea Cardio: tachycardic, normal s1s2, no mrg Pulm: ronchi present diffusely. Improving Abd: soft, nondistended Ext: no edema Laboratory Results - last 24 hr 02/09/19 02/09/19 06:40 06:40 WBC 8.0 RBC 3.28 L Hgb 11.5 L Hct 33.7 L MCV 102.8 H MCH 35.0 H MCHC 34.0 RDW 13.7 Plt Count 253 MPV 7.3 L Sodium 139 Potassium 4.1 Chloride 101 Carbon Dioxide 35 H Anion Gap 3 L BUN 17.5 Creatinine 0.3 L Est GFR (CKD-EPI)AfAm 170.79 Est GFR (CKD-EPI)NonAf 147.36 Random Glucose 107 H Calcium 8.7 Active Medications Generic Name Dose Route Start Last Admin Trade Name Freq PRN Reason Stop Dose Admin Acetaminophen 650 mg 02/02/19 03:10 02/09/19 10:06 Tylenol - PO 650 mg Q6H PRN Administration Fever Or Pain Albuterol Sulfate 1 amp 01/31/19 16:14 02/01/19 10:44 Ventolin 0.083% Nebulizer Soln - NEB 1 amp Q4H PRN Administration SHORT OF BREATH/WHEEZING Artificial Tears 2 drop 01/31/19 18:00 02/09/19 13:37 Artificial Tears OU 2 drop QID [facility] Administration Calcium Carbonate/Cholecalciferol 1 tab 01/31/19 22:00 02/09/19 10:05 Os-Dylon 500+D - PEG 1 tab BID [facility] Administration Clobazam 10 mg 01/31/19 18:00 02/09/19 13:09 Onfi - GT 10 mg QID [facility] Administration Collagenase 1 applic 02/10/19 10:00 Santyl - TP DAILY [facility] Protocol Heparin Sodium (Porcine) 5,000 unit 01/31/19 22:00 09/03/19 13:10 Heparin - SQ 5,000 unit TID [facility] Administration Latanoprost 1 drop 01/31/19 22:00 02/08/19 22:18 Xalatan 0.005% Eye Drops - OU 1 drop HS [facility] Administration Levetiracetam 1,500 mg 01/31/19 22:00 02/09/19 10:02 Keppra Oral Solution - PEG 1,500 mg BID [facility] Administration Phenobarbital 20 mg 02/01/19 07:00 02/09/19 06:02 Phenobarbital Liquid - PEG 20 mg AM [facility] Administration Phenobarbital 100 mg 01/31/19 22:00 02/08/19 22:20 Phenobarbital Liquid - PEG 100 mg HS [facility] Administration Potassium Chloride 20 meq 02/01/19 10:00 02/09/19 10:01 Potassium Chloride Oral Liquid PEG 20 meq DAILY [facility] Administration Ranitidine HCl 150 mg 01/31/19 22:00 02/09/19 10:01 Zantac Oral Solution - PEG 150 mg BID [facility] Administration Senna 17.6 mg 01/31/19 22:00 02/08/19 22:19 Senna Oral Solution - PEG 17.6 mg HS [facility] Administration Sertraline HCl 150 mg 02/01/19 10:00 02/09/19 10:05 Zoloft - PEG 150 mg DAILY [facility] Administration Simethicone 160 mg 01/31/19 22:00 02/09/19 13:11 Mylicon Liquid - PEG 160 mg TID [facility] Administration Zonisamide 300 mg 01/31/19 22:00 02/09/19 10:02 Zonisamide PEG 300 mg BID [facility] Administration ASSESSMENT/PLAN: This is a 58 year old man with a history of cerebral palsy, developmental delay , seizures, [place]-Gastaut syndrome, corpus callosotomy, chronic hypoxic respiratory failure, glaucoma, G-tube who presented to the ED from [facility] with dyspnea, tachycardia, and fever. 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 I reviewed the resident's note and discussed the case with the resident. I agree with the resident's findings and plan as documented. SUBJECTIVE: OBJECTIVE: ASSESSMENT AND PLAN:
[2019-02-09] MEDS: ALBUTEROL SO4 0.083% IH SOL 2.5 MG/3 ML VIAL.NEB. NEB PRN (22:00)
[2019-02-09] MEDS: LATANOPROST 0.005% OPHTH SOLN 2.5ML BOTTLE OU SCH (22:20)
[2019-02-09] MEDS: SENNOSIDES 8.8 MG/5 ML BULK BOTTLE PEG SCH (22:21)
[2019-02-10] MEDS ORDERED: PT OWN MED DRAWER 7, Y5N ONE ×2 (05:24→09:44)
[2019-02-10] MEDS: SIMETHICONE 40 MG/0.6 ML BOTTLE PEG SCH ×2 (05:35→13:11)
[2019-02-10] MEDS: HEPARIN NA (PORCINE) 5,000 UNITS/ML 1ML VIAL SQ SCH ×2 (05:35→13:12)
[2019-02-10] MEDS: PHENobarbital 20 MG/5 ML UNIT-DOSE CUP PEG SCH (06:04)
[2019-02-10 07:50] LABS: BLOOD UREA NITROGEN 20.2 mg/dL (7-18); CALCIUM 8.7 mg/dL (8.5-10.1); CREATININE 0.4 mg/dL (0.55-1.3); POTASSIUM 4.1 mmol/L (3.5-5.1)
[2019-02-10 08:09] LABS: HEMATOCRIT 34.4 % (35.4-49); HEMOGLOBIN 11.6 GM/dL (11.7-16.9); MCHC 33.9 g/dl (32.0-35.9); MEAN CELL VOLUME 103.4 fl (80-96); MEAN PLT VOLUME 7.3 fl (7.5-11.1); PLATELET COUNT 271 K/MM3 (134-434); RBC 3.32 M/mm3 (4.00-5.60); RDW 14.3 % (11.9-15.9); WHITE BLOOD COUNT 8.5 K/mm3 (4.0-10.0)
--- NOTE | 2019-02-10 08:48 | PN ---
Teaching Attending Note Name of Resident: Elier Wilkins ATTENDING PHYSICIAN STATEMENT I saw and evaluated the patient. I reviewed the resident's note and discussed the case with the resident. I agree with the resident's findings and plan as documented. Seen and examined; pt provides limited history. Please refer to resident note for further hsitorical details. Did have +bladder scan yesterday after voiding trial so will require linares for urinary obstruction-discussing with urology prior to DC. Off abx per ID and doing well; afebrile overnight with no signs of clinical instability. Pulmonary continues to follow; he will require O2 via NC at discharge. Is at high risk for readmission/chronic decompensation due to likely continued microaspiration due to chronic dysphagia and s/p PEG tube resulting from chronic medical issues. No further issues with PEG tube; seen by GI and Dr. Casanova's note reviewed. No GI s/s evident. Will discuss discharge with [facility] ([phone]) VS, labs, imaging reviewed NAD, awake and alert, tracks and is interactive but does not verbalize specific words at this time Lungs with light scattered crackles but limited by effort, w/ sym exp NT ND +BS; PEG in place No fnd, moves all 4 extremities with intact sensorium. No apparent agitation Sacral decub noted; appears congrent with prior descriptors in chart. Appreciate wound care assistance. ASSESSMENT AND PLAN: Patient presents from [facility] with multiple medical problems. Treated this hospitalization include: -Acute on Chronic respiratory failure, improved (patient likely has chronic component hypoxia 2/2 microaspirations which limits use of NIMV, especially with his baseline issues with mentation. BMP after improvement reveals bicarb trending at 35; blood gas reviewed with some hypercarbia with compensation. Overall, we will continue aspiration precautions and take care with feeds. Consider ongoing need for chest PT. Pulmonary toileting. Followup with pulmonary. Completed course abx (zosyn) and steroids. DC on O2; may use ATC. Needs continually reassessed. At high risk for repeat aspiration and readmission). -Urinary Retention (discussign with urology; failed voiding trial so discharging with linares. -Pneumonia (suspect Aspiration) with resolved sepsis (completed abx, steroids. Followup with pulmonary. At high risk for continued aspiration given underlying medical issues -Cerebral Palsy (Noted, at baseline. Confirmed DNR/I status with facility) -Mental Retardation (per above) -Seizure Disorder 2/2 [place] (Was kept on seizure precations throughout hosptialization with no seizures noted and no changes to medication over hospitalization. Continue onfi, phenobarbital, keppra, zonegran, ativan PRN. S /p corpus callosotomy.) -Glaucoma (No issues; continued home meds: Travatan Z, Lumigan) -S/P PEG Tube (Functioning; please refer to Dr. Casanova's note. Followup with GI as needed -Transaminitis (trended down, did have US; results noted. Dr. Casanova saw inpatient. Monitor for abdominal (especially obstructive hepatobiliary) symptomatology and 2-3 days followup CMP with results being sent to PCP and GI. -Impaired LV relaxation (noted on echo, care to be taken with fluids in future admits) -Mild MR/TR (noted incidentally on echo, likely not hemodynamically significant. Noted and will monitor.) DNR/I Dispo: To [facility] pending acceptance FU: -Primary care 3-5 days -Pulmonary 1-2 weeks -ID 2 weeks -GI 2 weeks -Urology with Dr. Black for urinary retention; discussed with his service prior to DC
--- NOTE | 2019-02-10 09:36 | PN ---
Progress Note, Physician History of Present Illness: patient in pain remaining afebrile non verbal - Current Medication List Current Medications: Active Medications Acetaminophen (Tylenol -) 650 mg PO Q6H PRN PRN Reason: Fever Or Pain Last Admin: 02/09/19 10:06 Dose: 650 mg Albuterol Sulfate (Ventolin 0.083% Nebulizer Soln -) 1 amp NEB Q4H PRN PRN Reason: SHORT OF BREATH/WHEEZING Last Admin: 02/09/19 22:00 Dose: 1 amp Artificial Tears (Artificial Tears) 2 drop OU QID [facility] Last Admin: 02/09/19 22:20 Dose: 2 drop Calcium Carbonate/Cholecalciferol (Os-Dylon 500+D -) 1 tab PEG BID [facility] Last Admin: 02/09/19 22:20 Dose: 1 tab Clobazam (Onfi -) 10 mg GT QID [facility] Last Admin: 02/09/19 22:20 Dose: 10 mg Collagenase (Santyl -) 1 applic TP DAILY [facility]; Protocol Heparin Sodium (Porcine) (Heparin -) 5,000 unit SQ TID [facility] Last Admin: 02/10/19 05:35 Dose: 5,000 unit Latanoprost (Xalatan 0.005% Eye Drops -) 1 drop OU HS [facility] Last Admin: 02/09/19 22:20 Dose: 1 drop Levetiracetam (Keppra Oral Solution -) 1,500 mg PEG BID [facility] Last Admin: 02/09/19 22:21 Dose: 1,500 mg Phenobarbital (Phenobarbital Liquid -) 20 mg PEG AM [facility] Last Admin: 02/10/19 06:04 Dose: 20 mg Phenobarbital (Phenobarbital Liquid -) 100 mg PEG HS [facility] Last Admin: 02/09/19 22:21 Dose: 100 mg Potassium Chloride (Potassium Chloride Oral Liquid) 20 meq PEG DAILY [facility] Last Admin: 02/09/19 10:01 Dose: 20 meq Ranitidine HCl (Zantac Oral Solution -) 150 mg PEG BID [facility] Last Admin: 02/09/19 22:21 Dose: 150 mg Senna (Senna Oral Solution -) 17.6 mg PEG HS [facility] Last Admin: 02/09/19 22:21 Dose: 17.6 mg Sertraline HCl (Zoloft -) 150 mg PEG DAILY [facility] Last Admin: 02/09/19 10:05 Dose: 150 mg Simethicone (Mylicon Liquid -) 160 mg PEG TID [facility] Last Admin: 02/10/19 05:35 Dose: 160 mg Zonisamide (Zonisamide) 300 mg PEG BID [facility] Last Admin: 02/09/19 22:22 Dose: 300 mg - Objective Vital Signs: Vital Signs Temperature 98.2 F 02/10/19 05:51 Pulse Rate 79 02/10/19 05:51 Respiratory Rate 18 02/10/19 05:51 Blood Pressure 108/49 L 02/10/19 05:51 O2 Sat by Pulse Oximetry (%) 99 02/09/19 20:43 Constitutional: Yes: Calm, Mild Distress Cardiovascular: Yes: S1, S2 Respiratory: Yes: Regular Gastrointestinal: Yes: Normal Bowel Sounds, Soft Musculoskeletal: Yes: WNL Extremities: Yes: WNL Labs: CBC, BMP 02/10/19 06:40 02/10/19 06:40 INR, PTT INR 1.07 (0.83-1.09) 01/31/19 13:30 Assessment/Plan Problem List - Problems (1) Pneumonia Code(s): J18.9 - PNEUMONIA, UNSPECIFIED ORGANISM Qualifiers: Pneumonia type: aspiration pneumonia Aspiration pneumonia type: unspecified Laterality: left Lung location: upper lobe of lung Qualified Code(s): J69.0 - Pneumonitis due to inhalation of food and vomit Assessment/Plan Acute Hypoxic Respiratory Failure Pneumonia suspect Aspiration Sepsis Cerebral Palsy Mental Retardation Seizure Disorder plan continue current mgmt 'resp support asp precautions rest as per the team
[2019-02-10] MEDS: CALCIUM 500MG/VIT-D 200 UNITS COMBO TABLET (FP) PEG SCH (09:59)
[2019-02-10] MEDS: SERTRALINE HCL 50 MG TABLET (FP) PEG SCH (09:59)
[2019-02-10] MEDS: POTASSIUM CHLORIDE ORAL LIQUID 20 MEQ/15 ML PEG SCH (10:00)
[2019-02-10] MEDS ORDERED: COLLAGENASE CLOSTRIDIUM HIST. 30 GRAMS TUBE TP SCH (10:00)
[2019-02-10] MEDS: cloBAZam 10 MG TABLET GT SCH ×3 (10:01→17:02)
[2019-02-10] MEDS: levETIRAcetam 500 MG/5 ML ORAL SOLUTION (UNIT-DOSE CUPS) PEG SCH (10:02)
[2019-02-10] MEDS: RANITIDINE HCL 150 MG/10 ML UNIT-DOSE PEG SCH (10:02)
[2019-02-10] MEDS: ZONISAMIDE 100 MG/10 ML ORAL SUSPENSION PEG SCH (10:03)
[2019-02-10] MEDS: ARTIFICIAL TEARS (POLYVINYL ALCOHOL) OPTH DROPS OU SCH ×3 (10:11→17:02)
[2019-02-10 10:26] VITALS: TEMP 99.5
--- NOTE | 2019-02-10 12:35 | PN ---
Progress Note, Physician History of Present Illness: pulmonary alert,non-verbal,-resp distress - Current Medication List Current Medications: Active Medications Acetaminophen (Tylenol -) 650 mg PO Q6H PRN PRN Reason: Fever Or Pain Last Admin: 02/09/19 10:06 Dose: 650 mg Albuterol Sulfate (Ventolin 0.083% Nebulizer Soln -) 1 amp NEB Q4H PRN PRN Reason: SHORT OF BREATH/WHEEZING Last Admin: 02/09/19 22:00 Dose: 1 amp Artificial Tears (Artificial Tears) 2 drop OU QID [facility] Last Admin: 02/10/19 10:11 Dose: 2 drop Calcium Carbonate/Cholecalciferol (Os-Dylon 500+D -) 1 tab PEG BID [facility] Last Admin: 02/10/19 09:59 Dose: 1 tab Clobazam (Onfi -) 10 mg GT QID [facility] Last Admin: 02/10/19 10:01 Dose: 10 mg Collagenase (Santyl -) 1 applic TP DAILY [facility]; Protocol Last Admin: 02/10/19 11:14 Dose: 1 applic Heparin Sodium (Porcine) (Heparin -) 5,000 unit SQ TID [facility] Last Admin: 02/10/19 05:35 Dose: 5,000 unit Latanoprost (Xalatan 0.005% Eye Drops -) 1 drop OU HS [facility] Last Admin: 02/09/19 22:20 Dose: 1 drop Levetiracetam (Keppra Oral Solution -) 1,500 mg PEG BID [facility] Last Admin: 02/10/19 10:02 Dose: 1,500 mg Phenobarbital (Phenobarbital Liquid -) 20 mg PEG AM [facility] Last Admin: 02/10/19 06:04 Dose: 20 mg Phenobarbital (Phenobarbital Liquid -) 100 mg PEG HS [facility] Last Admin: 02/09/19 22:21 Dose: 100 mg Potassium Chloride (Potassium Chloride Oral Liquid) 20 meq PEG DAILY [facility] Last Admin: 02/10/19 10:00 Dose: 20 meq Ranitidine HCl (Zantac Oral Solution -) 150 mg PEG BID [facility] Last Admin: 02/10/19 10:02 Dose: 150 mg Senna (Senna Oral Solution -) 17.6 mg PEG HS [facility] Last Admin: 02/09/19 22:21 Dose: 17.6 mg Sertraline HCl (Zoloft -) 150 mg PEG DAILY [facility] Last Admin: 02/10/19 09:59 Dose: 150 mg Simethicone (Mylicon Liquid -) 160 mg PEG TID [facility] Last Admin: 02/10/19 05:35 Dose: 160 mg Zonisamide (Zonisamide) 300 mg PEG BID [facility] Last Admin: 02/10/19 10:03 Dose: 300 mg - Objective Vital Signs: Vital Signs Temperature 99.5 F 02/10/19 10:00 Pulse Rate 79 02/10/19 10:00 Respiratory Rate 18 02/10/19 10:00 Blood Pressure 102/66 02/10/19 10:00 O2 Sat by Pulse Oximetry (%) 98 02/10/19 09:00 Constitutional: Yes: Well Nourished, Calm Eyes: Yes: WNL HENT: Yes: WNL Neck: Yes: WNL Cardiovascular: Yes: Regular Rate and Rhythm, S1, S2 Respiratory: Yes: Rhonchi (scattered rhonnchi) Gastrointestinal: Yes: Normal Bowel Sounds, Soft Extremities: Yes: WNL Edema: No Labs: CBC, BMP 02/10/19 06:40 02/10/19 06:40 INR, PTT INR 1.07 (0.83-1.09) 01/31/19 13:30 Problem List - Problems (1) Acute hypoxemic respiratory failure Code(s): J96.01 - ACUTE RESPIRATORY FAILURE WITH HYPOXIA (2) Aspiration pneumonia Code(s): J69.0 - PNEUMONITIS DUE TO INHALATION OF FOOD AND VOMIT (3) Sepsis Code(s): A41.9 - SEPSIS, UNSPECIFIED ORGANISM (4) Pneumonia Code(s): J18.9 - PNEUMONIA, UNSPECIFIED ORGANISM Qualifiers: Pneumonia type: aspiration pneumonia Aspiration pneumonia type: unspecified Laterality: left Lung location: upper lobe of lung Qualified Code(s): J69.0 - Pneumonitis due to inhalation of food and vomit (5) Seizure disorder Code(s): G40.909 - EPILEPSY, UNSP, NOT INTRACTABLE, WITHOUT STATUS EPILEPTICUS (6) Fever Code(s): R50.9 - FEVER, UNSPECIFIED Assessment/Plan Problem List - Problems (1) Pneumonia Code(s): J18.9 - PNEUMONIA, UNSPECIFIED ORGANISM Qualifiers: Pneumonia type: aspiration pneumonia Aspiration pneumonia type: unspecified Laterality: left Lung location: upper lobe of lung Qualified Code(s): J69.0 - Pneumonitis due to inhalation of food and vomit Assessment/Plan Acute Hypoxic Respiratory Failure improving Pneumonia suspect Aspiration improved Sepsis Cerebral Palsy Mental Retardation Seizure Disorder - antibiotics completed - O2 to keep SpO2 >90% - inhaled bronchodilators - aspiration precautions - DVT prophylaxis - f/u chest x-rays DR BERG
[2019-02-10 13:51] VITALS: BP 122/73; PULSE 87
[2019-02-10] MEDS: ACETAMINOPHEN 325 MG TABLET (FP) PO PRN (14:48)
--- NOTE | 2019-02-10 18:59 | DS ---
Physical Exam: SUBJECTIVE: Patient seen and examined at bedside. Nonverbal. Comfortable appearing Improved OBJECTIVE: Vital Signs Period Temp Pulse Resp BP Sys/Guzmán Pulse Ox Last 24 Hr 98.2 F-99.5 F 58-87 14-18 102-122/49-73 98-99 PHYSICAL EXAM Gen: breathing comfortably. Tracks movement with eyes and head. Looks better HEENT: NCAT, Moist membranes. R facial rash Neck: supple, central trachea Cardio: tachycardic, normal s1s2, no mrg Pulm: ronchi present diffusely. Improving Abd: soft, nondistended Ext: no edema LABS Laboratory Results - last 24 hr 02/10/19 02/10/19 06:40 06:40 WBC 8.5 RBC 3.32 L Hgb 11.6 L Hct 34.4 L MCV 103.4 H MCH 35.0 H MCHC 33.9 RDW 14.3 Plt Count 271 MPV 7.3 L Sodium 141 Potassium 4.1 Chloride 102 Carbon Dioxide 35 H Anion Gap 4 L BUN 20.2 H Creatinine 0.4 L Est GFR (CKD-EPI)AfAm 151.74 Est GFR (CKD-EPI)NonAf 130.93 Random Glucose 102 Calcium 8.7 HOSPITAL COURSE: Date of Admission:01/31/19 Date of Discharge: 02/10/19 This is a 58 y/o M from [facility] who presented to ED with increased work of breathing. He was found to have acute on chronic hypoxic hypercapnic respiratory failure. He was treated with oxygen and antibiotics, as well as steroids and nebs. He requires oxygen therapy. He wsa found to be retaining urine necessitating linares placement. He will be seen by urology as an out patient. His seizure disorder, cerebral palsy, developmental delay, glaucoma, and g-tube feeding were stable and treated with home medications. Minutes to complete discharge: 30 Discharge Summary Reason For Visit: SEPSIS ASPIRATION PNEUMONIA Condition: Stable - Instructions Diet, Activity, Other Instructions: You were in the hosptial for difficulty breathing. You need to follow up with the following doctors: Pulmonology, Dr. Burch Infectious Diseases, Dr. Yates Wound Care, Dr. King You will be discharged with home oxygen because your Oxygen saturation dropped while you were in the hospital. Continue taking your other medications as before You are being discharged with a linares catheter. You were unable to urinate on your own, and you will need to follow up with the urologist. You will need to follow up with Dr. Black. Referrals: Francheska Yates MD [Staff Physician] - Pelon Burch MD [Staff Physician] - Benito Black MD [Staff Physician] - Remi King DO [Staff Physician] - Disposition: [facility] FACILITY - Home Medications Comprehensive Discharge Medication List: Ambulatory Orders Albuterol 2.5/Ipratropium 0.5 [Duoneb -] 1 amp NEB TID 09/15/15 Bimatoprost [Lumigan] 1 drop OU HS 09/15/15 Calcium Carbonate/Vitamin D3 [Calcium 600 + Vit D 400 Softgl] 1 each PEG TID 01/22 Levetiracetam [Keppra] 1,500 mg PEG Q12H 09/15/15 Lorazepam [Ativan] 2 mg IM PRN PRN 09/15/15 Phenobarbital 100 mg PEG HS 09/15/15 Potassium Chloride Oral Soln [KCl Oral Solution -] 20 meq PEG DAILY 09/15/15 Ranitidine HCl [Zantac] 150 mg PEG BID 09/15/15 Sertraline HCl [Zoloft] 150 mg PEG DAILY 09/15/15 Simethicone [Mytab Gas] 160 mg PEG TID 09/15/15 Zonisamide [Zonegran] 300 mg PEG BID 09/15/15 Diazepam Rectal Gel [Diastat Rectal Gel -] 20 mg MO PRN PRN 12/29/15 Olopatadine HCl [Pataday] 1 drop OU DAILY 12/29/15 Sennosides [Senna -] 2 tab PEG HS 12/29/15 Travoprost [Travatan Z] 2.5 ml OU HS 12/29/15 Cannabidiol (Cbd) Extract [Epidiolex] 4.5 ml GT BID 11/28/18 Clobazam [Onfi -] 10 mg GT QID 11/28/18 Collagenase Clostridium Hist. [Santyl] 1 applic TP DAILY 02/02/19 Lactobacil 2-S.thermo-Bifido 1 [Visbiome 112.5 Billion Capsule] 1 each PO BID Magnesium Hydroxide [Milk of Magnesia] 400 mg PO Q2D 02/02/19 Mupirocin Ointment [Bactroban 2% Ointment -] 1 applic TP 5XD PRN 02/02/19 [place]dorf-3/Dha/Epa/Fish Oil [Fish Oil 1,600 mg/5 ml Liquid] 1,600 mg PO DAILY 02/02 One Daily For Men 50+ Adv Tab 1 tablet DAILY 02/02/19 Polyethylene Glycol 3350 [Miralax 119 gm Btl -] 17 grams Q2D 02/02/19 This patient is new to me today: No Emergency Visit: No Critical Care patient: No - Discharge Referral Referred to [facility] Med P.C.: No ATTENDING PHYSICIAN STATEMENT I saw and evaluated the patient. I reviewed the resident's note and discussed the case with the resident. I agree with the resident's findings and plan as documented. SUBJECTIVE: OBJECTIVE: ASSESSMENT AND PLAN:
== END 2019-02-10 18:07 | disposition home or self-care (01) | DRG 871 ==
LOC: JER 12:40 → JERBED 15:45 → J4S 02-01 18:45
PROVIDERS: ADMIT Internal Medicine; ATTEND Internal Medicine
DX: A41.9 Sepsis, unspecified organism (principal); J69.0 Pneumonitis due to inhalation of food and vomit; J96.21 Acute and chronic respiratory failure with hypoxia; J96.22 Acute and chronic respiratory failure with hypercapnia; G40.813 Lennox-Gastaut syndrome, intractable, with status epilepticus; G80.9 Cerebral palsy, unspecified; F79 Unspecified intellectual disabilities; E87.6 Hypokalemia; R33.9 Retention of urine, unspecified; G40.909 Epilepsy, unspecified, not intractable, without status epilepticus; H40.9 Unspecified glaucoma
CPT/HCPCS: 36415; 36600; 71045-TC-FY; 80048; 80053; 81003; 82375; 82803; 82962; 83050; 83605; 83735; 84100; 84484; 85025; 85027; 85610; 85730; 87040; 87086; 87899; 93005; 93010; 93306-TC; 94640; 94761; 99285-25; J0131; J1644; J7030